=== PATIENT | male | born 1945 | race Caucasian/White ===

== ENCOUNTER → 2018-01-01 08:50 | Outpatient (CLI) | payer MEDICARE, OTHER, SELFPAY ==
[2018-01-01 10:15] LABS: Add Manual Diff / Slide Review NO; Basophils Percent Auto 0.7 % (0-2); Eosinophils Percent Auto 3.9 % (2-4); Hematocrit 42.8 % (41-53); Hemoglobin 14.3 g/dL (13.5-17.5); Mean Corpuscular HGB Conc 33.4 % (30-36); Mean Corpuscular Hemoglobin 30.7 PG (26-34); Mean Corpuscular Volume 91.8 fL (80-100); Neutrophils Absolute Auto 3000 /uL (3000-5900); Neutrophils Percent Auto 65.4 % (50-75); Platelet Count 173 X10^3/uL (150-400); Red Blood Cell Count 4.66 X10^6/uL (4.5-5.9); Red Cell Distribution Width 13.6 % (11.6-14.8); White Blood Cell Count 4.5 X10^3/uL (4.5-11.0)
[2018-01-01 10:38] LABS: Alanine Aminotransferase 10 IU/L (21-72); Albumin 4.3 g/dL (3.5-5.0); Albumin Globulin Ratio 1.4 (1.0-2.8); Alkaline Phosphatase 41 U/L (38-126); Aspartate Aminotransferase 22 IU/L (17-59); BUN Creatinine Ratio 13.3 (6-22); Bilirubin Total 0.9 mg/dL (0.2-1.3); Blood Urea Nitrogen 16 mg/dL (9-20); Carbon Dioxide 28 mmol/L (22-32); Chloride 103 mmol/L (98-107); Cholesterol 125 mg/dL (140-199); Estimated Glomerular Filt Rate 59.2 mL/min (>60); Glucose 91 mg/dL (80-110); HDL Cholesterol 50 mg/dL (40-60); HEMOLYSIS < 15 (0-50); LDL Cholesterol Calculated 64 mg/dL (<100); Sodium 144 mmol/L (137-145); Total Protein 7.3 g/dL (6.3-8.2); Triglycerides 57 mg/dL (35-150); Uric Acid 6.8 mg/dL (3.5-8.5)
[2018-01-01 10:57] LABS: Hemoglobin A1C% w Est Avg Glu 5.6 % (4.0-6.0)
[2018-01-01 11:03] LABS: TSH w/ Reflex to FT4 2.86 uIU/mL (0.47-4.68)
[2018-01-01 16:55] LABS: High Sensitivity CRP - Cardiac 0.9 mg/L (1.0-3.0)
[2018-01-01 17:07] LABS: HEMOLYSIS < 15 (0-50); Iron 85 ug/dL (49-181)
[2018-01-01 17:16] LABS: Vitamin D 25 Hydroxy (D3) 54.5 ng/mL (30.0-100.0)
[2018-01-01 17:18] LABS: Percent Iron Saturation 34 % (20-50); Total Iron Binding Capacity 252 ug/dL (261-462); Transferrin 200 mg/dL (206-381)
[2018-01-01 17:42] LABS: Vitamin B12 252 pg/mL (239-931)
== END ==
PROVIDERS: PCP Family Medicine; Visit Provider Family Medicine
DX: E78.5 Hyperlipidemia, unspecified (principal); R53.83 Other fatigue; I25.10 Atherosclerotic heart disease of native coronary artery without angina pectoris; M10.9 Gout, unspecified; Z13.29 Encounter for screening for other suspected endocrine disorder; E74.39 Other disorders of intestinal carbohydrate absorption; E55.9 Vitamin D deficiency, unspecified; D64.9 Anemia, unspecified; R20.0 Anesthesia of skin
CPT/HCPCS: 36415; 80053; 80061; 82306; 82607; 83036; 83540; 83550; 84443; 84550; 85025; 86140

== ENCOUNTER → 2018-01-02 11:42 | Outpatient (CLI) | payer MEDICARE, OTHER, SELFPAY ==
[2018-01-04 17:13] LABS: Dehydroepiandrosterone Sulfate 67 mcg/dL (5-253)
[2018-01-05 16:23] LABS: Homocysteine 19.9 umol/L (< 11.4)
[2018-01-05 19:54] LABS: Methylmalonic Acid 268 nmol/L (87-318)
== END ==
PROVIDERS: PCP Family Medicine; Visit Provider Family Medicine
DX: I10 Essential (primary) hypertension (principal)
CPT/HCPCS: 36415; 82627; 83090; 83921

== ENCOUNTER → 2019-11-09 15:10 | Outpatient (CLI) | payer MEDICARE, OTHER, SELFPAY ==
[2019-11-10 10:56] LABS: COVID19 Sendout Not Detected (Not Detect)
== END ==
PROVIDERS: Family Provider Family Medicine; PCP Family Medicine; Visit Provider Nurse Practitioner
DX: Z11.59 Encounter for screening for other viral diseases (principal)
CPT/HCPCS: 87635

== ENCOUNTER 2019-11-27 14:15 | Outpatient (RCR) | payer MEDICARE, OTHER, SELFPAY ==
--- NOTE | 2019-10-31 15:57 | PT.OIE ---
Current Diagnoses Parkinson's disease (10/31/19) Visit Care Team Role Provider Type Suman Clifton MD Family Provider Non-Staff Primary Care Provider Specialty: Medical Address: [address] [place] [address] [address], [place], [address] Email: Leidy Hayes MD Attending Provider Non-Staff Referring Provider Specialty: Medical Address: [address] [place] [address] [address], [place], [address] Fax: Email: Physical Therapy Initial Evaluation PT-OP-A Visit Information Start: 10/31/19 07:24 Freq: Status: Active Protocol: Document 10/31/19 14:11 MB (Rec: 10/31/19 14:30 MB [id number]) Out-Patient Physical Therapy Visit Information Visit Information Visit Type Initial Evaluation Visit Note Pt arrives for BIG evaluation Visit Start Time 14:11 Visit Stop Time 15:11 Total Visit Minutes 60 Visit Number 1 Evaluation Information Evaluation Date 10/31/19 PT-OP-B Current Condition Start: 10/31/19 07:24 Freq: Status: Active Protocol: Document 10/31/19 14:11 MB (Rec: 10/31/19 14:30 MB [id number]) Current Condition History of Current Condition Onset Date Three to four years ago Current Complaints Slow movement, memory impairment History of Current Condition Pt has tried different kinds of PT since diagnosis. His read up on LSVT BIG. He will be receiving concurrent LSVT LOUD. Pt denies pain. He only has Carbadopa listed as medications. PMH: cardiac stent 5 years ago d/t decreased stamina. Pt lives with his . He does not have to do steps. Pt is driving. Pt denies falls. He stumbles over feet but catches himself. 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 Pt would like to get back to fishing. He has not fished in a year. Pt does not use AD. He is doing some boxing therapy. He does not have a punching bag. He is doing a video of [employer]. He does it 3x/wk for 1 hour at a time. Pt denies tremor. Pt reports light-headedness that is worse in the morning. Pt reports memory impairment, slow movement and worsening writing. Treatment Goals Patient/Caregiver Goals To make improvements with the slowness and memory. PT-OP-C Subjective Start: 10/31/19 07:24 Freq: Status: Active Protocol: Document 10/31/19 14:11 MB (Rec: 10/31/19 14:30 MB [id number]) OP-PT Subjective Patient Comments Patient Comments Pt reports light-headedness, worse in the morning, with history of low BP. He has two new medications that he does not know the name of. PT-OP-D Balance Start: 10/31/19 07:24 Freq: Status: Active Protocol: Document 10/31/19 14:11 MB (Rec: 10/31/19 15:56 MB [id number]) OP-PT Balance Assessment Sitting Balance Static Sitting Balance Ability Normal Dynamic Sitting Balance Ability Normal Standing Balance Standing Balance Comments SLS left leg 3 sec; right 2 sec. Opposite leg 90/90 Balance Tests Single Limb Standing Single Limb- Right 2 sec Single Limb- Left 3 sec Cervantes Fall Scale Copyright Permission PT-OP-E Functional Tests Start: 10/31/19 07:24 Freq: Status: Active Protocol: Document 10/31/19 14:11 MB (Rec: 10/31/19 15:56 MB [id number]) Functional Tests 30 Second Sit to Stand Test Score 11 Comments Cues to sit all the way down PT-OP-G Mobility & Gait Start: 10/31/19 07:24 Freq: Status: Active Protocol: Document 10/31/19 14:11 MB (Rec: 10/31/19 15:56 MB [id number]) OP Gait Assessment Gait Gait Assistance Required: Standby Assistance Distance (Feet) 1,702 Assistive Devices Assistive Device None,Gait Belt Comments Gait Comments 6MWT this date for baseline measure. Pt presents with decreased arm swing B, pt tends to clasp fists together, left LE tends to turn inward and he presents with left anatomical changes at hip downward PT-OP-J Posture/Palpation/Skin Start: 10/31/19 07:24 Freq: Status: Active Protocol: Document 10/31/19 14:11 MB (Rec: 10/31/19 15:56 MB [id number]) Posture Evaluation Comments Posture Comments Forward head, rounded shoulders, slumps at hips and knees PT-OP-K Range of Motion Start: 10/31/19 07:24 Freq: Status: Active Protocol: Document 10/31/19 14:11 MB (Rec: 10/31/19 15:56 MB [id number]) Shoulder Goniometric Range of Motion Shoulder Left Shoulder ROM WFL No Testing Position Sitting Flexion 150 Abduction 160 Right Shoulder ROM WFL No Testing Position Sitting Flexion 150 Abduction 160 Shoulder ROM Limitations Comments Shoulders do not move symmetrically PT-OP-M Strength Start: 10/31/19 07:24 Freq: Status: Active Protocol: Document 10/31/19 14:11 MB (Rec: 10/31/19 15:56 MB [id number]) Shoulder Strength Shoulder Manual Muscle Testing Left Flexion 5 Normal Abduction (C5) 5 Normal External Rotation 5 Normal Internal Rotation 5 Normal Right Flexion 5 Normal Abduction (C5) 5 Normal External Rotation 5 Normal Internal Rotation 5 Normal Elbow/Forearm Strength Elbow and Forearm Manual Muscle Testing Left Flexion (C6) 5 Normal Extension (C7) 5 Normal Right Flexion (C6) 5 Normal Extension (C7) 5 Normal Hip Strength Hip Manual Muscle Testing Left Flexion (L2) 5 Normal Comments Pt sitting Right Flexion (L2) 5 Normal Comments Pt sitting Knee Strength Knee Manual Muscle Testing Left Flexion (S2) 5 Normal Extension (L3) 5 Normal Comments Pt sitting Right Flexion (S2) 5 Normal Extension (L3) 5 Normal Comments Pt sitting Ankle/Foot Strength Ankle and Foot Manual Muscle Testing Left Dorsiflexion (L4) 5 Normal Right Comments Pt has limited DF with knee extended and cannot tolerate MMT PT-OP-Q Treatments Start: 10/31/19 07:24 Freq: Status: Active Protocol: Document 10/31/19 14:11 MB (Rec: 10/31/19 15:56 MB [id number]) Gait Training Gait Activity 6MWT Comments See comments above Self-Care/Home Management Treatment Education Other Education Pt presents with orthostasis, ed pt on making fluids count ( he is drinking 3 cups decaf coffee a day, 2 L water, 3 beers a week and 1 bottle of wine with on the weekend, 4 oz o.j.), talk with doctor about any straining with BM, as pt notices this, other safety and self-care techniques on handout PT-OP-T Assessment and Plan Start: 10/31/19 07:24 Freq: Status: Active Protocol: Document 10/31/19 14:11 MB (Rec: 10/31/19 15:56 MB [id number]) Physical Therapy Assessment Rehab Potential Rehabilitation Potential Good Evaluation Complexity Number of Personal Factors/Comorbidities 1-2 Number of Body Systems Impaired 1-2 Clinical Presentation at Evaluation Evolving Impairments Impairments Activity Tolerance,Balance, Functional Activities, Functional Mobility,Gait, Posture,ROM,Strength Other Impairments Cognition, orthostasis, progressive neurological disease Other Concerns Fall Risk Pt denies falls at home, has imbalance with SLS today Goals 5 Mcc Goal (LTG) Pt will gait train at least 2000 feet in 6 minutes to improve community ambulation by 12/01/2019. LTG Duration 4 weeks 4 Sales Planning Analyst Goal (LTG) Pt will perform 15 sit to stands without UE support in 30 sec to improve transfers by 12/01/2019. LTG Duration 4 weeks 3 Mcc Goal (LTG) Pt will perform at least 5 functional activity exercises daily with I to improve his personal goals to be determined by next treatment to improve functional I by . LTG Duration 4 weeks 2 Mcc Goal (LTG) Pt will perform all BIG exercises daily with use of handouts or videos to improve amplitude and speed of movement by 12/01/2019. LTG Duration 4 weeks 1 Mcc Goal (LTG) Pt will perform B SLS for at least 20 sec to allow safe donning and doffing of pants and shorts in standing by 11/30. LTG Duration 4 weeks Assessment Summary Assessment Pt is a 74 y/o right hand dominant male presenting with reports of memory impairment, stooped posture and gait, clasping of hands with activities and decreased balance, strength and coordination in setting of 3-4 dx of PD. Pt has trouble following commands for finger to nose testing and tapping over opposite foot. He has trouble with both of these activities B. Rapid supination and pronation is grossly equal. 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 He presents with less thoracic rotation to the right compared to left (50%) and BIG exercises will help improve this which may aid UE movement and posture. He presents with orthostasis with BP and HR in LUE: supine 148/86, 50; standing 100/60, 73; standing 30 sec 112/60, 71. Pt c/o of frequent weakness and light- headedness and PT does feel that orthostasis is a problem. Extensive ed today and recommend that pt follow-up with MD and pharmacist about this. Orthostasis could be a barrier to BIG exercises that require large and quick changes in body position. Pt will benefit from BIG therapy to improve posture, thoracic mobility, gait, strength, and ROM. Physical Therapy Plan Frequency and Duration Frequency of Treatment 4x/Week Duration of Treatment 4 weeks Plan of Care Start Date 10/31/19 Plan of Care End Date 12/05/19 Therapeutic Interventions Therapeutic Interventions Balance Training,Gait Training ,Home Exercise Program, Neuromuscular Re-education, Patient/Caregiver Education, Self-Care/Home Management, Therapeutic Activities, Therapeutic Exercises Next Visit Focus/Plan Next Note Type Treatment Note Next Visit Plan Initiate BIG exercises
--- NOTE | 2019-10-31 15:57 | PT.OPPOC ---
Addendum entered and electronically signed by Meredith Valdez PT 10/31/19 15:59: Try to fax to Leidy Hayes Original Note: Physical, Occupational & Speech Therapy At [facility] Current Diagnoses Parkinson's disease (10/31/19) Visit Care Team Role Provider Type Suman Clifton MD Family Provider Non-Staff Primary Care Provider Specialty: Medical Address: [address] [place] [address] [address], [place], [facility] Email: Leidy Hayes MD Attending Provider Non-Staff Referring Provider Specialty: Medical Address: [address] [place] [address] [address], [place], [place], [facility] Fax: Email: Plan Of Care PT-OP-T Assessment and Plan Start: 10/31/19 07:24 Freq: Status: Active Protocol: Document 10/31/19 14:11 MB (Rec: 10/31/19 15:56 MB [id number]) Physical Therapy Assessment Rehab Potential Rehabilitation Potential Good Evaluation Complexity Number of Personal Factors/Comorbidities 1-2 Number of Body Systems Impaired 1-2 Clinical Presentation at Evaluation Evolving Impairments Impairments Activity Tolerance,Balance, Functional Activities, Functional Mobility,Gait, Posture,ROM,Strength Other Impairments Cognition, orthostasis, progressive neurological disease Other Concerns Fall Risk Pt denies falls at home, has imbalance with SLS today Goals 5 Fpc Goal (LTG) Pt will gait train at least 2000 feet in 6 minutes to improve community ambulation by 12/01/2019. LTG Duration 4 weeks 4 Urban Planning Professor Goal (LTG) Pt will perform 15 sit to stands without UE support in 30 sec to improve transfers by 12/01/2019. LTG Duration 4 weeks 3 Urban Planning Professor Goal (LTG) Pt will perform at least 5 functional activity exercises daily with I to improve his personal goals to be determined by next treatment to improve functional I by . LTG Duration 4 weeks 2 Urban Planning Professor Goal (LTG) Pt will perform all BIG exercises daily with use of handouts or videos to improve amplitude and speed of movement by 12/01/2019. LTG Duration 4 weeks 1 Fpc Goal (LTG) Pt will perform B SLS for at least 20 sec to allow safe donning and doffing of pants and shorts in standing by 11/30. LTG Duration 4 weeks Assessment Summary Assessment Pt is a 74 y/o right hand dominant male presenting with reports of memory impairment, stooped posture and gait, clasping of hands with activities and decreased balance, strength and coordination in setting of 3-4 dx of PD. Pt has trouble following commands for finger to nose testing and tapping over opposite foot. He has trouble with both of these activities B. Rapid supination and pronation is grossly equal. 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 He presents with less thoracic rotation to the right compared to left (50%) and BIG exercises will help improve this which may aid UE movement and posture. He presents with orthostasis with BP and HR in LUE: supine 148/86, 50; standing 100/60, 73; standing 30 sec 112/60, 71. Pt c/o of frequent weakness and light- headedness and PT does feel that orthostasis is a problem. Extensive ed today and recommend that pt follow-up with MD and pharmacist about this. Orthostasis could be a barrier to BIG exercises that require large and quick changes in body position. Pt will benefit from BIG therapy to improve posture, thoracic mobility, gait, strength, and ROM. Physical Therapy Plan Frequency and Duration Frequency of Treatment 4x/Week Duration of Treatment 4 weeks Plan of Care Start Date 10/31/19 Plan of Care End Date 12/05/19 Therapeutic Interventions Therapeutic Interventions Balance Training,Gait Training ,Home Exercise Program, Neuromuscular Re-education, Patient/Caregiver Education, Self-Care/Home Management, Therapeutic Activities, Therapeutic Exercises Next Visit Focus/Plan Next Note Type Treatment Note Next Visit Plan Initiate BIG exercises Plan of Care Dates Plan of Care Start Date 10/31/19 Plan of Care End Date 12/05/19 Electronically Signed by: Meredith Valdez, PT 10/31/19 [id number] Please Sign and Return: I have reviewed this Plan of Care and certify that the skilled therapy services above are required to meet the patient?s needs. Physician Signature Date Printed Name and Credentials Clinical Instructor Signature Printed Name and Credentials
--- NOTE | 2019-11-03 15:37 | PT.OTN ---
Current Diagnoses Parkinson's disease (11/03/19) Physical Therapy Treatment Note PT-OP-A Visit Information Start: 10/31/19 07:24 Freq: Status: Active Protocol: Document 11/03/19 14:15 MB (Rec: 11/03/19 15:34 MB [id number]) Out-Patient Physical Therapy Visit Information Visit Information Visit Type Treatment Note Visit Note First BIG treatment Visit Start Time 14:15 Visit Stop Time 15:15 Total Visit Minutes 60 Visit Number 2 PT-OP-B Current Condition Start: 10/31/19 07:24 Freq: Status: Active Protocol: Document 10/31/19 14:11 MB (Rec: 10/31/19 14:30 MB [id number]) Current Condition History of Current Condition Onset Date Three to four years ago Current Complaints Slow movement, memory impairment History of Current Condition Pt has tried different kinds of PT since diagnosis. His read up on LSVT BIG. He will be receiving concurrent LSVT LOUD. Pt denies pain. He only has Carbadopa listed as medications. PMH: cardiac stent 5 years ago d/t decreased stamina. Pt lives with his . He does not have to do steps. Pt is driving. Pt denies falls. He stumbles over feet but catches himself. 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 Pt would like to get back to fishing. He has not fished in a year. Pt does not use AD. He is doing some boxing therapy. He does not have a punching bag. He is doing a video of [employer]. He does it 3x/wk for 1 hour at a time. Pt denies tremor. Pt reports light-headedness that is worse in the morning. Pt reports memory impairment, slow movement and worsening writing. Treatment Goals Patient/Caregiver Goals To make improvements with the slowness and memory. PT-OP-C Subjective Start: 10/31/19 07:24 Freq: Status: Active Protocol: Document 11/03/19 14:15 MB (Rec: 11/03/19 15:34 MB [id number]) OP-PT Subjective Patient Comments Patient Comments Pt states that he has no new questions for PT. When reviewing his functional tasks recording form, he has many cognitive, gross motor and fine motor tasks listed. Narrowed down to hardest: buttons, use of cell phone, using pill box and moving in and out of bed. PT-OP-D Balance Start: 10/31/19 07:24 Freq: Status: Active Protocol: Document 10/31/19 14:11 MB (Rec: 10/31/19 15:56 MB [id number]) OP-PT Balance Assessment Sitting Balance Static Sitting Balance Ability Normal Dynamic Sitting Balance Ability Normal Standing Balance Standing Balance Comments SLS left leg 3 sec; right 2 sec. Opposite leg 90/90 Balance Tests Single Limb Standing Single Limb- Right 2 sec Single Limb- Left 3 sec Cervantes Fall Scale Copyright Permission PT-OP-E Functional Tests Start: 10/31/19 07:24 Freq: Status: Active Protocol: Document 10/31/19 14:11 MB (Rec: 10/31/19 15:56 MB [id number]) Functional Tests 30 Second Sit to Stand Test Score 11 Comments Cues to sit all the way down PT-OP-G Mobility & Gait Start: 10/31/19 07:24 Freq: Status: Active Protocol: Document 10/31/19 14:11 MB (Rec: 10/31/19 15:56 MB [id number]) OP Gait Assessment Gait Gait Assistance Required: Standby Assistance Distance (Feet) 1,702 Assistive Devices Assistive Device None,Gait Belt Comments Gait Comments 6MWT this date for baseline measure. Pt presents with decreased arm swing B, pt tends to clasp fists together, left LE tends to turn inward and he presents with left anatomical changes at hip downward PT-OP-J Posture/Palpation/Skin Start: 10/31/19 07:24 Freq: Status: Active Protocol: Document 10/31/19 14:11 MB (Rec: 10/31/19 15:56 MB [id number]) Posture Evaluation Comments Posture Comments Forward head, rounded shoulders, slumps at hips and knees PT-OP-K Range of Motion Start: 10/31/19 07:24 Freq: Status: Active Protocol: Document 10/31/19 14:11 MB (Rec: 10/31/19 15:56 MB [id number]) Shoulder Goniometric Range of Motion Shoulder Left Shoulder ROM WFL No Testing Position Sitting Flexion 150 Abduction 160 Right Shoulder ROM WFL No Testing Position Sitting Flexion 150 Abduction 160 Shoulder ROM Limitations Comments Shoulders do not move symmetrically PT-OP-M Strength Start: 10/31/19 07:24 Freq: Status: Active Protocol: Document 10/31/19 14:11 MB (Rec: 10/31/19 15:56 MB [id number]) Shoulder Strength Shoulder Manual Muscle Testing Left Flexion 5 Normal Abduction (C5) 5 Normal External Rotation 5 Normal Internal Rotation 5 Normal Right Flexion 5 Normal Abduction (C5) 5 Normal External Rotation 5 Normal Internal Rotation 5 Normal Elbow/Forearm Strength Elbow and Forearm Manual Muscle Testing Left Flexion (C6) 5 Normal Extension (C7) 5 Normal Right Flexion (C6) 5 Normal Extension (C7) 5 Normal Hip Strength Hip Manual Muscle Testing Left Flexion (L2) 5 Normal Comments Pt sitting Right Flexion (L2) 5 Normal Comments Pt sitting Knee Strength Knee Manual Muscle Testing Left Flexion (S2) 5 Normal Extension (L3) 5 Normal Comments Pt sitting Right Flexion (S2) 5 Normal Extension (L3) 5 Normal Comments Pt sitting Ankle/Foot Strength Ankle and Foot Manual Muscle Testing Left Dorsiflexion (L4) 5 Normal Right Comments Pt has limited DF with knee extended and cannot tolerate MMT PT-OP-Q Treatments Start: 10/31/19 07:24 Freq: Status: Active Protocol: Document 11/03/19 14:15 MB (Rec: 11/03/19 15:34 MB [id number]) Therapeutic Exercises Sitting Exercises Side to side Side bilateral Reps/Minutes 8 Comments Extensive time, VCs and tactile cues for UE position, trouble big back leg Sit to stand Comments PT demonstrates today as run out of time for pt training and performance Floor to ceiling Reps/Minutes 8 reps Comments Over 10 minutes of training, pt is able to perform with cues and demo Standing Exercises Sideways rock and reach Side bilateral Comments PT demo only today d/t ran out of time Forward rock and reach Side bilateral Comments PT demo only today d/t ran out of time Backward step Side bilateral Reps/Minutes 5 Comments Extensive demo and tactile and VCs, pt unable to figure out LE/UE movements Sideways step Side bilateral Reps/Minutes 8 Comments Extensive ed and demo, tactile asst for UE movement, broke down UE and LE Forward step Side bilateral Reps/Minutes 10 Comments Broke down UE and LE motions, pt has trouble with UE movement Self-Care/Home Management Treatment Education Other Education Lent pt LSVT BIG video to watch with his and to try the exercises performed with PT today: floor to ceiling, side to side, forward step and side step Ed pt in benefits of asking his to attend next PT treatment for exercise education Ed pt to bring in pill box, shirt/jacket to button and phone in future treatment to practive functional tasks PT-OP-T Assessment and Plan Start: 10/31/19 07:24 Freq: Status: Active Protocol: Document 11/03/19 14:15 MB (Rec: 11/03/19 15:37 MB [id number]) Physical Therapy Assessment Rehab Potential Rehabilitation Potential Good Evaluation Complexity Number of Personal Factors/Comorbidities 1-2 Number of Body Systems Impaired 1-2 Clinical Presentation at Evaluation Evolving Impairments Impairments Activity Tolerance,Balance, Functional Activities, Functional Mobility,Gait, Posture,ROM,Strength Other Impairments Cognition, orthostasis, progressive neurological disease Other Concerns Fall Risk Pt denies falls at home, has imbalance with SLS today Goals 5 Penitentiary Goal (LTG) Pt will gait train at least 2000 feet in 6 minutes to improve community ambulation by 12/01/2019. LTG Duration 4 weeks 4 Senior Materials Analyst Goal (LTG) Pt will perform 15 sit to stands without UE support in 30 sec to improve transfers by 12/01/2019. LTG Duration 4 weeks 3 Penitentiary Goal (LTG) Pt will perform at least 5 functional activity exercises daily with I to improve his personal goals to be determined by next treatment to improve functional I by . LTG Duration 4 weeks 2 Senior Materials Analyst Goal (LTG) Pt will perform all BIG exercises daily with use of handouts or videos to improve amplitude and speed of movement by 12/01/2019. LTG Duration 4 weeks 1 Penitentiary Goal (LTG) Pt will perform B SLS for at least 20 sec to allow safe donning and doffing of pants and shorts in standing by 11/30. LTG Duration 4 weeks Assessment Summary Assessment Pt has a lot of trouble with all exercises and his trouble appears to be cognitive and fatigue related. These might be a barrier to PT. He denies light-headedness with exercises and does have history of orthostasis. to come to next treatment pt borrows PT homework video and so hope this will help with exercises. PT is unable to get pt through all eight exercises today d/t trouble understanding and completing the first 5 exercises. Physical Therapy Plan Frequency and Duration Frequency of Treatment 4x/Week Duration of Treatment 4 weeks Plan of Care Start Date 10/31/19 Plan of Care End Date 12/05/19 Therapeutic Interventions Therapeutic Interventions Balance Training,Gait Training ,Home Exercise Program, Neuromuscular Re-education, Patient/Caregiver Education, Self-Care/Home Management, Therapeutic Activities, Therapeutic Exercises Next Visit Focus/Plan Next Note Type Treatment Note Next Visit Plan BIG exercises Functional activities will be: buttoning, use of cell phone, moving in and out of bed and using a pill box
--- NOTE | 2019-11-04 15:33 | PT.OTN ---
Current Diagnoses Parkinson's disease (11/04/19) Physical Therapy Treatment Note PT-OP-A Visit Information Start: 10/31/19 07:24 Freq: Status: Active Protocol: Document 11/04/19 14:15 MB (Rec: 11/04/19 15:32 MB [id number]) Out-Patient Physical Therapy Visit Information Visit Information Visit Type Treatment Note Visit Start Time 14:15 Visit Stop Time 15:15 Total Visit Minutes 60 Visit Number 3 PT-OP-B Current Condition Start: 10/31/19 07:24 Freq: Status: Active Protocol: Document 10/31/19 14:11 MB (Rec: 10/31/19 14:30 MB [id number]) Current Condition History of Current Condition Onset Date Three to four years ago Current Complaints Slow movement, memory impairment History of Current Condition Pt has tried different kinds of PT since diagnosis. His read up on LSVT BIG. He will be receiving concurrent LSVT LOUD. Pt denies pain. He only has Carbadopa listed as medications. PMH: cardiac stent 5 years ago d/t decreased stamina. Pt lives with his . He does not have to do steps. Pt is driving. Pt denies falls. He stumbles over feet but catches himself. 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 Pt would like to get back to [employer]. He has not fished in a year. Pt does not use AD. He is doing some boxing therapy. He does not have a punching bag. He is doing a video of [employer]. He does it 3x/wk for 1 hour at a time. Pt denies tremor. Pt reports light-headedness that is worse in the morning. Pt reports memory impairment, slow movement and worsening writing. Treatment Goals Patient/Caregiver Goals To make improvements with the slowness and memory. PT-OP-C Subjective Start: 10/31/19 07:24 Freq: Status: Active Protocol: Document 11/04/19 14:15 MB (Rec: 11/04/19 15:32 MB [id number]) OP-PT Subjective Patient Comments Patient Comments , Shauna, arrives with pt to BIG appointment. She states that pt was discouraged after last treatment d/t realizing how much deficits he has because of PD. They watched homework video together and tried some of the exercises at home. PT-OP-D Balance Start: 10/31/19 07:24 Freq: Status: Active Protocol: Document 10/31/19 14:11 MB (Rec: 10/31/19 15:56 MB [id number]) OP-PT Balance Assessment Sitting Balance Static Sitting Balance Ability Normal Dynamic Sitting Balance Ability Normal Standing Balance Standing Balance Comments SLS left leg 3 sec; right 2 sec. Opposite leg 90/90 Balance Tests Single Limb Standing Single Limb- Right 2 sec Single Limb- Left 3 sec Cervantes Fall Scale Copyright Permission PT-OP-E Functional Tests Start: 10/31/19 07:24 Freq: Status: Active Protocol: Document 10/31/19 14:11 MB (Rec: 10/31/19 15:56 MB [id number]) Functional Tests 30 Second Sit to Stand Test Score 11 Comments Cues to sit all the way down PT-OP-G Mobility & Gait Start: 10/31/19 07:24 Freq: Status: Active Protocol: Document 10/31/19 14:11 MB (Rec: 10/31/19 15:56 MB [id number]) OP Gait Assessment Gait Gait Assistance Required: Standby Assistance Distance (Feet) 1,702 Assistive Devices Assistive Device None,Gait Belt Comments Gait Comments 6MWT this date for baseline measure. Pt presents with decreased arm swing B, pt tends to clasp fists together, left LE tends to turn inward and he presents with left anatomical changes at hip downward PT-OP-J Posture/Palpation/Skin Start: 10/31/19 07:24 Freq: Status: Active Protocol: Document 10/31/19 14:11 MB (Rec: 10/31/19 15:56 MB [id number]) Posture Evaluation Comments Posture Comments Forward head, rounded shoulders, slumps at hips and knees PT-OP-K Range of Motion Start: 10/31/19 07:24 Freq: Status: Active Protocol: Document 10/31/19 14:11 MB (Rec: 10/31/19 15:56 MB [id number]) Shoulder Goniometric Range of Motion Shoulder Left Shoulder ROM WFL No Testing Position Sitting Flexion 150 Abduction 160 Right Shoulder ROM WFL No Testing Position Sitting Flexion 150 Abduction 160 Shoulder ROM Limitations Comments Shoulders do not move symmetrically PT-OP-M Strength Start: 10/31/19 07:24 Freq: Status: Active Protocol: Document 10/31/19 14:11 MB (Rec: 10/31/19 15:56 MB [id number]) Shoulder Strength Shoulder Manual Muscle Testing Left Flexion 5 Normal Abduction (C5) 5 Normal External Rotation 5 Normal Internal Rotation 5 Normal Right Flexion 5 Normal Abduction (C5) 5 Normal External Rotation 5 Normal Internal Rotation 5 Normal Elbow/Forearm Strength Elbow and Forearm Manual Muscle Testing Left Flexion (C6) 5 Normal Extension (C7) 5 Normal Right Flexion (C6) 5 Normal Extension (C7) 5 Normal Hip Strength Hip Manual Muscle Testing Left Flexion (L2) 5 Normal Comments Pt sitting Right Flexion (L2) 5 Normal Comments Pt sitting Knee Strength Knee Manual Muscle Testing Left Flexion (S2) 5 Normal Extension (L3) 5 Normal Comments Pt sitting Right Flexion (S2) 5 Normal Extension (L3) 5 Normal Comments Pt sitting Ankle/Foot Strength Ankle and Foot Manual Muscle Testing Left Dorsiflexion (L4) 5 Normal Right Comments Pt has limited DF with knee extended and cannot tolerate MMT PT-OP-Q Treatments Start: 10/31/19 07:24 Freq: Status: Active Protocol: Document 11/04/19 14:15 MB (Rec: 11/04/19 15:32 MB [id number]) Therapeutic Exercises Sitting Exercises Side to side Sitting Exercise Name Pt performs LE movement only today, ran out of time Reps/Minutes 4 Comments PT demo, provided handout to pt and today Sit to stand Reps/Minutes 6 Comments PT cues for hand placement in standing Floor to ceiling Comments PT demo today d/t ran out of time after other exercises ed Standing Exercises Sideways rock and reach Side bilateral Reps/Minutes 10 Comments Extensive time for ed and practice today Forward rock and reach Side bilateral Comments 10, cues for foot movement Backward step Side bilateral Reps/Minutes 5 Comments Broke down UE and LE movements x10 B Sideways step Comments PT demo only today d/t prioritizing time Forward step Comments PT demo only today d/t triaging pt needs Self-Care/Home Management Treatment Education Other Education Provided exercise handouts today and record recording sheet, ed to pt and to perform exercises once at home with video in the mornings before PT treatments PT-OP-T Assessment and Plan Start: 10/31/19 07:24 Freq: Status: Active Protocol: Document 11/04/19 14:15 MB (Rec: 11/04/19 15:32 MB [id number]) Physical Therapy Assessment Rehab Potential Rehabilitation Potential Good Evaluation Complexity Number of Personal Factors/Comorbidities 1-2 Number of Body Systems Impaired 1-2 Clinical Presentation at Evaluation Evolving Impairments Impairments Activity Tolerance,Balance, Functional Activities, Functional Mobility,Gait, Posture,ROM,Strength Other Impairments Cognition, orthostasis, progressive neurological disease Other Concerns Fall Risk Pt denies falls at home, has imbalance with SLS today Goals 5 Correction Goal (LTG) Pt will gait train at least 2000 feet in 6 minutes to improve community ambulation by 12/01/2019. LTG Duration 4 weeks 4 [employer] Sho[employer] Goal (LTG) Pt will perform 15 sit to stands without UE support in 30 sec to improve transfers by 12/01/2019. LTG Duration 4 weeks 3 [employer] Shovel [employer] Goal (LTG) Pt will perform at least 5 functional activity exercises daily with I to improve his personal goals to be determined by next treatment to improve functional I by . LTG Duration 4 weeks 2 Correction Goal (LTG) Pt will perform all BIG exercises daily with use of handouts or videos to improve amplitude and speed of movement by 12/01/2019. LTG Duration 4 weeks 1 Correction Goal (LTG) Pt will perform B SLS for at least 20 sec to allow safe donning and doffing of pants and shorts in standing by 11/30. LTG Duration 4 weeks Assessment Summary Assessment Pt's , Shauna, comes to treatment today and is very supportive. After treatment today, she reports that she feels good about supporting pt with exercises at home. Pt picks up rocking exercises and sit to stands much quicker than backwards and side step. This is encouraging in that anticipate ongoing improvement with exercise education, performance and carryover. Try to make it through all exercises tomorrow, may have to limit repetition number. Recommend come to appointment tomorrow and any appointments she would like as she is encouraging to pt and will support him at home. Physical Therapy Plan Frequency and Duration Frequency of Treatment 4x/Week Duration of Treatment 4 weeks Plan of Care Start Date 10/31/19 Plan of Care End Date 12/05/19 Therapeutic Interventions Therapeutic Interventions Balance Training,Gait Training ,Home Exercise Program, Neuromuscular Re-education, Patient/Caregiver Education, Self-Care/Home Management, Therapeutic Activities, Therapeutic Exercises Next Visit Focus/Plan Next Note Type Treatment Note Next Visit Plan BIG exercises Functional activities will be: buttoning, use of cell phone, moving in and out of bed and using a pill box
--- NOTE | 2019-11-05 15:41 | PT.OTN ---
Current Diagnoses Parkinson's disease (11/05/19) Physical Therapy Treatment Note PT-OP-A Visit Information Start: 10/31/19 07:24 Freq: Status: Active Protocol: Document 11/05/19 15:16 AW (Rec: 11/05/19 15:40 AW [id number]) Out-Patient Physical Therapy Visit Information Visit Information Visit Type Treatment Note Visit Note 06/01 BIG treatment Visit Start Time 14:15 Visit Stop Time 15:12 Total Visit Minutes 57 Visit Number 4 Evaluation Information Evaluation Date 10/31/19 PT-OP-B Current Condition Start: 10/31/19 07:24 Freq: Status: Active Protocol: Document 10/31/19 14:11 MB (Rec: 10/31/19 14:30 MB [id number]) Current Condition History of Current Condition Onset Date Three to four years ago Current Complaints Slow movement, memory impairment History of Current Condition Pt has tried different kinds of PT since diagnosis. His read up on LSVT BIG. He will be receiving concurrent LSVT LOUD. Pt denies pain. He only has Carbadopa listed as medications. PMH: cardiac stent 5 years ago d/t decreased stamina. Pt lives with his . He does not have to do steps. Pt is driving. Pt denies falls. He stumbles over feet but catches himself. 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 Pt would like to get back to [employer]. He has not fished in a year. Pt does not use AD. He is doing some boxing therapy. He does not have a punching bag. He is doing a video of [employer]. He does it 3x/wk for 1 hour at a time. Pt denies tremor. Pt reports light-headedness that is worse in the morning. Pt reports memory impairment, slow movement and worsening writing. Treatment Goals Patient/Caregiver Goals To make improvements with the slowness and memory. PT-OP-C Subjective Start: 10/31/19 07:24 Freq: Status: Active Protocol: Document 11/05/19 15:16 AW (Rec: 11/05/19 15:40 AW [id number]) OP-PT Subjective Patient Comments Patient Comments Pt's , Shauna, attended again today. They have questions about the daily exercises. PT-OP-D Balance Start: 10/31/19 07:24 Freq: Status: Active Protocol: Document 10/31/19 14:11 MB (Rec: 10/31/19 15:56 MB [id number]) OP-PT Balance Assessment Sitting Balance Static Sitting Balance Ability Normal Dynamic Sitting Balance Ability Normal Standing Balance Standing Balance Comments SLS left leg 3 sec; right 2 sec. Opposite leg 90/90 Balance Tests Single Limb Standing Single Limb- Right 2 sec Single Limb- Left 3 sec Cervantes Fall Scale Copyright Permission PT-OP-E Functional Tests Start: 10/31/19 07:24 Freq: Status: Active Protocol: Document 10/31/19 14:11 MB (Rec: 10/31/19 15:56 MB [id number]) Functional Tests 30 Second Sit to Stand Test Score 11 Comments Cues to sit all the way down PT-OP-G Mobility & Gait Start: 10/31/19 07:24 Freq: Status: Active Protocol: Document 10/31/19 14:11 MB (Rec: 10/31/19 15:56 MB [id number]) OP Gait Assessment Gait Gait Assistance Required: Standby Assistance Distance (Feet) 1,702 Assistive Devices Assistive Device None,Gait Belt Comments Gait Comments 6MWT this date for baseline measure. Pt presents with decreased arm swing B, pt tends to clasp fists together, left LE tends to turn inward and he presents with left anatomical changes at hip downward PT-OP-J Posture/Palpation/Skin Start: 10/31/19 07:24 Freq: Status: Active Protocol: Document 10/31/19 14:11 MB (Rec: 10/31/19 15:56 MB [id number]) Posture Evaluation Comments Posture Comments Forward head, rounded shoulders, slumps at hips and knees PT-OP-K Range of Motion Start: 10/31/19 07:24 Freq: Status: Active Protocol: Document 10/31/19 14:11 MB (Rec: 10/31/19 15:56 MB [id number]) Shoulder Goniometric Range of Motion Shoulder Left Shoulder ROM WFL No Testing Position Sitting Flexion 150 Abduction 160 Right Shoulder ROM WFL No Testing Position Sitting Flexion 150 Abduction 160 Shoulder ROM Limitations Comments Shoulders do not move symmetrically PT-OP-M Strength Start: 10/31/19 07:24 Freq: Status: Active Protocol: Document 10/31/19 14:11 MB (Rec: 10/31/19 15:56 MB [id number]) Shoulder Strength Shoulder Manual Muscle Testing Left Flexion 5 Normal Abduction (C5) 5 Normal External Rotation 5 Normal Internal Rotation 5 Normal Right Flexion 5 Normal Abduction (C5) 5 Normal External Rotation 5 Normal Internal Rotation 5 Normal Elbow/Forearm Strength Elbow and Forearm Manual Muscle Testing Left Flexion (C6) 5 Normal Extension (C7) 5 Normal Right Flexion (C6) 5 Normal Extension (C7) 5 Normal Hip Strength Hip Manual Muscle Testing Left Flexion (L2) 5 Normal Comments Pt sitting Right Flexion (L2) 5 Normal Comments Pt sitting Knee Strength Knee Manual Muscle Testing Left Flexion (S2) 5 Normal Extension (L3) 5 Normal Comments Pt sitting Right Flexion (S2) 5 Normal Extension (L3) 5 Normal Comments Pt sitting Ankle/Foot Strength Ankle and Foot Manual Muscle Testing Left Dorsiflexion (L4) 5 Normal Right Comments Pt has limited DF with knee extended and cannot tolerate MMT PT-OP-Q Treatments Start: 10/31/19 07:24 Freq: Status: Active Protocol: Document 11/05/19 15:16 AW (Rec: 11/05/19 15:40 AW [id number]) Therapeutic Exercises Sitting Exercises Side to side Sitting Exercise Name side to side Side bilateral Reps/Minutes 6 each side Comments modeling and tactile feedback for BIG reach, upright posture Sit to stand Sitting Exercise Name sit to stand Equipment Used standard ht chair Reps/Minutes 5 reps x 2 Comments cues for BIG forward lean like diving into a pool Floor to ceiling Sitting Exercise Name floor to ceiling Equipment Used standard ht chair Reps/Minutes 8 Comments cues for BIG posture throughout Standing Exercises Sideways rock and reach Standing Exercise Name sideways rock and reach Side bilateral Reps/Minutes 8 each side Comments improvement with cues for pivot on back foot Forward rock and reach Side bilateral Reps/Minutes 10 each side Comments cues for weight shift; LE first then added UE Backward step Side bilateral Reps/Minutes 8 each side Comments Broke down UE and LE movements x10 B Sideways step Standing Exercise Name sideways step Side bilateral Reps/Minutes 8 each side Comments good uncued rotation; cues for pronation Forward step Standing Exercise Name forward step Side bilateral Reps/Minutes 10 each side Comments cues for BIG step/foot clearance Gait Training Gait Activity BIG walking Description BIG walking Device Used none Surface paved Distance/Duration 100 feet x 12 Treatment Focus arm swing Comments Pt cued for bigger arm swing throughout. He was definitely stimulable but unable to produce greatly exaggerated arm swing. Educated pt on sensory mismatch between perceived movement/neural drive and motor output. Self-Care/Home Management Treatment Education Other Education Educated pt on sensory mismatch between perceived movement/neural drive and motor output. PT-OP-T Assessment and Plan Start: 10/31/19 07:24 Freq: Status: Active Protocol: Document 11/05/19 15:16 AW (Rec: 11/05/19 15:40 AW [id number]) Physical Therapy Assessment Rehab Potential Rehabilitation Potential Good Evaluation Complexity Number of Personal Factors/Comorbidities 1-2 Number of Body Systems Impaired 1-2 Clinical Presentation at Evaluation Evolving Impairments Impairments Activity Tolerance,Balance, Functional Activities, Functional Mobility,Gait, Posture,ROM,Strength Other Impairments Cognition, orthostasis, progressive neurological disease Other Concerns Fall Risk Pt denies falls at home, has imbalance with SLS today Goals 5 [facility] Goal (LTG) Pt will gait train at least 2000 feet in 6 minutes to improve community ambulation by 12/01/2019. LTG Duration 4 weeks 4 [facility] Goal (LTG) Pt will perform 15 sit to stands without UE support in 30 sec to improve transfers by 12/01/2019. LTG Duration 4 weeks 3 Cane Loader Goal (LTG) Pt will perform at least 5 functional activity exercises daily with I to improve his personal goals to be determined by next treatment to improve functional I by . LTG Duration 4 weeks 2 [facility] Goal (LTG) Pt will perform all BIG exercises daily with use of handouts or videos to improve amplitude and speed of movement by 12/01/2019. LTG Duration 4 weeks 1 [facility] Goal (LTG) Pt will perform B SLS for at least 20 sec to allow safe donning and doffing of pants and shorts in standing by 11/30. LTG Duration 4 weeks Assessment Summary Assessment Pt's , Shauna, asks today about how best to support the pt doing exercises at home. PT indicated minimal verbal feedback and standby assist for exercises is sufficient at this stage, explaining the goal of self-cueing and self- management of amplitude. Pt appears frustrated with difficulty picking up certain exercises but PT reassured him that he was looking good on day three. Also provided plenty of positive feedback on uncued self-corrections. Physical Therapy Plan Frequency and Duration Frequency of Treatment 4x/Week Duration of Treatment 4 weeks Plan of Care Start Date 10/31/19 Plan of Care End Date 12/05/19 Therapeutic Interventions Therapeutic Interventions Balance Training,Gait Training ,Home Exercise Program, Neuromuscular Re-education, Patient/Caregiver Education, Self-Care/Home Management, Therapeutic Activities, Therapeutic Exercises Next Visit Focus/Plan Next Note Type Treatment Note Next Visit Plan BIG exercises Functional activities will be: buttoning, use of cell phone, moving in and out of bed and using a pill box
--- NOTE | 2019-11-06 15:39 | PT.OTN ---
Current Diagnoses Parkinson's disease (11/06/19) Physical Therapy Treatment Note PT-OP-A Visit Information Start: 10/31/19 07:24 Freq: Status: Active Protocol: Document 11/06/19 15:22 AW (Rec: 11/06/19 15:39 AW [id number]) Out-Patient Physical Therapy Visit Information Visit Information Visit Type Treatment Note Visit Note 07/02 BIG treatment Visit Start Time 14:12 Visit Stop Time 15:12 Total Visit Minutes 60 Visit Number 5 Evaluation Information Evaluation Date 10/31/19 PT-OP-B Current Condition Start: 10/31/19 07:24 Freq: Status: Active Protocol: Document 10/31/19 14:11 MB (Rec: 10/31/19 14:30 MB [id number]) Current Condition History of Current Condition Onset Date Three to four years ago Current Complaints Slow movement, memory impairment History of Current Condition Pt has tried different kinds of PT since diagnosis. His read up on LSVT BIG. He will be receiving concurrent LSVT LOUD. Pt denies pain. He only has Carbadopa listed as medications. PMH: cardiac stent 5 years ago d/t decreased stamina. Pt lives with his . He does not have to do steps. Pt is driving. Pt denies falls. He stumbles over feet but catches himself. 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 Pt would like to get back to [employer]. He has not fished in a year. Pt does not use AD. He is doing some boxing therapy. He does not have a punching bag. He is doing a video of [email or web address]. He does it 3x/wk for 1 hour at a time. Pt denies tremor. Pt reports light-headedness that is worse in the morning. Pt reports memory impairment, slow movement and worsening writing. Treatment Goals Patient/Caregiver Goals To make improvements with the slowness and memory. PT-OP-C Subjective Start: 10/31/19 07:24 Freq: Status: Active Protocol: Document 11/06/19 15:22 AW (Rec: 11/06/19 15:39 AW [id number]) OP-PT Subjective Patient Comments Patient Comments Pt attends alone today, reporting increased fatigue. PT-OP-D Balance Start: 10/31/19 07:24 Freq: Status: Active Protocol: Document 10/31/19 14:11 MB (Rec: 10/31/19 15:56 MB [id number]) OP-PT Balance Assessment Sitting Balance Static Sitting Balance Ability Normal Dynamic Sitting Balance Ability Normal Standing Balance Standing Balance Comments SLS left leg 3 sec; right 2 sec. Opposite leg 90/90 Balance Tests Single Limb Standing Single Limb- Right 2 sec Single Limb- Left 3 sec Cervantes Fall Scale Copyright Permission PT-OP-E Functional Tests Start: 10/31/19 07:24 Freq: Status: Active Protocol: Document 10/31/19 14:11 MB (Rec: 10/31/19 15:56 MB [id number]) Functional Tests 30 Second Sit to Stand Test Score 11 Comments Cues to sit all the way down PT-OP-G Mobility & Gait Start: 10/31/19 07:24 Freq: Status: Active Protocol: Document 10/31/19 14:11 MB (Rec: 10/31/19 15:56 MB [id number]) OP Gait Assessment Gait Gait Assistance Required: Standby Assistance Distance (Feet) 1,702 Assistive Devices Assistive Device None,Gait Belt Comments Gait Comments 6MWT this date for baseline measure. Pt presents with decreased arm swing B, pt tends to clasp fists together, left LE tends to turn inward and he presents with left anatomical changes at hip downward PT-OP-J Posture/Palpation/Skin Start: 10/31/19 07:24 Freq: Status: Active Protocol: Document 10/31/19 14:11 MB (Rec: 10/31/19 15:56 MB [id number]) Posture Evaluation Comments Posture Comments Forward head, rounded shoulders, slumps at hips and knees PT-OP-K Range of Motion Start: 10/31/19 07:24 Freq: Status: Active Protocol: Document 10/31/19 14:11 MB (Rec: 10/31/19 15:56 MB [id number]) Shoulder Goniometric Range of Motion Shoulder Left Shoulder ROM WFL No Testing Position Sitting Flexion 150 Abduction 160 Right Shoulder ROM WFL No Testing Position Sitting Flexion 150 Abduction 160 Shoulder ROM Limitations Comments Shoulders do not move symmetrically PT-OP-M Strength Start: 10/31/19 07:24 Freq: Status: Active Protocol: Document 10/31/19 14:11 MB (Rec: 10/31/19 15:56 MB [id number]) Shoulder Strength Shoulder Manual Muscle Testing Left Flexion 5 Normal Abduction (C5) 5 Normal External Rotation 5 Normal Internal Rotation 5 Normal Right Flexion 5 Normal Abduction (C5) 5 Normal External Rotation 5 Normal Internal Rotation 5 Normal Elbow/Forearm Strength Elbow and Forearm Manual Muscle Testing Left Flexion (C6) 5 Normal Extension (C7) 5 Normal Right Flexion (C6) 5 Normal Extension (C7) 5 Normal Hip Strength Hip Manual Muscle Testing Left Flexion (L2) 5 Normal Comments Pt sitting Right Flexion (L2) 5 Normal Comments Pt sitting Knee Strength Knee Manual Muscle Testing Left Flexion (S2) 5 Normal Extension (L3) 5 Normal Comments Pt sitting Right Flexion (S2) 5 Normal Extension (L3) 5 Normal Comments Pt sitting Ankle/Foot Strength Ankle and Foot Manual Muscle Testing Left Dorsiflexion (L4) 5 Normal Right Comments Pt has limited DF with knee extended and cannot tolerate MMT PT-OP-Q Treatments Start: 10/31/19 07:24 Freq: Status: Active Protocol: Document 11/06/19 15:22 AW (Rec: 11/06/19 15:39 AW [id number]) Therapeutic Exercises Sitting Exercises Side to side Sitting Exercise Name side to side Side bilateral Equipment Used large table lowest position Reps/Minutes 6 each side Comments modeling and tactile feedback for BIG reach, kick back Sit to stand Sitting Exercise Name sit to stand Equipment Used large mat table in lowest position Reps/Minutes 5 reps x 2 Comments cues for BIG forward lean like diving into a pool Floor to ceiling Sitting Exercise Name floor to ceiling Equipment Used large table lowest position Reps/Minutes 8 Comments cues to increase BIGness of arms Standing Exercises Sideways rock and reach Standing Exercise Name sideways rock and reach Side bilateral Reps/Minutes 8 each side Comments cues for pacing Forward rock and reach Side bilateral Reps/Minutes 10 each side Comments LE first then added UE Backward step Standing Exercise Name tactile shaping throughout Side bilateral Reps/Minutes 8 each side Comments trialed chair support but was unhelpful Sideways step Standing Exercise Name sideways step Side bilateral Reps/Minutes 8 each side Comments needing cues for rotation Forward step Standing Exercise Name forward step Side bilateral Reps/Minutes 10 each side Comments cues for BIG step/foot clearance Therapeutic Activity Therapeutic Activity buttoning Name buttoning Reps/Minutes 10 min Comments Pt demonstrated buttoning technique uncued using button on polo shirt - 27 seconds first attempt. Educated pt on hand flicks and using BIG gas engine mechanic to hold button and BIG push to manipulate it. Pt completed buttoning several more times with average time reduced to 12 seconds. Gait Training Gait Activity hurdles Description hurdles Device Used none Surface carpet Distance/Duration 4 hurdles x 10 laps Treatment Focus arm swing Comments Pt had difficulty coordinating arm swing with exaggerated hip flexion. BIG walking Description BIG walking Device Used none Surface tile, hospital hallways Distance/Duration 15 min Treatment Focus arm swing Comments Improved self-correction with arm swing today. Introduced conversational distraction and pt was able to maintain BIG swing during conversation except through turns. Self-Care/Home Management Treatment Education Other Education Introduced hand flicks for fine motor tasks today. PT-OP-T Assessment and Plan Start: 10/31/19 07:24 Freq: Status: Active Protocol: Document 11/06/19 15:22 AW (Rec: 11/06/19 15:39 AW [id number]) Physical Therapy Assessment Rehab Potential Rehabilitation Potential Good Evaluation Complexity Number of Personal Factors/Comorbidities 1-2 Number of Body Systems Impaired 1-2 Clinical Presentation at Evaluation Evolving Impairments Impairments Activity Tolerance,Balance, Functional Activities, Functional Mobility,Gait, Posture,ROM,Strength Other Impairments Cognition, orthostasis, progressive neurological disease Other Concerns Fall Risk Pt denies falls at home, has imbalance with SLS today Goals 5 Batch Unloader Goal (LTG) Pt will gait train at least 2000 feet in 6 minutes to improve community ambulation by 12/01/2019. LTG Duration 4 weeks 4 Batch Unloader Goal (LTG) Pt will perform 15 sit to stands without UE support in 30 sec to improve transfers by 12/01/2019. LTG Duration 4 weeks 3 Batch Unloader Goal (LTG) Pt will perform at least 5 functional activity exercises daily with I to improve his personal goals to be determined by next treatment to improve functional I by . LTG Duration 4 weeks 2 [facility] Goal (LTG) Pt will perform all BIG exercises daily with use of handouts or videos to improve amplitude and speed of movement by 12/01/2019. LTG Duration 4 weeks 1 [facility] Goal (LTG) Pt will perform B SLS for at least 20 sec to allow safe donning and doffing of pants and shorts in standing by 11/30. LTG Duration 4 weeks Assessment Summary Assessment Demetrio appears frustrated with the exercises today but responds well to positive reinforcement. Trialed chair support for backward step but amplitude was unaffected. Will continue with standard exercises at this time. Pt to bring cell phone and button down shirt to next visit for functional activities. Physical Therapy Plan Frequency and Duration Frequency of Treatment 4x/Week Duration of Treatment 4 weeks Plan of Care Start Date 10/31/19 Plan of Care End Date 12/05/19 Therapeutic Interventions Therapeutic Interventions Balance Training,Gait Training ,Home Exercise Program, Neuromuscular Re-education, Patient/Caregiver Education, Self-Care/Home Management, Therapeutic Activities, Therapeutic Exercises Next Visit Focus/Plan Next Note Type Treatment Note Next Visit Plan BIG exercises Functional activities will be: buttoning, use of cell phone, moving in and out of bed and using a pill box
--- NOTE | 2019-11-10 15:31 | PT.OTN ---
Current Diagnoses Parkinson's disease (11/10/19) Physical Therapy Treatment Note PT-OP-A Visit Information Start: 10/31/19 07:24 Freq: Status: Active Protocol: Document 11/10/19 14:15 MB (Rec: 11/10/19 15:31 MB [id number]) Out-Patient Physical Therapy Visit Information Visit Information Visit Type Treatment Note Visit Start Time 14:15 Visit Stop Time 15:15 Total Visit Minutes 60 Visit Number 6 PT-OP-B Current Condition Start: 10/31/19 07:24 Freq: Status: Active Protocol: Document 10/31/19 14:11 MB (Rec: 10/31/19 14:30 MB [id number]) Current Condition History of Current Condition Onset Date Three to four years ago Current Complaints Slow movement, memory impairment History of Current Condition Pt has tried different kinds of PT since diagnosis. His read up on LSVT BIG. He will be receiving concurrent LSVT LOUD. Pt denies pain. He only has Carbadopa listed as medications. PMH: cardiac stent 5 years ago d/t decreased stamina. Pt lives with his . He does not have to do steps. Pt is driving. Pt denies falls. He stumbles over feet but catches himself. 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 Pt would like to get back to [employer]. He has not fished in a year. Pt does not use AD. He is doing some boxing therapy. He does not have a punching bag. He is doing a video of [employer]. He does it 3x/wk for 1 hour at a time. Pt denies tremor. Pt reports light-headedness that is worse in the morning. Pt reports memory impairment, slow movement and worsening writing. Treatment Goals Patient/Caregiver Goals To make improvements with the slowness and memory. PT-OP-C Subjective Start: 10/31/19 07:24 Freq: Status: Active Protocol: Document 11/10/19 14:15 MB (Rec: 11/10/19 15:31 MB [id number]) OP-PT Subjective Patient Comments Patient Comments Pt arrives to treatment without . He thinks that exercises are going well. PT-OP-D Balance Start: 10/31/19 07:24 Freq: Status: Active Protocol: Document 10/31/19 14:11 MB (Rec: 10/31/19 15:56 MB [id number]) OP-PT Balance Assessment Sitting Balance Static Sitting Balance Ability Normal Dynamic Sitting Balance Ability Normal Standing Balance Standing Balance Comments SLS left leg 3 sec; right 2 sec. Opposite leg 90/90 Balance Tests Single Limb Standing Single Limb- Right 2 sec Single Limb- Left 3 sec Cervantes Fall Scale Copyright Permission PT-OP-E Functional Tests Start: 10/31/19 07:24 Freq: Status: Active Protocol: Document 10/31/19 14:11 MB (Rec: 10/31/19 15:56 MB [id number]) Functional Tests 30 Second Sit to Stand Test Score 11 Comments Cues to sit all the way down PT-OP-G Mobility & Gait Start: 10/31/19 07:24 Freq: Status: Active Protocol: Document 10/31/19 14:11 MB (Rec: 10/31/19 15:56 MB [id number]) OP Gait Assessment Gait Gait Assistance Required: Standby Assistance Distance (Feet) 1,702 Assistive Devices Assistive Device None,Gait Belt Comments Gait Comments 6MWT this date for baseline measure. Pt presents with decreased arm swing B, pt tends to clasp fists together, left LE tends to turn inward and he presents with left anatomical changes at hip downward PT-OP-J Posture/Palpation/Skin Start: 10/31/19 07:24 Freq: Status: Active Protocol: Document 10/31/19 14:11 MB (Rec: 10/31/19 15:56 MB [id number]) Posture Evaluation Comments Posture Comments Forward head, rounded shoulders, slumps at hips and knees PT-OP-K Range of Motion Start: 10/31/19 07:24 Freq: Status: Active Protocol: Document 10/31/19 14:11 MB (Rec: 10/31/19 15:56 MB [id number]) Shoulder Goniometric Range of Motion Shoulder Left Shoulder ROM WFL No Testing Position Sitting Flexion 150 Abduction 160 Right Shoulder ROM WFL No Testing Position Sitting Flexion 150 Abduction 160 Shoulder ROM Limitations Comments Shoulders do not move symmetrically PT-OP-M Strength Start: 10/31/19 07:24 Freq: Status: Active Protocol: Document 10/31/19 14:11 MB (Rec: 10/31/19 15:56 MB [id number]) Shoulder Strength Shoulder Manual Muscle Testing Left Flexion 5 Normal Abduction (C5) 5 Normal External Rotation 5 Normal Internal Rotation 5 Normal Right Flexion 5 Normal Abduction (C5) 5 Normal External Rotation 5 Normal Internal Rotation 5 Normal Elbow/Forearm Strength Elbow and Forearm Manual Muscle Testing Left Flexion (C6) 5 Normal Extension (C7) 5 Normal Right Flexion (C6) 5 Normal Extension (C7) 5 Normal Hip Strength Hip Manual Muscle Testing Left Flexion (L2) 5 Normal Comments Pt sitting Right Flexion (L2) 5 Normal Comments Pt sitting Knee Strength Knee Manual Muscle Testing Left Flexion (S2) 5 Normal Extension (L3) 5 Normal Comments Pt sitting Right Flexion (S2) 5 Normal Extension (L3) 5 Normal Comments Pt sitting Ankle/Foot Strength Ankle and Foot Manual Muscle Testing Left Dorsiflexion (L4) 5 Normal Right Comments Pt has limited DF with knee extended and cannot tolerate MMT PT-OP-Q Treatments Start: 10/31/19 07:24 Freq: Status: Active Protocol: Document 11/10/19 14:15 MB (Rec: 11/10/19 15:31 MB [id number]) Therapeutic Exercises Sitting Exercises Side to side Side bilateral Equipment Used Mesh chair outside Reps/Minutes 6 each side Comments Modeling and tactile cues for big hand, posture upright, big back leg Sit to stand Equipment Used Mesh chair outside Reps/Minutes 6 Comments Demo and VCs for big arms back and palms forward like receiving a hug Floor to ceiling Equipment Used Mesh chair outside Reps/Minutes 6 Comments Demo and cues for big hands and arms back and palms forward Standing Exercises Sideways rock and reach Side bilateral Equipment Used Outside on side walk next to building Reps/Minutes 10 each side Comments Pt tends to try perform side step movement with arms, broke down UEs/LEs Forward rock and reach Side bilateral Equipment Used Outside on side walk next to building Reps/Minutes 10 each side Comments Cues for big arm swing, especially left arm Backward step Side bilateral Equipment Used Outside on side walk next to building Reps/Minutes 10 each side Comments Many reps and tactile asst, cues for big arms Sideways step Side bilateral Equipment Used Outside on side walk next to building Reps/Minutes 10 each side Comments Verbal and tactile cues for palms up, big arms Forward step Side bilateral Equipment Used Outside on side walk next to building Reps/Minutes 10 each side Comments Cues for big arms and palms forward Therapeutic Activity Therapeutic Activity buttoning Name Buttoning dress shirt Reps/Minutes 5' Comments 1 minute 20 sec first try to don and 1 min 10 sec to doff. Pt stops during task, cannot button collar button, mask breaks and so exercise interrupted. Pt has memory trouble and starts to re- button shirt when distracted with unbuttoning. PT cues and demos big movement to get shirt on and off and pt is able to practice x1. PT try to instruct left arm in first d/ t left arm limitations but pt does not have cognitive ability for this Gait Training Gait Activity BIG walking Device Used Gait belt, no AD Surface Steps, outside, sidewalk, gravel lot Distance/Duration 10 min Comments Cues for big arm swing. Pt tends to stop big arm swing when conversation started with PT PT-OP-T Assessment and Plan Start: 10/31/19 07:24 Freq: Status: Active Protocol: Document 11/10/19 14:15 MB (Rec: 11/10/19 15:31 MB [id number]) Physical Therapy Assessment Rehab Potential Rehabilitation Potential Good Evaluation Complexity Number of Personal Factors/Comorbidities 1-2 Number of Body Systems Impaired 1-2 Clinical Presentation at Evaluation Evolving Impairments Impairments Activity Tolerance,Balance, Functional Activities, Functional Mobility,Gait, Posture,ROM,Strength Other Impairments Cognition, orthostasis, progressive neurological disease Other Concerns Fall Risk Pt denies falls at home, has imbalance with SLS today Goals 5 Pick Out Hand Goal (LTG) Pt will gait train at least 2000 feet in 6 minutes to improve community ambulation by 12/01/2019. LTG Duration 4 weeks 4 [facility] Goal (LTG) Pt will perform 15 sit to stands without UE support in 30 sec to improve transfers by 12/01/2019. LTG Duration 4 weeks 3 [facility] Goal (LTG) Pt will perform at least 5 functional activity exercises daily with I to improve his personal goals to be determined by next treatment to improve functional I by . LTG Duration 4 weeks 2 Pick Out Hand Goal (LTG) Pt will perform all BIG exercises daily with use of handouts or videos to improve amplitude and speed of movement by 12/01/2019. LTG Duration 4 weeks 1 Pick Out Hand Goal (LTG) Pt will perform B SLS for at least 20 sec to allow safe donning and doffing of pants and shorts in standing by 11/30. LTG Duration 4 weeks Assessment Summary Assessment Pt performs exercises better today but requires demo and VC assist for all exercises. He has trouble with upright posture with side to side sit, trouble with big hands with wrist extension for exercises requiring this and also trouble with keeping arms big and palms forward or up. Dress shirt buttoning was difficult and short-term memory issues are a barrier to recall with training. PT asks him to bring in pill box if possible. Physical Therapy Plan Frequency and Duration Frequency of Treatment 4x/Week Duration of Treatment 4 weeks Plan of Care Start Date 10/31/19 Plan of Care End Date 12/05/19 Therapeutic Interventions Therapeutic Interventions Balance Training,Gait Training ,Home Exercise Program, Neuromuscular Re-education, Patient/Caregiver Education, Self-Care/Home Management, Therapeutic Activities, Therapeutic Exercises Next Visit Focus/Plan Next Note Type Treatment Note Next Visit Plan BIG exercises, gait Functional activities will be: buttoning, use of cell phone, moving in and out of bed and using a pill box
--- NOTE | 2019-11-11 15:32 | PT.OTN ---
Current Diagnoses Parkinson's disease (11/11/19) Physical Therapy Treatment Note PT-OP-A Visit Information Start: 10/31/19 07:24 Freq: Status: Active Protocol: Document 11/11/19 14:15 MB (Rec: 11/11/19 15:32 MB [id number]) Out-Patient Physical Therapy Visit Information Visit Information Visit Type Treatment Note Visit Start Time 14:15 Visit Stop Time 15:15 Total Visit Minutes 60 Visit Number 7 PT-OP-B Current Condition Start: 10/31/19 07:24 Freq: Status: Active Protocol: Document 10/31/19 14:11 MB (Rec: 10/31/19 14:30 MB [id number]) Current Condition History of Current Condition Onset Date Three to four years ago Current Complaints Slow movement, memory impairment History of Current Condition Pt has tried different kinds of PT since diagnosis. His read up on LSVT BIG. He will be receiving concurrent LSVT LOUD. Pt denies pain. He only has Carbadopa listed as medications. PMH: cardiac stent 5 years ago d/t decreased stamina. Pt lives with his . He does not have to do steps. Pt is driving. Pt denies falls. He stumbles over feet but catches himself. 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 Pt would like to get back to [employer] He has not fished in a year. Pt does not use AD. He is doing some boxing therapy. He does not have a punching bag. He is doing a video of [employer]. He does it 3x/wk for 1 hour at a time. Pt denies tremor. Pt reports light-headedness that is worse in the morning. Pt reports memory impairment, slow movement and worsening writing. Treatment Goals Patient/Caregiver Goals To make improvements with the slowness and memory. PT-OP-C Subjective Start: 10/31/19 07:24 Freq: Status: Active Protocol: Document 11/11/19 14:15 MB (Rec: 11/11/19 15:32 MB [id number]) OP-PT Subjective Patient Comments Patient Comments Pt did not have time to do exercises this morning d/t appointments. PT-OP-D Balance Start: 10/31/19 07:24 Freq: Status: Active Protocol: Document 10/31/19 14:11 MB (Rec: 10/31/19 15:56 MB [id number]) OP-PT Balance Assessment Sitting Balance Static Sitting Balance Ability Normal Dynamic Sitting Balance Ability Normal Standing Balance Standing Balance Comments SLS left leg 3 sec; right 2 sec. Opposite leg 90/90 Balance Tests Single Limb Standing Single Limb- Right 2 sec Single Limb- Left 3 sec Cervantes Fall Scale Copyright Permission PT-OP-E Functional Tests Start: 10/31/19 07:24 Freq: Status: Active Protocol: Document 10/31/19 14:11 MB (Rec: 10/31/19 15:56 MB [id number]) Functional Tests 30 Second Sit to Stand Test Score 11 Comments Cues to sit all the way down PT-OP-G Mobility & Gait Start: 10/31/19 07:24 Freq: Status: Active Protocol: Document 10/31/19 14:11 MB (Rec: 10/31/19 15:56 MB [id number]) OP Gait Assessment Gait Gait Assistance Required: Standby Assistance Distance (Feet) 1,702 Assistive Devices Assistive Device None,Gait Belt Comments Gait Comments 6MWT this date for baseline measure. Pt presents with decreased arm swing B, pt tends to clasp fists together, left LE tends to turn inward and he presents with left anatomical changes at hip downward PT-OP-J Posture/Palpation/Skin Start: 10/31/19 07:24 Freq: Status: Active Protocol: Document 10/31/19 14:11 MB (Rec: 10/31/19 15:56 MB [id number]) Posture Evaluation Comments Posture Comments Forward head, rounded shoulders, slumps at hips and knees PT-OP-K Range of Motion Start: 10/31/19 07:24 Freq: Status: Active Protocol: Document 10/31/19 14:11 MB (Rec: 10/31/19 15:56 MB [id number]) Shoulder Goniometric Range of Motion Shoulder Left Shoulder ROM WFL No Testing Position Sitting Flexion 150 Abduction 160 Right Shoulder ROM WFL No Testing Position Sitting Flexion 150 Abduction 160 Shoulder ROM Limitations Comments Shoulders do not move symmetrically PT-OP-M Strength Start: 10/31/19 07:24 Freq: Status: Active Protocol: Document 10/31/19 14:11 MB (Rec: 10/31/19 15:56 MB [id number]) Shoulder Strength Shoulder Manual Muscle Testing Left Flexion 5 Normal Abduction (C5) 5 Normal External Rotation 5 Normal Internal Rotation 5 Normal Right Flexion 5 Normal Abduction (C5) 5 Normal External Rotation 5 Normal Internal Rotation 5 Normal Elbow/Forearm Strength Elbow and Forearm Manual Muscle Testing Left Flexion (C6) 5 Normal Extension (C7) 5 Normal Right Flexion (C6) 5 Normal Extension (C7) 5 Normal Hip Strength Hip Manual Muscle Testing Left Flexion (L2) 5 Normal Comments Pt sitting Right Flexion (L2) 5 Normal Comments Pt sitting Knee Strength Knee Manual Muscle Testing Left Flexion (S2) 5 Normal Extension (L3) 5 Normal Comments Pt sitting Right Flexion (S2) 5 Normal Extension (L3) 5 Normal Comments Pt sitting Ankle/Foot Strength Ankle and Foot Manual Muscle Testing Left Dorsiflexion (L4) 5 Normal Right Comments Pt has limited DF with knee extended and cannot tolerate MMT PT-OP-Q Treatments Start: 10/31/19 07:24 Freq: Status: Active Protocol: Document 11/11/19 14:15 MB (Rec: 11/11/19 15:32 MB [id number]) Therapeutic Exercises Sitting Exercises Side to side Side bilateral Equipment Used Mesh chair outside Reps/Minutes 10 each side Comments Modeling and tactile cues for big hand, posture upright, big back leg Sit to stand Equipment Used Mesh chair outside Reps/Minutes 10 Comments Demo and VCs for big arms back and palms forward like receiving a hug Floor to ceiling Equipment Used Mesh chair outside Reps/Minutes 10 Comments Demo and cues for big hands and arms back and palms forward Standing Exercises Sideways rock and reach Side bilateral Equipment Used Outside on side walk next to building Reps/Minutes 10 each side Forward rock and reach Side bilateral Equipment Used Outside on side walk next to building Reps/Minutes 10 each side Comments Cues for big arm swing, especially left arm Backward step Side bilateral Equipment Used Outside on side walk next to building Reps/Minutes 10 each side Comments Many reps and tactile asst, cues for big arms Sideways step Side bilateral Equipment Used Outside on side walk next to building Reps/Minutes 10 each side Comments Better side step today to the right Forward step Side bilateral Equipment Used Outside on side walk next to building Reps/Minutes 10 each side Comments Cues for big arms and palms forward Therapeutic Activity Therapeutic Activity buttoning Name Don, doff and buttoning dress shirt Reps/Minutes 8' Comments Multiple trials--pt has to put right arm in first and pull shirt down off shoulders together d/t habit. Multiple trials big in and out right arm, getting arm in, shirt around and left arm in in 3 movements, big buttoning, trouble with wrist buttons, greater on the left that is likely d/t the button itself ( not tight) Gait Training Gait Activity BIG walking Device Used Gait belt, no AD Surface Steps, outside, sidewalk, gravel lot Distance/Duration 15 min Comments Cues for big arm swing. Pt tends to stop big arm swing when conversation started with PT PT-OP-T Assessment and Plan Start: 10/31/19 07:24 Freq: Status: Active Protocol: Document 11/11/19 14:15 MB (Rec: 11/11/19 15:32 MB [id number]) Physical Therapy Assessment Rehab Potential Rehabilitation Potential Good Evaluation Complexity Number of Personal Factors/Comorbidities 1-2 Number of Body Systems Impaired 1-2 Clinical Presentation at Evaluation Evolving Impairments Impairments Activity Tolerance,Balance, Functional Activities, Functional Mobility,Gait, Posture,ROM,Strength Other Impairments Cognition, orthostasis, progressive neurological disease Other Concerns Fall Risk Pt denies falls at home, has imbalance with SLS today Goals 5 Sports Nutritionist Goal (LTG) Pt will gait train at least 2000 feet in 6 minutes to improve community ambulation by 12/01/2019. LTG Duration 4 weeks 4 Halfway Goal (LTG) Pt will perform 15 sit to stands without UE support in 30 sec to improve transfers by 12/01/2019. LTG Duration 4 weeks 3 Sports Nutritionist Goal (LTG) Pt will perform at least 5 functional activity exercises daily with I to improve his personal goals to be determined by next treatment to improve functional I by . LTG Duration 4 weeks 2 Halfway Goal (LTG) Pt will perform all BIG exercises daily with use of handouts or videos to improve amplitude and speed of movement by 12/01/2019. LTG Duration 4 weeks 1 Sports Nutritionist Goal (LTG) Pt will perform B SLS for at least 20 sec to allow safe donning and doffing of pants and shorts in standing by 11/30. LTG Duration 4 weeks Assessment Summary Assessment Pt has slight urinary leakage during BIG exercises and he does not reports concern when PT inquires about it. He states that he gets OOB 4-5x a night d/t urinary urgency and has history of prostate issues. He does sleep better with more exercise and so BIG exercises and walking may help with this. Encouraged pt to invite to appointments to assist with recall of exercises, functional training and gait posturing. Pt progresses with exercise number and speed today and requires demo and VCs with occ tactile asst for all exercises. Left arm still lacks movement with gait, trouble with supination and pronation. Physical Therapy Plan Frequency and Duration Frequency of Treatment 4x/Week Duration of Treatment 4 weeks Plan of Care Start Date 10/31/19 Plan of Care End Date 12/05/19 Therapeutic Interventions Therapeutic Interventions Balance Training,Gait Training ,Home Exercise Program, Neuromuscular Re-education, Patient/Caregiver Education, Self-Care/Home Management, Therapeutic Activities, Therapeutic Exercises Next Visit Focus/Plan Next Note Type Treatment Note Next Visit Plan Bed mobility, start pill box opening and closing and cell phone use Functional activities will be: buttoning, use of cell phone, moving in and out of bed and using a pill box
--- NOTE | 2019-11-12 17:24 | PT.OTN ---
Current Diagnoses Parkinson's disease (11/12/19) Physical Therapy Treatment Note PT-OP-A Visit Information Start: 10/31/19 07:24 Freq: Status: Active Protocol: Document 11/12/19 17:10 AW (Rec: 11/12/19 17:24 AW [id number]) Out-Patient Physical Therapy Visit Information Visit Information Visit Type Treatment Note Visit Start Time 14:15 Visit Stop Time 15:15 Total Visit Minutes 60 Visit Number 8 PT-OP-B Current Condition Start: 10/31/19 07:24 Freq: Status: Active Protocol: Document 10/31/19 14:11 MB (Rec: 10/31/19 14:30 MB [id number]) Current Condition History of Current Condition Onset Date Three to four years ago Current Complaints Slow movement, memory impairment History of Current Condition Pt has tried different kinds of PT since diagnosis. His read up on LSVT BIG. He will be receiving concurrent LSVT LOUD. Pt denies pain. He only has Carbadopa listed as medications. PMH: cardiac stent 5 years ago d/t decreased stamina. Pt lives with his . He does not have to do steps. Pt is driving. Pt denies falls. He stumbles over feet but catches himself. 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 Pt would like to get back to [employer]. He has not fished in a year. Pt does not use AD. He is doing some boxing therapy. He does not have a punching bag. He is doing a video of [employer]. He does it 3x/wk for 1 hour at a time. Pt denies tremor. Pt reports light-headedness that is worse in the morning. Pt reports memory impairment, slow movement and worsening writing. Treatment Goals Patient/Caregiver Goals To make improvements with the slowness and memory. PT-OP-C Subjective Start: 10/31/19 07:24 Freq: Status: Active Protocol: Document 11/12/19 17:10 AW (Rec: 11/12/19 17:24 AW [id number]) OP-PT Subjective Patient Comments Patient Comments Pt did not have time to do exercises this morning appointment with ENT. PT-OP-D Balance Start: 10/31/19 07:24 Freq: Status: Active Protocol: Document 10/31/19 14:11 MB (Rec: 10/31/19 15:56 MB [id number]) OP-PT Balance Assessment Sitting Balance Static Sitting Balance Ability Normal Dynamic Sitting Balance Ability Normal Standing Balance Standing Balance Comments SLS left leg 3 sec; right 2 sec. Opposite leg 90/90 Balance Tests Single Limb Standing Single Limb- Right 2 sec Single Limb- Left 3 sec Cervantes Fall Scale Copyright Permission PT-OP-E Functional Tests Start: 10/31/19 07:24 Freq: Status: Active Protocol: Document 10/31/19 14:11 MB (Rec: 10/31/19 15:56 MB [id number]) Functional Tests 30 Second Sit to Stand Test Score 11 Comments Cues to sit all the way down PT-OP-G Mobility & Gait Start: 10/31/19 07:24 Freq: Status: Active Protocol: Document 10/31/19 14:11 MB (Rec: 10/31/19 15:56 MB [id number]) OP Gait Assessment Gait Gait Assistance Required: Standby Assistance Distance (Feet) 1,702 Assistive Devices Assistive Device None,Gait Belt Comments Gait Comments 6MWT this date for baseline measure. Pt presents with decreased arm swing B, pt tends to clasp fists together, left LE tends to turn inward and he presents with left anatomical changes at hip downward PT-OP-J Posture/Palpation/Skin Start: 10/31/19 07:24 Freq: Status: Active Protocol: Document 10/31/19 14:11 MB (Rec: 10/31/19 15:56 MB [id number]) Posture Evaluation Comments Posture Comments Forward head, rounded shoulders, slumps at hips and knees PT-OP-K Range of Motion Start: 10/31/19 07:24 Freq: Status: Active Protocol: Document 10/31/19 14:11 MB (Rec: 10/31/19 15:56 MB [id number]) Shoulder Goniometric Range of Motion Shoulder Left Shoulder ROM WFL No Testing Position Sitting Flexion 150 Abduction 160 Right Shoulder ROM WFL No Testing Position Sitting Flexion 150 Abduction 160 Shoulder ROM Limitations Comments Shoulders do not move symmetrically PT-OP-M Strength Start: 10/31/19 07:24 Freq: Status: Active Protocol: Document 10/31/19 14:11 MB (Rec: 10/31/19 15:56 MB [id number]) Shoulder Strength Shoulder Manual Muscle Testing Left Flexion 5 Normal Abduction (C5) 5 Normal External Rotation 5 Normal Internal Rotation 5 Normal Right Flexion 5 Normal Abduction (C5) 5 Normal External Rotation 5 Normal Internal Rotation 5 Normal Elbow/Forearm Strength Elbow and Forearm Manual Muscle Testing Left Flexion (C6) 5 Normal Extension (C7) 5 Normal Right Flexion (C6) 5 Normal Extension (C7) 5 Normal Hip Strength Hip Manual Muscle Testing Left Flexion (L2) 5 Normal Comments Pt sitting Right Flexion (L2) 5 Normal Comments Pt sitting Knee Strength Knee Manual Muscle Testing Left Flexion (S2) 5 Normal Extension (L3) 5 Normal Comments Pt sitting Right Flexion (S2) 5 Normal Extension (L3) 5 Normal Comments Pt sitting Ankle/Foot Strength Ankle and Foot Manual Muscle Testing Left Dorsiflexion (L4) 5 Normal Right Comments Pt has limited DF with knee extended and cannot tolerate MMT PT-OP-Q Treatments Start: 10/31/19 07:24 Freq: Status: Active Protocol: Document 11/12/19 17:10 AW (Rec: 11/12/19 17:24 AW [id number]) Therapeutic Exercises Sitting Exercises Side to side Side bilateral Equipment Used Mesh chair outside Reps/Minutes 10 each side Comments Modeling and tactile cues for big hand, posture upright, big back leg Sit to stand Equipment Used 22 treatment table, wobble board Reps/Minutes 5 reps x 3 Comments wobble board oriented A/P x 2 sets and lateral x 1 set Floor to ceiling Equipment Used Mesh chair outside Reps/Minutes 10 Comments Demo and cues for big hands and arms back and palms forward Standing Exercises Sideways rock and reach Side bilateral Equipment Used Outside on side walk next to building Reps/Minutes 10 each side Comments improved pivot on back foot Forward rock and reach Side bilateral Equipment Used Outside on side walk next to building Reps/Minutes 10 each side Comments cues for bigger backward swing Backward step Side bilateral Equipment Used Outside on side walk next to building Reps/Minutes 10 each side Comments difficulty coordinating LE and UE movements Sideways step Side bilateral Equipment Used Outside on side walk next to building Reps/Minutes 10 each side Comments improved arm movement today Forward step Side bilateral Equipment Used Outside on side walk next to building Reps/Minutes 10 each side Comments cues for foot clearance Therapeutic Activity Therapeutic Activity pill box Name pill box Reps/Minutes 8' Comments Pt demonstrates fumbling with opening pill slots and retrieving pills one by one. Educated pt to ensure big systems engineer with left hand while right index finger locates and pins the pill to the side of the box and then to use big upward arm movement to lift the pill . Well, that IS easier. Gait Training Gait Activity BIG walking Surface stairs, outside paved, inside tile Distance/Duration 15 min Comments Shifted cues to step length, explaining that sometimes arm swing improves as a result of counterbalancing for a bigger step. Pt was able to improve step amplitude and reduce incidence of shoe scuffs but unable to maintain during turns or around obstacles. Came inside and practiced 1/4 turns with BIG foot clearance. Also practiced hard turns to both sides with pt able to better maintain amplitude during turns after multiple trials. PT-OP-T Assessment and Plan Start: 10/31/19 07:24 Freq: Status: Active Protocol: Document 11/12/19 17:10 AW (Rec: 11/12/19 17:24 AW [id number]) Physical Therapy Assessment Rehab Potential Rehabilitation Potential Good Evaluation Complexity Number of Personal Factors/Comorbidities 1-2 Number of Body Systems Impaired 1-2 Clinical Presentation at Evaluation Evolving Impairments Impairments Activity Tolerance,Balance, Functional Activities, Functional Mobility,Gait, Posture,ROM,Strength Other Impairments Cognition, orthostasis, progressive neurological disease Other Concerns Fall Risk Pt denies falls at home, has imbalance with SLS today Goals 5 Fdc Goal (LTG) Pt will gait train at least 2000 feet in 6 minutes to improve community ambulation by 12/01/2019. LTG Duration 4 weeks 4 Specimen Collector Goal (LTG) Pt will perform 15 sit to stands without UE support in 30 sec to improve transfers by 12/01/2019. LTG Duration 4 weeks 3 Specimen Collector Goal (LTG) Pt will perform at least 5 functional activity exercises daily with I to improve his personal goals to be determined by next treatment to improve functional I by . LTG Duration 4 weeks 2 Specimen Collector Goal (LTG) Pt will perform all BIG exercises daily with use of handouts or videos to improve amplitude and speed of movement by 12/01/2019. LTG Duration 4 weeks 1 Fdc Goal (LTG) Pt will perform B SLS for at least 20 sec to allow safe donning and doffing of pants and shorts in standing by 11/30. LTG Duration 4 weeks Assessment Summary Assessment Pt responded to shift in gait cues to focus on amplitude of step length - think BIG steps . PT observed attendant increase in arm swing amplitude. Pt continues to lose amplitude during turns. Physical Therapy Plan Frequency and Duration Frequency of Treatment 4x/Week Duration of Treatment 4 weeks Plan of Care Start Date 10/31/19 Plan of Care End Date 12/05/19 Therapeutic Interventions Therapeutic Interventions Balance Training,Gait Training ,Home Exercise Program, Neuromuscular Re-education, Patient/Caregiver Education, Self-Care/Home Management, Therapeutic Activities, Therapeutic Exercises Next Visit Focus/Plan Next Note Type Treatment Note Next Visit Plan Bed mobility, start pill box opening and closing and cell phone use Functional activities will be: buttoning, use of cell phone, moving in and out of bed and using a pill box
--- NOTE | 2019-11-13 15:25 | PT.OTN ---
Current Diagnoses Parkinson's disease (11/13/19) Physical Therapy Treatment Note PT-OP-A Visit Information Start: 10/31/19 07:24 Freq: Status: Active Protocol: Document 11/13/19 14:15 MB (Rec: 11/13/19 15:25 MB [id number]) Out-Patient Physical Therapy Visit Information Visit Information Visit Type Treatment Note Visit Start Time 14:15 Visit Stop Time 15:14 Total Visit Minutes 59 Visit Number 9 PT-OP-B Current Condition Start: 10/31/19 07:24 Freq: Status: Active Protocol: Document 10/31/19 14:11 MB (Rec: 10/31/19 14:30 MB [id number]) Current Condition History of Current Condition Onset Date Three to four years ago Current Complaints Slow movement, memory impairment History of Current Condition Pt has tried different kinds of PT since diagnosis. His read up on LSVT BIG. He will be receiving concurrent LSVT LOUD. Pt denies pain. He only has Carbadopa listed as medications. PMH: cardiac stent 5 years ago d/t decreased stamina. Pt lives with his . He does not have to do steps. Pt is driving. Pt denies falls. He stumbles over feet but catches himself. 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 Pt would like to get back to [employer]. He has not fished in a year. Pt does not use AD. He is doing some boxing therapy. He does not have a punching bag. He is doing a video of [employer]. He does it 3x/wk for 1 hour at a time. Pt denies tremor. Pt reports light-headedness that is worse in the morning. Pt reports memory impairment, slow movement and worsening writing. Treatment Goals Patient/Caregiver Goals To make improvements with the slowness and memory. PT-OP-C Subjective Start: 10/31/19 07:24 Freq: Status: Active Protocol: Document 11/13/19 14:15 MB (Rec: 11/13/19 15:25 MB [id number]) OP-PT Subjective Patient Comments Patient Comments arrives to PT appointment for exercises. She thinks that pt is getting the exercises. He is able to to the rock and reach when she asks him. PT-OP-D Balance Start: 10/31/19 07:24 Freq: Status: Active Protocol: Document 10/31/19 14:11 MB (Rec: 10/31/19 15:56 MB [id number]) OP-PT Balance Assessment Sitting Balance Static Sitting Balance Ability Normal Dynamic Sitting Balance Ability Normal Standing Balance Standing Balance Comments SLS left leg 3 sec; right 2 sec. Opposite leg 90/90 Balance Tests Single Limb Standing Single Limb- Right 2 sec Single Limb- Left 3 sec Cervantes Fall Scale Copyright Permission PT-OP-E Functional Tests Start: 10/31/19 07:24 Freq: Status: Active Protocol: Document 10/31/19 14:11 MB (Rec: 10/31/19 15:56 MB [id number]) Functional Tests 30 Second Sit to Stand Test Score 11 Comments Cues to sit all the way down PT-OP-G Mobility & Gait Start: 10/31/19 07:24 Freq: Status: Active Protocol: Document 10/31/19 14:11 MB (Rec: 10/31/19 15:56 MB [id number]) OP Gait Assessment Gait Gait Assistance Required: Standby Assistance Distance (Feet) 1,702 Assistive Devices Assistive Device None,Gait Belt Comments Gait Comments 6MWT this date for baseline measure. Pt presents with decreased arm swing B, pt tends to clasp fists together, left LE tends to turn inward and he presents with left anatomical changes at hip downward PT-OP-J Posture/Palpation/Skin Start: 10/31/19 07:24 Freq: Status: Active Protocol: Document 10/31/19 14:11 MB (Rec: 10/31/19 15:56 MB [id number]) Posture Evaluation Comments Posture Comments Forward head, rounded shoulders, slumps at hips and knees PT-OP-K Range of Motion Start: 10/31/19 07:24 Freq: Status: Active Protocol: Document 10/31/19 14:11 MB (Rec: 10/31/19 15:56 MB [id number]) Shoulder Goniometric Range of Motion Shoulder Left Shoulder ROM WFL No Testing Position Sitting Flexion 150 Abduction 160 Right Shoulder ROM WFL No Testing Position Sitting Flexion 150 Abduction 160 Shoulder ROM Limitations Comments Shoulders do not move symmetrically PT-OP-M Strength Start: 10/31/19 07:24 Freq: Status: Active Protocol: Document 10/31/19 14:11 MB (Rec: 10/31/19 15:56 MB [id number]) Shoulder Strength Shoulder Manual Muscle Testing Left Flexion 5 Normal Abduction (C5) 5 Normal External Rotation 5 Normal Internal Rotation 5 Normal Right Flexion 5 Normal Abduction (C5) 5 Normal External Rotation 5 Normal Internal Rotation 5 Normal Elbow/Forearm Strength Elbow and Forearm Manual Muscle Testing Left Flexion (C6) 5 Normal Extension (C7) 5 Normal Right Flexion (C6) 5 Normal Extension (C7) 5 Normal Hip Strength Hip Manual Muscle Testing Left Flexion (L2) 5 Normal Comments Pt sitting Right Flexion (L2) 5 Normal Comments Pt sitting Knee Strength Knee Manual Muscle Testing Left Flexion (S2) 5 Normal Extension (L3) 5 Normal Comments Pt sitting Right Flexion (S2) 5 Normal Extension (L3) 5 Normal Comments Pt sitting Ankle/Foot Strength Ankle and Foot Manual Muscle Testing Left Dorsiflexion (L4) 5 Normal Right Comments Pt has limited DF with knee extended and cannot tolerate MMT PT-OP-Q Treatments Start: 10/31/19 07:24 Freq: Status: Active Protocol: Document 11/13/19 14:15 MB (Rec: 11/13/19 15:25 MB [id number]) Therapeutic Exercises Sitting Exercises Side to side Side bilateral Equipment Used Mesh chair outside Reps/Minutes 10 each side Comments VCs and occ modeling for big hand and leg: ed in this cue for home Sit to stand Equipment Used Mesh chair outside Reps/Minutes 10 Comments Demo and VCs for big hands forward, ed in giving this cue at home Floor to ceiling Equipment Used Mesh chair outside Reps/Minutes 10 Comments VCs for performance Standing Exercises Sideways rock and reach Side bilateral Equipment Used Outside on side walk next to building Reps/Minutes 10 each side Comments Cues for palms up, big hands and ed to give these cues at home Forward rock and reach Side bilateral Equipment Used Outside on side walk next to building Reps/Minutes 10 each side Comments Cues for big stance Backward step Side bilateral Equipment Used Outside on side walk next to building Reps/Minutes 10 each side Comments Many reps and tactile asst, cues for big arms Sideways step Side bilateral Equipment Used Outside on side walk next to building Reps/Minutes 10 each side Comments Better side step B Forward step Side bilateral Equipment Used Outside on side walk next to building Reps/Minutes 10 each side Comments Cues for big arms and palms forward Gait Training Gait Activity BIG walking Device Used Gait belt, no AD Surface Steps, outside, sidewalk, gravel lot Distance/Duration 20 min Comments Cues for big arm swing and for big steps with weaving around parking curbs, around corners , up and down small hills and in grass Self-Care/Home Management Treatment Education Caregiver Education , Shauna, present during exercise treatment. Ed her in VC of big left hand or big left leg for pt to move better and improve on range and form PT-OP-T Assessment and Plan Start: 10/31/19 07:24 Freq: Status: Active Protocol: Document 11/13/19 14:15 MB (Rec: 11/13/19 15:25 MB [id number]) Physical Therapy Assessment Rehab Potential Rehabilitation Potential Good Evaluation Complexity Number of Personal Factors/Comorbidities 1-2 Number of Body Systems Impaired 1-2 Clinical Presentation at Evaluation Evolving Impairments Impairments Activity Tolerance,Balance, Functional Activities, Functional Mobility,Gait, Posture,ROM,Strength Other Impairments Cognition, orthostasis, progressive neurological disease Other Concerns Fall Risk Pt denies falls at home, has imbalance with SLS today Goals 5 Rn Charge Goal (LTG) Pt will gait train at least 2000 feet in 6 minutes to improve community ambulation by 12/01/2019. LTG Duration 4 weeks 4 Rn Charge Goal (LTG) Pt will perform 15 sit to stands without UE support in 30 sec to improve transfers by 12/01/2019. LTG Duration 4 weeks 3 Rn Charge Goal (LTG) Pt will perform at least 5 functional activity exercises daily with I to improve his personal goals to be determined by next treatment to improve functional I by . LTG Duration 4 weeks 2 Intermediate Goal (LTG) Pt will perform all BIG exercises daily with use of handouts or videos to improve amplitude and speed of movement by 12/01/2019. LTG Duration 4 weeks 1 Intermediate Goal (LTG) Pt will perform B SLS for at least 20 sec to allow safe donning and doffing of pants and shorts in standing by 11/30. LTG Duration 4 weeks Assessment Summary Assessment Pt has most trouble with backwards step with exercises. He did not perform all exercises this morning. This makes three days of decreased exercises at home. Re-ed pt and in importance of doing BIG homework. available for exercises today for training. Pt has decreased amplitude and arm swing with turns, talking and no verbal cueing with walking. Physical Therapy Plan Frequency and Duration Frequency of Treatment 4x/Week Duration of Treatment 4 weeks Plan of Care Start Date 10/31/19 Plan of Care End Date 12/05/19 Therapeutic Interventions Therapeutic Interventions Balance Training,Gait Training ,Home Exercise Program, Neuromuscular Re-education, Patient/Caregiver Education, Self-Care/Home Management, Therapeutic Activities, Therapeutic Exercises Next Visit Focus/Plan Next Note Type Treatment Note Next Visit Plan Con't progression Functional activities will be: buttoning, use of cell phone, moving in and out of bed and using a pill box
--- NOTE | 2019-11-17 15:37 | PT.OTN ---
Current Diagnoses Parkinson's disease (11/17/19) Physical Therapy Treatment Note PT-OP-A Visit Information Start: 10/31/19 07:24 Freq: Status: Active Protocol: Document 11/17/19 14:15 MB (Rec: 11/17/19 15:37 MB [id number]) Out-Patient Physical Therapy Visit Information Visit Information Visit Type Treatment Note Visit Start Time 14:15 Visit Stop Time 15:15 Total Visit Minutes 60 Visit Number 10 PT-OP-B Current Condition Start: 10/31/19 07:24 Freq: Status: Active Protocol: Document 10/31/19 14:11 MB (Rec: 10/31/19 14:30 MB [id number]) Current Condition History of Current Condition Onset Date Three to four years ago Current Complaints Slow movement, memory impairment History of Current Condition Pt has tried different kinds of PT since diagnosis. His read up on LSVT BIG. He will be receiving concurrent LSVT LOUD. Pt denies pain. He only has Carbadopa listed as medications. PMH: cardiac stent 5 years ago d/t decreased stamina. Pt lives with his . He does not have to do steps. Pt is driving. Pt denies falls. He stumbles over feet but catches himself. 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 Pt would like to get back to [employer]. He has not fished in a year. Pt does not use AD. He is doing some boxing therapy. He does not have a punching bag. He is doing a video of [employer]. He does it 3x/wk for 1 hour at a time. Pt denies tremor. Pt reports light-headedness that is worse in the morning. Pt reports memory impairment, slow movement and worsening writing. Treatment Goals Patient/Caregiver Goals To make improvements with the slowness and memory. PT-OP-C Subjective Start: 10/31/19 07:24 Freq: Status: Active Protocol: Document 11/17/19 14:15 MB (Rec: 11/17/19 15:37 MB [id number]) OP-PT Subjective Patient Comments Patient Comments Pt con't to be hypoverbal. PT asks him if he or his notice any changes and he states, no. He does state that he does not feel as sleepy. When PT asks him how exercises are going, he states that they are going better. He then states that some of them are difficult. PT-OP-D Balance Start: 10/31/19 07:24 Freq: Status: Active Protocol: Document 10/31/19 14:11 MB (Rec: 10/31/19 15:56 MB [id number]) OP-PT Balance Assessment Sitting Balance Static Sitting Balance Ability Normal Dynamic Sitting Balance Ability Normal Standing Balance Standing Balance Comments SLS left leg 3 sec; right 2 sec. Opposite leg 90/90 Balance Tests Single Limb Standing Single Limb- Right 2 sec Single Limb- Left 3 sec Cervantes Fall Scale Copyright Permission PT-OP-E Functional Tests Start: 10/31/19 07:24 Freq: Status: Active Protocol: Document 10/31/19 14:11 MB (Rec: 10/31/19 15:56 MB [id number]) Functional Tests 30 Second Sit to Stand Test Score 11 Comments Cues to sit all the way down PT-OP-G Mobility & Gait Start: 10/31/19 07:24 Freq: Status: Active Protocol: Document 10/31/19 14:11 MB (Rec: 10/31/19 15:56 MB [id number]) OP Gait Assessment Gait Gait Assistance Required: Standby Assistance Distance (Feet) 1,702 Assistive Devices Assistive Device None,Gait Belt Comments Gait Comments 6MWT this date for baseline measure. Pt presents with decreased arm swing B, pt tends to clasp fists together, left LE tends to turn inward and he presents with left anatomical changes at hip downward PT-OP-J Posture/Palpation/Skin Start: 10/31/19 07:24 Freq: Status: Active Protocol: Document 10/31/19 14:11 MB (Rec: 10/31/19 15:56 MB [id number]) Posture Evaluation Comments Posture Comments Forward head, rounded shoulders, slumps at hips and knees PT-OP-K Range of Motion Start: 10/31/19 07:24 Freq: Status: Active Protocol: Document 10/31/19 14:11 MB (Rec: 10/31/19 15:56 MB [id number]) Shoulder Goniometric Range of Motion Shoulder Left Shoulder ROM WFL No Testing Position Sitting Flexion 150 Abduction 160 Right Shoulder ROM WFL No Testing Position Sitting Flexion 150 Abduction 160 Shoulder ROM Limitations Comments Shoulders do not move symmetrically PT-OP-M Strength Start: 10/31/19 07:24 Freq: Status: Active Protocol: Document 10/31/19 14:11 MB (Rec: 10/31/19 15:56 MB [id number]) Shoulder Strength Shoulder Manual Muscle Testing Left Flexion 5 Normal Abduction (C5) 5 Normal External Rotation 5 Normal Internal Rotation 5 Normal Right Flexion 5 Normal Abduction (C5) 5 Normal External Rotation 5 Normal Internal Rotation 5 Normal Elbow/Forearm Strength Elbow and Forearm Manual Muscle Testing Left Flexion (C6) 5 Normal Extension (C7) 5 Normal Right Flexion (C6) 5 Normal Extension (C7) 5 Normal Hip Strength Hip Manual Muscle Testing Left Flexion (L2) 5 Normal Comments Pt sitting Right Flexion (L2) 5 Normal Comments Pt sitting Knee Strength Knee Manual Muscle Testing Left Flexion (S2) 5 Normal Extension (L3) 5 Normal Comments Pt sitting Right Flexion (S2) 5 Normal Extension (L3) 5 Normal Comments Pt sitting Ankle/Foot Strength Ankle and Foot Manual Muscle Testing Left Dorsiflexion (L4) 5 Normal Right Comments Pt has limited DF with knee extended and cannot tolerate MMT PT-OP-Q Treatments Start: 10/31/19 07:24 Freq: Status: Active Protocol: Document 11/17/19 14:15 MB (Rec: 11/17/19 15:37 MB [id number]) Therapeutic Exercises Sitting Exercises Side to side Side bilateral Equipment Used Mesh chair inside Reps/Minutes 10 to each side Comments VCs and occ modeling for upright posture, big arm and leg Sit to stand Equipment Used Mesh chair inside Reps/Minutes 10 Comments Demo and cues for hands--pt has consistent trouble with hand position Floor to ceiling Equipment Used Mesh chair inside Reps/Minutes 10 Comments VCs and demo Standing Exercises Sideways rock and reach Side bilateral Equipment Used Inside on carpet Reps/Minutes 10 Comments Cues for big palms up Forward rock and reach Side bilateral Equipment Used Inside on carpet Reps/Minutes 10 Comments Cues big stance Backward step Side bilateral Equipment Used Inside on carpet Reps/Minutes 10 Comments Most trouble with this ex, cues and demo Sideways step Side bilateral Equipment Used Inside on carpet Reps/Minutes 10 Comments Best performance of this ex as far as form Forward step Side bilateral Equipment Used Inside on carpet Reps/Minutes 10 Comments Cues for big arms with palms forward Gait Training Gait Activity BIG walking Device Used Gait belt, no AD Surface Steps, outside, sidewalk, gravel lot Distance/Duration 20 min Comments No grass walking today. Cues for big arm swing and for big steps with weaving around parking curbs, around corners. Pt forgets task within a few seconds of starting despite PT demo PT-OP-T Assessment and Plan Start: 10/31/19 07:24 Freq: Status: Active Protocol: Document 11/17/19 14:15 MB (Rec: 11/17/19 15:37 MB [id number]) Physical Therapy Assessment Rehab Potential Rehabilitation Potential Good Evaluation Complexity Number of Personal Factors/Comorbidities 1-2 Number of Body Systems Impaired 1-2 Clinical Presentation at Evaluation Evolving Impairments Impairments Activity Tolerance,Balance, Functional Activities, Functional Mobility,Gait, Posture,ROM,Strength Other Impairments Cognition, orthostasis, progressive neurological disease Other Concerns Fall Risk Pt denies falls at home, has imbalance with SLS today Goals 5 Residential Goal (LTG) Pt will gait train at least 2000 feet in 6 minutes to improve community ambulation by 12/01/2019. LTG Duration 4 weeks 4 Risk And Insurance Consultant Goal (LTG) Pt will perform 15 sit to stands without UE support in 30 sec to improve transfers by 12/01/2019. LTG Duration 4 weeks 3 Risk And Insurance Consultant Goal (LTG) Pt will perform at least 5 functional activity exercises daily with I to improve his personal goals to be determined by next treatment to improve functional I by . LTG Duration 4 weeks 2 Residential Goal (LTG) Pt will perform all BIG exercises daily with use of handouts or videos to improve amplitude and speed of movement by 12/01/2019. LTG Duration 4 weeks 1 Residential Goal (LTG) Pt will perform B SLS for at least 20 sec to allow safe donning and doffing of pants and shorts in standing by 11/30. LTG Duration 4 weeks Assessment Summary Assessment Pt con't to have decreased recall of exercise form, greatest trouble with keeping hands up and out with reaching as well as trouble with backwards step and sit to stand. He is hypoverbal and has not remembered to bring in pill box, cell phone or shirt to button. PT writes these on a blue sticky note and puts on front of yellow folder for him to see tonight. PT also prints off sheet about DVD so that he can con't to have video cues for BIG exercises. Pt forgets gait challenge task in the middle of the activity today (weaving around parking beams). Con't progression as pt tolerates. Cognition is a barrier. Physical Therapy Plan Frequency and Duration Frequency of Treatment 4x/Week Duration of Treatment 4 weeks Plan of Care Start Date 10/31/19 Plan of Care End Date 12/05/19 Therapeutic Interventions Therapeutic Interventions Balance Training,Gait Training ,Home Exercise Program, Neuromuscular Re-education, Patient/Caregiver Education, Self-Care/Home Management, Therapeutic Activities, Therapeutic Exercises Next Visit Focus/Plan Next Note Type Treatment Note Next Visit Plan Con't progression Functional activities will be: buttoning, use of cell phone, moving in and out of bed and using a pill box
--- NOTE | 2019-11-18 15:41 | PT.OTN ---
Current Diagnoses Parkinson's disease (11/18/19) Physical Therapy Treatment Note PT-OP-A Visit Information Start: 10/31/19 07:24 Freq: Status: Active Protocol: Document 11/18/19 14:15 MB (Rec: 11/18/19 15:41 MB [id number]) Out-Patient Physical Therapy Visit Information Visit Information Visit Type Treatment Note Visit Start Time 14:15 Visit Stop Time 15:15 Total Visit Minutes 60 Visit Number 11 PT-OP-B Current Condition Start: 10/31/19 07:24 Freq: Status: Active Protocol: Document 10/31/19 14:11 MB (Rec: 10/31/19 14:30 MB [id number]) Current Condition History of Current Condition Onset Date Three to four years ago Current Complaints Slow movement, memory impairment History of Current Condition Pt has tried different kinds of PT since diagnosis. His read up on LSVT BIG. He will be receiving concurrent LSVT LOUD. Pt denies pain. He only has Carbadopa listed as medications. PMH: cardiac stent 5 years ago d/t decreased stamina. Pt lives with his . He does not have to do steps. Pt is driving. Pt denies falls. He stumbles over feet but catches himself. 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 Pt would like to get back to [employer]. He has not fished in a year. Pt does not use AD. He is doing some boxing therapy. He does not have a punching bag. He is doing a video of Rock Steady. He does it 3x/wk for 1 hour at a time. Pt denies tremor. Pt reports light-headedness that is worse in the morning. Pt reports memory impairment, slow movement and worsening writing. Treatment Goals Patient/Caregiver Goals To make improvements with the slowness and memory. PT-OP-C Subjective Start: 10/31/19 07:24 Freq: Status: Active Protocol: Document 11/18/19 14:15 MB (Rec: 11/18/19 15:41 MB [id number]) OP-PT Subjective Patient Comments Patient Comments Pt brings in shirt, pill box and cell phone and PT's DVD. When asked if he and ordered the homework DVD, he states, no. When asked if he has the handout with the info on it that PT provided yesterday, he states, no, and it is not in folder. PT-OP-D Balance Start: 10/31/19 07:24 Freq: Status: Active Protocol: Document 10/31/19 14:11 MB (Rec: 10/31/19 15:56 MB [id number]) OP-PT Balance Assessment Sitting Balance Static Sitting Balance Ability Normal Dynamic Sitting Balance Ability Normal Standing Balance Standing Balance Comments SLS left leg 3 sec; right 2 sec. Opposite leg 90/90 Balance Tests Single Limb Standing Single Limb- Right 2 sec Single Limb- Left 3 sec Cervantes Fall Scale Copyright Permission PT-OP-E Functional Tests Start: 10/31/19 07:24 Freq: Status: Active Protocol: Document 10/31/19 14:11 MB (Rec: 10/31/19 15:56 MB [id number]) Functional Tests 30 Second Sit to Stand Test Score 11 Comments Cues to sit all the way down PT-OP-G Mobility & Gait Start: 10/31/19 07:24 Freq: Status: Active Protocol: Document 10/31/19 14:11 MB (Rec: 10/31/19 15:56 MB [id number]) OP Gait Assessment Gait Gait Assistance Required: Standby Assistance Distance (Feet) 1,702 Assistive Devices Assistive Device None,Gait Belt Comments Gait Comments 6MWT this date for baseline measure. Pt presents with decreased arm swing B, pt tends to clasp fists together, left LE tends to turn inward and he presents with left anatomical changes at hip downward PT-OP-J Posture/Palpation/Skin Start: 10/31/19 07:24 Freq: Status: Active Protocol: Document 10/31/19 14:11 MB (Rec: 10/31/19 15:56 MB [id number]) Posture Evaluation Comments Posture Comments Forward head, rounded shoulders, slumps at hips and knees PT-OP-K Range of Motion Start: 10/31/19 07:24 Freq: Status: Active Protocol: Document 10/31/19 14:11 MB (Rec: 10/31/19 15:56 MB [id number]) Shoulder Goniometric Range of Motion Shoulder Left Shoulder ROM WFL No Testing Position Sitting Flexion 150 Abduction 160 Right Shoulder ROM WFL No Testing Position Sitting Flexion 150 Abduction 160 Shoulder ROM Limitations Comments Shoulders do not move symmetrically PT-OP-M Strength Start: 10/31/19 07:24 Freq: Status: Active Protocol: Document 10/31/19 14:11 MB (Rec: 10/31/19 15:56 MB [id number]) Shoulder Strength Shoulder Manual Muscle Testing Left Flexion 5 Normal Abduction (C5) 5 Normal External Rotation 5 Normal Internal Rotation 5 Normal Right Flexion 5 Normal Abduction (C5) 5 Normal External Rotation 5 Normal Internal Rotation 5 Normal Elbow/Forearm Strength Elbow and Forearm Manual Muscle Testing Left Flexion (C6) 5 Normal Extension (C7) 5 Normal Right Flexion (C6) 5 Normal Extension (C7) 5 Normal Hip Strength Hip Manual Muscle Testing Left Flexion (L2) 5 Normal Comments Pt sitting Right Flexion (L2) 5 Normal Comments Pt sitting Knee Strength Knee Manual Muscle Testing Left Flexion (S2) 5 Normal Extension (L3) 5 Normal Comments Pt sitting Right Flexion (S2) 5 Normal Extension (L3) 5 Normal Comments Pt sitting Ankle/Foot Strength Ankle and Foot Manual Muscle Testing Left Dorsiflexion (L4) 5 Normal Right Comments Pt has limited DF with knee extended and cannot tolerate MMT PT-OP-Q Treatments Start: 10/31/19 07:24 Freq: Status: Active Protocol: Document 11/18/19 14:15 MB (Rec: 11/18/19 15:41 MB [id number]) Therapeutic Exercises Sitting Exercises Side to side Side bilateral Equipment Used Mesh chair outside Reps/Minutes 5 each side Comments VCs and modeling for leg, arm and trunk position Sit to stand Equipment Used Mesh chair outside Reps/Minutes 10 Comments Demo and VCs for big hands forward Floor to ceiling Equipment Used Mesh chair outside Reps/Minutes 5 Comments VCs for performance Standing Exercises Sideways rock and reach Side bilateral Equipment Used Outside on side walk next to building Reps/Minutes 5 each side Comments Cues for palms up Forward rock and reach Side bilateral Equipment Used Outside on side walk next to building Reps/Minutes 10 each side Comments Cues for big stance and big hands and to move toes more Backward step Side bilateral Equipment Used Outside on side walk next to building Reps/Minutes 5 each side Comments Cues for all movements with step, arms, toe up Sideways step Side bilateral Equipment Used Outside on side walk next to building Reps/Minutes 10 each side Comments Pt loses focus and tends to forward step Forward step Side bilateral Equipment Used Outside on side walk next to building Reps/Minutes 10 each side Comments Cues for big arms and palms forward Therapeutic Activity Therapeutic Activity Cell phone swiping and tasks Reps/Minutes 10' Comments Swiping to clear screen, opening emails, voice mail, finding phone numbers, ed pt to clear some apps off home page. Pt tends to swipe with nail and that does not work and so ed to swipe with pad of finger pill box Name Pill box Reps/Minutes 5' Comments Much better performance of this today. Is able to open and close boxes and hook out pills with finger while standing. The 5:30 box does have two pills missing and pt cannot state if he has taken medication early or not buttoning Name Buttoning Reps/Minutes 5 reps, 10' Comments Multiple reps to don, doff and button front buttons. Pt occ gets stuck because the shirt is uneven and he cannot tell this. Time don improves from 2 minutes to 1 min 15 sec. Time doff improves from 32 sec to 25 sec. He cannot keep up better speed with increasing reps, however. Gait Training Gait Activity Cones Device Used Gait belt Level of Assistance Superv Surface Gym carpet Comments 6 reps and pt has trouble keeping big steps and occ knocks over cones or steps over them hurdles Device Used Gait belt Level of Assistance Superv Surface Carpet Comments 6 reps and pt tends to strike first with toes and cues to change to heel strike. Pt does slow gait with hurdles BIG walking Device Used Gait belt Distance/Duration 5 minutes Comments In gym on carpet and tim between hurdles and cones and afterwards, working on changing surfaces and turning with big steps PT-OP-T Assessment and Plan Start: 10/31/19 07:24 Freq: Status: Active Protocol: Document 11/18/19 14:15 MB (Rec: 11/18/19 15:41 MB [id number]) Physical Therapy Assessment Rehab Potential Rehabilitation Potential Good Evaluation Complexity Number of Personal Factors/Comorbidities 1-2 Number of Body Systems Impaired 1-2 Clinical Presentation at Evaluation Evolving Impairments Impairments Activity Tolerance,Balance, Functional Activities, Functional Mobility,Gait, Posture,ROM,Strength Other Impairments Cognition, orthostasis, progressive neurological disease Other Concerns Fall Risk Pt denies falls at home, has imbalance with SLS today Goals 5 Long-Term Goal (LTG) Pt will gait train at least 2000 feet in 6 minutes to improve community ambulation by 12/01/2019. LTG Duration 4 weeks 4 Long-Term Goal (LTG) Pt will perform 15 sit to stands without UE support in 30 sec to improve transfers by 12/01/2019. LTG Duration 4 weeks 3 Lather Apprentice Goal (LTG) Pt will perform at least 5 functional activity exercises daily with I to improve his personal goals to be determined by next treatment to improve functional I by . LTG Duration 4 weeks 2 Long-Term Goal (LTG) Pt will perform all BIG exercises daily with use of handouts or videos to improve amplitude and speed of movement by 12/01/2019. LTG Duration 4 weeks 1 Lather Apprentice Goal (LTG) Pt will perform B SLS for at least 20 sec to allow safe donning and doffing of pants and shorts in standing by 11/30. LTG Duration 4 weeks Assessment Summary Assessment Pt con't to require cues and demo for all exercises. He improves with donning and doffing shirt, using pill box and swiping on cell phone. He does have trouble keeping good speed and amplitude with increasing repetitions and PT feels that this might be d/t cognitive fatigue. PT emails pt and ('s email address as told by pt to PT) instructions on ordering homework DVD and handout for BIG for life. Physical Therapy Plan Frequency and Duration Frequency of Treatment 4x/Week Duration of Treatment 4 weeks Plan of Care Start Date 10/31/19 Plan of Care End Date 12/05/19 Therapeutic Interventions Therapeutic Interventions Balance Training,Gait Training ,Home Exercise Program, Neuromuscular Re-education, Patient/Caregiver Education, Self-Care/Home Management, Therapeutic Activities, Therapeutic Exercises Next Visit Focus/Plan Next Note Type Treatment Note Next Visit Plan Con't progression Functional activities will be: buttoning, use of cell phone, moving in and out of bed and using a pill box
--- NOTE | 2019-11-19 16:42 | PT.OTN ---
Current Diagnoses Parkinson's disease (11/19/19) Physical Therapy Treatment Note PT-OP-A Visit Information Start: 10/31/19 07:24 Freq: Status: Active Protocol: Document 11/19/19 16:21 AW (Rec: 11/19/19 16:42 AW [id number]) Out-Patient Physical Therapy Visit Information Visit Information Visit Type Treatment Note Visit Start Time 14:15 Visit Stop Time 15:15 Total Visit Minutes 60 Visit Number 12 PT-OP-B Current Condition Start: 10/31/19 07:24 Freq: Status: Active Protocol: Document 10/31/19 14:11 MB (Rec: 10/31/19 14:30 MB [id number]) Current Condition History of Current Condition Onset Date Three to four years ago Current Complaints Slow movement, memory impairment History of Current Condition Pt has tried different kinds of PT since diagnosis. His read up on LSVT BIG. He will be receiving concurrent LSVT LOUD. Pt denies pain. He only has Carbadopa listed as medications. PMH: cardiac stent 5 years ago d/t decreased stamina. Pt lives with his . He does not have to do steps. Pt is driving. Pt denies falls. He stumbles over feet but catches himself. 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 Pt would like to get back to [employer]. He has not fished in a year. Pt does not use AD. He is doing some boxing therapy. He does not have a punching bag. He is doing a video of Rock Steady. He does it 3x/wk for 1 hour at a time. Pt denies tremor. Pt reports light-headedness that is worse in the morning. Pt reports memory impairment, slow movement and worsening writing. Treatment Goals Patient/Caregiver Goals To make improvements with the slowness and memory. PT-OP-C Subjective Start: 10/31/19 07:24 Freq: Status: Active Protocol: Document 11/19/19 16:21 AW (Rec: 11/19/19 16:42 AW [id number]) OP-PT Subjective Patient Comments Patient Comments Pt states exercises are going well at home and that his performs them with him. PT-OP-D Balance Start: 10/31/19 07:24 Freq: Status: Active Protocol: Document 10/31/19 14:11 MB (Rec: 10/31/19 15:56 MB [id number]) OP-PT Balance Assessment Sitting Balance Static Sitting Balance Ability Normal Dynamic Sitting Balance Ability Normal Standing Balance Standing Balance Comments SLS left leg 3 sec; right 2 sec. Opposite leg 90/90 Balance Tests Single Limb Standing Single Limb- Right 2 sec Single Limb- Left 3 sec Cervantes Fall Scale Copyright Permission PT-OP-E Functional Tests Start: 10/31/19 07:24 Freq: Status: Active Protocol: Document 10/31/19 14:11 MB (Rec: 10/31/19 15:56 MB [id number]) Functional Tests 30 Second Sit to Stand Test Score 11 Comments Cues to sit all the way down PT-OP-G Mobility & Gait Start: 10/31/19 07:24 Freq: Status: Active Protocol: Document 10/31/19 14:11 MB (Rec: 10/31/19 15:56 MB [id number]) OP Gait Assessment Gait Gait Assistance Required: Standby Assistance Distance (Feet) 1,702 Assistive Devices Assistive Device None,Gait Belt Comments Gait Comments 6MWT this date for baseline measure. Pt presents with decreased arm swing B, pt tends to clasp fists together, left LE tends to turn inward and he presents with left anatomical changes at hip downward PT-OP-J Posture/Palpation/Skin Start: 10/31/19 07:24 Freq: Status: Active Protocol: Document 10/31/19 14:11 MB (Rec: 10/31/19 15:56 MB [id number]) Posture Evaluation Comments Posture Comments Forward head, rounded shoulders, slumps at hips and knees PT-OP-K Range of Motion Start: 10/31/19 07:24 Freq: Status: Active Protocol: Document 10/31/19 14:11 MB (Rec: 10/31/19 15:56 MB [id number]) Shoulder Goniometric Range of Motion Shoulder Left Shoulder ROM WFL No Testing Position Sitting Flexion 150 Abduction 160 Right Shoulder ROM WFL No Testing Position Sitting Flexion 150 Abduction 160 Shoulder ROM Limitations Comments Shoulders do not move symmetrically PT-OP-M Strength Start: 10/31/19 07:24 Freq: Status: Active Protocol: Document 10/31/19 14:11 MB (Rec: 10/31/19 15:56 MB [id number]) Shoulder Strength Shoulder Manual Muscle Testing Left Flexion 5 Normal Abduction (C5) 5 Normal External Rotation 5 Normal Internal Rotation 5 Normal Right Flexion 5 Normal Abduction (C5) 5 Normal External Rotation 5 Normal Internal Rotation 5 Normal Elbow/Forearm Strength Elbow and Forearm Manual Muscle Testing Left Flexion (C6) 5 Normal Extension (C7) 5 Normal Right Flexion (C6) 5 Normal Extension (C7) 5 Normal Hip Strength Hip Manual Muscle Testing Left Flexion (L2) 5 Normal Comments Pt sitting Right Flexion (L2) 5 Normal Comments Pt sitting Knee Strength Knee Manual Muscle Testing Left Flexion (S2) 5 Normal Extension (L3) 5 Normal Comments Pt sitting Right Flexion (S2) 5 Normal Extension (L3) 5 Normal Comments Pt sitting Ankle/Foot Strength Ankle and Foot Manual Muscle Testing Left Dorsiflexion (L4) 5 Normal Right Comments Pt has limited DF with knee extended and cannot tolerate MMT PT-OP-Q Treatments Start: 10/31/19 07:24 Freq: Status: Active Protocol: Document 11/19/19 16:21 AW (Rec: 11/19/19 16:42 AW [id number]) Therapeutic Exercises Sitting Exercises Side to side Side bilateral Equipment Used mesh chair in tx room Reps/Minutes 8 each side Comments VC's and shaping for trunk extension Sit to stand Equipment Used tx table in lowest position Reps/Minutes 8 reps x 2 Comments Cues and demo for bigger forward lean Floor to ceiling Equipment Used mesh chair in tx room Reps/Minutes 10 Comments cues and demo for use of BIG voice Standing Exercises Sideways rock and reach Side bilateral Equipment Used in tx room Reps/Minutes 8 each side Comments cues for more rotation, back foot pivot Forward rock and reach Side bilateral Equipment Used in tx room Reps/Minutes 10 each side Comments cues for exaggerated arm swing Backward step Side bilateral Equipment Used in tx room Reps/Minutes 8 each side Comments max cues and demo for UB and LB movements Sideways step Side bilateral Equipment Used in tx room Reps/Minutes 10 each side Comments cues for increased rotation Forward step Side bilateral Equipment Used in tx room with mirror for visual feedback Reps/Minutes 10 each side Comments cues for BIG foot clearance Therapeutic Activity Therapeutic Activity Cell phone swiping and tasks Reps/Minutes 8' Comments Swiping up from home screen with definitive touch and swipe. Cued big finger extension. Opening apps from home screen with touch and release, again with cues for exaggerated finger extension buttoning Name Buttoning Reps/Minutes 7' Comments 3 reps to don and doff, buttoning front buttons and wrist. Cued pt for wrist and finger flicks when losing control of small movements, BIG sales contracts analyst on buttons and angry push through. Gait Training Gait Activity BIG walking Device Used Gait belt Level of Assistance SBA Surface paved Distance/Duration 15 minutes Treatment Focus increased amplitude in hip flexion, step length Comments Outside with multiple turns. Pt walked circles around parking blocks and was able to improve amplitude of steps in turns after multiple reps. PT-OP-T Assessment and Plan Start: 10/31/19 07:24 Freq: Status: Active Protocol: Document 11/19/19 16:21 AW (Rec: 11/19/19 16:42 AW [id number]) Physical Therapy Assessment Rehab Potential Rehabilitation Potential Good Evaluation Complexity Number of Personal Factors/Comorbidities 1-2 Number of Body Systems Impaired 1-2 Clinical Presentation at Evaluation Evolving Impairments Impairments Activity Tolerance,Balance, Functional Activities, Functional Mobility,Gait, Posture,ROM,Strength Other Impairments Cognition, orthostasis, progressive neurological disease Other Concerns Fall Risk Pt denies falls at home, has imbalance with SLS today Goals 5 [employer] Goal (LTG) Pt will gait train at least 2000 feet in 6 minutes to improve community ambulation by 12/01/2019. LTG Duration 4 weeks 4 Retirement Goal (LTG) Pt will perform 15 sit to stands without UE support in 30 sec to improve transfers by 12/01/2019. LTG Duration 4 weeks 3 Retirement Goal (LTG) Pt will perform at least 5 functional activity exercises daily with I to improve his personal goals to be determined by next treatment to improve functional I by . LTG Duration 4 weeks 2 Retirement Goal (LTG) Pt will perform all BIG exercises daily with use of handouts or videos to improve amplitude and speed of movement by 12/01/2019. LTG Duration 4 weeks 1 Retirement Goal (LTG) Pt will perform B SLS for at least 20 sec to allow safe donning and doffing of pants and shorts in standing by 11/30. LTG Duration 4 weeks Assessment Summary Assessment Pt's retention and carryover of exercises day to day is poor. Asked pt today to teach back two of the exercises and he was at a loss, requiring max cues to set up and execute . Pt works hard with gait training. Shifted focus from arm swing to step length today with improved ability to maintain greater step length amplitude in turns. Physical Therapy Plan Frequency and Duration Frequency of Treatment 4x/Week Duration of Treatment 4 weeks Plan of Care Start Date 10/31/19 Plan of Care End Date 12/05/19 Therapeutic Interventions Therapeutic Interventions Balance Training,Gait Training ,Home Exercise Program, Neuromuscular Re-education, Patient/Caregiver Education, Self-Care/Home Management, Therapeutic Activities, Therapeutic Exercises Next Visit Focus/Plan Next Note Type Treatment Note Next Visit Plan Con't progression Functional activities will be: buttoning, use of cell phone, moving in and out of bed and using a pill box
--- NOTE | 2019-11-20 15:35 | PT.OTN ---
Current Diagnoses Parkinson's disease (11/20/19) Physical Therapy Treatment Note PT-OP-A Visit Information Start: 10/31/19 07:24 Freq: Status: Active Protocol: Document 11/20/19 14:15 MB (Rec: 11/20/19 15:35 MB [id number]) Out-Patient Physical Therapy Visit Information Visit Information Visit Type Treatment Note Visit Start Time 14:15 Visit Stop Time 15:17 Total Visit Minutes 62 Visit Number 13 PT-OP-B Current Condition Start: 10/31/19 07:24 Freq: Status: Active Protocol: Document 10/31/19 14:11 MB (Rec: 10/31/19 14:30 MB [id number]) Current Condition History of Current Condition Onset Date Three to four years ago Current Complaints Slow movement, memory impairment History of Current Condition Pt has tried different kinds of PT since diagnosis. His read up on LSVT BIG. He will be receiving concurrent LSVT LOUD. Pt denies pain. He only has Carbadopa listed as medications. PMH: cardiac stent 5 years ago d/t decreased stamina. Pt lives with his . He does not have to do steps. Pt is driving. Pt denies falls. He stumbles over feet but catches himself. 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 Pt would like to get back to [facility]. He has not fished in a year. Pt does not use AD. He is doing some boxing therapy. He does not have a punching bag. He is doing a video of [employer]. He does it 3x/wk for 1 hour at a time. Pt denies tremor. Pt reports light-headedness that is worse in the morning. Pt reports memory impairment, slow movement and worsening writing. Treatment Goals Patient/Caregiver Goals To make improvements with the slowness and memory. PT-OP-C Subjective Start: 10/31/19 07:24 Freq: Status: Active Protocol: Document 11/20/19 14:15 MB (Rec: 11/20/19 15:35 MB [id number]) OP-PT Subjective Patient Comments Patient Comments Pt states that his mentioned that his posture is better. He feels like he has more energy and is sleeping better. PT-OP-D Balance Start: 10/31/19 07:24 Freq: Status: Active Protocol: Document 10/31/19 14:11 MB (Rec: 10/31/19 15:56 MB [id number]) OP-PT Balance Assessment Sitting Balance Static Sitting Balance Ability Normal Dynamic Sitting Balance Ability Normal Standing Balance Standing Balance Comments SLS left leg 3 sec; right 2 sec. Opposite leg 90/90 Balance Tests Single Limb Standing Single Limb- Right 2 sec Single Limb- Left 3 sec Cervantes Fall Scale Copyright Permission PT-OP-E Functional Tests Start: 10/31/19 07:24 Freq: Status: Active Protocol: Document 10/31/19 14:11 MB (Rec: 10/31/19 15:56 MB [id number]) Functional Tests 30 Second Sit to Stand Test Score 11 Comments Cues to sit all the way down PT-OP-G Mobility & Gait Start: 10/31/19 07:24 Freq: Status: Active Protocol: Document 10/31/19 14:11 MB (Rec: 10/31/19 15:56 MB [id number]) OP Gait Assessment Gait Gait Assistance Required: Standby Assistance Distance (Feet) 1,702 Assistive Devices Assistive Device None,Gait Belt Comments Gait Comments 6MWT this date for baseline measure. Pt presents with decreased arm swing B, pt tends to clasp fists together, left LE tends to turn inward and he presents with left anatomical changes at hip downward PT-OP-J Posture/Palpation/Skin Start: 10/31/19 07:24 Freq: Status: Active Protocol: Document 10/31/19 14:11 MB (Rec: 10/31/19 15:56 MB [id number]) Posture Evaluation Comments Posture Comments Forward head, rounded shoulders, slumps at hips and knees PT-OP-K Range of Motion Start: 10/31/19 07:24 Freq: Status: Active Protocol: Document 10/31/19 14:11 MB (Rec: 10/31/19 15:56 MB [id number]) Shoulder Goniometric Range of Motion Shoulder Left Shoulder ROM WFL No Testing Position Sitting Flexion 150 Abduction 160 Right Shoulder ROM WFL No Testing Position Sitting Flexion 150 Abduction 160 Shoulder ROM Limitations Comments Shoulders do not move symmetrically PT-OP-M Strength Start: 10/31/19 07:24 Freq: Status: Active Protocol: Document 10/31/19 14:11 MB (Rec: 10/31/19 15:56 MB [id number]) Shoulder Strength Shoulder Manual Muscle Testing Left Flexion 5 Normal Abduction (C5) 5 Normal External Rotation 5 Normal Internal Rotation 5 Normal Right Flexion 5 Normal Abduction (C5) 5 Normal External Rotation 5 Normal Internal Rotation 5 Normal Elbow/Forearm Strength Elbow and Forearm Manual Muscle Testing Left Flexion (C6) 5 Normal Extension (C7) 5 Normal Right Flexion (C6) 5 Normal Extension (C7) 5 Normal Hip Strength Hip Manual Muscle Testing Left Flexion (L2) 5 Normal Comments Pt sitting Right Flexion (L2) 5 Normal Comments Pt sitting Knee Strength Knee Manual Muscle Testing Left Flexion (S2) 5 Normal Extension (L3) 5 Normal Comments Pt sitting Right Flexion (S2) 5 Normal Extension (L3) 5 Normal Comments Pt sitting Ankle/Foot Strength Ankle and Foot Manual Muscle Testing Left Dorsiflexion (L4) 5 Normal Right Comments Pt has limited DF with knee extended and cannot tolerate MMT PT-OP-Q Treatments Start: 10/31/19 07:24 Freq: Status: Active Protocol: Document 11/20/19 14:15 MB (Rec: 11/20/19 15:35 MB [id number]) Therapeutic Exercises Sitting Exercises Side to side Side bilateral Equipment Used Mesh chair outside Reps/Minutes 5 each side Comments VCs and asst for leg, arm and trunk position Sit to stand Equipment Used Mesh chair outside Reps/Minutes 10 Comments Demo and VCs for big hands forward Floor to ceiling Equipment Used Mesh chair outside Reps/Minutes 5 Comments VCs for performance Standing Exercises Sideways rock and reach Side bilateral Equipment Used Outside on side walk next to building Reps/Minutes 5 each side Comments Cues for palms up Forward rock and reach Side bilateral Equipment Used Outside on side walk next to building Reps/Minutes 10 each side Comments Cues for big stance and big hands and to move toes more Backward step Side bilateral Equipment Used Outside on side walk next to building Reps/Minutes 5 each side Comments Cues for arms, toe up Sideways step Side bilateral Equipment Used Outside on side walk next to building Reps/Minutes 5 each side Comments Cues to look to side where he is stepping Forward step Side bilateral Equipment Used Outside on side walk next to building Reps/Minutes 10 each side Comments Cues for big arms and palms forward Therapeutic Activity Therapeutic Activity Watch winding Reps/Minutes 5' Comments Pt talks about interest in watches and mentions that his current watch has stopped self -winding after he got dx with PD. Discussed wearing for BIG exercises and walking and pt is able to demonstrate working setting time and winding watch for PT buttoning Name Buttoning Reps/Minutes 5 reps, 10' Comments Multiple reps to don, doff and button front buttons. One episode of forgetting that he is unbuttoning and starts to button, improved time today with best don time of 40 sec and best doff time of 14 sec Gait Training Gait Activity BIG walking Device Used Gait belt, no AD Surface Steps, outside, sidewalk, gravel lot Distance/Duration 10 min Comments No grass walking today. Cues for big arm swing and for big steps. Cognitive challenge today with talking about watches and pt tends to stop moving arms with conversing. PT-OP-T Assessment and Plan Start: 10/31/19 07:24 Freq: Status: Active Protocol: Document 11/20/19 14:15 MB (Rec: 11/20/19 15:35 MB [id number]) Physical Therapy Assessment Rehab Potential Rehabilitation Potential Good Evaluation Complexity Number of Personal Factors/Comorbidities 1-2 Number of Body Systems Impaired 1-2 Clinical Presentation at Evaluation Evolving Impairments Impairments Activity Tolerance,Balance, Functional Activities, Functional Mobility,Gait, Posture,ROM,Strength Other Impairments Cognition, orthostasis, progressive neurological disease Other Concerns Fall Risk Pt denies falls at home, has imbalance with SLS today Goals 5 Fdc Goal (LTG) Pt will gait train at least 2000 feet in 6 minutes to improve community ambulation by 12/01/2019. LTG Duration 4 weeks 4 Fdc Goal (LTG) Pt will perform 15 sit to stands without UE support in 30 sec to improve transfers by 12/01/2019. LTG Duration 4 weeks 3 Trim Sawyer Goal (LTG) Pt will perform at least 5 functional activity exercises daily with I to improve his personal goals to be determined by next treatment to improve functional I by . LTG Duration 4 weeks 2 Fdc Goal (LTG) Pt will perform all BIG exercises daily with use of handouts or videos to improve amplitude and speed of movement by 12/01/2019. LTG Duration 4 weeks 1 Fdc Goal (LTG) Pt will perform B SLS for at least 20 sec to allow safe donning and doffing of pants and shorts in standing by 11/30. LTG Duration 4 weeks Assessment Summary Assessment Pt con't with cognitive challenges that inhibit carryover with exercises and BIG posture with gait. He does demonstrate improvement with backwards step and donning and doffing shirt today. His BIG therapy courses will be shortened by 1 day as he cannot make last appointment d /t doctor visit he cannot miss . Physical Therapy Plan Frequency and Duration Frequency of Treatment 4x/Week Duration of Treatment 4 weeks Plan of Care Start Date 10/31/19 Plan of Care End Date 12/05/19 Therapeutic Interventions Therapeutic Interventions Balance Training,Gait Training ,Home Exercise Program, Neuromuscular Re-education, Patient/Caregiver Education, Self-Care/Home Management, Therapeutic Activities, Therapeutic Exercises Next Visit Focus/Plan Next Note Type Treatment Note Next Visit Plan Con't progression Functional activities will be: buttoning, use of cell phone, moving in and out of bed and using a pill box
--- NOTE | 2019-11-25 15:33 | PT.OTN ---
Current Diagnoses Parkinson's disease (11/25/19) Physical Therapy Treatment Note PT-OP-A Visit Information Start: 10/31/19 07:24 Freq: Status: Active Protocol: Document 11/25/19 14:18 MB (Rec: 11/25/19 15:33 MB [id number]) Out-Patient Physical Therapy Visit Information Visit Information Visit Type Treatment Note Visit Start Time 14:18 Visit Stop Time 15:18 Total Visit Minutes 60 Visit Number 14 PT-OP-B Current Condition Start: 10/31/19 07:24 Freq: Status: Active Protocol: Document 10/31/19 14:11 MB (Rec: 10/31/19 14:30 MB [id number]) Current Condition History of Current Condition Onset Date Three to four years ago Current Complaints Slow movement, memory impairment History of Current Condition Pt has tried different kinds of PT since diagnosis. His read up on LSVT BIG. He will be receiving concurrent LSVT LOUD. Pt denies pain. He only has Carbadopa listed as medications. PMH: cardiac stent 5 years ago d/t decreased stamina. Pt lives with his . He does not have to do steps. Pt is driving. Pt denies falls. He stumbles over feet but catches himself. 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 Pt would like to get back to [employer]. He has not fished in a year. Pt does not use AD. He is doing some boxing therapy. He does not have a punching bag. He is doing a video of [employer]. He does it 3x/wk for 1 hour at a time. Pt denies tremor. Pt reports light-headedness that is worse in the morning. Pt reports memory impairment, slow movement and worsening writing. Treatment Goals Patient/Caregiver Goals To make improvements with the slowness and memory. PT-OP-C Subjective Start: 10/31/19 07:24 Freq: Status: Active Protocol: Document 11/25/19 14:18 MB (Rec: 11/25/19 15:33 MB [id number]) OP-PT Subjective Patient Comments Patient Comments Pt states that he has been really tired and sleeping a lot. He had one day where he was really, really tired. He states that he will call his doctor about it. PT-OP-D Balance Start: 10/31/19 07:24 Freq: Status: Active Protocol: Document 10/31/19 14:11 MB (Rec: 10/31/19 15:56 MB [id number]) OP-PT Balance Assessment Sitting Balance Static Sitting Balance Ability Normal Dynamic Sitting Balance Ability Normal Standing Balance Standing Balance Comments SLS left leg 3 sec; right 2 sec. Opposite leg 90/90 Balance Tests Single Limb Standing Single Limb- Right 2 sec Single Limb- Left 3 sec Cervantes Fall Scale Copyright Permission PT-OP-E Functional Tests Start: 10/31/19 07:24 Freq: Status: Active Protocol: Document 10/31/19 14:11 MB (Rec: 10/31/19 15:56 MB [id number]) Functional Tests 30 Second Sit to Stand Test Score 11 Comments Cues to sit all the way down PT-OP-G Mobility & Gait Start: 10/31/19 07:24 Freq: Status: Active Protocol: Document 10/31/19 14:11 MB (Rec: 10/31/19 15:56 MB [id number]) OP Gait Assessment Gait Gait Assistance Required: Standby Assistance Distance (Feet) 1,702 Assistive Devices Assistive Device None,Gait Belt Comments Gait Comments 6MWT this date for baseline measure. Pt presents with decreased arm swing B, pt tends to clasp fists together, left LE tends to turn inward and he presents with left anatomical changes at hip downward PT-OP-J Posture/Palpation/Skin Start: 10/31/19 07:24 Freq: Status: Active Protocol: Document 10/31/19 14:11 MB (Rec: 10/31/19 15:56 MB [id number]) Posture Evaluation Comments Posture Comments Forward head, rounded shoulders, slumps at hips and knees PT-OP-K Range of Motion Start: 10/31/19 07:24 Freq: Status: Active Protocol: Document 10/31/19 14:11 MB (Rec: 10/31/19 15:56 MB [id number]) Shoulder Goniometric Range of Motion Shoulder Left Shoulder ROM WFL No Testing Position Sitting Flexion 150 Abduction 160 Right Shoulder ROM WFL No Testing Position Sitting Flexion 150 Abduction 160 Shoulder ROM Limitations Comments Shoulders do not move symmetrically PT-OP-M Strength Start: 10/31/19 07:24 Freq: Status: Active Protocol: Document 10/31/19 14:11 MB (Rec: 10/31/19 15:56 MB [id number]) Shoulder Strength Shoulder Manual Muscle Testing Left Flexion 5 Normal Abduction (C5) 5 Normal External Rotation 5 Normal Internal Rotation 5 Normal Right Flexion 5 Normal Abduction (C5) 5 Normal External Rotation 5 Normal Internal Rotation 5 Normal Elbow/Forearm Strength Elbow and Forearm Manual Muscle Testing Left Flexion (C6) 5 Normal Extension (C7) 5 Normal Right Flexion (C6) 5 Normal Extension (C7) 5 Normal Hip Strength Hip Manual Muscle Testing Left Flexion (L2) 5 Normal Comments Pt sitting Right Flexion (L2) 5 Normal Comments Pt sitting Knee Strength Knee Manual Muscle Testing Left Flexion (S2) 5 Normal Extension (L3) 5 Normal Comments Pt sitting Right Flexion (S2) 5 Normal Extension (L3) 5 Normal Comments Pt sitting Ankle/Foot Strength Ankle and Foot Manual Muscle Testing Left Dorsiflexion (L4) 5 Normal Right Comments Pt has limited DF with knee extended and cannot tolerate MMT PT-OP-Q Treatments Start: 10/31/19 07:24 Freq: Status: Active Protocol: Document 11/25/19 14:18 MB (Rec: 11/25/19 15:33 MB [id number]) Therapeutic Exercises Sitting Exercises Side to side Side bilateral Equipment Used Mesh chair inside, blue mat on floor Reps/Minutes 10 each side Comments Cues for starting big, hand and leg positions Sit to stand Equipment Used Mesh chair inside, blue mat on floor Reps/Minutes 10 Comments Multiple cues for hand position when standing Floor to ceiling Equipment Used Mesh chair inside, blue mat on floor Reps/Minutes 10 Comments VCs, visual cues Standing Exercises Sideways rock and reach Side bilateral Equipment Used Blue mat on floor Reps/Minutes 10 each side Comments Cues for palms up and follow hand with eyes and head Forward rock and reach Side bilateral Equipment Used Mesh chair inside, blue mat on floor Reps/Minutes 10 each side Backward step Side bilateral Equipment Used Blue mat on floor Reps/Minutes 10 reps Comments Visual cues and cues for front toes up, big hands Sideways step Side bilateral Equipment Used Blue mat on floor Reps/Minutes 10 each side Comments Visual cues and cues to look towards stepping side Forward step Side bilateral Equipment Used Blue mat on floor Reps/Minutes 20 Comments Pt performs alternating today Gait Training Gait Activity BIG walking Description Inside, cones, hurdles, steps Device Used Gait belt Surface Carpet, floor, blue mat on floor Distance/Duration 25' Treatment Focus Maintaining gait speed, arm swing Comments Multiple obstacles: blue mat, 4 small hurdles and 4 cones. Performed gait circuits of these and also of ascend and descend steps with 1 rail. Pt has stagger on bottom step x1, rights self with rail PT-OP-T Assessment and Plan Start: 10/31/19 07:24 Freq: Status: Active Protocol: Document 11/25/19 14:18 MB (Rec: 11/25/19 15:33 MB [id number]) Physical Therapy Assessment Rehab Potential Rehabilitation Potential Good Evaluation Complexity Number of Personal Factors/Comorbidities 1-2 Number of Body Systems Impaired 1-2 Clinical Presentation at Evaluation Evolving Impairments Impairments Activity Tolerance,Balance, Functional Activities, Functional Mobility,Gait, Posture,ROM,Strength Other Impairments Cognition, orthostasis, progressive neurological disease Other Concerns Fall Risk Pt denies falls at home, has imbalance with SLS today Goals 5 Adult Care Manager Goal (LTG) Pt will gait train at least 2000 feet in 6 minutes to improve community ambulation by 12/01/2019. LTG Duration 4 weeks 4 Adult Care Manager Goal (LTG) Pt will perform 15 sit to stands without UE support in 30 sec to improve transfers by 12/01/2019. LTG Duration 4 weeks 3 Half-Way Goal (LTG) Pt will perform at least 5 functional activity exercises daily with I to improve his personal goals to be determined by next treatment to improve functional I by . LTG Duration 4 weeks 2 Half-Way Goal (LTG) Pt will perform all BIG exercises daily with use of handouts or videos to improve amplitude and speed of movement by 12/01/2019. LTG Duration 4 weeks 1 Half-Way Goal (LTG) Pt will perform B SLS for at least 20 sec to allow safe donning and doffing of pants and shorts in standing by 11/30. LTG Duration 4 weeks Assessment Summary Assessment Pt will most gait difficulty with descending steps today. he requires ongoing visual and verbal cues for all exercises and for big arm swing and stepping. He con't to stop arm swing with obstacles but he does clear hurdles and cones better today. Cognitive changes are a barrier to carryover. Ed pt to order homework helper DVD and to contact doctor about tiredness . Physical Therapy Plan Frequency and Duration Frequency of Treatment 4x/Week Duration of Treatment 4 weeks Plan of Care Start Date 10/31/19 Plan of Care End Date 12/05/19 Therapeutic Interventions Therapeutic Interventions Balance Training,Gait Training ,Home Exercise Program, Neuromuscular Re-education, Patient/Caregiver Education, Self-Care/Home Management, Therapeutic Activities, Therapeutic Exercises Next Visit Focus/Plan Next Note Type Treatment Note Next Visit Plan Con't progression Functional activities will be: buttoning, use of cell phone, moving in and out of bed and using a pill box
--- NOTE | 2019-11-26 17:09 | PT.OTN ---
Current Diagnoses Parkinson's disease (11/26/19) Physical Therapy Treatment Note PT-OP-A Visit Information Start: 10/31/19 07:24 Freq: Status: Active Protocol: Document 11/26/19 16:50 AW (Rec: 11/26/19 17:09 AW [id number]) Out-Patient Physical Therapy Visit Information Visit Information Visit Type Treatment Note Visit Start Time 14:15 Visit Stop Time 15:15 Total Visit Minutes 60 Visit Number 15 PT-OP-B Current Condition Start: 10/31/19 07:24 Freq: Status: Active Protocol: Document 10/31/19 14:11 MB (Rec: 10/31/19 14:30 MB [id number]) Current Condition History of Current Condition Onset Date Three to four years ago Current Complaints Slow movement, memory impairment History of Current Condition Pt has tried different kinds of PT since diagnosis. His read up on LSVT BIG. He will be receiving concurrent LSVT LOUD. Pt denies pain. He only has Carbadopa listed as medications. PMH: cardiac stent 5 years ago d/t decreased stamina. Pt lives with his . He does not have to do steps. Pt is driving. Pt denies falls. He stumbles over feet but catches himself. 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 Pt would like to get back to [employer]. He has not fished in a year. Pt does not use AD. He is doing some boxing therapy. He does not have a punching bag. He is doing a video of [employer]. He does it 3x/wk for 1 hour at a time. Pt denies tremor. Pt reports light-headedness that is worse in the morning. Pt reports memory impairment, slow movement and worsening writing. Treatment Goals Patient/Caregiver Goals To make improvements with the slowness and memory. PT-OP-C Subjective Start: 10/31/19 07:24 Freq: Status: Active Protocol: Document 11/26/19 16:50 AW (Rec: 11/26/19 17:09 AW [id number]) OP-PT Subjective Patient Comments Patient Comments Pt's attends first 10 minutes today for goal-setting discussion. PT-OP-D Balance Start: 10/31/19 07:24 Freq: Status: Active Protocol: Document 10/31/19 14:11 MB (Rec: 10/31/19 15:56 MB [id number]) OP-PT Balance Assessment Sitting Balance Static Sitting Balance Ability Normal Dynamic Sitting Balance Ability Normal Standing Balance Standing Balance Comments SLS left leg 3 sec; right 2 sec. Opposite leg 90/90 Balance Tests Single Limb Standing Single Limb- Right 2 sec Single Limb- Left 3 sec Cervantes Fall Scale Copyright Permission PT-OP-E Functional Tests Start: 10/31/19 07:24 Freq: Status: Active Protocol: Document 10/31/19 14:11 MB (Rec: 10/31/19 15:56 MB [id number]) Functional Tests 30 Second Sit to Stand Test Score 11 Comments Cues to sit all the way down PT-OP-G Mobility & Gait Start: 10/31/19 07:24 Freq: Status: Active Protocol: Document 10/31/19 14:11 MB (Rec: 10/31/19 15:56 MB [id number]) OP Gait Assessment Gait Gait Assistance Required: Standby Assistance Distance (Feet) 1,702 Assistive Devices Assistive Device None,Gait Belt Comments Gait Comments 6MWT this date for baseline measure. Pt presents with decreased arm swing B, pt tends to clasp fists together, left LE tends to turn inward and he presents with left anatomical changes at hip downward PT-OP-J Posture/Palpation/Skin Start: 10/31/19 07:24 Freq: Status: Active Protocol: Document 10/31/19 14:11 MB (Rec: 10/31/19 15:56 MB [id number]) Posture Evaluation Comments Posture Comments Forward head, rounded shoulders, slumps at hips and knees PT-OP-K Range of Motion Start: 10/31/19 07:24 Freq: Status: Active Protocol: Document 10/31/19 14:11 MB (Rec: 10/31/19 15:56 MB [id number]) Shoulder Goniometric Range of Motion Shoulder Left Shoulder ROM WFL No Testing Position Sitting Flexion 150 Abduction 160 Right Shoulder ROM WFL No Testing Position Sitting Flexion 150 Abduction 160 Shoulder ROM Limitations Comments Shoulders do not move symmetrically PT-OP-M Strength Start: 10/31/19 07:24 Freq: Status: Active Protocol: Document 10/31/19 14:11 MB (Rec: 08/14/20 15:56 MB [id number]) Shoulder Strength Shoulder Manual Muscle Testing Left Flexion 5 Normal Abduction (C5) 5 Normal External Rotation 5 Normal Internal Rotation 5 Normal Right Flexion 5 Normal Abduction (C5) 5 Normal External Rotation 5 Normal Internal Rotation 5 Normal Elbow/Forearm Strength Elbow and Forearm Manual Muscle Testing Left Flexion (C6) 5 Normal Extension (C7) 5 Normal Right Flexion (C6) 5 Normal Extension (C7) 5 Normal Hip Strength Hip Manual Muscle Testing Left Flexion (L2) 5 Normal Comments Pt sitting Right Flexion (L2) 5 Normal Comments Pt sitting Knee Strength Knee Manual Muscle Testing Left Flexion (S2) 5 Normal Extension (L3) 5 Normal Comments Pt sitting Right Flexion (S2) 5 Normal Extension (L3) 5 Normal Comments Pt sitting Ankle/Foot Strength Ankle and Foot Manual Muscle Testing Left Dorsiflexion (L4) 5 Normal Right Comments Pt has limited DF with knee extended and cannot tolerate MMT PT-OP-Q Treatments Start: 10/31/19 07:24 Freq: Status: Active Protocol: Document 11/26/19 16:50 AW (Rec: 11/26/19 17:09 AW [id number]) Therapeutic Exercises Sitting Exercises Side to side Side bilateral Equipment Used Mesh chair inside, blue mat on floor Reps/Minutes 10 each side Comments VC for increased rotation Sit to stand Equipment Used tx table; meliton stool Reps/Minutes 8 x 2 Comments one set from tx table in lowest position; one set from meliton stool Floor to ceiling Equipment Used Mesh chair inside, blue mat on floor Reps/Minutes 10 Comments continued need for demonstration Standing Exercises Sideways rock and reach Side bilateral Reps/Minutes 10 each side Comments VC for increased rotation, pivot on back foot Forward rock and reach Side bilateral Reps/Minutes 10 each side Comments VC's for big reach back and forth Backward step Side bilateral Equipment Used mirror for visual feedback Reps/Minutes 10 reps Comments demo and tactile cues required Sideways step Side bilateral Equipment Used mirror for visual feedback Reps/Minutes 10 each side Comments VC for increased rotation and head turn Forward step Side bilateral Reps/Minutes 20 Comments VC for increased foot clearance Therapeutic Activity Therapeutic Activity Cell phone swiping and tasks Reps/Minutes 8' Comments Discussed phone tasks and practiced with exaggerated finger extension first set. Next set practiced with exaggerated wrist extension. Last sets practiced with added elbow flexion for definitive touch and release. Discussed utility of involving entire upper extremity in fine motor tasks in order to increase amplitude and therefore accuracy. Gait Training Gait Activity BIG walking Description stairs, hospital hallways, in clinic Device Used Gait belt Surface carpet, tile, stairs Distance/Duration 15 min Treatment Focus big steps, increased thoracic rotation Comments Cued pt to walk like Javier Jones in [employer] and to walk as if trying to communicate Don't mess with Demetrio through his walking style. Pt responded with increased upper thoracic rotation which improved arm swing overall. Pt was able to maintain increased amplitude through turns and obstacles. PT-OP-T Assessment and Plan Start: 10/31/19 07:24 Freq: Status: Active Protocol: Document 11/26/19 16:50 AW (Rec: 11/26/19 17:09 AW [id number]) Physical Therapy Assessment Rehab Potential Rehabilitation Potential Good Evaluation Complexity Number of Personal Factors/Comorbidities 1-2 Number of Body Systems Impaired 1-2 Clinical Presentation at Evaluation Evolving Impairments Impairments Activity Tolerance,Balance, Functional Activities, Functional Mobility,Gait, Posture,ROM,Strength Other Impairments Cognition, orthostasis, progressive neurological disease Other Concerns Fall Risk Pt denies falls at home, has imbalance with SLS today Goals 5 Assisted Goal (LTG) Pt will gait train at least 2000 feet in 6 minutes to improve community ambulation by 12/01/2019. LTG Duration 4 weeks 4 Barrel Dedenting Machine Operator Goal (LTG) Pt will perform 15 sit to stands without UE support in 30 sec to improve transfers by 12/01/2019. LTG Duration 4 weeks 3 Barrel Dedenting Machine Operator Goal (LTG) Pt will perform at least 5 functional activity exercises daily with I to improve his personal goals to be determined by next treatment to improve functional I by . LTG Duration 4 weeks 2 Assisted Goal (LTG) Pt will perform all BIG exercises daily with use of handouts or videos to improve amplitude and speed of movement by 12/01/2019. LTG Duration 4 weeks 1 Barrel Dedenting Machine Operator Goal (LTG) Pt will perform B SLS for at least 20 sec to allow safe donning and doffing of pants and shorts in standing by 11/30. LTG Duration 4 weeks Assessment Summary Assessment Pt demonstrates poor carryover from day to day with maximal exercises. Discussed with him and his today recommendations for activity moving forward once finished with BIG. Pt is interested in continuing boxing practice - possibly one day per week in the gym and one day per week online. PT encouraged pt to continue with daily exercises at least every other day but also emphasized importance of cardiovascular workouts. Physical Therapy Plan Frequency and Duration Frequency of Treatment 4x/Week Duration of Treatment 4 weeks Plan of Care Start Date 10/31/19 Plan of Care End Date 12/05/19 Therapeutic Interventions Therapeutic Interventions Balance Training,Gait Training ,Home Exercise Program, Neuromuscular Re-education, Patient/Caregiver Education, Self-Care/Home Management, Therapeutic Activities, Therapeutic Exercises Next Visit Focus/Plan Next Note Type Discharge Summary
--- NOTE | 2019-11-27 15:25 | PT.OTN ---
Current Diagnoses Parkinson's disease (11/27/19) Physical Therapy Treatment Note PT-OP-A Visit Information Start: 10/31/19 07:24 Freq: Status: Active Protocol: Document 11/27/19 14:15 MB (Rec: 11/27/19 15:25 MB [id number]) Out-Patient Physical Therapy Visit Information Visit Information Visit Type Treatment Note Visit Start Time 14:15 Visit Stop Time 15:15 Total Visit Minutes 60 Visit Number 16 PT-OP-B Current Condition Start: 10/31/19 07:24 Freq: Status: Active Protocol: Document 10/31/19 14:11 MB (Rec: 10/31/19 14:30 MB [id number]) Current Condition History of Current Condition Onset Date Three to four years ago Current Complaints Slow movement, memory impairment History of Current Condition Pt has tried different kinds of PT since diagnosis. His read up on LSVT BIG. He will be receiving concurrent LSVT LOUD. Pt denies pain. He only has Carbadopa listed as medications. PMH: cardiac stent 5 years ago d/t decreased stamina. Pt lives with his . He does not have to do steps. Pt is driving. Pt denies falls. He stumbles over feet but catches himself. 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 Pt would like to get back to [employer]. He has not fished in a year. Pt does not use AD. He is doing some boxing therapy. He does not have a punching bag. He is doing a video of [employer] Steady. He does it 3x/wk for 1 hour at a time. Pt denies tremor. Pt reports light-headedness that is worse in the morning. Pt reports memory impairment, slow movement and worsening writing. Treatment Goals Patient/Caregiver Goals To make improvements with the slowness and memory. PT-OP-C Subjective Start: 10/31/19 07:24 Freq: Status: Active Protocol: Document 11/27/19 14:15 MB (Rec: 11/27/19 15:25 MB [id number]) OP-PT Subjective Patient Comments Patient Comments Pt does not have any lingering questions. PT addresses all 's questions and concerns. PT-OP-D Balance Start: 10/31/19 07:24 Freq: Status: Active Protocol: Document 10/31/19 14:11 MB (Rec: 10/31/19 15:56 MB [id number]) OP-PT Balance Assessment Sitting Balance Static Sitting Balance Ability Normal Dynamic Sitting Balance Ability Normal Standing Balance Standing Balance Comments SLS left leg 3 sec; right 2 sec. Opposite leg 90/90 Balance Tests Single Limb Standing Single Limb- Right 2 sec Single Limb- Left 3 sec Cervantes Fall Scale Copyright Permission PT-OP-E Functional Tests Start: 10/31/19 07:24 Freq: Status: Active Protocol: Document 10/31/19 14:11 MB (Rec: 10/31/19 15:56 MB [id number]) Functional Tests 30 Second Sit to Stand Test Score 11 Comments Cues to sit all the way down PT-OP-G Mobility & Gait Start: 10/31/19 07:24 Freq: Status: Active Protocol: Document 10/31/19 14:11 MB (Rec: 10/31/19 15:56 MB [id number]) OP Gait Assessment Gait Gait Assistance Required: Standby Assistance Distance (Feet) 1,702 Assistive Devices Assistive Device None,Gait Belt Comments Gait Comments 6MWT this date for baseline measure. Pt presents with decreased arm swing B, pt tends to clasp fists together, left LE tends to turn inward and he presents with left anatomical changes at hip downward PT-OP-J Posture/Palpation/Skin Start: 10/31/19 07:24 Freq: Status: Active Protocol: Document 10/31/19 14:11 MB (Rec: 10/31/19 15:56 MB [id number]) Posture Evaluation Comments Posture Comments Forward head, rounded shoulders, slumps at hips and knees PT-OP-K Range of Motion Start: 10/31/19 07:24 Freq: Status: Active Protocol: Document 10/31/19 14:11 MB (Rec: 10/31/19 15:56 MB [id number]) Shoulder Goniometric Range of Motion Shoulder Left Shoulder ROM WFL No Testing Position Sitting Flexion 150 Abduction 160 Right Shoulder ROM WFL No Testing Position Sitting Flexion 150 Abduction 160 Shoulder ROM Limitations Comments Shoulders do not move symmetrically PT-OP-M Strength Start: 10/31/19 07:24 Freq: Status: Active Protocol: Document 10/31/19 14:11 MB (Rec: 10/31/19 15:56 MB [id number]) Shoulder Strength Shoulder Manual Muscle Testing Left Flexion 5 Normal Abduction (C5) 5 Normal External Rotation 5 Normal Internal Rotation 5 Normal Right Flexion 5 Normal Abduction (C5) 5 Normal External Rotation 5 Normal Internal Rotation 5 Normal Elbow/Forearm Strength Elbow and Forearm Manual Muscle Testing Left Flexion (C6) 5 Normal Extension (C7) 5 Normal Right Flexion (C6) 5 Normal Extension (C7) 5 Normal Hip Strength Hip Manual Muscle Testing Left Flexion (L2) 5 Normal Comments Pt sitting Right Flexion (L2) 5 Normal Comments Pt sitting Knee Strength Knee Manual Muscle Testing Left Flexion (S2) 5 Normal Extension (L3) 5 Normal Comments Pt sitting Right Flexion (S2) 5 Normal Extension (L3) 5 Normal Comments Pt sitting Ankle/Foot Strength Ankle and Foot Manual Muscle Testing Left Dorsiflexion (L4) 5 Normal Right Comments Pt has limited DF with knee extended and cannot tolerate MMT PT-OP-Q Treatments Start: 10/31/19 07:24 Freq: Status: Active Protocol: Document 11/27/19 14:15 MB (Rec: 11/27/19 15:25 MB [id number]) Therapeutic Exercises Sitting Exercises Sit to stand Comments 17 reps without UE support today Gait Training Gait Activity 6MWT Comments 1725 feet on d/c date, further gait ed after 6MWT Self-Care/Home Management Treatment Education Caregiver Education Education to pt and about PT's concerns about pt's cognition, sleeping, importance of follow-up with BIG exercises, walking, benefits of upright stationary bike, BIG homework video, possible follow-up with functional medicine pharmacist , answered questions PT-OP-T Assessment and Plan Start: 10/31/19 07:24 Freq: Status: Active Protocol: Document 11/27/19 14:15 MB (Rec: 11/27/19 15:25 MB [id number]) Physical Therapy Assessment Goals 5 Transmissions Systems Operator Goal (LTG) Pt will gait train at least 2000 feet in 6 minutes to improve community ambulation by 12/01/2019. 11/27/2019: Pt gait trains 1725 feet in 6 minutes LTG Duration 4 weeks 4 Transmissions Systems Operator Goal (LTG) Pt will perform 15 sit to stands without UE support in 30 sec to improve transfers by 12/01/2019. 11/27/2019: Pt performs at least 17 reps sit to stand without UE support in 30 sec with several partial stands not counted LTG Duration 4 weeks 3 Transmissions Systems Operator Goal (LTG) Pt will perform at least 5 functional activity exercises daily with I to improve his personal goals to be determined by next treatment to improve functional I by . 11/27/2019: Pt has been performing cell phone, pill box opening and closing and buttoning exercises LTG Duration 4 weeks 2 Transmissions Systems Operator Goal (LTG) Pt will perform all BIG exercises daily with use of handouts or videos to improve amplitude and speed of movement by 12/01/2019. 11/27/2019: Pt requires ongoing visual and verbal cues for exercises LTG Duration 4 weeks 1 Penitentiary Goal (LTG) Pt will perform B SLS for at least 20 sec to allow safe donning and doffing of pants and shorts in standing by 11/30. 11/27/2019: SLS right 4 sec; left 9 sec LTG Duration 4 weeks Assessment Summary Assessment Pt has progressed towards gait goal and performance of BIG HEP goal since starting PT. He con't with balance difficulty . Pt's biggest limiting factor for BIG has been cognitive in nature with trouble with recall, cognitive task such as conversation with BIG walking , and decreased short-term memory with activities such as forgetting if he is buttoning or unbuttoning with buttoning tasks. Extensive conversation with pt and to consider speaking with doctor about cognitive concerns and possible referral to functional medicine pharmacist . Will d/c PT.
== END 2019-12-01 13:39 ==
LOC: PHYS 14:15
PROVIDERS: Family Provider Family Medicine; PCP Family Medicine; Referring Provider Psychiatry & Neurology Neurology; Visit Provider Psychiatry & Neurology Neurology
DX: G20 Parkinson's disease (principal)
CPT/HCPCS: 97110; 97116; 97162; 97530; 97535

== ENCOUNTER → 2020-03-29 09:04 | Outpatient (CLI) | payer MEDICARE, OTHER, SELFPAY ==
[2020-03-29 09:36] LABS: Add Manual Diff / Slide Review NO; Basophils Absolute Auto 0 /uL (0-100); Basophils Percent Auto 0.8 % (0-2); Eosinophils Absolute Auto 200 /uL (0-450); Eosinophils Percent Auto 3.7 % (2-4); Hematocrit 40.6 % (41-53); Hemoglobin 13.7 g/dL (13.5-17.5); Lymphocytes Absolute Auto 800 /uL (1100-4500); Lymphocytes Percent Auto 17.2 % (25-40); Mean Corpuscular HGB Conc 33.7 % (30-36); Mean Corpuscular Hemoglobin 30.9 PG (26-34); Mean Corpuscular Volume 91.7 fL (80-100); Monocytes Absolute Auto 300 /uL (0-900); Monocytes Percent Auto 7.3 % (3-14); Neutrophils Absolute Auto 3300 /uL (1500-7000); Platelet Count 165 X10^3/uL (150-400); Red Blood Cell Count 4.43 X10^6/uL (4.5-5.9); Red Cell Distribution Width 13.4 % (11.6-14.8); White Blood Cell Count 4.6 X10^3/uL (4.5-11.0)
[2020-03-29 10:11] LABS: Albumin 4.2 g/dL (3.5-5.0); Albumin Globulin Ratio 1.4 (1.0-2.8); Alkaline Phosphatase 47 U/L (38-126); Aspartate Aminotransferase 18 IU/L (17-59); BUN Creatinine Ratio 25.6 (6-22); Bilirubin Total 0.8 mg/dL (0.2-1.3); Blood Urea Nitrogen 30 mg/dL (9-20); Calcium 9.1 mg/dL (8.4-10.2); Carbon Dioxide 32 mmol/L (22-32); Chloride 103 mmol/L (98-107); Estimated Glomerular Filt Rate > 60.0 mL/min (>60); Globulin 3.1 g/dL (1.7-4.1); Glucose 99 mg/dL (80-110); HEMOLYSIS < 15 (0-50); Potassium 3.7 mmol/L (3.4-5.1); Sodium 138 mmol/L (137-145); Total Protein 7.3 g/dL (6.3-8.2)
[2020-03-29 11:10] LABS: Alanine Aminotransferase < 4 IU/L (<50)
[2020-03-30 03:15] LABS: Cholesterol HDL Ratio 2.9 ratio (0.0-5.0); Cholesterol,Total 145 mg/dL (100-199); HDL Cholesterol 50 mg/dL (>39); LDL Cholesterol Cal 83 mg/dL (0-99); Triglycerides 54 mg/dL (0-149); VLDL Cholesterol Cal 12 mg/dL (5-40)
== END ==
PROVIDERS: Family Provider Family Medicine; PCP Family Medicine; Referring Provider Family Medicine; Visit Provider Family Medicine
DX: Z00.00 Encounter for general adult medical examination without abnormal findings (principal); I25.10 Atherosclerotic heart disease of native coronary artery without angina pectoris; R73.9 Hyperglycemia, unspecified; E78.2 Mixed hyperlipidemia; I10 Essential (primary) hypertension
CPT/HCPCS: 36415; 80053; 80061; 85025

== ENCOUNTER 2020-10-14 14:15 | Outpatient (RCR) | payer MEDICARE, OTHER, SELFPAY ==
--- NOTE | 2020-09-27 15:37 | PT.OIE ---
Current Diagnoses Parkinson's disease (09/27/20) Visit Care Team Role Provider Type Suman Clifton MD Primary Care Provider Non-Staff Specialty: Medical Address: [address] [place] [address] [address], [place], [address] Email: Tex Alfonso MD Attending Provider Non-Staff Referring Provider Specialty: Psychiatry Address: [address] [place] [address], [address], [place], [address] Email: Physical Therapy Initial Evaluation PT-OP-A Visit Information Start: 09/23/20 08:44 Freq: Status: Active Protocol: Document 09/27/20 14:17 MB (Rec: 09/27/20 14:19 MB [id number]) Out-Patient Physical Therapy Visit Information Visit Information Visit Type Initial Evaluation Visit Note Medicare Visit Start Time 14:17 Visit Stop Time 15:07 Total Visit Minutes 50 Visit Number 1 Number of BUSINESS COMPUTERS TEACHER Visits 0 Evaluation Information Evaluation Date 09/27/20 Precautions Precautions Pt has some cognitive/memory impairment PT-OP-B Current Condition Start: 09/23/20 08:44 Freq: Status: Active Protocol: Document 09/27/20 14:17 MB (Rec: 09/27/20 14:45 MB [id number]) Current Condition History of Current Condition Onset Date Pt cannot remember onset date, at least a couple of years Current Complaints Memory and stiffness History of Current Condition Pt arrives for [facility]. Pt was last seen for [facility] 11/27/19. He has not been keeping up with the exercises. He is walking. He is doing boxing with a local celebrity chef entrepreneur media personality. He is doing that 3x/week. He is still seeing PIPE INSULATOR HELPER for cognitive training. Pt reports a fall on the steps about 4 months ago. He stepped back, thinking it was the landing and he fell back and off 10 steps. He did not go to the ED. He reports he was bruised all over. He was watering plants and not paying attention. He states that won 't happen again. He denies pain. He is driving and reports no trouble. Sitting for a while makes him stiff. His watch is not automatically kicking in with arm swing and he is having to wind it up. He is taking Carbidopa Levodopa TID. Pt has a history of cardiac stent. Pt states that he and would like to see him have better mobility. He cannot state a functional activity he would like to improve upon today. Pt states that his vision has been a little off. He can't seem to get a good prescription for glasses. He had cataract surgery in the past and it didn't seem to do much. Treatment Goals Patient/Caregiver Goals Increased mobility PT-OP-C Subjective Start: 09/23/20 08:44 Freq: Status: Active Protocol: Document 09/27/20 14:17 MB (Rec: 09/27/20 14:45 MB [id number]) OP-PT Subjective Patient Comments Patient Comments See history of current condition PT-OP-D Balance Start: 09/23/20 08:44 Freq: Status: Active Protocol: Document 09/27/20 14:17 MB (Rec: 09/27/20 15:34 MB [id number]) OP-PT Balance Assessment Sitting Balance Static Sitting Balance Ability Good Dynamic Sitting Balance Ability Fair Sitting Balance Comments Pt tends to use hands to help with dynamic sitting balance Standing Balance Static Standing Balance Ability Good Dynamic Standing Balance Ability Fair Balance Tests Romberg Romberg EO no LOB, EC, pt opens eyes because he feels unsteady Cervantes Fall Scale Copyright Permission PT-OP-G Mobility & Gait Start: 09/23/20 08:44 Freq: Status: Active Protocol: Document 09/27/20 14:17 MB (Rec: 09/27/20 15:34 MB [id number]) OP Gait Assessment Comments Gait Comments Forward head, rounded shoulders and increased thoracic kyphosis. Decreased arm swing B and decreased scanning. 6MWT 1333 feet today . PT-OP-J Posture/Palpation/Skin Start: 09/23/20 08:44 Freq: Status: Active Protocol: Document 09/27/20 14:17 MB (Rec: 09/27/20 15:34 MB [id number]) Posture Evaluation Comments Posture Comments Forward head, rounded shoulder , increased thoracic kyphosis PT-OP-K Range of Motion Start: 09/23/20 08:44 Freq: Status: Active Protocol: Document 09/27/20 14:17 MB (Rec: 09/27/20 15:34 MB [id number]) Shoulder Goniometric Range of Motion Shoulder ROM Limitations Comments B shoulder flexion lacks at least 20 deg PT-OP-M Strength Start: 09/23/20 08:44 Freq: Status: Active Protocol: Document 09/27/20 14:17 MB (Rec: 09/27/20 15:34 MB [id number]) Shoulder Strength Shoulder Manual Muscle Testing Bilateral Flexion 4 Good Abduction (C5) 4 Good Elbow/Forearm Strength Elbow and Forearm Manual Muscle Testing Bilateral Flexion (C6) 4 Good Hip Strength Hip Manual Muscle Testing Bilateral Flexion (L2) 4 Good PT-OP-Q Treatments Start: 09/23/20 08:44 Freq: Status: Active Protocol: Document 09/27/20 14:17 MB (Rec: 09/27/20 15:36 MB [id number]) Therapeutic Exercises Sitting Exercises Sit to stands without UE support Comments 9 reps on eval Gait Training Gait Activity BIG walking Comments Pt has trouble following cues for BIG walking today and is unable to increase arm swing and dwayne when asked today 6MWT Comments Pt gait trains 1333 feet in 6 minutes with forward, flexed posture and decreased arm swing PT-OP-T Assessment and Plan Start: 09/23/20 08:44 Freq: Status: Active Protocol: Document 09/27/20 14:17 MB (Rec: 09/27/20 15:30 MB [id number]) Physical Therapy Assessment Rehab Potential Rehabilitation Potential Fair Evaluation Complexity Number of Personal Factors/Comorbidities 1-2 Number of Body Systems Impaired 3 Clinical Presentation at Evaluation Evolving Impairments Impairments Activity Tolerance,Balance, Functional Activities, Functional Mobility,Gait, Posture,ROM,Strength,Transfers Other Impairments Personal factors include memory impairment. Body systems affected include musculoskeletal, neurological and cognitive. His clinical presentation is evolving in setting of progressive neurological disease. Other Concerns Fall Risk Yes Goals 3 Practice Lead Goal (LTG) Pt will perform BIG and functional exercises with superv assist to improve amplitude of mobility and balance by 10/28/20. LTG Duration 8 visits 2 Practice Lead Goal (LTG) Pt will gait train at least 1500 feet in 6 minutes to improve community ambulation by 10/28/20. LTG Duration 8 visits 1 [facility] Goal (LTG) Pt will perform WNLs on a standardized balance test to decrease fall risk by 10/28/20. LTG Duration 8 visits Assessment Summary Assessment Pt is a 75 y/o male returning for [facility] BIG refresher. Pt does not bring Shauna, his , with him today and so recent PMH and social history is difficult to obtain d/t memory impairment. He does state that he will go over functional activity questionnaire with Shauna and is agreeable to ask her to come to at least one BIG training session to review exercises and any needs she feels pt may benefit from. Pt presents with postural, ROM, gait and balance impairments. His movements are slow in general. He will benefit from BIG refresher to improve amplitude, balance and gait. His goal is to improve mobility. He did not con't with BIG exercises at d/c and that is a barrier. It is possible that memory impairment is a large component to this. He enjoys working with therapists and celebrity chef entrepreneur media personality and so this may be the most beneficial way for him to do large amplitude exercises--with the assist of another person. PT hopes to talk about this with pt and his during treatment course. Physical Therapy Plan Frequency and Duration Frequency of Treatment 8 treatments Duration of Treatment 8 treatments Plan of Care Start Date 09/27/20 Plan of Care End Date 10/28/20 Therapeutic Interventions Therapeutic Interventions Balance Training,Canalithic Repositioning,Coordination Training,Gait Training,Home Exercise Program,Manual Therapy,Neuromuscular Re- education,Patient/Caregiver Education,Self-Care/Home Management,Therapeutic Activities,Therapeutic Exercises Modalities Cold Pack/Ice Massage,Hot Packs Next Visit Focus/Plan Next Note Type Treatment Note Next Visit Plan Initiate BIG exercises
--- NOTE | 2020-09-27 15:37 | PT.OPPOC ---
Physical, Occupational & Speech Therapy At [facility] Current Diagnoses Parkinson's disease (09/27/20) Visit Care Team Role Provider Type Suman Clifton MD Primary Care Provider Non-Staff Specialty: Medical Address: [address] [place] [address] [address], [place], [address] Email: Tex Alfonso MD Attending Provider Non-Staff Referring Provider Specialty: Psychiatry Address: [address] [place] [address], [address], [place], [address] Email: Plan Of Care PT-OP-T Assessment and Plan Start: 09/23/20 08:44 Freq: Status: Active Protocol: Document 09/27/20 14:17 MB (Rec: 09/27/20 15:30 MB [id number]) Physical Therapy Assessment Rehab Potential Rehabilitation Potential Fair Evaluation Complexity Number of Personal Factors/Comorbidities 1-2 Number of Body Systems Impaired 3 Clinical Presentation at Evaluation Evolving Impairments Impairments Activity Tolerance,Balance, Functional Activities, Functional Mobility,Gait, Posture,ROM,Strength,Transfers Other Impairments Personal factors include memory impairment. Body systems affected include musculoskeletal, neurological and cognitive. His clinical presentation is evolving in setting of progressive neurological disease. Other Concerns Fall Risk Yes Goals 3 Nursing Home Goal (LTG) Pt will perform BIG and functional exercises with superv assist to improve amplitude of mobility and balance by 10/28/20. LTG Duration 8 visits 2 Electrical Manager Goal (LTG) Pt will gait train at least 1500 feet in 6 minutes to improve community ambulation by 10/28/20. LTG Duration 8 visits 1 Nursing Home Goal (LTG) Pt will perform WNLs on a standardized balance test to decrease fall risk by 10/28/20. LTG Duration 8 visits Assessment Summary Assessment Pt is a 75 y/o male returning for [facility] BIG refresher. Pt does not bring Shauna, his , with him today and so recent PMH and social history is difficult to obtain d/t memory impairment. He does state that he will go over functional activity questionnaire with Shauna and is agreeable to ask her to come to at least one BIG training session to review exercises and any needs she feels pt may benefit from. Pt presents with postural, ROM, gait and balance impairments. His movements are slow in general. He will benefit from BIG refresher to improve amplitude, balance and gait. His goal is to improve mobility. He did not con't with BIG exercises at d/c and that is a barrier. It is possible that memory impairment is a large component to this. He enjoys working with therapists and personal lines sales executive and so this may be the most beneficial way for him to do large amplitude exercises--with the assist of another person. PT hopes to talk about this with pt and his during treatment course. Physical Therapy Plan Frequency and Duration Frequency of Treatment 8 treatments Duration of Treatment 8 treatments Plan of Care Start Date 09/27/20 Plan of Care End Date 10/28/20 Therapeutic Interventions Therapeutic Interventions Balance Training,Canalithic Repositioning,Coordination Training,Gait Training,Home Exercise Program,Manual Therapy,Neuromuscular Re- education,Patient/Caregiver Education,Self-Care/Home Management,Therapeutic Activities,Therapeutic Exercises Modalities Cold Pack/Ice Massage,Hot Packs Next Visit Focus/Plan Next Note Type Treatment Note Next Visit Plan Initiate BIG exercises Plan of Care Dates Plan of Care Start Date 09/27/20 Plan of Care End Date 10/28/20 Electronically Signed by: Meredith Valdez PT 09/27/20 [id number] Please Sign and Return: I have reviewed this Plan of Care and certify that the skilled therapy services above are required to meet the patient?s needs. Physician Signature Date Printed Name and Credentials Clinical Instructor Signature Printed Name and Credentials
--- NOTE | 2020-09-28 15:39 | PT.OTN ---
Current Diagnoses Parkinson's disease (09/28/20) Physical Therapy Treatment Note PT-OP-A Visit Information Start: 09/23/20 08:44 Freq: Status: Active Protocol: Document 09/28/20 14:15 MB (Rec: 09/28/20 15:39 MB [id number]) Out-Patient Physical Therapy Visit Information Visit Information Visit Type Treatment Note Visit Start Time 14:15 Visit Stop Time 15:15 Total Visit Minutes 60 Visit Number 2 PT-OP-B Current Condition Start: 09/23/20 08:44 Freq: Status: Active Protocol: Document 09/27/20 14:17 MB (Rec: 09/27/20 14:45 MB [id number]) Current Condition History of Current Condition Onset Date Pt cannot remember onset date, at least a couple of years Current Complaints Memory and stiffness History of Current Condition Pt arrives for [facility]. Pt was last seen for [facility] 11/27/19. He has not been keeping up with the exercises. He is walking. He is doing boxing with a local personal banking advisor. He is doing that 3x/week. He is still seeing OXYHYDROGEN WELDER for cognitive training. Pt reports a fall on the steps about 4 months ago. He stepped back, thinking it was the landing and he fell back and off 10 steps. He did not go to the ED. He reports he was bruised all over. He was watering plants and not paying attention. He states that won 't happen again. He denies pain. He is driving and reports no trouble. Sitting for a while makes him stiff. His watch is not automatically kicking in with arm swing and he is having to wind it up. He is taking Carbidopa Levodopa TID. Pt has a history of cardiac stent. Pt states that he and would like to see him have better mobility. He cannot state a functional activity he would like to improve upon today. Pt states that his vision has been a little off. He can't seem to get a good prescription for glasses. He had cataract surgery in the past and it didn't seem to do much. Treatment Goals Patient/Caregiver Goals Increased mobility PT-OP-C Subjective Start: 09/23/20 08:44 Freq: Status: Active Protocol: Document 09/28/20 14:15 MB (Rec: 09/28/20 15:39 MB [id number]) OP-PT Subjective Patient Comments Patient Comments states that pt did not con't with exercises after BIG PT course last fall and that he cannot put in the video by himself and she has to do it. She has a hard time helping out in this aspect of self- care d/t she is an news gathering technician and it upsets her that he cannot do it. He does like his skills trainer. PT-OP-D Balance Start: 09/23/20 08:44 Freq: Status: Active Protocol: Document 09/27/20 14:17 MB (Rec: 09/27/20 15:34 MB [id number]) OP-PT Balance Assessment Sitting Balance Static Sitting Balance Ability Good Dynamic Sitting Balance Ability Fair Sitting Balance Comments Pt tends to use hands to help with dynamic sitting balance Standing Balance Static Standing Balance Ability Good Dynamic Standing Balance Ability Fair Balance Tests Romberg Romberg EO no LOB, EC, pt opens eyes because he feels unsteady Cervantes Fall Scale Copyright Permission PT-OP-G Mobility & Gait Start: 09/23/20 08:44 Freq: Status: Active Protocol: Document 09/27/20 14:17 MB (Rec: 09/27/20 15:34 MB [id number]) OP Gait Assessment Comments Gait Comments Forward head, rounded shoulders and increased thoracic kyphosis. Decreased arm swing B and decreased scanning. 6MWT 1333 feet today . PT-OP-J Posture/Palpation/Skin Start: 09/23/20 08:44 Freq: Status: Active Protocol: Document 09/27/20 14:17 MB (Rec: 09/27/20 15:34 MB [id number]) Posture Evaluation Comments Posture Comments Forward head, rounded shoulder , increased thoracic kyphosis PT-OP-K Range of Motion Start: 09/23/20 08:44 Freq: Status: Active Protocol: Document 09/27/20 14:17 MB (Rec: 09/27/20 15:34 MB [id number]) Shoulder Goniometric Range of Motion Shoulder ROM Limitations Comments B shoulder flexion lacks at least 20 deg PT-OP-M Strength Start: 09/23/20 08:44 Freq: Status: Active Protocol: Document 09/27/20 14:17 MB (Rec: 09/27/20 15:34 MB [id number]) Shoulder Strength Shoulder Manual Muscle Testing Bilateral Flexion 4 Good Abduction (C5) 4 Good Elbow/Forearm Strength Elbow and Forearm Manual Muscle Testing Bilateral Flexion (C6) 4 Good Hip Strength Hip Manual Muscle Testing Bilateral Flexion (L2) 4 Good PT-OP-Q Treatments Start: 09/23/20 08:44 Freq: Status: Active Protocol: Document 09/28/20 14:15 MB (Rec: 09/28/20 15:39 MB [id number]) Therapeutic Exercises Sitting Exercises Side to side Side bilateral Equipment Used Blue chair outside Reps/Minutes 5 Comments Demo, cues to hold side of chair, for reach and hand position, to count Floor to ceiling Equipment Used Blue chair outside Reps/Minutes 10 Comments Demo, cues for reach and to count, palms forward when back BIG sit to stands Equipment Used Blue chair outside Reps/Minutes 10 Comments Demo, cues to reach forward and to sit back far, to count Standing Exercises Side rock and reach Side bilateral Reps/Minutes 5 reps Comments Demo and cues for hand position, break up UEs and LEs , pivot on back foot Forward rock and reach Side bilateral Reps/Minutes 10 reps Comments Cues and demo for stance, turn palms to self, BIG arms Backward step Side bilateral Reps/Minutes 5 reps x2 each leg, on sidewalk outside clinic Comments Break down arms and legs, demo and tactile cues for BIG stance and arms Side step Side bilateral Reps/Minutes 10 reps on each side, on sidewalk outside clinic Comments Demo and tactile cues for arm movements, step to side and look to side Forward step Side bilateral Reps/Minutes 10 reps on each side, on sidewalk outside clinic Comments Cues for BIG stance, hand position and to count; demo and then window Self-Care/Home Management Treatment Education Other Education Extensive education with pt and about what will work best for patient as far as exercise continuation and compliance. After many options , pt and state that pt responds well to his skills trainer who he meets with 3x/wk and ed pt and that he can have skills trainer come in to learn exercises so that he can follow-up with her at d/c since there is no BIG for Life classes in the area and he needs help using DVD and he likes to work with his skills trainer and will be most consistent with this at d/c mentions pt has had trouble with his BP and so BP checked today in right UE with BP and HR: sitting 110/67, 62 ; standing 93/55, 70; standing 1' 96/56, 71 Pt and talk about pt safety at night as far as him getting up many times a night to urinate: making fluids count and drinking more at the beginning of the day, keeping night light on, benefits of exercise to help sleep through the night PT-OP-T Assessment and Plan Start: 09/23/20 08:44 Freq: Status: Active Protocol: Document 09/28/20 14:15 MB (Rec: 09/28/20 15:39 MB [id number]) Physical Therapy Assessment Rehab Potential Rehabilitation Potential Fair Evaluation Complexity Number of Personal Factors/Comorbidities 1-2 Number of Body Systems Impaired 3 Clinical Presentation at Evaluation Evolving Impairments Impairments Activity Tolerance,Balance, Functional Activities, Functional Mobility,Gait, Posture,ROM,Strength,Transfers Other Impairments Personal factors include memory impairment. Body systems affected include musculoskeletal, neurological and cognitive. His clinical presentation is evolving in setting of progressive neurological disease. Other Concerns Fall Risk Yes Goals 3 Prospecting Observer Goal (LTG) Pt will perform BIG and functional exercises with superv assist to improve amplitude of mobility and balance by 10/28/20. LTG Duration 8 visits 2 Residential Goal (LTG) Pt will gait train at least 1500 feet in 6 minutes to improve community ambulation by 10/28/20. LTG Duration 8 visits 1 Prospecting Observer Goal (LTG) Pt will perform WNLs on a standardized balance test to decrease fall risk by 10/28/20. LTG Duration 8 visits Assessment Summary Assessment Pt and education today and initiated BIG exercises and pt is able to get through all exercises. Will add functional activities of getting in and OOB, in and out of the car, buttoning to plan . Also, skills trainer to come in as caregiver for education in BIG exercises as pt responds better to working with people. Con't BIG refresher. Physical Therapy Plan Frequency and Duration Frequency of Treatment 8 treatments Duration of Treatment 8 treatments Plan of Care Start Date 09/27/20 Plan of Care End Date 10/28/20 Therapeutic Interventions Therapeutic Interventions Balance Training,Canalithic Repositioning,Coordination Training,Gait Training,Home Exercise Program,Manual Therapy,Neuromuscular Re- education,Patient/Caregiver Education,Self-Care/Home Management,Therapeutic Activities,Therapeutic Exercises Modalities Cold Pack/Ice Massage,Hot Packs Next Visit Focus/Plan Next Note Type Treatment Note Next Visit Plan Review BIG exercises, start BIG walking and therapeutic activities
--- NOTE | 2020-09-30 15:44 | PT.OTN ---
Current Diagnoses Parkinson's disease (09/30/20) Physical Therapy Treatment Note PT-OP-A Visit Information Start: 09/23/20 08:44 Freq: Status: Active Protocol: Document 09/30/20 14:16 MB (Rec: 09/30/20 15:44 MB [id number]) Out-Patient Physical Therapy Visit Information Visit Information Visit Type Treatment Note Visit Start Time 14:16 Visit Stop Time 15:15 Total Visit Minutes 59 Visit Number 3 Precautions Precautions Pt has some cognitive/memory impairment PT-OP-B Current Condition Start: 09/23/20 08:44 Freq: Status: Active Protocol: Document 09/27/20 14:17 MB (Rec: 09/27/20 14:45 MB [id number]) Current Condition History of Current Condition Onset Date Pt cannot remember onset date, at least a couple of years Current Complaints Memory and stiffness History of Current Condition Pt arrives for [facility] Pt was last seen for [facility] 11/27/19. He has not been keeping up with the exercises. He is walking. He is doing boxing with a local computer trainer. He is doing that 3x/week. He is still seeing LAMP STACK DEVELOPER for cognitive training. Pt reports a fall on the steps about 4 months ago. He stepped back, thinking it was the landing and he fell back and off 10 steps. He did not go to the ED. He reports he was bruised all over. He was watering plants and not paying attention. He states that won 't happen again. He denies pain. He is driving and reports no trouble. Sitting for a while makes him stiff. His watch is not automatically kicking in with arm swing and he is having to wind it up. He is taking Carbidopa Levodopa TID. Pt has a history of cardiac stent. Pt states that he and would like to see him have better mobility. He cannot state a functional activity he would like to improve upon today. Pt states that his vision has been a little off. He can't seem to get a good prescription for glasses. He had cataract surgery in the past and it didn't seem to do much. Treatment Goals Patient/Caregiver Goals Increased mobility PT-OP-C Subjective Start: 09/23/20 08:44 Freq: Status: Active Protocol: Document 09/30/20 14:16 MB (Rec: 09/30/20 15:44 MB [id number]) OP-PT Subjective Patient Comments Patient Comments Pt states that he practiced his BIG exercises yesterday after his put in the video. He brings in shirt to practice buttoning. PT-OP-D Balance Start: 09/23/20 08:44 Freq: Status: Active Protocol: Document 09/27/20 14:17 MB (Rec: 09/27/20 15:34 MB [id number]) OP-PT Balance Assessment Sitting Balance Static Sitting Balance Ability Good Dynamic Sitting Balance Ability Fair Sitting Balance Comments Pt tends to use hands to help with dynamic sitting balance Standing Balance Static Standing Balance Ability Good Dynamic Standing Balance Ability Fair Balance Tests Romberg Romberg EO no LOB, EC, pt opens eyes because he feels unsteady Cervantes Fall Scale Copyright Permission PT-OP-G Mobility & Gait Start: 09/23/20 08:44 Freq: Status: Active Protocol: Document 09/27/20 14:17 MB (Rec: 09/27/20 15:34 MB [id number]) OP Gait Assessment Comments Gait Comments Forward head, rounded shoulders and increased thoracic kyphosis. Decreased arm swing B and decreased scanning. 6MWT 1333 feet today . PT-OP-J Posture/Palpation/Skin Start: 09/23/20 08:44 Freq: Status: Active Protocol: Document 09/27/20 14:17 MB (Rec: 09/27/20 15:34 MB [id number]) Posture Evaluation Comments Posture Comments Forward head, rounded shoulder , increased thoracic kyphosis PT-OP-K Range of Motion Start: 09/23/20 08:44 Freq: Status: Active Protocol: Document 09/27/20 14:17 MB (Rec: 09/27/20 15:34 MB [id number]) Shoulder Goniometric Range of Motion Shoulder ROM Limitations Comments B shoulder flexion lacks at least 20 deg PT-OP-M Strength Start: 09/23/20 08:44 Freq: Status: Active Protocol: Document 09/27/20 14:17 MB (Rec: 09/27/20 15:34 MB [id number]) Shoulder Strength Shoulder Manual Muscle Testing Bilateral Flexion 4 Good Abduction (C5) 4 Good Elbow/Forearm Strength Elbow and Forearm Manual Muscle Testing Bilateral Flexion (C6) 4 Good Hip Strength Hip Manual Muscle Testing Bilateral Flexion (L2) 4 Good PT-OP-Q Treatments Start: 09/23/20 08:44 Freq: Status: Active Protocol: Document 09/30/20 14:16 MB (Rec: 09/30/20 15:44 MB [id number]) Therapeutic Exercises Sitting Exercises Side to side Side bilateral Equipment Used Blue chair in clinic Reps/Minutes 5 Comments Cues for rotating to face side , demo, modeling Floor to ceiling Equipment Used Blue chair in clinic Reps/Minutes 5 Comments Demo and cues for reaching up BIG sit to stands Equipment Used Blue chair in clinic Reps/Minutes 10 Comments Demo, cues to reach forward and to sit back far, to count Standing Exercises Side rock and reach Side bilateral Reps/Minutes 5 reps Comments Multiple tactile and VCs for UE position and pivot on back foot Forward rock and reach Side bilateral Reps/Minutes 10 reps x2 Comments Cues and demo for stance, turn palms to self, BIG arms, mirror in front Backward step Side bilateral Reps/Minutes 5 reps x2 each Comments Cues and demo, slow movement Side step Side bilateral Reps/Minutes 10 reps each side Comments Demo and VCs, slow movement Forward step Side bilateral Reps/Minutes 10 reps on each side, mirror in front of pt Comments Cues and demo, slow movement Therapeutic Activity Therapeutic Activity Getting in and OOB Comments Large black plinth in gym: walk up to HOB, sit down, BIG side lying on the right, BIG left arm and left leg to roll to supine and then back to right side lying, BIG put legs over side and push up with righ and hand left elbow x5 reps Buttoning Reps/Minutes 5' Comments Standing and pt donning and doffing his blue dress shirt: 3' first rep with pressed shirt. A lot of trouble with buttons with wrist buttons. Cues and training for BIG arm in (pt cannot put left arm in first despite it being the weaker side) and BIG buttoning and improved time x2 reps Gait Training Gait Activity BIG walking Surface Inside clinic and walking around gym Distance/Duration 8' Treatment Focus BIG arm swing Comments BIG walking in hallway and pt has trouble with arm swing and keeping hands open, not changing with cognitive tasks of talk about watches or without talking PT-OP-T Assessment and Plan Start: 09/23/20 08:44 Freq: Status: Active Protocol: Document 09/30/20 14:16 MB (Rec: 09/30/20 15:44 MB [id number]) Physical Therapy Assessment Rehab Potential Rehabilitation Potential Fair Evaluation Complexity Number of Personal Factors/Comorbidities 1-2 Number of Body Systems Impaired 3 Clinical Presentation at Evaluation Evolving Impairments Impairments Activity Tolerance,Balance, Functional Activities, Functional Mobility,Gait, Posture,ROM,Strength,Transfers Other Impairments Personal factors include memory impairment. Body systems affected include musculoskeletal, neurological and cognitive. His clinical presentation is evolving in setting of progressive neurological disease. Other Concerns Fall Risk Yes Goals 3 Custodial Goal (LTG) Pt will perform BIG and functional exercises with superv assist to improve amplitude of mobility and balance by 10/28/20. LTG Duration 8 visits 2 Custodial Goal (LTG) Pt will gait train at least 1500 feet in 6 minutes to improve community ambulation by 10/28/20. LTG Duration 8 visits 1 Custodial Goal (LTG) Pt will perform WNLs on a standardized balance test to decrease fall risk by 10/28/20. LTG Duration 8 visits Assessment Summary Assessment Pt con't to require cues and demonstration for proper movement of UEs with BIG exercises and he has trouble with recall with repeated exercises. He con't with bradykinesia. Initiated buttoning and getting in and out of bed today. BIG gait inside today reveals little arm movement. Physical Therapy Plan Frequency and Duration Frequency of Treatment 8 treatments Duration of Treatment 8 treatments Plan of Care Start Date 09/27/20 Plan of Care End Date 10/28/20 Therapeutic Interventions Therapeutic Interventions Balance Training,Canalithic Repositioning,Coordination Training,Gait Training,Home Exercise Program,Manual Therapy,Neuromuscular Re- education,Patient/Caregiver Education,Self-Care/Home Management,Therapeutic Activities,Therapeutic Exercises Modalities Cold Pack/Ice Massage,Hot Packs Next Visit Focus/Plan Next Note Type Treatment Note Next Visit Plan BIG walking outside, con't exercises and practice getting and out of the car
--- NOTE | 2020-10-05 15:46 | PT.OTN ---
Current Diagnoses Parkinson's disease (10/05/20) Physical Therapy Treatment Note PT-OP-A Visit Information Start: 09/23/20 08:44 Freq: Status: Active Protocol: Document 10/05/20 14:15 MB (Rec: 10/05/20 15:46 MB [id number]) Out-Patient Physical Therapy Visit Information Visit Information Visit Type Treatment Note Visit Start Time 14:15 Visit Stop Time 15:11 Total Visit Minutes 56 Visit Number 4 Precautions Precautions Pt has some cognitive/memory impairment PT-OP-B Current Condition Start: 09/23/20 08:44 Freq: Status: Active Protocol: Document 09/27/20 14:17 MB (Rec: 09/27/20 14:45 MB [id number]) Current Condition History of Current Condition Onset Date Pt cannot remember onset date, at least a couple of years Current Complaints Memory and stiffness History of Current Condition Pt arrives for [facility] Pt was last seen for [facility] 11/27/19. He has not been keeping up with the exercises. He is walking. He is doing boxing with a local personal companion. He is doing that 3x/week. He is still seeing LOGISTICS MANAGEMENT SPECIALIST for cognitive training. Pt reports a fall on the steps about 4 months ago. He stepped back, thinking it was the landing and he fell back and off 10 steps. He did not go to the ED. He reports he was bruised all over. He was watering plants and not paying attention. He states that won 't happen again. He denies pain. He is driving and reports no trouble. Sitting for a while makes him stiff. His watch is not automatically kicking in with arm swing and he is having to wind it up. He is taking Carbidopa Levodopa TID. Pt has a history of cardiac stent. Pt states that he and would like to see him have better mobility. He cannot state a functional activity he would like to improve upon today. Pt states that his vision has been a little off. He can't seem to get a good prescription for glasses. He had cataract surgery in the past and it didn't seem to do much. Treatment Goals Patient/Caregiver Goals Increased mobility PT-OP-C Subjective Start: 09/23/20 08:44 Freq: Status: Active Protocol: Document 10/05/20 14:15 MB (Rec: 10/05/20 15:46 MB [id number]) OP-PT Subjective Patient Comments Patient Comments Pt states that he did his exercises a couple of days ago . PT-OP-D Balance Start: 09/23/20 08:44 Freq: Status: Active Protocol: Document 09/27/20 14:17 MB (Rec: 09/27/20 15:34 MB [id number]) OP-PT Balance Assessment Sitting Balance Static Sitting Balance Ability Good Dynamic Sitting Balance Ability Fair Sitting Balance Comments Pt tends to use hands to help with dynamic sitting balance Standing Balance Static Standing Balance Ability Good Dynamic Standing Balance Ability Fair Balance Tests Romberg Romberg EO no LOB, EC, pt opens eyes because he feels unsteady Cervantes Fall Scale Copyright Permission PT-OP-G Mobility & Gait Start: 09/23/20 08:44 Freq: Status: Active Protocol: Document 09/27/20 14:17 MB (Rec: 09/27/20 15:34 MB [id number]) OP Gait Assessment Comments Gait Comments Forward head, rounded shoulders and increased thoracic kyphosis. Decreased arm swing B and decreased scanning. 6MWT 1333 feet today . PT-OP-J Posture/Palpation/Skin Start: 09/23/20 08:44 Freq: Status: Active Protocol: Document 09/27/20 14:17 MB (Rec: 09/27/20 15:34 MB [id number]) Posture Evaluation Comments Posture Comments Forward head, rounded shoulder , increased thoracic kyphosis PT-OP-K Range of Motion Start: 09/23/20 08:44 Freq: Status: Active Protocol: Document 09/27/20 14:17 MB (Rec: 09/27/20 15:34 MB [id number]) Shoulder Goniometric Range of Motion Shoulder ROM Limitations Comments B shoulder flexion lacks at least 20 deg PT-OP-M Strength Start: 09/23/20 08:44 Freq: Status: Active Protocol: Document 09/27/20 14:17 MB (Rec: 09/27/20 15:34 MB [id number]) Shoulder Strength Shoulder Manual Muscle Testing Bilateral Flexion 4 Good Abduction (C5) 4 Good Elbow/Forearm Strength Elbow and Forearm Manual Muscle Testing Bilateral Flexion (C6) 4 Good Hip Strength Hip Manual Muscle Testing Bilateral Flexion (L2) 4 Good PT-OP-Q Treatments Start: 09/23/20 08:44 Freq: Status: Active Protocol: Document 10/05/20 14:15 MB (Rec: 10/05/20 15:46 MB [id number]) Therapeutic Exercises Sitting Exercises Side to side Side bilateral Equipment Used Blue chair outside Reps/Minutes 6 Comments VCs and occ modeling for hand and trunk position, cues to count Floor to ceiling Equipment Used Blue chair outside Reps/Minutes 6 Comments Demo, pt performs better and counts after cued BIG sit to stands Equipment Used Blue chair outside Reps/Minutes 10 Comments Demo, cues to reach forward and to sit back far, to count Standing Exercises Side rock and reach Side bilateral Reps/Minutes 10 reps Comments Multiple cues for arms (and tactile) Forward rock and reach Side bilateral Reps/Minutes 10 reps x2 Comments Outside, looking into window Backward step Side bilateral Reps/Minutes 10 reps Comments Cues and demo, pt has trouble with hand and foot movement Side step Side bilateral Reps/Minutes 10 reps each side Comments Demo and cues for form, arm movement Forward step Side bilateral Reps/Minutes 10 reps, pt looking into window Comments Cues for arms as pt tends to reach forward Therapeutic Activity Therapeutic Activity Getting in and out of car Reps/Minutes 6' Comments Ed in BIG back up, BIG sit and then BIG right leg in and then left leg in and pt states that he cannot do this and needs to step in with right leg and sit and then bring in left leg--similar to exit ( left leg out and then push up with right leg in car), multiple trials and cues for BIG door closed and open and pt does move more quickly Buttoning Reps/Minutes 2' Comments Cues for BIG arms in and out and BIG buttoning Gait Training Gait Activity BIG walking Surface Outside on sidewalk, pavement, grass, little hill, gravel Distance/Duration 23' Treatment Focus BIG arm swing and keep dwayne up Comments Cues to keep up dwayne and for BIG steps (clearing feet) and BIG arms and pt can perform BIG arms for 4-6 steps before needing VCs again, also, PT must pace him for gait to keep his speed up PT-OP-T Assessment and Plan Start: 09/23/20 08:44 Freq: Status: Active Protocol: Document 10/05/20 14:15 MB (Rec: 10/05/20 15:46 MB [id number]) Physical Therapy Assessment Rehab Potential Rehabilitation Potential Fair Evaluation Complexity Number of Personal Factors/Comorbidities 1-2 Number of Body Systems Impaired 3 Clinical Presentation at Evaluation Evolving Impairments Impairments Activity Tolerance,Balance, Functional Activities, Functional Mobility,Gait, Posture,ROM,Strength,Transfers Other Impairments Personal factors include memory impairment. Body systems affected include musculoskeletal, neurological and cognitive. His clinical presentation is evolving in setting of progressive neurological disease. Other Concerns Fall Risk Yes Goals 3 Skilled Nursing Goal (LTG) Pt will perform BIG and functional exercises with superv assist to improve amplitude of mobility and balance by 10/28/20. LTG Duration 8 visits 2 Four Slide Machine Setter Goal (LTG) Pt will gait train at least 1500 feet in 6 minutes to improve community ambulation by 10/28/20. LTG Duration 8 visits 1 Four Slide Machine Setter Goal (LTG) Pt will perform WNLs on a standardized balance test to decrease fall risk by 10/28/20. LTG Duration 8 visits Assessment Summary Assessment Pt progresses with exercises when cued for speed and he con 't to need cues for arm position (palms up, etc) for exercises. He quickly fatigues with BIG walking for both the walking and BIG arm swing. Con't to work on this. Physical Therapy Plan Frequency and Duration Frequency of Treatment 8 treatments Duration of Treatment 8 treatments Plan of Care Start Date 09/27/20 Plan of Care End Date 10/28/20 Therapeutic Interventions Therapeutic Interventions Balance Training,Canalithic Repositioning,Coordination Training,Gait Training,Home Exercise Program,Manual Therapy,Neuromuscular Re- education,Patient/Caregiver Education,Self-Care/Home Management,Therapeutic Activities,Therapeutic Exercises Modalities Cold Pack/Ice Massage,Hot Packs Next Visit Focus/Plan Next Note Type Treatment Note Next Visit Plan Con't exercises, gait and therapeutic activity
--- NOTE | 2020-10-06 16:00 | PT.OTN ---
Current Diagnoses Parkinson's disease (10/06/20) Physical Therapy Treatment Note PT-OP-A Visit Information Start: 09/23/20 08:44 Freq: Status: Active Protocol: Document 10/06/20 14:25 MB (Rec: 10/06/20 16:00 MB [id number]) Out-Patient Physical Therapy Visit Information Visit Information Visit Type Treatment Note Visit Start Time 14:25 Visit Stop Time 15:25 Total Visit Minutes 60 Visit Number 5 Precautions Precautions Pt has some cognitive/memory impairment PT-OP-B Current Condition Start: 09/23/20 08:44 Freq: Status: Active Protocol: Document 09/27/20 14:17 MB (Rec: 09/27/20 14:45 MB [id number]) Current Condition History of Current Condition Onset Date Pt cannot remember onset date, at least a couple of years Current Complaints Memory and stiffness History of Current Condition Pt arrives for [facility]. Pt was last seen for [facility] 11/27/19. He has not been keeping up with the exercises. He is walking. He is doing boxing with a local personal injury specialist. He is doing that 3x/week. He is still seeing ALUM OPERATOR for cognitive training. Pt reports a fall on the steps about 4 months ago. He stepped back, thinking it was the landing and he fell back and off 10 steps. He did not go to the ED. He reports he was bruised all over. He was watering plants and not paying attention. He states that won 't happen again. He denies pain. He is driving and reports no trouble. Sitting for a while makes him stiff. His watch is not automatically kicking in with arm swing and he is having to wind it up. He is taking Carbidopa Levodopa TID. Pt has a history of cardiac stent. Pt states that he and would like to see him have better mobility. He cannot state a functional activity he would like to improve upon today. Pt states that his vision has been a little off. He can't seem to get a good prescription for glasses. He had cataract surgery in the past and it didn't seem to do much. Treatment Goals Patient/Caregiver Goals Increased mobility PT-OP-C Subjective Start: 09/23/20 08:44 Freq: Status: Active Protocol: Document 10/06/20 14:25 MB (Rec: 10/06/20 16:00 MB [id number]) OP-PT Subjective Patient Comments Patient Comments Pt states that he saw his application trainer this morning when PT asks him and he states that he forgot to ask her about coming to BIG appointment. When PT asks it pt has a way to send reminders to himself, he does not seem sure. PT-OP-D Balance Start: 09/23/20 08:44 Freq: Status: Active Protocol: Document 09/27/20 14:17 MB (Rec: 09/27/20 15:34 MB [id number]) OP-PT Balance Assessment Sitting Balance Static Sitting Balance Ability Good Dynamic Sitting Balance Ability Fair Sitting Balance Comments Pt tends to use hands to help with dynamic sitting balance Standing Balance Static Standing Balance Ability Good Dynamic Standing Balance Ability Fair Balance Tests Romberg Romberg EO no LOB, EC, pt opens eyes because he feels unsteady Cervantes Fall Scale Copyright Permission PT-OP-G Mobility & Gait Start: 09/23/20 08:44 Freq: Status: Active Protocol: Document 09/27/20 14:17 MB (Rec: 09/27/20 15:34 MB [id number]) OP Gait Assessment Comments Gait Comments Forward head, rounded shoulders and increased thoracic kyphosis. Decreased arm swing B and decreased scanning. 6MWT 1333 feet today . PT-OP-J Posture/Palpation/Skin Start: 09/23/20 08:44 Freq: Status: Active Protocol: Document 09/27/20 14:17 MB (Rec: 09/27/20 15:34 MB [id number]) Posture Evaluation Comments Posture Comments Forward head, rounded shoulder , increased thoracic kyphosis PT-OP-K Range of Motion Start: 09/23/20 08:44 Freq: Status: Active Protocol: Document 09/27/20 14:17 MB (Rec: 09/27/20 15:34 MB [id number]) Shoulder Goniometric Range of Motion Shoulder ROM Limitations Comments B shoulder flexion lacks at least 20 deg PT-OP-M Strength Start: 09/23/20 08:44 Freq: Status: Active Protocol: Document 09/27/20 14:17 MB (Rec: 09/27/20 15:34 MB [id number]) Shoulder Strength Shoulder Manual Muscle Testing Bilateral Flexion 4 Good Abduction (C5) 4 Good Elbow/Forearm Strength Elbow and Forearm Manual Muscle Testing Bilateral Flexion (C6) 4 Good Hip Strength Hip Manual Muscle Testing Bilateral Flexion (L2) 4 Good PT-OP-Q Treatments Start: 09/23/20 08:44 Freq: Status: Active Protocol: Document 10/06/20 14:25 MB (Rec: 10/06/20 16:00 MB [id number]) Therapeutic Exercises Sitting Exercises Side to side Side bilateral Equipment Used Blue chair outside Reps/Minutes 6 Comments VCs and occ modeling for hand and trunk position, cues to count Floor to ceiling Equipment Used Blue chair outside Reps/Minutes 6 Comments Demo BIG sit to stands Equipment Used Blue chair outside Reps/Minutes 10 Comments Demo and cues to count Standing Exercises Side rock and reach Side bilateral Reps/Minutes 10 reps Comments Multiple cues for arms (and tactile) Forward rock and reach Side bilateral Reps/Minutes 10 reps Comments Outside, looking into window Backward step Side bilateral Reps/Minutes 10 reps Comments Cues and demo, pt has trouble with hand and foot movement Side step Side bilateral Reps/Minutes 10 reps each side Comments Demo and cues for form, arm movement Forward step Side bilateral Reps/Minutes 10 reps, pt looking into window Comments Cues for arms as pt tends to reach forward, shoulder tightness Therapeutic Activity Therapeutic Activity Getting in and out of car Reps/Minutes 4' Comments Ed in BIG open door, BIG step in, BIG left leg, BIG shut. Then, BIG door open, BIG left leg out and then BIG right leg out and BIG step and BIG shut door, practiced several reps Getting in and OOB Reps/Minutes 6' Comments Smaller black plinth in gym: walk up to HOB, sit down, BIG side lying on the right, BIG left arm and left leg to roll to supine and then back to right side lying, BIG put legs over side and push up with right and hand left elbow x10 reps Buttoning Reps/Minutes 5' Comments Standing and pt donning and doffing his blue dress shirt: performed in front of mirror third rep and pt does not look up. He does better with looking down to shirt Gait Training Gait Activity BIG walking Surface Outside on sidewalk, pavement, grass, little hill, gravel Distance/Duration 8' Treatment Focus BIG arm swing Comments Cues for BIG arm swing and pt can perform a few steps before stopping and needing cues to con't PT-OP-T Assessment and Plan Start: 09/23/20 08:44 Freq: Status: Active Protocol: Document 10/06/20 14:25 MB (Rec: 10/06/20 16:00 MB [id number]) Physical Therapy Assessment Rehab Potential Rehabilitation Potential Fair Evaluation Complexity Number of Personal Factors/Comorbidities 1-2 Number of Body Systems Impaired 3 Clinical Presentation at Evaluation Evolving Impairments Impairments Activity Tolerance,Balance, Functional Activities, Functional Mobility,Gait, Posture,ROM,Strength,Transfers Other Impairments Personal factors include memory impairment. Body systems affected include musculoskeletal, neurological and cognitive. His clinical presentation is evolving in setting of progressive neurological disease. Other Concerns Fall Risk Yes Goals 3 Armature And Rotor Winder Goal (LTG) Pt will perform BIG and functional exercises with superv assist to improve amplitude of mobility and balance by 10/28/20. LTG Duration 8 visits 2 Usp Goal (LTG) Pt will gait train at least 1500 feet in 6 minutes to improve community ambulation by 10/28/20. LTG Duration 8 visits 1 Usp Goal (LTG) Pt will perform WNLs on a standardized balance test to decrease fall risk by 10/28/20. LTG Duration 8 visits Assessment Summary Assessment Better performance of exercises today and more time working on therapeutic activities. Reminded pt to talk with application trainer about BIG visit. Physical Therapy Plan Frequency and Duration Frequency of Treatment 8 treatments Duration of Treatment 8 treatments Plan of Care Start Date 09/27/20 Plan of Care End Date 10/28/20 Therapeutic Interventions Therapeutic Interventions Balance Training,Canalithic Repositioning,Coordination Training,Gait Training,Home Exercise Program,Manual Therapy,Neuromuscular Re- education,Patient/Caregiver Education,Self-Care/Home Management,Therapeutic Activities,Therapeutic Exercises Modalities Cold Pack/Ice Massage,Hot Packs Next Visit Focus/Plan Next Note Type Treatment Note Next Visit Plan Con't exercises, gait and therapeutic activity
--- NOTE | 2020-10-07 15:38 | PT.OTN ---
Current Diagnoses Parkinson's disease (10/07/20) Physical Therapy Treatment Note PT-OP-A Visit Information Start: 09/23/20 08:44 Freq: Status: Active Protocol: Document 10/07/20 14:15 MB (Rec: 10/07/20 15:38 MB [id number]) Out-Patient Physical Therapy Visit Information Visit Information Visit Type Treatment Note Visit Start Time 14:15 Visit Stop Time 15:15 Total Visit Minutes 60 Visit Number 6 Precautions Precautions Pt has some cognitive/memory impairment PT-OP-B Current Condition Start: 09/23/20 08:44 Freq: Status: Active Protocol: Document 09/27/20 14:17 MB (Rec: 09/27/20 14:45 MB [id number]) Current Condition History of Current Condition Onset Date Pt cannot remember onset date, at least a couple of years Current Complaints Memory and stiffness History of Current Condition Pt arrives for [facility]. Pt was last seen for [facility] 11/27/19. He has not been keeping up with the exercises. He is walking. He is doing boxing with a local personal attendant. He is doing that 3x/week. He is still seeing BOW TACKER for cognitive training. Pt reports a fall on the steps about 4 months ago. He stepped back, thinking it was the landing and he fell back and off 10 steps. He did not go to the ED. He reports he was bruised all over. He was watering plants and not paying attention. He states that won 't happen again. He denies pain. He is driving and reports no trouble. Sitting for a while makes him stiff. His watch is not automatically kicking in with arm swing and he is having to wind it up. He is taking Carbidopa Levodopa TID. Pt has a history of cardiac stent. Pt states that he and would like to see him have better mobility. He cannot state a functional activity he would like to improve upon today. Pt states that his vision has been a little off. He can't seem to get a good prescription for glasses. He had cataract surgery in the past and it didn't seem to do much. Treatment Goals Patient/Caregiver Goals Increased mobility PT-OP-C Subjective Start: 09/23/20 08:44 Freq: Status: Active Protocol: Document 10/07/20 14:15 MB (Rec: 10/07/20 15:38 MB [id number]) OP-PT Subjective Patient Comments Patient Comments Pt first states that he saw his operational trainer, Genie, this morning, and then he states that he did not and that she will be OOT the rest of the week. PT-OP-D Balance Start: 09/23/20 08:44 Freq: Status: Active Protocol: Document 09/27/20 14:17 MB (Rec: 09/27/20 15:34 MB [id number]) OP-PT Balance Assessment Sitting Balance Static Sitting Balance Ability Good Dynamic Sitting Balance Ability Fair Sitting Balance Comments Pt tends to use hands to help with dynamic sitting balance Standing Balance Static Standing Balance Ability Good Dynamic Standing Balance Ability Fair Balance Tests Romberg Romberg EO no LOB, EC, pt opens eyes because he feels unsteady Cervantes Fall Scale Copyright Permission PT-OP-G Mobility & Gait Start: 09/23/20 08:44 Freq: Status: Active Protocol: Document 09/27/20 14:17 MB (Rec: 09/27/20 15:34 MB [id number]) OP Gait Assessment Comments Gait Comments Forward head, rounded shoulders and increased thoracic kyphosis. Decreased arm swing B and decreased scanning. 6MWT 1333 feet today . PT-OP-J Posture/Palpation/Skin Start: 09/23/20 08:44 Freq: Status: Active Protocol: Document 09/27/20 14:17 MB (Rec: 09/27/20 15:34 MB [id number]) Posture Evaluation Comments Posture Comments Forward head, rounded shoulder , increased thoracic kyphosis PT-OP-K Range of Motion Start: 09/23/20 08:44 Freq: Status: Active Protocol: Document 09/27/20 14:17 MB (Rec: 09/27/20 15:34 MB [id number]) Shoulder Goniometric Range of Motion Shoulder ROM Limitations Comments B shoulder flexion lacks at least 20 deg PT-OP-M Strength Start: 09/23/20 08:44 Freq: Status: Active Protocol: Document 09/27/20 14:17 MB (Rec: 09/27/20 15:34 MB [id number]) Shoulder Strength Shoulder Manual Muscle Testing Bilateral Flexion 4 Good Abduction (C5) 4 Good Elbow/Forearm Strength Elbow and Forearm Manual Muscle Testing Bilateral Flexion (C6) 4 Good Hip Strength Hip Manual Muscle Testing Bilateral Flexion (L2) 4 Good PT-OP-Q Treatments Start: 09/23/20 08:44 Freq: Status: Active Protocol: Document 10/07/20 14:15 MB (Rec: 10/07/20 15:38 MB [id number]) Therapeutic Exercises Sitting Exercises Side to side Side bilateral Equipment Used Blue chair outside Reps/Minutes 10 Comments VCs and demo Floor to ceiling Equipment Used Blue chair outside Reps/Minutes 10 Comments Demo BIG sit to stands Equipment Used Blue chair outside Reps/Minutes 10 Comments Demo and cues to count Standing Exercises Side rock and reach Side bilateral Reps/Minutes 10 reps Comments Multiple cues for arms (and tactile) Forward rock and reach Side bilateral Reps/Minutes 10 reps Comments Outside, looking into window Backward step Side bilateral Reps/Minutes 10 reps Comments Cues and demo Side step Side bilateral Reps/Minutes 10 reps each side Comments Cues and improvement today Forward step Side bilateral Reps/Minutes 10 reps, pt looking into window Comments Cues for arms and BIG stance Therapeutic Activity Therapeutic Activity Getting in and out of car Reps/Minutes 3' Comments Ed in BIG open door, BIG step in, BIG left leg, BIG shut. Then, BIG door open, BIG left leg out and then BIG right leg out and BIG step and BIG shut door, practiced several reps Getting in and OOB Reps/Minutes 5' Comments Big black plinth in gym: walk up to HOB, sit down, BIG side lying on the right, BIG left arm and left leg to roll to supine and then back to right side lying, BIG put legs over side and push up with left hand and right elbow x6 reps Buttoning Reps/Minutes 5' Comments Standing and pt donning and doffing his blue dress shirt. Most trouble with reaching left hand behind him and he con't to state that he has to put the shirt on this way Gait Training Gait Activity BIG walking Surface Outside on sidewalk, pavement Distance/Duration 8' Treatment Focus BIG arm swing Comments Ongoing cues for BIG arm swing , not scuffing feet today and trouble with this PT-OP-T Assessment and Plan Start: 09/23/20 08:44 Freq: Status: Active Protocol: Document 10/07/20 14:15 MB (Rec: 10/07/20 15:38 MB [id number]) Physical Therapy Assessment Rehab Potential Rehabilitation Potential Fair Evaluation Complexity Number of Personal Factors/Comorbidities 1-2 Number of Body Systems Impaired 3 Clinical Presentation at Evaluation Evolving Impairments Impairments Activity Tolerance,Balance, Functional Activities, Functional Mobility,Gait, Posture,ROM,Strength,Transfers Other Impairments Personal factors include memory impairment. Body systems affected include musculoskeletal, neurological and cognitive. His clinical presentation is evolving in setting of progressive neurological disease. Other Concerns Fall Risk Yes Goals 3 Detention Goal (LTG) Pt will perform BIG and functional exercises with superv assist to improve amplitude of mobility and balance by 10/28/20. LTG Duration 8 visits 2 Neckties Painter Goal (LTG) Pt will gait train at least 1500 feet in 6 minutes to improve community ambulation by 10/28/20. LTG Duration 8 visits 1 Detention Goal (LTG) Pt will perform WNLs on a standardized balance test to decrease fall risk by 10/28/20. LTG Duration 8 visits Assessment Summary Assessment Pt with foot scuffing with gait today, ongoing cues for BIG arms. Ongoing cues for arms for BIG exercises and he requires tactile asst, cues and demo for BIG bed mobility. After treatment, PT calls pt' s operational trainer on pt phone and she to come to next appointment to learn BIG exercises with pt. Physical Therapy Plan Frequency and Duration Frequency of Treatment 8 treatments Duration of Treatment 8 treatments Plan of Care Start Date 09/27/20 Plan of Care End Date 10/28/20 Therapeutic Interventions Therapeutic Interventions Balance Training,Canalithic Repositioning,Coordination Training,Gait Training,Home Exercise Program,Manual Therapy,Neuromuscular Re- education,Patient/Caregiver Education,Self-Care/Home Management,Therapeutic Activities,Therapeutic Exercises Modalities Cold Pack/Ice Massage,Hot Packs Next Visit Focus/Plan Next Note Type Treatment Note Next Visit Plan Caregiver/operational trainer ed in BIG exercises
--- NOTE | 2020-10-13 16:07 | PT.OTN ---
Current Diagnoses Parkinson's disease (10/13/20) Physical Therapy Treatment Note PT-OP-A Visit Information Start: 09/23/20 08:44 Freq: Status: Active Protocol: Document 10/13/20 14:30 MB (Rec: 10/13/20 16:06 MB [id number]) Out-Patient Physical Therapy Visit Information Visit Information Visit Type Treatment Note Visit Note Grossly before KX Visit Start Time 14:30 Visit Stop Time 15:23 Total Visit Minutes 53 Visit Number 7 Precautions Precautions Pt has some cognitive/memory impairment PT-OP-B Current Condition Start: 09/23/20 08:44 Freq: Status: Active Protocol: Document 09/27/20 14:17 MB (Rec: 09/27/20 14:45 MB [id number]) Current Condition History of Current Condition Onset Date Pt cannot remember onset date, at least a couple of years Current Complaints Memory and stiffness History of [facility]/27/[facility]. He has not been keeping up with the exercises. He is walking. He is doing boxing with a local household personal assistant. He is doing that 3x/week. He is still seeing ACRYLIC FABRICATOR for cognitive training. Pt reports a fall on the steps about 4 months ago. He stepped back, thinking it was the landing and he fell back and off 10 steps. He did not go to the ED. He reports he was bruised all over. He was watering plants and not paying attention. He states that won 't happen again. He denies pain. He is driving and reports no trouble. Sitting for a while makes him stiff. His watch is not automatically kicking in with arm swing and he is having to wind it up. He is taking Carbidopa Levodopa TID. Pt has a history of cardiac stent. Pt states that he and would like to see him have better mobility. He cannot state a functional activity he would like to improve upon today. Pt states that his vision has been a little off. He can't seem to get a good prescription for glasses. He had cataract surgery in the past and it didn't seem to do much. Treatment Goals Patient/Caregiver Goals Increased mobility PT-OP-C Subjective Start: 09/23/20 08:44 Freq: Status: Active Protocol: Document 10/13/20 14:30 MB (Rec: 10/13/20 16:06 MB [id number]) OP-PT Subjective Patient Comments Patient Comments Pt's , Shauna, arrives to appointment as well as his net trainer, Genie, to review BIG exercises and to discuss plan going forward for his exercises. PT-OP-D Balance Start: 09/23/20 08:44 Freq: Status: Active Protocol: Document 09/27/20 14:17 MB (Rec: 09/27/20 15:34 MB [id number]) OP-PT Balance Assessment Sitting Balance Static Sitting Balance Ability Good Dynamic Sitting Balance Ability Fair Sitting Balance Comments Pt tends to use hands to help with dynamic sitting balance Standing Balance Static Standing Balance Ability Good Dynamic Standing Balance Ability Fair Balance Tests Romberg Romberg EO no LOB, EC, pt opens eyes because he feels unsteady Cervantes Fall Scale Copyright Permission PT-OP-G Mobility & Gait Start: 09/23/20 08:44 Freq: Status: Active Protocol: Document 09/27/20 14:17 MB (Rec: 09/27/20 15:34 MB [id number]) OP Gait Assessment Comments Gait Comments Forward head, rounded shoulders and increased thoracic kyphosis. Decreased arm swing B and decreased scanning. 6MWT 1333 feet today . PT-OP-J Posture/Palpation/Skin Start: 09/23/20 08:44 Freq: Status: Active Protocol: Document 09/27/20 14:17 MB (Rec: 09/27/20 15:34 MB [id number]) Posture Evaluation Comments Posture Comments Forward head, rounded shoulder , increased thoracic kyphosis PT-OP-K Range of Motion Start: 09/23/20 08:44 Freq: Status: Active Protocol: Document 09/27/20 14:17 MB (Rec: 09/27/20 15:34 MB [id number]) Shoulder Goniometric Range of Motion Shoulder ROM Limitations Comments B shoulder flexion lacks at least 20 deg PT-OP-M Strength Start: 09/23/20 08:44 Freq: Status: Active Protocol: Document 09/27/20 14:17 MB (Rec: 09/27/20 15:34 MB [id number]) Shoulder Strength Shoulder Manual Muscle Testing Bilateral Flexion 4 Good Abduction (C5) 4 Good Elbow/Forearm Strength Elbow and Forearm Manual Muscle Testing Bilateral Flexion (C6) 4 Good Hip Strength Hip Manual Muscle Testing Bilateral Flexion (L2) 4 Good PT-OP-Q Treatments Start: 09/23/20 08:44 Freq: Status: Active Protocol: Document 10/13/20 14:30 MB (Rec: 10/13/20 16:06 MB [id number]) Therapeutic Exercises Sitting Exercises Side to side Side bilateral Equipment Used Blue chair outside Reps/Minutes 5 Comments Lots of cues to teach Genie as well Floor to ceiling Equipment Used Blue chair outside Reps/Minutes 5 Comments Lots of cues to teach Genie as well BIG sit to stands Equipment Used Blue chair outside Reps/Minutes 5 Comments Lots of cues to teach Genie as well Standing Exercises Side rock and reach Side bilateral Reps/Minutes 10 reps Comments Lots of cues to teach Genie as well Forward rock and reach Side bilateral Reps/Minutes 10 reps Comments Looking into window, Lots of cues to teach Genie as well Backward step Side bilateral Reps/Minutes 10 reps Comments Cues and demo, Lots of cues to teach Genie as well Side step Side bilateral Reps/Minutes 10 reps each side Comments Improvement, Lots of cues to teach Genie as well Forward step Side bilateral Reps/Minutes 10 reps, pt looking into window Comments Lots of cues to teach Genie as well Self-Care/Home Management Treatment Education Caregiver Education Spoke with pt, net trainer and regarding ideas for BIG with net trainer and finally settled on pt performing 3 BIG exercises in between his boxing sets with net trainer. Tire Layer borrows PT's [facility] DVD and PT encourages pt to exercise with net trainer 5-6x/wk as able PT-OP-T Assessment and Plan Start: 09/23/20 08:44 Freq: Status: Active Protocol: Document 10/13/20 14:30 MB (Rec: 10/13/20 16:06 MB [id number]) Physical Therapy Assessment Rehab Potential Rehabilitation Potential Fair Evaluation Complexity Number of Personal Factors/Comorbidities 1-2 Number of Body Systems Impaired 3 Clinical Presentation at Evaluation Evolving Impairments Impairments Activity Tolerance,Balance, Functional Activities, Functional Mobility,Gait, Posture,ROM,Strength,Transfers Other Impairments Personal factors include memory impairment. Body systems affected include musculoskeletal, neurological and cognitive. His clinical presentation is evolving in setting of progressive neurological disease. Other Concerns Fall Risk Yes Goals 3 Nursing Home Goal (LTG) Pt will perform BIG and functional exercises with superv assist to improve amplitude of mobility and balance by 10/28/20. LTG Duration 8 visits 2 Nursing Home Goal (LTG) Pt will gait train at least 1500 feet in 6 minutes to improve community ambulation by 10/28/20. LTG Duration 8 visits 1 Manager Assembly Goal (LTG) Pt will perform WNLs on a standardized balance test to decrease fall risk by 10/28/20. LTG Duration 8 visits Assessment Summary Assessment PT treatment today consisted of BIG exercise training with pt and his net trainer and PT answers net trainer questions about exercises that she demonstrates she and pt do during their meetings. One more BIG treatment. Physical Therapy Plan Frequency and Duration Frequency of Treatment 8 treatments Duration of Treatment 8 treatments Plan of Care Start Date 09/27/20 Plan of Care End Date 10/28/20 Therapeutic Interventions Therapeutic Interventions Balance Training,Canalithic Repositioning,Coordination Training,Gait Training,Home Exercise Program,Manual Therapy,Neuromuscular Re- education,Patient/Caregiver Education,Self-Care/Home Management,Therapeutic Activities,Therapeutic Exercises Modalities Cold Pack/Ice Massage,Hot Packs Next Visit Focus/Plan Next Note Type Discharge Summary
--- NOTE | 2020-10-14 15:21 | PT.OTN ---
Current Diagnoses Parkinson's disease (10/14/20) Physical Therapy Treatment Note PT-OP-A Visit Information Start: 09/23/20 08:44 Freq: Status: Active Protocol: Document 10/14/20 14:17 MB (Rec: 10/14/20 15:10 MB [id number]) Out-Patient Physical Therapy Visit Information Visit Information Visit Type Treatment Note Visit Note Grossly 16 before modifier Visit Start Time 14:17 Visit Stop Time 15:10 Total Visit Minutes 53 Visit Number 8 Precautions Precautions Pt has some cognitive/memory impairment PT-OP-B Current Condition Start: 09/23/20 08:44 Freq: Status: Active Protocol: Document 09/27/20 14:17 MB (Rec: 09/27/20 14:45 MB [id number]) Current Condition History of Current Condition Onset Date Pt cannot remember onset date, at least a couple of years Current Complaints Memory and stiffness History of [facility]27/[facility]. He has not been keeping up with the exercises. He is walking. He is doing boxing with a local personal consultant. He is doing that 3x/week. He is still seeing UTILITY SYSTEMS REPAIRER OPERATOR for cognitive training. Pt reports a fall on the steps about 4 months ago. He stepped back, thinking it was the landing and he fell back and off 10 steps. He did not go to the ED. He reports he was bruised all over. He was watering plants and not paying attention. He states that won 't happen again. He denies pain. He is driving and reports no trouble. Sitting for a while makes him stiff. His watch is not automatically kicking in with arm swing and he is having to wind it up. He is taking Carbidopa Levodopa TID. Pt has a history of cardiac stent. Pt states that he and would like to see him have better mobility. He cannot state a functional activity he would like to improve upon today. Pt states that his vision has been a little off. He can't seem to get a good prescription for glasses. He had cataract surgery in the past and it didn't seem to do much. Treatment Goals Patient/Caregiver Goals Increased mobility PT-OP-C Subjective Start: 09/23/20 08:44 Freq: Status: Active Protocol: Document 10/14/20 14:17 MB (Rec: 10/14/20 15:10 MB [id number]) OP-PT Subjective Patient Comments Patient Comments Pt has no questions on d/c date. PT-OP-D Balance Start: 09/23/20 08:44 Freq: Status: Active Protocol: Document 09/27/20 14:17 MB (Rec: 09/27/20 15:34 MB [id number]) OP-PT Balance Assessment Sitting Balance Static Sitting Balance Ability Good Dynamic Sitting Balance Ability Fair Sitting Balance Comments Pt tends to use hands to help with dynamic sitting balance Standing Balance Static Standing Balance Ability Good Dynamic Standing Balance Ability Fair Balance Tests Romberg Romberg EO no LOB, EC, pt opens eyes because he feels unsteady Cervantes Fall Scale Copyright Permission PT-OP-G Mobility & Gait Start: 09/23/20 08:44 Freq: Status: Active Protocol: Document 09/27/20 14:17 MB (Rec: 09/27/20 15:34 MB [id number]) OP Gait Assessment Comments Gait Comments Forward head, rounded shoulders and increased thoracic kyphosis. Decreased arm swing B and decreased scanning. 6MWT 1333 feet today . PT-OP-J Posture/Palpation/Skin Start: 09/23/20 08:44 Freq: Status: Active Protocol: Document 09/27/20 14:17 MB (Rec: 09/27/20 15:34 MB [id number]) Posture Evaluation Comments Posture Comments Forward head, rounded shoulder , increased thoracic kyphosis PT-OP-K Range of Motion Start: 09/23/20 08:44 Freq: Status: Active Protocol: Document 09/27/20 14:17 MB (Rec: 09/27/20 15:34 MB [id number]) Shoulder Goniometric Range of Motion Shoulder ROM Limitations Comments B shoulder flexion lacks at least 20 deg PT-OP-M Strength Start: 09/23/20 08:44 Freq: Status: Active Protocol: Document 09/27/20 14:17 MB (Rec: 09/27/20 15:34 MB [id number]) Shoulder Strength Shoulder Manual Muscle Testing Bilateral Flexion 4 Good Abduction (C5) 4 Good Elbow/Forearm Strength Elbow and Forearm Manual Muscle Testing Bilateral Flexion (C6) 4 Good Hip Strength Hip Manual Muscle Testing Bilateral Flexion (L2) 4 Good PT-OP-Q Treatments Start: 09/23/20 08:44 Freq: Status: Active Protocol: Document 10/14/20 14:17 MB (Rec: 10/14/20 15:10 MB [id number]) Therapeutic Exercises Sitting Exercises Side to side Side bilateral Equipment Used Pt sitting on mat in therapy room Reps/Minutes 5 Comments Cues for holding onto map, good form today Floor to ceiling Equipment Used Pt sitting on mat in therapy room Reps/Minutes 5 Comments Cues to reach up and out and back, demo and tactile and VCs BIG sit to stands Equipment Used Pt sitting on mat in therapy room Reps/Minutes 6 Comments Cues for arm position when standing Standing Exercises Side rock and reach Side bilateral Reps/Minutes 5 reps Comments Poor performance of exercise today, cues for hands and pivot, moving head Forward rock and reach Side bilateral Reps/Minutes 10 reps Comments No visual cues in front of him , PT at side, good performance Backward step Side bilateral Reps/Minutes 10 reps Comments PT beside him in pt room and pt tends to stop exercise and try rock and yris Side step Side bilateral Reps/Minutes 10 reps Comments PT demo in front, good performance of exercise Forward step Side bilateral Reps/Minutes Mirror in room not helpful today, 10 reps each leg Comments VCs and demo Gait Training Gait Activity BIG walking Surface Inside hallways and clinic carpet Distance/Duration 10' Comments Kept walking after 6MWT through, changed directions and pt can perform BIG arms when cued, still lacking in BIG arm swing. Pt has less scuffing of feet today, is BENITEZ 6MWT Comments Pt gait trains 1777 feet in 6 minutes today with hands open and fingers squeezed together, cues for BIG arm swing and little to no scuffing of feet today Neuro Re-Education Treatment Balance Activities Standing balance exercises Comments Romberg EO and EC normal with increased sway with EC and no LOB though pt opens eyes x2 with increased sway. Pt has trouble getting into full tandem B and can reach partial tandem with back into corner PT-OP-T Assessment and Plan Start: 09/23/20 08:44 Freq: Status: Active Protocol: Document 10/14/20 14:17 MB (Rec: 10/14/20 15:10 MB [id number]) Physical Therapy Assessment Goals 3 Medical Affairs Manager Goal (LTG) Pt will perform BIG and functional exercises with superv assist to improve amplitude of mobility and balance by 10/28/20. 10/14/20: Pt con't to require cues and demo for BIG exercises LTG Duration Progressed 2 Long-Term Goal (LTG) Pt will gait train at least 1500 feet in 6 minutes to improve community ambulation by 10/28/20. 10/14/20: Pt gait trains 1777 feet in 6 minutes. He requires cues for BIG arm swing and does not readily swing arms throughout gait LTG Duration Met 1 Medical Affairs Manager Goal (LTG) Pt will perform WNLs on a standardized balance test to decrease fall risk by 10/28/20. 10/14/20: Static standing balance for tandem is very challenging, no LOB with BIG exercises or walking LTG Duration Partially met Assessment Summary Assessment Pt BENITEZ with brisk BIG walking in clinic today. BP and HR in right UE sitting after gait today: 154/83, 77. Other treatment dates with gait outside, pt has not kept up dwayne and so not as challenged. He con't to require cues for exercises with trouble remembering exercises during the activity. Cognitive challenges have been barriers to recall and BIG exercise and gait compliance. BIG refresher course finished today. Hopefully, he will con't exercises several times a week with his hardware trainer, Genie.
--- NOTE | 2020-10-14 15:21 | PT.OPDS ---
Current Diagnoses Parkinson's disease (10/14/20) Visit Care Team Role Provider Type Suman Clifton MD Primary Care Provider Non-Staff Specialty: Medical Address: [address] [place] [address] [address], [place], [address] Email: Tex Alfonso MD Attending Provider Non-Staff Referring Provider Specialty: Psychiatry Address: [address] [place] [address], [address], [place], [address] Email: Visit Number Visit Number 8 Discharge Summary PT-OP-B Current Condition Start: 09/23/20 08:44 Freq: Status: Active Protocol: Document 09/27/20 14:17 MB (Rec: 09/27/20 14:45 MB [id number]) Current Condition History of Current Condition Onset Date Pt cannot remember onset date, at least a couple of years Current Complaints Memory and stiffness History of Current Condition Pt arrives for [facility]. Pt was [facility] seen for [facility] 11/27/[facility]. He has not been keeping up with the exercises. He is walking. He is doing boxing with a local assistant athletic trainer. He is doing that 3x/week. He is still seeing LATHE MACHINE OPERATOR for cognitive training. Pt reports a fall on the steps about 4 months ago. He stepped back, thinking it was the landing and he fell back and off 10 steps. He did not go to the ED. He reports he was bruised all over. He was watering plants and not paying attention. He states that won 't happen again. He denies pain. He is driving and reports no trouble. Sitting for a while makes him stiff. His watch is not automatically kicking in with arm swing and he is having to wind it up. He is taking Carbidopa Levodopa TID. Pt has a history of cardiac stent. Pt states that he and would like to see him have better mobility. He cannot state a functional activity he would like to improve upon today. Pt states that his vision has been a little off. He can't seem to get a good prescription for glasses. He had cataract surgery in the past and it didn't seem to do much. Treatment Goals Patient/Caregiver Goals Increased mobility PT-OP-C Subjective Start: 09/23/20 08:44 Freq: Status: Active Protocol: Document 10/14/20 14:17 MB (Rec: 10/14/20 15:10 MB [id number]) OP-PT Subjective Patient Comments Patient Comments Pt has no questions on d/c date. PT-OP-D Balance Start: 09/23/20 08:44 Freq: Status: Active Protocol: Document 09/27/20 14:17 MB (Rec: 09/27/20 15:34 MB [id number]) OP-PT Balance Assessment Sitting Balance Static Sitting Balance Ability Good Dynamic Sitting Balance Ability Fair Sitting Balance Comments Pt tends to use hands to help with dynamic sitting balance Standing Balance Static Standing Balance Ability Good Dynamic Standing Balance Ability Fair Balance Tests Romberg Romberg EO no LOB, EC, pt opens eyes because he feels unsteady Cervantes Fall Scale Copyright Permission PT-OP-G Mobility & Gait Start: 09/23/20 08:44 Freq: Status: Active Protocol: Document 09/27/20 14:17 MB (Rec: 09/27/20 15:34 MB [id number]) OP Gait Assessment Comments Gait Comments Forward head, rounded shoulders and increased thoracic kyphosis. Decreased arm swing B and decreased scanning. 6MWT 1333 feet today . PT-OP-J Posture/Palpation/Skin Start: 09/23/20 08:44 Freq: Status: Active Protocol: Document 09/27/20 14:17 MB (Rec: 09/27/20 15:34 MB [id number]) Posture Evaluation Comments Posture Comments Forward head, rounded shoulder , increased thoracic kyphosis PT-OP-K Range of Motion Start: 09/23/20 08:44 Freq: Status: Active Protocol: Document 09/27/20 14:17 MB (Rec: 09/27/20 15:34 MB [id number]) Shoulder Goniometric Range of Motion Shoulder ROM Limitations Comments B shoulder flexion lacks at least 20 deg PT-OP-M Strength Start: 09/23/20 08:44 Freq: Status: Active Protocol: Document 09/27/20 14:17 MB (Rec: 09/27/20 15:34 MB [id number]) Shoulder Strength Shoulder Manual Muscle Testing Bilateral Flexion 4 Good Abduction (C5) 4 Good Elbow/Forearm Strength Elbow and Forearm Manual Muscle Testing Bilateral Flexion (C6) 4 Good Hip Strength Hip Manual Muscle Testing Bilateral Flexion (L2) 4 Good PT-OP-T Assessment and Plan Start: 09/23/20 08:44 Freq: Status: Active Protocol: Document 10/14/20 14:17 MB (Rec: 10/14/20 15:10 MB [id number]) Physical Therapy Assessment Goals 3 Mcc Goal (LTG) Pt will perform BIG and functional exercises with superv assist to improve amplitude of mobility and balance by 10/28/20. 10/14/20: Pt con't to require cues and demo for BIG exercises LTG Duration Progressed 2 Temple Meat Cutter Goal (LTG) Pt will gait train at least 1500 feet in 6 minutes to improve community ambulation by 10/28/20. 10/14/20: Pt gait trains 1777 feet in 6 minutes. He requires cues for BIG arm swing and does not readily swing arms throughout gait LTG Duration Met 1 Mcc Goal (LTG) Pt will perform WNLs on a standardized balance test to decrease fall risk by 10/28/20. 10/14/20: Static standing balance for tandem is very challenging, no LOB with BIG exercises or walking LTG Duration Partially met Assessment Summary Assessment Pt BENITEZ with brisk BIG walking in clinic today. BP and HR in right UE sitting after gait today: 154/83, 77. Other treatment dates with gait outside, pt has not kept up dwayne and so not as challenged. He con't to require cues for exercises with trouble remembering exercises during the activity. Cognitive challenges have been barriers to recall and BIG exercise and gait compliance. BIG refresher course finished today. Hopefully, he will con't exercises several times a week with his market development trainer, Genie.
== END 2020-10-15 08:38 | disposition home or self-care (01) ==
LOC: PHYS 14:15
PROVIDERS: PCP Family Medicine; Referring Provider Psychiatry & Neurology Neurology; Visit Provider Psychiatry & Neurology Neurology
DX: G20 Parkinson's disease (principal)
CPT/HCPCS: 97110; 97116; 97161; 97530; 97535

== ENCOUNTER → 2021-08-05 09:02 | Outpatient (CLI) | payer MEDICARE, OTHER, SELFPAY ==
[2021-08-05 09:58] LABS: Add Manual Diff / Slide Review NO; Basophils Absolute Auto 0 /uL (0-100); Basophils Percent Auto 0.7 % (0-2); Eosinophils Absolute Auto 300 /uL (0-450); Eosinophils Percent Auto 6.5 % (2-4); Hematocrit 38.9 % (41-53); Hemoglobin 13.4 g/dL (13.5-17.5); Lymphocytes Absolute Auto 600 /uL (1100-4500); Mean Corpuscular HGB Conc 34.5 % (30-36); Mean Corpuscular Hemoglobin 31.2 PG (26-34); Mean Corpuscular Volume 90.5 fL (80-100); Monocytes Absolute Auto 400 /uL (0-900); Neutrophils Absolute Auto 3500 /uL (1500-7000); Neutrophils Percent Auto 71.8 % (50-75); Platelet Count 145 X10^3/uL (150-400); White Blood Cell Count 4.9 X10^3/uL (4.5-11.0)
[2021-08-05 10:06] LABS: Hemoglobin A1C% w Est Avg Glu 5.6 % (4.0-6.0)
[2021-08-05 10:10] LABS: Albumin 4.3 g/dL (3.5-5.0); Albumin Globulin Ratio 1.4 (1.0-2.8); Alkaline Phosphatase 39 U/L (38-126); Aspartate Aminotransferase 20 IU/L (17-59); BUN Creatinine Ratio 22.8 (6-22); Bilirubin Total 1.1 mg/dL (0.2-1.3); Blood Urea Nitrogen 26 mg/dL (9-20); Calcium 8.8 mg/dL (8.4-10.2); Carbon Dioxide 26 mmol/L (22-32); Chloride 106 mmol/L (98-107); Estimated Glomerular Filt Rate > 60 mL/min (>60); Glucose 96 mg/dL (80-110); HEMOLYSIS < 15 (0-50); Potassium 4.2 mmol/L (3.4-5.1); Sodium 138 mmol/L (137-145); Total Protein 7.3 g/dL (6.3-8.2)
[2021-08-05 10:11] LABS: Alanine Aminotransferase < 4 IU/L (<50)
[2021-08-05 11:15] LABS: Vitamin B12 291 pg/mL (239-931)
[2021-08-05 12:10] LABS: Appearance Urine UA CLEAR; Bilirubin Urine UA NEGATIVE (NEGATIVE); Color Urine UA YELLOW; Glucose Urine UA TRACE g/dL (Negative); Ketones Urine UA NEGATIVE (NEGATIVE); Leukocyte Esterase Urine UA TRACE (NEGATIVE); Nitrite Urine UA NEGATIVE (Negative); Occult Blood Urine UA NEGATIVE (Negative); Protein Urine UA NEGATIVE (Negative); Urobilinogen Urine UA 0.2 E.U./dL (0.2); pH Urine UA 5.5 (4.5-8.0)
[2021-08-05 12:23] LABS: Bacteria Urine None Seen; Culture Indicated Urine Specimen Cultured; RBC Urine None Seen (0-5/HPF); Squamous Epithelial Cell Urine 0-1 /HPF (0-5/HPF); WBC Urine None Seen (0-5/HPF)
[2021-08-06 06:18] LABS: Cholesterol HDL Ratio 2.3 ratio (0.0-5.0); Cholesterol,Total 142 mg/dL (100-199); HDL Cholesterol 63 mg/dL (>39); LDL Cholesterol Cal 70 mg/dL (0-99); PSA Ultrasensitive 0.071 ng/mL (0.000-4.000); Triglycerides 35 mg/dL (0-149); VLDL Cholesterol Cal 9 mg/dL (5-40)
[2021-08-08 15:47] LABS: Albumin 4.1 g/dL (2.9-4.4); Alpha-1-Globulin 0.2 g/dL (0.0-0.4); Alpha-2-Globulin 0.6 g/dL (0.4-1.0); Gamma Globulin 1.3 g/dL (0.4-1.8); Globulin Total 2.8 g/dL (2.2-3.9); Immunoglobulin A, Serum 101 mg/dL (61-437); Immunoglobulin G,Serum 1282 mg/dL (603-1613); Immunoglobulin M, Serum 29 mg/dL (15-143); Protein, Total 6.9 g/dL (6.0-8.5)
== END ==
PROVIDERS: Family Provider Family Medicine; PCP Family Medicine; Referring Provider Family Medicine; Visit Provider Family Medicine
DX: I10 Essential (primary) hypertension (principal); R73.9 Hyperglycemia, unspecified; Z12.5 Encounter for screening for malignant neoplasm of prostate; Z00.00 Encounter for general adult medical examination without abnormal findings; E78.2 Mixed hyperlipidemia; Z13.29 Encounter for screening for other suspected endocrine disorder; R53.83 Other fatigue; N39.3 Stress incontinence (female) (male)
CPT/HCPCS: 36415; 80053; 80061; 81001; 82607; 82746; 82784; 83036; 84153; 84155; 84165; 85025; 86334; 87086; G0103

== ENCOUNTER 2021-09-05 14:30 | Outpatient (RCR) | payer MEDICARE, OTHER, SELFPAY ==
--- NOTE | 2021-08-30 17:14 | ST.OPIE ---
Visit Care Team Role Provider Type Suman Clifton MD Attending Provider Non-Staff Family Provider Primary Care Provider Referring Provider Specialty: Medical Address: [address] [place] [address], [facility] Email: Speech-Language Pathology Initial Evaluation REGENERATION OPERATOR Voice Resonance Evaluation Start: 08/30/21 17:37 Freq: Status: Active Protocol: Document 08/30/21 17:37 NICK (Rec: 08/30/21 17:38 NICK [id number]) Voice and Resonance Assessment Session Time Visit Start Time 15:30 Visit Stop Time 16:30 Total Visit Minutes 60 Visit Information Visit Number Initial Eval; 03/28 Plan of Care Dates 08/30/21 - 11/25/21 Insurance Information Medicare Next Note Type Next Note Type Treatment Note Referral Referring Physician Dr. Sam Clifton Reason for Referral Parkinson's disease Setting Setting Outpatient Care Patient History Patient History The pt is a 76-yr-old male diagnosed with Parkinson's disease in 2016. He is familiar to this REGENERATION OPERATOR from previous speech therapy, including LSVT-Loud treatment with subsequent treatment targeting cognitive communication skills from 2019 -2020. He returns today with complaints of decline in speech intelligibility. Hearing Hearing Level Normal Vision Vision Status Impaired Comments Wears prescription glasses [place] Langauge Language(s) Spoken in the Home Amharic Educational Status Education Level SHANE Occupational Status Occupation Status Retired Previous Therapy Previous Speech-Language Therapy Yes: as described above Oral Motor Assessment Source: [place] [employer] ([employer]). Oral-Motor Eval Completed No Subjective Subjective The pt arrived on time and provided updated case history. He reported increased symptoms of WFD with slight stutter while searching for words, and decreased vocal loudness which is particularly difficult for his , who is hard of hearing. He stated that information processing in expressive language is improving, that he is able to complete sentences and express ideas better, and that memory isn't too bad. He has recently had a lot of changes in medication, taking a variety of medications 4x/day. - Laryngeal Performance CAPE-V Overall Severity 47% Moderate Roughness 42% Moderate Breathiness 0% Strain 5% in pitch glides exercises only, Mild Pitch 22% Mild-Moderate, reduced, monotone Loudness 52% Moderate-Severe Normal Resonance? Yes Additional Features Diplophonia,Pitch Instability Maximum Phonation Time MPT Norms: Women (15-25) Men (25-35) Loudness (50-60 dB); Speaking Rate: Oral Reading of Sentences (190 Words Per Minute); Oral Reading of Paragraphs (160-170 WPM); Speaking Rate in Conversation (150-250 WPM) Maximum Phonation Time 24.4 sec with clinician prompting, avg loudness 75 dB Maximum Phonation Time Adequate for Speech Maximum Phonation Time Comments Improved vocal quality and duration with increased breath support/loudness Jitter/Shimmer Norms: Jitter (Less than or equal to 1.040% - Frequency) Norms: Shimmer (Less than or equal to 3.810% - Amplitude) Jitter 0.963% Shimmer 6.253%; wide variation from 2. 70% - 10% across 3 trials. Pitch [place] Pitch [place] Pitch Breaks,Reduced Range, Tension Pitch [place] Comments 94-358 Hz with significant roughness, strain and pitch breaks particularly when gliding up the scale. Breath Support Speaks on Room Air Yes Voice Pitch Range Norms: Women (100-300 Hz) Men (70-250 Hz) Fundamental Frequency Norms: Women (Mean: 225 Hz; Range: 155-334 Hz) Men ( Mean: 128 Hz; Range: 85-196 Hz) Voice Pitch Mildly Low,Limited Variation, Pitch Breaks Voice Loudness Moderately Soft/Quiet, Monoloudness Fundamental Frequency 89.7 Hz Intensity 66 dB in conversation Paradoxical Vocal Fold Movement No Indications Resonance Nasal Resonance Normal Therapeutic Techniques Therapy Tactics Increase Loudness Other Tactics Increased vocal stability and quality perceived with increased vocal loudness. Findings Findings Moderate Impairment Observations Reduce ROM of speech articulators observed, resulting in imprecise, mumbled speech. 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 Reduced ROM of speech articulators results in mumbled speech, which further reduces speech intelligibility . With prompting, the pt is able to increase amplitude of both voice and oral musculature to achieve loudness levels and speech production WNL. However, he lacks the stamina and self- monitoring skills to consistently produce these features across any significant length of time. Skilled intervention is medically necessary to increase the pt's awareness of deficits, increase muscular strength and ROM to improve breath support for speech and voice, and extend endurance so that the pt is able to communicate effectively with his and other conversation partners in a variety of settings. Prognosis Rehabilitation Potential Good - Recommendations Treatment Recommended Yes Treatment Frequency/Duration 1x/wk for 12 wks, as able per pt and REGENERATION OPERATOR schedules. Therapy Recommendations RMST to improve breath support ; voice exercise to improve vocal quality Short Term Goals 1. The pt will sustain phonation with good vocal quality for 30 sec to improve breath support and voice for communication. 2. The pt will perform RMST exercises independently to increase respiratory support for speech, voice and swallow. 3. The pt will perform pitch range exercises from 95-295 Hz with no greater than mild vocal quality and 75 dB avg loudness to improve vocal inflection in conversation. 4. The pt will complete structured speech tasks (e.g., reading aloud, picture description, etc.) with vocal loudness, speech clarity and prosodic features no greater than mildly impaired to increase self-monitoring and endurance of voice and speech for functional communication. Binder Sorter Goals 1. The pt will produce vocal loudness and quality WNL in 80 % of opportunities, as measured by pt/family report and clinician judgment, to improve his ability to communicate effectively with various communication partners and in various settings. 2. The pt will produce precise speech and suprasegmentals (e .g., prosodic features, facial expression) WFL in 90% of opportunities to increase speech intelligibility. 3. The pt will demonstrate compliance with HEP with 90% accuracy to promote terminal press operator effects and reduce rate of disease symptoms progression. Patient/Caregiver Education Patient/Family Education Described results of evaluation,Patient Understanding,Patient Demonstration
--- NOTE | 2021-09-05 16:54 | ST.OPTN ---
Visit Care Team Role Provider Type Suman Clifton MD Attending Provider Non-Staff Family Provider Primary Care Provider Referring Provider Address: [address] [place] [address], [id number] RESPIRATORY SUPPORT TECHNICIAN Treatment Note RESPIRATORY SUPPORT TECHNICIAN Treatment Note Start: 08/30/21 17:37 Freq: Status: Active Protocol: Document 09/05/21 16:18 NICK (Rec: 09/06/21 16:53 NICK [id number]) Speech Pathology Treatment Note Session Time Visit Start Time 14:30 Visit Stop Time 15:15 Total Visit Minutes 45 Visit Information Visit Number 04/28 Plan of Care Dates 08/30/21 - 11/25/21 Insurance Information Medicare Setting Treatment Setting Outpatient Care Visit Type Note Type Treatment Note Next Note Type Next Note Type Treatment Note General Information Patient History The pt is a 76-yr-old male diagnosed with Parkinson's disease in 2016. He is familiar to this RESPIRATORY SUPPORT TECHNICIAN from previous speech therapy, including LSVT-Loud treatment with subsequent treatment targeting cognitive communication skills from 2019 -2020. He returns today with complaints of decline in speech intelligibility. Subjective Others Present Student Observations/Patient Presentation Pt arrived on time. No new complaints. He was seen by his neurologist today, who reported that disease progression is slowing. Chief Complaint(s) Speech,Voice Patient Knowledge/Awareness of RESPIRATORY SUPPORT TECHNICIAN Role Excellent in Treatment Objective Short Term Goals 1. The pt will sustain phonation with good vocal quality for 30 sec to improve breath support and voice for communication. 2. The pt will perform RMST exercises independently to increase respiratory support for speech, voice and swallow. 3. The pt will perform pitch range exercises from 95-295 Hz with no greater than mild vocal quality and 75 dB avg loudness to improve vocal inflection in conversation. 4. The pt will complete structured speech tasks (e.g., reading aloud, picture description, etc.) with vocal loudness, speech clarity and prosodic features no greater than mildly impaired to increase self-monitoring and endurance of voice and speech for functional communication. [ End ] Livestock Auctioneer Goals 1. The pt will produce vocal loudness and quality WNL in 80 % of opportunities, as measured by pt/family report and clinician judgment, to improve his ability to communicate effectively with various communication partners and in various settings. 2. The pt will produce precise speech and suprasegmentals (e .g., prosodic features, facial expression) WFL in 90% of opportunities to increase speech intelligibility. 3. The pt will demonstrate compliance with HEP with 90% accuracy to promote long chain beamer effects and reduce rate of disease symptoms progression. Treatment Activities Pt sustained phonation with target loudness; MPT = 25.3 sec Conversational loudness was ~ 63 dB, increased to 72 dB with verbal prompts, which were required. Pt performed pitch glides with instable voicing, pitch breaks. Instructed pt to target increasing loudness at a reduced range, powering from the belly, not the larynx . Educated pt in RMST exercises via The Breather device. Recommended pt purchase the device and will initiate training at that time. He was agreeable to this. HEP program was provided in writing to the pt for home practice. Due to scheduling conflicts, the pt will not be seen again for ~1 mo. He verbalized understanding of HEP instructions. Assessment Rehab Potential Good Impairments Identified Speech,Voice Assessment of Overall Progress Unchanged Assessment of Improvement The pt demonstrated good understanding of all information and training provided today. MPT was WNL and vocal loudness in both structured tasks and speech was WNL when the pt was instructed by RESPIRATORY SUPPORT TECHNICIAN. The pt did not produce target loudness without prompts, demonstrating poor self-monitoring. Reviewed with Patient Goals,Progress Being Made,Home Exercise Program Patient/Caregiver Understanding Good Plan Amount of Therapy Recommended 3-4 Months Frequency of Treatment Once a Week Length of Session 45 Minutes Treatment Emphasis Next Session RMST with The Breather Therapeutic Contents Client Education,Home Exercise Program,Intelligibility,Voice Training Provided Patient/Caregiver Instruction Home Exercise Program,Plan of Care,Questions/Concerns Therapy Recommendations Continue with Current Program
--- NOTE | 2021-10-18 16:35 | ST.OPDS ---
Visit Care Team Role Provider Type Suman Clifton MD Attending Provider Non-Staff Family Provider Primary Care Provider Referring Provider Address: [address] [place] [address], [place], [address] ACETONE BUTTON PASTER Treatment Note ACETONE BUTTON PASTER Treatment Note Start: 08/30/21 17:37 Freq: Status: Active Protocol: Document 10/18/21 16:21 NICK (Rec: 10/18/21 16:35 NICK [id number]) Speech Pathology Treatment Note Visit Information Plan of Care Dates 08/30/21 - 11/25/21 Insurance Information Medicare Setting Treatment Setting Outpatient Care Visit Type Note Type Discharge Summary General Information Patient History The pt is a 76-yr-old male diagnosed with Parkinson's disease in 2016. He is familiar to this ACETONE BUTTON PASTER from previous speech therapy, including LSVT-Loud treatment with subsequent treatment targeting cognitive communication skills from 2019 -2020. He return to therapy with complaints of decline in speech intelligibility. Subjective Observations/Patient Presentation The pt cancelled the last two appts d/t COVID 19 symptoms. This ACETONE BUTTON PASTER spoke with him by phone, informed the pt of her upcoming departure from [facility], and offered to transfer his file to a different therapist at this clinic. The pt expressed desire to discharge from services at [facility] and continue with this ACETONE BUTTON PASTER in new setting. Chief Complaint(s) Speech,Voice Patient Knowledge/Awareness of ACETONE BUTTON PASTER Role Excellent in Treatment Patient/Caregiver Compliance with Home Fair Exercise Program Objective Short Term Goals 1. The pt will sustain phonation with good vocal quality for 30 sec to improve breath support and voice for communication. 2. The pt will perform RMST exercises independently to increase respiratory support for speech, voice and swallow. 3. The pt will perform pitch range exercises from 95-295 Hz with no greater than mild vocal quality and 75 dB avg loudness to improve vocal inflection in conversation. 4. The pt will complete structured speech tasks (e.g., reading aloud, picture description, etc.) with vocal loudness, speech clarity and prosodic features no greater than mildly impaired to increase self-monitoring and endurance of voice and speech for functional communication. [ End ] Mcfp Goals 1. The pt will produce vocal loudness and quality WNL in 80 % of opportunities, as measured by pt/family report and clinician judgment, to improve his ability to communicate effectively with various communication partners and in various settings. 2. The pt will produce precise speech and suprasegmentals (e .g., prosodic features, facial expression) WFL in 90% of opportunities to increase speech intelligibility. 3. The pt will demonstrate compliance with HEP with 90% accuracy to promote machine long goods helper effects and reduce rate of disease symptoms progression. Plan Therapy Recommendations Discharge from Speech Therapy Reason for Discharge Transfer of care to new facility
== END 2022-02-23 15:28 | disposition home or self-care (01) ==
LOC: SP 14:30
PROVIDERS: Family Provider Family Medicine; PCP Family Medicine; Referring Provider Family Medicine; Visit Provider Family Medicine
DX: G20 Parkinson's disease (principal)
CPT/HCPCS: 92507; 92520; 92521

== ENCOUNTER → 2022-05-12 09:20 | Outpatient (CLI) | payer MEDICARE, OTHER, SELFPAY ==
[2022-05-12 10:33] LABS: Add Manual Diff / Slide Review NO; Basophils Absolute Auto 0 /uL (0-100); Basophils Percent Auto 0.8 % (0-2); Eosinophils Absolute Auto 100 /uL (0-450); Eosinophils Percent Auto 2.7 % (2-4); Hematocrit 39.9 % (41-53); Hemoglobin 13.3 g/dL (13.5-17.5); Lymphocytes Absolute Auto 800 /uL (1100-4500); Lymphocytes Percent Auto 15.6 % (25-40); Mean Corpuscular HGB Conc 33.4 % (30-36); Mean Corpuscular Hemoglobin 30.6 PG (26-34); Mean Corpuscular Volume 91.7 fL (80-100); Monocytes Absolute Auto 300 /uL (0-900); Monocytes Percent Auto 6.6 % (3-14); Neutrophils Absolute Auto 4000 /uL (1500-7000); Neutrophils Percent Auto 74.3 % (50-75); Platelet Count 179 X10^3/uL (150-400); Red Blood Cell Count 4.35 X10^6/uL (4.5-5.9); Red Cell Distribution Width 13.7 % (11.6-14.8); White Blood Cell Count 5.3 X10^3/uL (4.5-11.0)
[2022-05-12 11:03] LABS: Free T3, Triiodothyronine Free 4.37 pg/mL (2.77-5.27); Vitamin D 25 Hydroxy (D3) 54.8 ng/mL (30.0-100.0)
[2022-05-12 11:06] LABS: Alanine Aminotransferase 6 IU/L (<50); Albumin 4.4 g/dL (3.5-5.0); Albumin Globulin Ratio 1.4 (1.0-2.8); Alkaline Phosphatase 49 U/L (38-126); Aspartate Aminotransferase 20 IU/L (17-59); BUN Creatinine Ratio 22.1 (6-22); Bilirubin Total 1.1 mg/dL (0.2-1.3); Blood Urea Nitrogen 29 mg/dL (9-20); Calcium 9.1 mg/dL (8.4-10.2); Carbon Dioxide 29 mmol/L (22-32); Chloride 100 mmol/L (98-107); Cholesterol 193 mg/dL (140-199); Estimated Glomerular Filt Rate 56 mL/min (>60); Globulin 3.1 g/dL (1.7-4.1); Glucose 87 mg/dL (80-110); HDL Cholesterol 61 mg/dL (40-60); HEMOLYSIS < 15 (0-50); LDL Cholesterol Calculated 123 mg/dL (<100); Potassium 4.5 mmol/L (3.4-5.1); Sodium 137 mmol/L (137-145); Total Protein 7.5 g/dL (6.3-8.2); Triglycerides 47 mg/dL (35-150)
[2022-05-12 11:17] LABS: TSH w/ Reflex to FT4 3.44 uIU/mL (0.47-4.68)
[2022-05-12 12:12] LABS: Folate 7.6 ng/mL (2.76-20.0); Vitamin B12 > 1000 pg/mL (239-931)
[2022-05-13 08:36] LABS: Thyroid Peroxidase Antibodies 21 IU/mL (0-34)
== END ==
PROVIDERS: Family Provider Family Medicine; PCP Family Medicine; Referring Provider Family Medicine; Visit Provider Family Medicine
DX: E55.9 Vitamin D deficiency, unspecified (principal); E78.2 Mixed hyperlipidemia; R53.83 Other fatigue; G20 Parkinson's disease
CPT/HCPCS: 36415; 80053; 80061; 82306; 82607; 82746; 84443; 84481; 85025; 86376

== ENCOUNTER → 2022-06-17 10:17 | Outpatient (CLI) | payer MEDICARE, OTHER, SELFPAY ==
[2022-06-17 11:41] LABS: BUN Creatinine Ratio 24.2 (6-22); Blood Urea Nitrogen 29 mg/dL (9-20); Calcium 9.2 mg/dL (8.4-10.2); Carbon Dioxide 30 mmol/L (22-32); Chloride 101 mmol/L (98-107); Estimated Glomerular Filt Rate > 60 mL/min (>60); Glucose 86 mg/dL (80-110); HEMOLYSIS < 15 (0-50); Potassium 4.5 mmol/L (3.4-5.1); Sodium 140 mmol/L (137-145)
== END ==
PROVIDERS: Family Provider Family Medicine; PCP Family Medicine; Referring Provider Family Medicine; Visit Provider Family Medicine
DX: R41.82 Altered mental status, unspecified (principal); R53.1 Weakness
CPT/HCPCS: 36415; 80048

== ENCOUNTER → 2022-06-19 14:17 | Outpatient (CLI) | payer MEDICARE, OTHER, SELFPAY ==
[2022-06-19 14:47] LABS: Add Manual Diff / Slide Review NO; Basophils Absolute Auto 100 /uL (0-100); Basophils Percent Auto 0.9 % (0-2); Eosinophils Absolute Auto 200 /uL (0-450); Hematocrit 37.3 % (41-53); Hemoglobin 12.4 g/dL (13.5-17.5); Lymphocytes Absolute Auto 1200 /uL (1100-4500); Lymphocytes Percent Auto 19.4 % (25-40); Mean Corpuscular HGB Conc 33.3 % (30-36); Mean Corpuscular Hemoglobin 30.8 PG (26-34); Mean Corpuscular Volume 92.4 fL (80-100); Monocytes Absolute Auto 500 /uL (0-900); Monocytes Percent Auto 8.6 % (3-14); Neutrophils Absolute Auto 4100 /uL (1500-7000); Neutrophils Percent Auto 67.1 % (50-75); Platelet Count 189 X10^3/uL (150-400); Red Blood Cell Count 4.04 X10^6/uL (4.5-5.9); Red Cell Distribution Width 14.1 % (11.6-14.8); White Blood Cell Count 6.2 X10^3/uL (4.5-11.0)
[2022-06-20 14:36] LABS: Appearance Urine UA CLEAR; Bilirubin Urine UA NEGATIVE (NEGATIVE); Color Urine UA YELLOW; Glucose Urine UA NEGATIVE (Negative); Ketones Urine UA TRACE (NEGATIVE); Leukocyte Esterase Urine UA NEGATIVE (NEGATIVE); Nitrite Urine UA NEGATIVE (Negative); Occult Blood Urine UA NEGATIVE (Negative); Protein Urine UA NEGATIVE (Negative); Specific Gravity Urine UA >=1.030 (1.000-1.035); Urobilinogen Urine UA 0.2 E.U./dL (0.2)
[2022-06-20 14:52] LABS: Culture Indicated Urine Cult Not Indicated; RBC Urine None Seen (0-5/HPF); Urine Comments Microscopic Normal; WBC Urine None Seen (0-5/HPF)
== END ==
PROVIDERS: Family Provider Family Medicine; PCP Family Medicine; Referring Provider Family Medicine; Visit Provider Family Medicine
DX: R41.82 Altered mental status, unspecified (principal); R53.1 Weakness
CPT/HCPCS: 36415; 81001; 85025

== ENCOUNTER 2022-08-28 15:46 | Emergency (ER) | payer MEDICARE, OTHER, SELFPAY ==
[2022-08-28] VITALS (11 sets, daily range): BP systolic 116–209; BP diastolic 65–112; PULSE 54–65; RESP 13–21; TEMP 36.5; O2SAT 96–100; BMI 27.6
--- NOTE | 2022-08-28 16:10 | DI.RAD.S_ITS ---
PROCEDURE: XR CHEST 1V INDICATIONS: chest pain TECHNIQUE: One view of the chest was acquired. COMPARISON: [facility], CHEST 2 VIEW, 06/15/2017, 10:02. [facility], , CHEST 2 VIEW, 10/23/2013, 10:25. FINDINGS: Surgical changes and devices: None. Lungs and pleura: Lungs are clear. No pleural effusions or pneumothorax. Mediastinum: Mediastinal contours appear normal. Heart size is normal. Bones and chest wall: No suspicious bony lesions. Overlying soft tissues appear unremarkable. IMPRESSION: No acute cardiopulmonary process. Dictated by: Kevin Martínez M.D. on 08/28/2022 at 16:28 Approved by: Kevin Martínez M.D. on 08/28/2022 at 16:28
[2022-08-28 17:17] LABS: Add Manual Diff / Slide Review NO; Basophils Absolute Auto 100 /uL (0-100); Basophils Percent Auto 0.8 % (0-2); Eosinophils Absolute Auto 200 /uL (0-450); Eosinophils Percent Auto 2.3 % (2-4); Hematocrit 38.9 % (41-53); Lymphocytes Absolute Auto 800 /uL (1100-4500); Lymphocytes Percent Auto 10.2 % (25-40); Mean Corpuscular HGB Conc 33.4 % (30-36); Mean Corpuscular Hemoglobin 30.7 PG (26-34); Mean Corpuscular Volume 91.7 fL (80-100); Monocytes Absolute Auto 400 /uL (0-900); Monocytes Percent Auto 5.8 % (3-14); Neutrophils Absolute Auto 6200 /uL (1500-7000); Neutrophils Percent Auto 80.9 % (50-75); Platelet Count 164 X10^3/uL (150-400); Red Blood Cell Count 4.24 X10^6/uL (4.5-5.9); Red Cell Distribution Width 13.4 % (11.6-14.8); White Blood Cell Count 7.6 X10^3/uL (4.5-11.0)
[2022-08-28 17:25] LABS: INR 1.1 (0.9-1.3); Prothrombin Time 12.7 SECONDS (10.1-12.7)
[2022-08-28 17:27] LABS: PTT Partial Thromboplastin Tim 31 SECONDS (26-36)
[2022-08-28 17:30] LABS: Alanine Aminotransferase 8 IU/L (<50); Albumin 4.4 g/dL (3.5-5.0); Albumin Globulin Ratio 1.5 (1.0-2.8); Alkaline Phosphatase 51 U/L (38-126); Aspartate Aminotransferase 23 IU/L (17-59); Blood Urea Nitrogen 32 mg/dL (9-20); Carbon Dioxide 27 mmol/L (22-32); Chloride 102 mmol/L (98-107); Creatine Kinase 121 U/L (55-170); Estimated Glomerular Filt Rate 44 mL/min (>60); Globulin 2.9 g/dL (1.7-4.1); Glucose 101 mg/dL (80-110); HEMOLYSIS < 15 (0-50); Lipase 85 U/L (23-300); Magnesium 2.3 mg/dL (1.6-2.3); Potassium 4.1 mmol/L (3.4-5.1); Sodium 137 mmol/L (137-145); Total Protein 7.3 g/dL (6.3-8.2)
[2022-08-28] MEDS: ASPIRIN 81 MG CHEW TAB 324 MG PO (17:30)
[2022-08-28 17:41] LABS: Troponin I < 0.012 ng/mL (0.01-0.034)
--- NOTE | 2022-08-28 18:15 | DI.CT.S_ITS ---
PROCEDURE: CT HEAD/BRAIN WO CON INDICATIONS: multiple falls not feeling well TECHNIQUE: Noncontrast 4.5 mm thick angled axial sections acquired from the foramen magnum to the vertex, with coronal and sagittal reformats. For radiation dose reduction, the following was used: automated exposure control, adjustment of mA and/or kV according to patient size. COMPARISON: None. FINDINGS: Image quality: Excellent. CSF spaces: Basal cisterns are patent. No extra-axial fluid collections. The ventricles are symmetric in size and shape. Brain: No intracranial bleeds or masses. There is cerebral volume loss for age, with resultant ventricular and sulcal prominence. There are periventricular and deep white matter chronic small vessel ischemic changes. There is intracranial internal carotid artery atherosclerosis. Skull and face: Calvarium and visualized facial bones appear intact, without suspicious lesions. Sinuses: Visualized sinuses and mastoids are clear. IMPRESSION: 1. No acute intracranial process. 2. Moderate atrophy and chronic microvascular ischemic changes. Dictated by: Lili Leigh M.D. on 08/28/2022 at 19:03 Approved by: Lili Leigh M.D. on 08/28/2022 at 19:04
--- NOTE | 2022-08-28 19:28 | PC.NURSE ---
Patients has stated that patient has parkinsons and it appears that the symptoms are becoming worse
--- NOTE | 2022-08-28 19:34 | PC.NURSE ---
Patient is having a hard time remembering the date and the president. Patient is alert and oriented to self
--- NOTE | 2022-08-28 19:54 | ED_ITS ---
HPI - General Adult General Chief complaint: Dizziness Stated complaint: Fall, Low BP Time Seen by Provider: 08/28/22 18:15 Source: patient and family Mode of arrival: Wheelchair History of Present Illness HPI narrative: Patient is a 77-year-old male. Not on anticoagulation. Does have history of Parkinson's disease who is here for evaluation of multiple falls today. Patient states that today there are multiple events he does became very lightheaded and other times he is lost his balance in his swollen. No injuries from these falls . There was some concern about low blood pressure as well. He is on blood pressure medications. He reports no injuries from these falls. [place] very unsteady on his feet. He occasionally uses a cane to get around but no walker. They were able to get a wheelchair from a friend earlier today. He states that prior to the events he was not having lightheadedness or chest discomfort or palpitations. Related Data Home Medications Medication Instructions Recorded Confirmed nitroglycerin 0.4 mg sublingual 0.4 mg sublingual PRN ##0 08/22/10 tablet (Nitrostat) simvastatin 20 mg tablet 10 mg PO QDAY ##0 08/22/10 carbidopa 25 mg-levodopa 100 mg 1 tab PO BID ##0 08/09/16 tablet Previous Rx's Medication Instructions Recorded tramadol 50 mg tablet 50 mg PO QHS #15 tabs 08/09/16 Allergies Allergy/AdvReac Type Severity Reaction Status Date / Time No Known Drug Allergies Allergy Verified 08/28/22 16:04 Review of Systems Review of Systems ROS Unobtainable: All systems reviewed & are unremarkable except as noted in HPI and below Patient History Social History Smoking Status: Never smoker Smoking Status: Never smoker Substance Use Type: does not use Exam Initial Vital Signs Initial Vital Signs: Vital Signs Temperature 97.7 F 08/28/22 16:04 Pulse Rate 65 08/28/22 16:04 Respiratory Rate 16 08/28/22 16:04 Blood Pressure 116/65 08/28/22 16:04 Pulse Oximetry 98 08/28/22 16:04 Oxygen Delivery Method Room Air 08/28/22 16:04 Const General: cooperative, comfortable and No ill appearing HENMT Head: normal to inspection and normocephalic Resp Effort & Inspection: normal respiratory effort Auscultation: clear to auscultation bilaterally Cardio Rate: regular rate Rhythm: regular rhythm GI Inspection: normal to inspection Palpation: soft, No firm and No tender Neuro General: patient alert, patient awake and moves all extremities Speech: speech normal Motor: muscle tone normal throughout Extrem General: normal to inspection and capillary refill normal Psych Appearance: grossly normal and well kempt Course Orders Ordered: ED Orders 08/28/22 18:15 CT head/brain wo con Stat Discontinued Medications Aspirin (Aspirin 81 Mg Chew Tab) 324 mg PO NOW ONE Stop: 08/28/22 16:11 Last Admin: 08/28/22 17:30 Dose: 324 mg Documented By: AMU Vital Signs Vital signs: Vital Signs - 8 hr 08/28/22 18:55 08/28/22 18:56 08/28/22 18:56 Pulse Rate 54 L 61 Respiratory Rate 17 17 Blood Pressure 168/87 H Pulse Oximetry 96 Oxygen Delivery Method Room Air 08/28/22 19:00 08/28/22 19:00 08/28/22 19:24 Pulse Rate 58 L 58 L Respiratory Rate 16 21 Blood Pressure 179/85 H Pulse Oximetry 98 Oxygen Delivery Method 08/28/22 19:24 08/28/22 19:30 08/28/22 19:30 Pulse Rate 57 L Respiratory Rate 17 Blood Pressure 182/83 H 174/87 H Pulse Oximetry 98 Oxygen Delivery Method 08/28/22 20:00 08/28/22 20:15 08/28/22 20:15 Pulse Rate 57 L 56 L Respiratory Rate 13 18 Blood Pressure 200/112 H Pulse Oximetry 100 100 Oxygen Delivery Method 08/28/22 20:30 08/28/22 20:30 08/28/22 20:35 Pulse Rate 55 L 56 L Respiratory Rate 15 21 Blood Pressure 209/92 H Pulse Oximetry 99 99 Oxygen Delivery Method 08/28/22 20:35 Pulse Rate Respiratory Rate Blood Pressure 187/88 H Pulse Oximetry Oxygen Delivery Method Medical Decision Making Lab Data Lab results reviewed: Yes I reviewed the patient's lab results. 08/28/22 17:00 08/28/22 17:00 Labs: Lab Results 08/28/22 08/28/22 08/28/22 Range/Units 17:00 17:00 17:00 WBC 7.6 (4.5-11.0) X10^3/uL RBC 4.24 L (4.5-5.9) X10^6/uL Hgb 13.0 L (13.5-17.5) g/dL Hct 38.9 L (41-53) % MCV 91.7 (80-100) fL MCH 30.7 (26-34) PG MCHC 33.4 (30-36) % RDW 13.4 (11.6-14.8) % Plt Count 164 (150-400) X10^3/uL Neut % (Auto) 80.9 H (50-75) % Lymph % (Auto) 10.2 L (25-40) % [place] % (Auto) 5.8 (3-14) % Eos % (Auto) 2.3 (2-4) % Baso % (Auto) 0.8 (0-2) % Neut # (Auto) 6200 (0603-0893) /uL Lymph # (Auto) 800 L (5256-4993) /uL [place] # (Auto) 400 (0-900) /uL Eos # (Auto) 200 (0-450) /uL Baso # (Auto) 100 (0-100) /uL PT 12.7 (10.1-12.7) SECONDS INR 1.1 (0.9-1.3) APTT 31 (26-36) SECONDS Sodium 137 (137-145) mmol/L Potassium 4.1 (3.4-5.1) mmol/L Chloride 102 (98-107) mmol/L Carbon Dioxide 27 (22-32) mmol/L BUN 32 H (9-20) mg/dL Creatinine 1.60 H (0.66-1.25) mg/dL Estimated GFR 44 L (>60) mL/min BUN/Creatinine Ratio 20.0 (6-22) Glucose 101 (80-110) mg/dL Calcium 9.0 (8.4-10.2) mg/dL Magnesium 2.3 (1.6-2.3) mg/dL Total Bilirubin 1.0 (0.2-1.3) mg/dL AST 23 (17-59) IU/L ALT 8 (<50) IU/L Alkaline Phosphatase 51 (38-126) U/L Total Creatine Kinase 121 (55-170) U/L CK-MB (CK-2) TNP CK-MB (CK-2) Rel Index TNP Troponin I < 0.012 (0.01-0.034) ng/mL Total Protein 7.3 (6.3-8.2) g/dL Albumin 4.4 (3.5-5.0) g/dL Globulin 2.9 (1.7-4.1) g/dL Albumin/Globulin Ratio 1.5 (1.0-2.8) Lipase 85 (23-300) U/L Imaging Data Chest x-ray: Radiologist's Impression: PROCEDURE:? XR CHEST 1V ? INDICATIONS:? chest pain ? TECHNIQUE:? One view of the chest was acquired.? ? COMPARISON:? [facility], CHEST 2 VIEW, 06/15/2017, 10:02.? [facility], CHEST 2 VIEW, 10/23/2013, 10:25. ? FINDINGS:? ? Surgical changes and devices:? None.? ? Lungs and pleura:? Lungs are clear.? No pleural effusions or pneumothorax.? ? Mediastinum:? Mediastinal contours appear normal.? Heart size is normal.? ? Bones and chest wall:? No suspicious bony lesions.? Overlying soft tissues appear unremarkable.? ? IMPRESSION:? No acute cardiopulmonary process. CT scan - head: Radiologist's Impression: PROCEDURE:? CT HEAD/BRAIN WO CON ? INDICATIONS:? multiple falls not feeling well ? TECHNIQUE:? Noncontrast 4.5 mm thick angled axial sections acquired from the foramen magnum to the vertex, with coronal and sagittal reformats.? For radiation dose reduction, the following was used:? automated exposure control, adjustment of mA and/or kV according to patient size.? ? COMPARISON:? None. ? FINDINGS:? Image quality:? Excellent.? ? CSF spaces:? Basal cisterns are patent.? No extra-axial fluid collections.? The ventricles are symmetric in size and shape.? ? Brain:? No intracranial bleeds or masses.? There is cerebral volume loss for age, with resultant ventricular and sulcal prominence.? There are periventricular and deep white matter chronic small vessel ischemic changes.? There is intracranial internal carotid artery atherosclerosis.? ? Skull and face:? Calvarium and visualized facial bones appear intact, without suspicious lesions.? ? Sinuses:? Visualized sinuses and mastoids are clear.? ? IMPRESSION:? ? 1. No acute intracranial process. ? 2. Moderate atrophy and chronic microvascular ischemic changes. ECG Data Attestation: I personally reviewed and interpreted this ECG as follows: Interpretation: Sinus rhythm Ventricular rate is 68 Left axis deviation Normal QRS QTC No ST T wave changes MDM Narrative Medical decision making narrative: There were no injuries from the events from earlier today. Labs and EKG are unremarkable. Initially patient had a very difficult time even standing at bedside with the walker. He did not fall however was unsteady. When I went back in to re-evaluate the patient patient's states that he looked at her and told her that he felt like he just woke up. He was more aware of what was going on. He felt much stronger. He was unable to stand at bedside and walk with the walker. I suspect that all of his presenting symptoms today are because of his Parkinson's disease. I have low suspicion for CVA or TIA. He was not hypotensive here in the ER. No infectious source found. No indication for antibiotics. Had a discussion with the family regarding this. Informed him that he should talk with his primary doctor about potentially having home health. They were given return precautions. They both felt comfortable going home. Discharge Plan Departure Patient Disposition: Home Clinical Impression: Parkinson's disease, Multiple falls Instructions: Exercises to Help Prevent Falls, How to Prevent Falls Activity Restrictions/Additional Instructions: I recommend that you continue to take all of your medications as directed. Also recommend that you talk with your primary doctor about follow-up. Return to the emergency department for new or worsening symptoms. Prescriptions: No Action simvastatin 20 MG tablet 10 mg PO QDAY Qty: 0 nitroglycerin [Nitrostat] 0.4 MG tablet, sublingual 0.4 mg Sublingual PRN Qty: 0 carbidopa-levodopa 25 MG/100 MG tablet 1 tab PO BID Qty: 0 tramadol 50 MG tablet 50 mg PO QHS Qty: 15 0RF Referrals: Sudhakar Mcdonald MD [Primary Care Provider] - Stand Alone Forms: Patient Portal/API
--- NOTE | 2022-08-28 19:59 | PC.NURSE ---
This patient is not stable on his feet and forgets where he is walking to or from and remains confused.
== END 2022-08-28 21:11 | disposition home or self-care (01) ==
PROVIDERS: Emergency Medicine; Emergency Provider Emergency Medicine; Family Provider Family Medicine; PCP Family Medicine
DX: G20 Parkinson's disease (principal); R07.9 Chest pain, unspecified; R29.6 Repeated falls
CPT/HCPCS: 36415; 70450; 71045; 80053; 82550; 83690; 83735; 84484; 85025; 85610; 85730; 93005; 99284

== ENCOUNTER → 2022-09-05 14:17 | Outpatient (CLI) | payer MEDICARE, OTHER, SELFPAY ==
--- NOTE | 2022-09-05 | DI.CT.S_ITS ---
PROCEDURE: CT HEAD/BRAIN WO CON INDICATIONS: Neurocognitive disorder with Lewy bodies TECHNIQUE: Noncontrast 4.5 mm thick angled axial sections acquired from the foramen magnum to the vertex, with coronal and sagittal reformats. For radiation dose reduction, the following was used: automated exposure control, adjustment of mA and/or kV according to patient size. COMPARISON: [facility], CT, CT HEAD/BRAIN WO CON, 08/28/2022, 18:21. FINDINGS: Image quality: Excellent. CSF spaces: Basal cisterns are patent. No extra-axial fluid collections. The ventricles are symmetric in size and shape. Brain: No intracranial bleeds or masses. There is cerebral volume loss for age, with resultant ventricular and sulcal prominence. There are periventricular and deep white matter chronic small vessel ischemic changes. These are worst within the superior posterior cerebral hemispheres, as on series 2 images 21 through 24. There is intracranial internal carotid artery atherosclerosis. Skull and face: Calvarium and visualized facial bones appear intact, without suspicious lesions. Sinuses: Visualized sinuses and mastoids are clear. IMPRESSION: Stable noncontrast head CT, with brain parenchymal volume loss and chronic small vessel ischemic change. Dictated by: Milton Victoria M.D. on 09/05/2022 at 13:50 Approved by: Milton Victoria M.D. on 09/05/2022 at 13:51
== END ==
PROVIDERS: Family Provider Family Medicine; PCP Family Medicine; Referring Provider Psychiatry & Neurology Neurology; Visit Provider Psychiatry & Neurology Neurology
DX: G31.83 Neurocognitive disorder with Lewy bodies (principal); I65.29 Occlusion and stenosis of unspecified carotid artery; F02.80 Dementia in other diseases classified elsewhere, unspecified severity, without behavioral disturbance, psychotic disturbance, mood disturbance, and anxiety; F03.90 Unspecified dementia, unspecified severity, without behavioral disturbance, psychotic disturbance, mood disturbance, and anxiety; Z15.89 Genetic susceptibility to other disease
CPT/HCPCS: 70450

== ENCOUNTER 2023-01-29 15:00 | Outpatient (RCR) | payer MEDICARE, OTHER, SELFPAY ==
--- NOTE | 2023-01-08 16:37 | PT.OIE ---
Current Diagnoses Parkinsonism, unspecified (01/08/23) Visit Care Team Role Provider Type Sudhakar Mcdonald MD Attending Provider Non-Staff Family Provider Primary Care Provider Referring Provider Specialty: Family Practice Address: [address], [address], [place], [address] Email: Physical Therapy Initial Evaluation PT-OP-A Visit Information Start: 01/08/23 14:41 Freq: Status: Active Protocol: Document 01/08/23 14:50 MB (Rec: 01/08/23 16:37 MB [id number]) Out-Patient Physical Therapy Visit Information Visit Information Visit Type Initial Evaluation Visit Note Medicare 03/28 Visit Start Time 14:50 Visit Stop Time 15:45 Total Visit Minutes 55 Visit Number 1 Number of ELECTROMECHANICAL EQUIPMENT TESTER Visits 0 Precautions Precautions Fall risk and orthostasis PT-OP-B Current Condition Start: 01/08/23 14:41 Freq: Status: Active Protocol: Document 01/08/23 14:50 MB (Rec: 01/08/23 16:37 [id number]) Current Condition History of Current Condition Onset Date 20 years or so Current Complaints Imbalance, speech, falls, inability to walk far History of Current Condition Pt is a 77 y/o male with about a 20 year history of PD. He takes carbidopa levodopa 4x/ day and it helps with his mobility. He has had about 6 falls over the past year and he reports light-headedness especially when getting up in the morning. He also has times of stuttering feet that cause him to fall. He works out with a warehouse trainer 5x/wk and does some boxing moves. He also participates in weekly classes of [employer] LOUD [employer] and BIG [employer]. He has had two falls in the past three months and he injured his right head/face, right shoulder and ribs. He is feeling better now. He would like to be able to walk further, do better with his balance and work on speech. Buttoning is still very difficult. Pt has no steps to enter his home. He lives with his who is very supportive and does the driving and most of the house work. He likes to help take care of his dog and cat but his balance has been so bad he has limited most mobility/ activities other than what his assists him with and his community classes. Prior Treatments and Tests Pt has completed LSVT LOUD and LSVT BIG in the past and he is here for a refresher for BIG Treatment Goals Patient/Caregiver Goals To improve walking and balance PT-OP-C Subjective Start: 01/08/23 14:41 Freq: Status: Active Protocol: Document 01/08/23 14:50 MB (Rec: 01/08/23 16:37 MB [id number]) OP-PT Subjective Patient Comments Patient Comments See above PT-OP-D Balance Start: 01/08/23 14:41 Freq: Status: Active Protocol: Document 01/08/23 14:50 MB (Rec: 01/08/23 16:37 MB [id number]) Balance Tests Other Other Balance Tests Performed 4-Stage Balance Test: pt holds onto PT's hand to get into [place] and he is able to maintain 10 sec. He can hold partial tandem with right toes in middle of left arch x10 sec with SBA. He is unable to get into other partial tandem, tandem or SLS position without LOB. Upon asking pt to step back to the mat, he has festinating movement, LOB posteriorly and requires mod A to sit. PT-OP-G Mobility & Gait Start: 01/08/23 14:41 Freq: Status: Active Protocol: Document 01/08/23 14:50 MB (Rec: 01/08/23 16:37 MB [id number]) OP Gait Assessment Gait Gait Assistance Required: Standby Assistance,Moderate Assistance,1 Person Assist Distance (Feet) 1,345 Able to Maintain Weight Bearing Status Yes During Gait Assistive Devices Assistive Device None,Gait Belt Gait Deviations General Gait Pattern Decreased Stride Length Factors Limiting Gait Function Factors Limiting Gait Function Incoordination,Poor Safety Awareness Comments Gait Comments Forward gait is usally I to SBA for 6MWT and pt requires up to mod A for retropulsion given festinating pattern, imbalance and freezing type movement when asked to step backwards. Many gait trials today. Pt with decreased arm swing with gait and decreased step-length and foot clearance . PT-OP-H Neuro Start: 01/08/23 14:41 Freq: Status: Active Protocol: Document 01/08/23 14:50 MB (Rec: 01/08/23 16:37 MB [id number]) Coordination Evaluation Upper Extremity Tests Left Finger to Nose Test Severe Impairment Pronation/Supination Test Moderate Impairment Right Finger to Nose Test Moderate Impairment Pronation/Supination Test Moderate Impairment Lower Extremity Tests Left Heel on Dasilva Test Severe Impairment Foot Tapping Test Severe Impairment Right Heel on Dasilva Test Severe Impairment Foot Tapping Test Severe Impairment Vital Signs Comments Vital Signs Comments Pt with positive orthostatic hypotension and he is symptomatic. BP and HR in right UE: supine 147/86, 55; standing 94/59, 69; standing 1 ' 99/58, 67. PT-OP-J Posture/Palpation/Skin Start: 01/08/23 14:41 Freq: Status: Active Protocol: Document 01/08/23 14:50 MB (Rec: 01/08/23 16:37 MB [id number]) Posture Evaluation Comments Posture Comments Forward head, rounded shoulders, thoracic kyphosis and decreased thoracic mobility PT-OP-M Strength Start: 01/08/23 14:41 Freq: Status: Active Protocol: Document 01/08/23 14:50 MB (Rec: 01/08/23 16:37 MB [id number]) Shoulder Strength Shoulder Manual Muscle Testing Left Flexion 5 Normal Abduction (C5) 5 Normal Right Flexion 5 Normal Abduction (C5) 5 Normal Elbow/Forearm Strength Elbow and Forearm Manual Muscle Testing Left Flexion (C6) 5 Normal Extension (C7) 5 Normal Right Flexion (C6) 5 Normal Extension (C7) 5 Normal Hip Strength Hip Manual Muscle Testing Left Flexion (L2) 5 Normal Right Flexion (L2) 5 Normal Knee Strength Knee Manual Muscle Testing Left Extension (L3) 5 Normal Right Extension (L3) 5 Normal Ankle/Foot Strength Ankle and Foot Manual Muscle Testing Left Dorsiflexion (L4) 4+ Good+ Right Dorsiflexion (L4) 5 Normal PT-OP-Q Treatments Start: 01/08/23 14:41 Freq: Status: Active Protocol: Document 01/08/23 14:50 MB (Rec: 01/08/23 16:37 MB [id number]) Therapeutic Exercises Sitting Exercises STS Sitting Exercise Name STS in 30 sec Reps/Minutes 10 reps Comments Pt tends to squat rather than sit his hips down on the plYesWeAd Gait Training Gait Activity TUG Comments Pt require five attempts to perform TUG correctly d/t performing distance twice without sitting and then turning before end of 3m. 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 and ed to perform transitional movements slowly, to increase non-caffeinated fluid intake PT-OP-T Assessment and Plan Start: 01/08/23 14:41 Freq: Status: Active Protocol: Document 01/08/23 14:50 MB (Rec: 01/08/23 16:37 MB [id number]) Physical Therapy Assessment Rehab Potential Rehabilitation Potential Good Evaluation Complexity Number of Personal Factors/Comorbidities 1-2 Number of Body Systems Impaired 3 Clinical Presentation at Evaluation Evolving Impairments Impairments Activity Tolerance,Balance, Coordination,Functional Activities,Functional Mobility ,Gait,Posture Goals 4 Impairment Not consistently perform BIG program HEP Custodial Goal (LTG) Pt will perform BIG exercises with no more than cues and demo to improve balance and pt will report performing exercises daily. LTG Duration 3 weeks 3 Impairment 1345 feet in 6MWT Custodial Goal (LTG) Pt will gait train at least 1450 feet in 6 minutes with improved arm swing and no evidence of imbalance with I to improve community mobility. LTG Duration 3 weeks 2 Impairment 30 sec STS 10 reps Custodial Goal (LTG) Pt will perform at least 13 reps STS in 30 sec to decrease fall risk. LTG Duration 3 weeks 1 Impairment TUG 12 sec Sock Turner Goal (LTG) Pt will perform TUG in 10 sec or less to decrease fall risk. LTG Duration 3 weeks Assessment Summary Assessment Pt is a pleasant 77 y/o male presenting with about a 20 year history of PD. He has had many falls over this past year including two more recent falls and he hit his face and right side. He is profoundly orthostatic and while he is symptomatic, he does not pass out with PT and is able to con 't with walking for 6 minutes and other balance and coordination testing. He presents with severe imbalance with static balance testing. He has evidence of festination with attempting retropulsion today. He will benefit from LSVT refresher to improve balance, gait, transfers and performance of BIG program. Physical Therapy Plan Frequency and Duration Frequency of Treatment 4x/Week Duration of treatment (weeks) 3 Plan of Care Start Date 01/08/23 Plan of Care End Date 01/29/23 Therapeutic Interventions Therapeutic Interventions Balance Training,Canalithic Repositioning,Coordination Training,Gait Training,Home Exercise Program,Neuromuscular Re-education,Patient/ Caregiver Education,Self-Care/ Home Management,Therapeutic Activities,Therapeutic Exercises Next Visit Focus/Plan Next Note Type Treatment Note Next Visit Plan Initiate BIG exercises
--- NOTE | 2023-01-08 16:38 | PT.OPPOC ---
Physical, Occupational & Speech Therapy At [facility] Current Diagnoses Parkinsonism, unspecified (01/08/23) Visit Care Team Role Provider Type Sudhakar Mcdonald MD Attending Provider Non-Staff Family Provider Primary Care Provider Referring Provider Specialty: Family Practice Address: [address] [place] [address], [address], [place], [address] Email: Plan Of Care PT-OP-T Assessment and Plan Start: 01/08/23 14:41 Freq: Status: Active Protocol: Document 01/08/23 14:50 MB (Rec: 01/08/23 16:37 MB [id number]) Physical Therapy Assessment Rehab Potential Rehabilitation Potential Good Evaluation Complexity Number of Personal Factors/Comorbidities 1-2 Number of Body Systems Impaired 3 Clinical Presentation at Evaluation Evolving Impairments Impairments Activity Tolerance,Balance, Coordination,Functional Activities,Functional Mobility ,Gait,Posture Goals 4 Impairment Not consistently perform BIG program HEP Custodial Goal (LTG) Pt will perform BIG exercises with no more than cues and demo to improve balance and pt will report performing exercises daily. LTG Duration 3 weeks 3 Impairment 1345 feet in 6MWT Custodial Goal (LTG) Pt will gait train at least 1450 feet in 6 minutes with improved arm swing and no evidence of imbalance with I to improve community mobility. LTG Duration 3 weeks 2 Impairment 30 sec STS 10 reps Custodial Goal (LTG) Pt will perform at least 13 reps STS in 30 sec to decrease fall risk. LTG Duration 3 weeks 1 Impairment TUG 12 sec Booster Assembler Goal (LTG) Pt will perform TUG in 10 sec or less to decrease fall risk. LTG Duration 3 weeks Assessment Summary Assessment Pt is a pleasant 77 y/o male presenting with about a 20 year history of PD. He has had many falls over this past year including two more recent falls and he hit his face and right side. He is profoundly orthostatic and while he is symptomatic, he does not pass out with PT and is able to con 't with walking for 6 minutes and other balance and coordination testing. He presents with severe imbalance with static balance testing. He has evidence of festination with attempting retropulsion today. He will benefit from LSVT refresher to improve balance, gait, transfers and performance of BIG program. Physical Therapy Plan Frequency and Duration Frequency of Treatment 4x/Week Duration of treatment (weeks) 3 Plan of Care Start Date 01/08/23 Plan of Care End Date 01/29/23 Therapeutic Interventions Therapeutic Interventions Balance Training,Canalithic Repositioning,Coordination Training,Gait Training,Home Exercise Program,Neuromuscular Re-education,Patient/ Caregiver Education,Self-Care/ Home Management,Therapeutic Activities,Therapeutic Exercises Next Visit Focus/Plan Next Note Type Treatment Note Next Visit Plan Initiate BIG exercises Plan of Care Dates Plan of Care Start Date 01/08/23 Plan of Care End Date 01/29/23 Electronically Signed by: Meredith Valdez, PT 01/08/23 6912 If you are in agreement with this Plan of Care, please return a signed and dated copy. I have reviewed this Plan of Care and certify that the skilled therapy services above are required to meet the patient?s needs. Physician Signature Date Printed Name and Credentials Clinical Instructor Signature Printed Name and Credentials
--- NOTE | 2023-01-10 16:10 | PT.OTN ---
Current Diagnoses Parkinsonism, unspecified (01/10/23) Physical Therapy Treatment Note PT-OP-A Visit Information Start: 01/08/23 14:41 Freq: Status: Active Protocol: Document 01/10/23 15:01 MB (Rec: 01/10/23 16:09 MB [id number]) Out-Patient Physical Therapy Visit Information Visit Information Visit Type Treatment Note Visit Note Medicare 04/28 Visit Start Time 15:01 Visit Stop Time 16:01 Total Visit Minutes 60 Visit Number 2 Number of DESIGN ARCHITECT Visits 0 Precautions Precautions Fall risk and orthostasis PT-OP-B Current Condition Start: 01/08/23 14:41 Freq: Status: Active Protocol: Document 01/08/23 14:50 MB (Rec: 01/08/23 16:37 MB [id number]) Current Condition History of Current Condition Onset Date 20 years or so Current Complaints Imbalance, speech, falls, inability to walk far History of Current Condition Pt is a 77 y/o male with about a 20 year history of PD. He takes carbidopa levodopa 4x/ day and it helps with his mobility. He has had about 6 falls over the past year and he reports light-headedness especially when getting up in the morning. He also has times of stuttering feet that cause him to fall. He works out with a link trainer teacher 5x/wk and does some boxing moves. He also participates in weekly classes of LSVT LOUD for Life and BIG for Life. He has had two falls in the past three months and he injured his right head/face, right shoulder and ribs. He is feeling better now. He would like to be able to walk further, do better with his balance and work on speech. Buttoning is still very difficult. Pt has no steps to enter his home. He lives with his who is very supportive and does the driving and most of the house work. He likes to help take care of his dog and cat but his balance has been so bad he has limited most mobility/ activities other than what his assists him with and his community classes. Prior Treatments and Tests Pt has completed LSVT LOUD and LSVT BIG in the past and he is here for a refresher for BIG Treatment Goals Patient/Caregiver Goals To improve walking and balance PT-OP-C Subjective Start: 01/08/23 14:41 Freq: Status: Active Protocol: Document 01/10/23 15:01 MB (Rec: 01/10/23 16:09 MB [id number]) OP-PT Subjective Patient Comments Patient Comments Pt states that he has been tired. He was a little light- headed this morning and is feeling better this afternoon. After discussion, pt would like to work on buttoning, TV remote use, writing and donning and doffing watch for therapeutic activities. PT-OP-D Balance Start: 01/08/23 14:41 Freq: Status: Active Protocol: Document 01/08/23 14:50 MB (Rec: 01/08/23 16:37 MB [id number]) Balance Tests Other Other Balance Tests Performed 4-Stage Balance Test: pt holds onto PT's hand to get into Romberg and he is able to maintain 10 sec. He can hold partial tandem with right toes in middle of left arch x10 sec with SBA. He is unable to get into other partial tandem, tandem or SLS position without LOB. Upon asking pt to step back to the mat, he has festinating movement, LOB posteriorly and requires mod A to sit. PT-OP-G Mobility & Gait Start: 01/08/23 14:41 Freq: Status: Active Protocol: Document 01/08/23 14:50 MB (Rec: 01/08/23 16:37 MB [id number]) OP Gait Assessment Gait Gait Assistance Required: Standby Assistance,Moderate Assistance,1 Person Assist Distance (Feet) 1,345 Able to Maintain Weight Bearing Status Yes During Gait Assistive Devices Assistive Device None,Gait Belt Gait Deviations General Gait Pattern Decreased Stride Length Factors Limiting Gait Function Factors Limiting Gait Function Incoordination,Poor Safety Awareness Comments Gait Comments Forward gait is usally I to SBA for 6MWT and pt requires up to mod A for retropulsion given festinating pattern, imbalance and freezing type movement when asked to step backwards. Many gait trials today. Pt with decreased arm swing with gait and decreased step-length and foot clearance . PT-OP-H Neuro Start: 01/08/23 14:41 Freq: Status: Active Protocol: Document 01/08/23 14:50 MB (Rec: 01/08/23 16:37 MB [id number]) Coordination Evaluation Upper Extremity Tests Left Finger to Nose Test Severe Impairment Pronation/Supination Test Moderate Impairment Right Finger to Nose Test Moderate Impairment Pronation/Supination Test Moderate Impairment Lower Extremity Tests Left Heel on Dasilva Test Severe Impairment Foot Tapping Test Severe Impairment Right Heel on Dasilva Test Severe Impairment Foot Tapping Test Severe Impairment Vital Signs Comments Vital Signs Comments Pt with positive orthostatic hypotension and he is symptomatic. BP and HR in right UE: supine 147/86, 55; standing 94/59, 69; standing 1 ' 99/58, 67. PT-OP-J Posture/Palpation/Skin Start: 01/08/23 14:41 Freq: Status: Active Protocol: Document 01/08/23 14:50 MB (Rec: 01/08/23 16:37 MB [id number]) Posture Evaluation Comments Posture Comments Forward head, rounded shoulders, thoracic kyphosis and decreased thoracic mobility PT-OP-M Strength Start: 01/08/23 14:41 Freq: Status: Active Protocol: Document 01/08/23 14:50 MB (Rec: 01/08/23 16:37 MB [id number]) Shoulder Strength Shoulder Manual Muscle Testing Left Flexion 5 Normal Abduction (C5) 5 Normal Right Flexion 5 Normal Abduction (C5) 5 Normal Elbow/Forearm Strength Elbow and Forearm Manual Muscle Testing Left Flexion (C6) 5 Normal Extension (C7) 5 Normal Right Flexion (C6) 5 Normal Extension (C7) 5 Normal Hip Strength Hip Manual Muscle Testing Left Flexion (L2) 5 Normal Right Flexion (L2) 5 Normal Knee Strength Knee Manual Muscle Testing Left Extension (L3) 5 Normal Right Extension (L3) 5 Normal Ankle/Foot Strength Ankle and Foot Manual Muscle Testing Left Dorsiflexion (L4) 4+ Good+ Right Dorsiflexion (L4) 5 Normal PT-OP-Q Treatments Start: 01/08/23 14:41 Freq: Status: Active Protocol: Document 01/10/23 15:01 MB (Rec: 01/10/23 16:09 MB [id number]) Therapeutic Exercises Sitting Exercises BIG STS Equipment Used BIG chair Reps/Minutes 10 Comments Cues to move palms forward and decreased supination on the left Side reach Equipment Used BIG chair Reps/Minutes 10 Comments 1 side at a time, cues to move arm first and leg only as reaching across Forward reach Equipment Used BIG chair Reps/Minutes 10 Comments Cues for palms forward when arms are back and pt with decreased sup LUE Standing Exercises Backward stepping Equipment Used Standing in front of mirror Reps/Minutes 10 Comments Cues for big hands, big front toe Side rock and reach Equipment Used Standing in front of mirror Reps/Minutes 10 Comments Cues to pivot on toes and to keep palms up, this is very challenging Forward rock and reach Equipment Used Standing in front of mirror Reps/Minutes 10 Comments Cues to increase stance and to keep palms towards hips Side step Reps/Minutes 10 Comments One side at a time, cues for palms up Forward step Reps/Minutes 10 Comments One side at a time, gait is too narrow, cues to step all the way back Gait Training Gait Activity BIG walking Distance/Duration 15 minutes Comments BIG walking with cues for palms towards hips and big arm swing. Pt does well taking big steps and performing big stride. Steps are very challenging and pt reports visual challenge with the way steps have black stripe. Left hand on left rail for ascend and CGA and pt has one episode of festinating stepping. Two hands on right rail and step- to gait for descending steps. Inside gait in gym and hospital today. PT-OP-T Assessment and Plan Start: 01/08/23 14:41 Freq: Status: Active Protocol: Document 01/10/23 15:01 MB (Rec: 01/10/23 16:09 MB [id number]) Physical Therapy Assessment Rehab Potential Rehabilitation Potential Good Evaluation Complexity Number of Personal Factors/Comorbidities 1-2 Number of Body Systems Impaired 3 Clinical Presentation at Evaluation Evolving Impairments Impairments Activity Tolerance,Balance, Coordination,Functional Activities,Functional Mobility ,Gait,Posture Goals 4 Impairment Not consistently perform BIG program HEP Geographic Information Systems Manager Goal (LTG) Pt will perform BIG exercises with no more than cues and demo to improve balance and pt will report performing exercises daily. LTG Duration 3 weeks 3 Impairment 1345 feet in 6MWT Geographic Information Systems Manager Goal (LTG) Pt will gait train at least 1450 feet in 6 minutes with improved arm swing and no evidence of imbalance with I to improve community mobility. LTG Duration 3 weeks 2 Impairment 30 sec STS 10 reps Geographic Information Systems Manager Goal (LTG) Pt will perform at least 13 reps STS in 30 sec to decrease fall risk. LTG Duration 3 weeks 1 Impairment TUG 12 sec Geographic Information Systems Manager Goal (LTG) Pt will perform TUG in 10 sec or less to decrease fall risk. LTG Duration 3 weeks Assessment Summary Assessment Pt has most trouble with back leg for side to side sitting exercise today and with standing exercises: forward rock and reach, side rock and reach and backward stepping. Side rock in reach is the most challenging. Pt has trouble with fully supinating arms with more trouble on the left. Pt is also challenged by stair gait. He will benefit from ongoing BIG treatments to improve HEP performance to improve amplitude of movement, balance and posture. Physical Therapy Plan Frequency and Duration Frequency of Treatment 4x/Week Duration of treatment (weeks) 3 Plan of Care Start Date 01/08/23 Plan of Care End Date 01/29/23 Therapeutic Interventions Therapeutic Interventions Balance Training,Canalithic Repositioning,Coordination Training,Gait Training,Home Exercise Program,Neuromuscular Re-education,Patient/ Caregiver Education,Self-Care/ Home Management,Therapeutic Activities,Therapeutic Exercises Next Visit Focus/Plan Next Note Type Treatment Note Next Visit Plan Con't BIG exercises. Therapeutic activities will be writing, buttoning, using a remote and donning and doffing watch
--- NOTE | 2023-01-12 16:06 | PT.OTN ---
Current Diagnoses Parkinsonism, unspecified (01/12/23) Physical Therapy Treatment Note PT-OP-A Visit Information Start: 01/08/23 14:41 Freq: Status: Active Protocol: Document 01/12/23 15:00 MB (Rec: 01/12/23 16:05 MB [id number]) Out-Patient Physical Therapy Visit Information Visit Information Visit Type Treatment Note Visit Note Medicare 05/26 Visit Start Time 15:00 Visit Stop Time 16:00 Total Visit Minutes 60 Visit Number 3 Number of FARE ENFORCEMENT OFFICER Visits 0 Precautions Precautions Fall risk and orthostasis PT-OP-B Current Condition Start: 01/08/23 14:41 Freq: Status: Active Protocol: Document 01/08/23 14:50 MB (Rec: 01/08/23 16:37 MB [id number]) Current Condition History of Current Condition Onset Date 20 years or so Current Complaints Imbalance, speech, falls, inability to walk far History of Current Condition Pt is a 77 y/o male with about a 20 year history of PD. He takes carbidopa levodopa 4x/ day and it helps with his mobility. He has had about 6 falls over the past year and he reports light-headedness especially when getting up in the morning. He also has times of stuttering feet that cause him to fall. He works out with a guide dog trainer 5x/wk and does some boxing moves. He also participates in weekly classes of LSVT LOUD for Life and BIG for Life. He has had two falls in the past three months and he injured his right head/face, right shoulder and ribs. He is feeling better now. He would like to be able to walk further, do better with his balance and work on speech. Buttoning is still very difficult. Pt has no steps to enter his home. He lives with his who is very supportive and does the driving and most of the house work. He likes to help take care of his dog and cat but his balance has been so bad he has limited most mobility/ activities other than what his assists him with and his community classes. Prior Treatments and Tests Pt has completed LSVT LOUD and LSVT BIG in the past and he is here for a refresher for BIG Treatment Goals Patient/Caregiver Goals To improve walking and balance PT-OP-C Subjective Start: 01/08/23 14:41 Freq: Status: Active Protocol: Document 01/12/23 15:00 MB (Rec: 01/12/23 16:05 MB [id number]) OP-PT Subjective Patient Comments Patient Comments Pt has nothing new to report. PT-OP-D Balance Start: 01/08/23 14:41 Freq: Status: Active Protocol: Document 01/08/23 14:50 MB (Rec: 01/08/23 16:37 MB [id number]) Balance Tests Other Other Balance Tests Performed 4-Stage Balance Test: pt holds onto PT's hand to get into Romberg and he is able to maintain 10 sec. He can hold partial tandem with right toes in middle of left arch x10 sec with SBA. He is unable to get into other partial tandem, tandem or SLS position without LOB. Upon asking pt to step back to the mat, he has festinating movement, LOB posteriorly and requires mod A to sit. PT-OP-G Mobility & Gait Start: 01/08/23 14:41 Freq: Status: Active Protocol: Document 01/08/23 14:50 MB (Rec: 01/08/23 16:37 MB [id number]) OP Gait Assessment Gait Gait Assistance Required: Standby Assistance,Moderate Assistance,1 Person Assist Distance (Feet) 1,345 Able to Maintain Weight Bearing Status Yes During Gait Assistive Devices Assistive Device None,Gait Belt Gait Deviations General Gait Pattern Decreased Stride Length Factors Limiting Gait Function Factors Limiting Gait Function Incoordination,Poor Safety Awareness Comments Gait Comments Forward gait is usally I to SBA for 6MWT and pt requires up to mod A for retropulsion given festinating pattern, imbalance and freezing type movement when asked to step backwards. Many gait trials today. Pt with decreased arm swing with gait and decreased step-length and foot clearance . PT-OP-H Neuro Start: 01/08/23 14:41 Freq: Status: Active Protocol: Document 01/08/23 14:50 MB (Rec: 01/08/23 16:37 MB [id number]) Coordination Evaluation Upper Extremity Tests Left Finger to Nose Test Severe Impairment Pronation/Supination Test Moderate Impairment Right Finger to Nose Test Moderate Impairment Pronation/Supination Test Moderate Impairment Lower Extremity Tests Left Heel on Dasilva Test Severe Impairment Foot Tapping Test Severe Impairment Right Heel on Dasilva Test Severe Impairment Foot Tapping Test Severe Impairment Vital Signs Comments Vital Signs Comments Pt with positive orthostatic hypotension and he is symptomatic. BP and HR in right UE: supine 147/86, 55; standing 94/59, 69; standing 1 ' 99/58, 67. PT-OP-J Posture/Palpation/Skin Start: 01/08/23 14:41 Freq: Status: Active Protocol: Document 01/08/23 14:50 MB (Rec: 01/08/23 16:37 MB [id number]) Posture Evaluation Comments Posture Comments Forward head, rounded shoulders, thoracic kyphosis and decreased thoracic mobility PT-OP-M Strength Start: 01/08/23 14:41 Freq: Status: Active Protocol: Document 01/08/23 14:50 MB (Rec: 01/08/23 16:37 MB [id number]) Shoulder Strength Shoulder Manual Muscle Testing Left Flexion 5 Normal Abduction (C5) 5 Normal Right Flexion 5 Normal Abduction (C5) 5 Normal Elbow/Forearm Strength Elbow and Forearm Manual Muscle Testing Left Flexion (C6) 5 Normal Extension (C7) 5 Normal Right Flexion (C6) 5 Normal Extension (C7) 5 Normal Hip Strength Hip Manual Muscle Testing Left Flexion (L2) 5 Normal Right Flexion (L2) 5 Normal Knee Strength Knee Manual Muscle Testing Left Extension (L3) 5 Normal Right Extension (L3) 5 Normal Ankle/Foot Strength Ankle and Foot Manual Muscle Testing Left Dorsiflexion (L4) 4+ Good+ Right Dorsiflexion (L4) 5 Normal PT-OP-Q Treatments Start: 01/08/23 14:41 Freq: Status: Active Protocol: Document 01/12/23 15:00 MB (Rec: 01/12/23 16:05 MB [id number]) Therapeutic Exercises Sitting Exercises Floor to ceiling Equipment Used BIG chair Reps/Minutes 10 Comments Cues for scooting forward, shaping for hands, cues for louder BIG STS Equipment Used BIG chair Reps/Minutes 10 Comments Cues to sit his hips back on the chair as he tends to deep squat Side reach Equipment Used BIG chair Reps/Minutes 10 Comments 1 side at a time, cues to move arm first and leg only as reaching across Standing Exercises Backward stepping Standing Exercise Name Pt requires rest break with this activity, has trouble stepping back left Equipment Used Standing in front of mirror Reps/Minutes 10 Comments Cues for big hands, big front toe Side rock and reach Equipment Used Standing in front of mirror Reps/Minutes 10 Comments Cues for palms up and which toe to pivot on Forward rock and reach Equipment Used Standing in front of mirror Reps/Minutes 10 Comments Cues for big front toe, and hand position Side step Reps/Minutes 10 Comments One side at a time, cues for palms up Forward step Reps/Minutes 10 Comments 1 side at a time and cues to own the step and not to step too far forward Therapeutic Activity Therapeutic Activity TV remote Reps/Minutes 5' Comments PT cues pt for what to push on the commode and he has trouble with transitioning between different tasks and refinding buttons Gait Training Gait Activity BIG walking Distance/Duration 15 minutes Comments BIG walking in the therapy gym with cues for BIG feet to decrease scuffing of feet. To improve arm swing, pt and PT hold onto walking sticks together and PT walks directly behind pt to help with arm swing forward and backward and pt makes improvement with this and he does keep dwayne high with forward stepping and good BIG steps and speed and steps decrease with backward stepping. Tried stepping in // bars and pt is unable to keep arm swing up. PT-OP-T Assessment and Plan Start: 01/08/23 14:41 Freq: Status: Active Protocol: Document 01/12/23 15:00 MB (Rec: 01/12/23 16:05 MB [id number]) Physical Therapy Assessment Rehab Potential Rehabilitation Potential Good Evaluation Complexity Number of Personal Factors/Comorbidities 1-2 Number of Body Systems Impaired 3 Clinical Presentation at Evaluation Evolving Impairments Impairments Activity Tolerance,Balance, Coordination,Functional Activities,Functional Mobility ,Gait,Posture Goals 4 Impairment Not consistently perform BIG program HEP Senior Care Goal (LTG) Pt will perform BIG exercises with no more than cues and demo to improve balance and pt will report performing exercises daily. LTG Duration 3 weeks 3 Impairment 1345 feet in 6MWT Guest Services Representative Goal (LTG) Pt will gait train at least 1450 feet in 6 minutes with improved arm swing and no evidence of imbalance with I to improve community mobility. LTG Duration 3 weeks 2 Impairment 30 sec STS 10 reps Guest Services Representative Goal (LTG) Pt will perform at least 13 reps STS in 30 sec to decrease fall risk. LTG Duration 3 weeks 1 Impairment TUG 12 sec Senior Care Goal (LTG) Pt will perform TUG in 10 sec or less to decrease fall risk. LTG Duration 3 weeks Assessment Summary Assessment Pt with fatigue today with exercises and requiring rest breaks. He requires heavy VCs and demo for exercises which is pretty normal for him for BIG exercises. Changing sides with exercises is challenging and most so with changing to left foot back with backward step today. Stopped this exercise today d/t getting stuck on it when stepping back with left foot. Pt tends to default to forward rock and reach when he gets stuck with backward step exercise. Pt does bring in remote and shirt but his cognitive ability is fatigued at the end of treatment and so focused on BIG walking. Pt does well with use of walking sticks to help with arm swing with PT active assistance and cueing from behind. Asked pt to ask if they can prepare pills for him toe take on time during treatment if needed as he states he was due for his PD medication. Physical Therapy Plan Frequency and Duration Frequency of Treatment 4x/Week Duration of treatment (weeks) 3 Plan of Care Start Date 01/08/23 Plan of Care End Date 01/29/23 Therapeutic Interventions Therapeutic Interventions Balance Training,Canalithic Repositioning,Coordination Training,Gait Training,Home Exercise Program,Neuromuscular Re-education,Patient/ Caregiver Education,Self-Care/ Home Management,Therapeutic Activities,Therapeutic Exercises Next Visit Focus/Plan Next Note Type Treatment Note Next Visit Plan Con't BIG exercises and therapeutic activities of writing, buttoning, using a remote and donning and doffing watch.
--- NOTE | 2023-01-15 16:29 | PT.OTN ---
Current Diagnoses Parkinsonism, unspecified (01/15/23) Physical Therapy Treatment Note PT-OP-A Visit Information Start: 01/08/23 14:41 Freq: Status: Active Protocol: Document 01/15/23 15:00 MB (Rec: 01/15/23 16:29 MB [id number]) Out-Patient Physical Therapy Visit Information Visit Information Visit Type Treatment Note Visit Note Medicare 06/26 Visit Start Time 15:00 Visit Stop Time 16:00 Total Visit Minutes 60 Visit Number 4 Number of DESIGN ENGINEER PRODUCTS Visits 0 Precautions Precautions Fall risk and orthostasis PT-OP-B Current Condition Start: 01/08/23 14:41 Freq: Status: Active Protocol: Document 01/08/23 14:50 MB (Rec: 01/08/23 16:37 MB [id number]) Current Condition History of Current Condition Onset Date 20 years or so Current Complaints Imbalance, speech, falls, inability to walk far History of Current Condition Pt is a 77 y/o male with about a 20 year history of PD. He takes carbidopa levodopa 4x/ day and it helps with his mobility. He has had about 6 falls over the past year and he reports light-headedness especially when getting up in the morning. He also has times of stuttering feet that cause him to fall. He works out with a corporate sales trainer 5x/wk and does some boxing moves. He also participates in weekly classes of LSVT LOUD for Life and BIG for Life. He has had two falls in the past three months and he injured his right head/face, right shoulder and ribs. He is feeling better now. He would like to be able to walk further, do better with his balance and work on speech. Buttoning is still very difficult. Pt has no steps to enter his home. He lives with his who is very supportive and does the driving and most of the house work. He likes to help take care of his dog and cat but his balance has been so bad he has limited most mobility/ activities other than what his assists him with and his community classes. Prior Treatments and Tests Pt has completed LSVT LOUD and LSVT BIG in the past and he is here for a refresher for BIG Treatment Goals Patient/Caregiver Goals To improve walking and balance PT-OP-C Subjective Start: 01/08/23 14:41 Freq: Status: Active Protocol: Document 01/15/23 15:00 MB (Rec: 01/15/23 16:29 MB [id number]) OP-PT Subjective Patient Comments Patient Comments Pt has nothing new to report. He cannot state anything that he did over the weekend. He had been practicing some of the exercises at home with his but did not do it over the weekend. Pt does not bring watch, shirt, and remote. Pt does not wear his glasses today and does not have contacts in. PT-OP-D Balance Start: 01/08/23 14:41 Freq: Status: Active Protocol: Document 01/08/23 14:50 MB (Rec: 01/08/23 16:37 MB [id number]) Balance Tests Other Other Balance Tests Performed 4-Stage Balance Test: pt holds onto PT's hand to get into Romberg and he is able to maintain 10 sec. He can hold partial tandem with right toes in middle of left arch x10 sec with SBA. He is unable to get into other partial tandem, tandem or SLS position without LOB. Upon asking pt to step back to the mat, he has festinating movement, LOB posteriorly and requires mod A to sit. PT-OP-G Mobility & Gait Start: 01/08/23 14:41 Freq: Status: Active Protocol: Document 01/08/23 14:50 MB (Rec: 01/08/23 16:37 MB [id number]) OP Gait Assessment Gait Gait Assistance Required: Standby Assistance,Moderate Assistance,1 Person Assist Distance (Feet) 1,345 Able to Maintain Weight Bearing Status Yes During Gait Assistive Devices Assistive Device None,Gait Belt Gait Deviations General Gait Pattern Decreased Stride Length Factors Limiting Gait Function Factors Limiting Gait Function Incoordination,Poor Safety Awareness Comments Gait Comments Forward gait is usally I to SBA for 6MWT and pt requires up to mod A for retropulsion given festinating pattern, imbalance and freezing type movement when asked to step backwards. Many gait trials today. Pt with decreased arm swing with gait and decreased step-length and foot clearance . PT-OP-H Neuro Start: 01/08/23 14:41 Freq: Status: Active Protocol: Document 01/08/23 14:50 MB (Rec: 01/08/23 16:37 MB [id number]) Coordination Evaluation Upper Extremity Tests Left Finger to Nose Test Severe Impairment Pronation/Supination Test Moderate Impairment Right Finger to Nose Test Moderate Impairment Pronation/Supination Test Moderate Impairment Lower Extremity Tests Left Heel on Dasilva Test Severe Impairment Foot Tapping Test Severe Impairment Right Heel on Dasilva Test Severe Impairment Foot Tapping Test Severe Impairment Vital Signs Comments Vital Signs Comments Pt with positive orthostatic hypotension and he is symptomatic. BP and HR in right UE: supine 147/86, 55; standing 94/59, 69; standing 1 ' 99/58, 67. PT-OP-J Posture/Palpation/Skin Start: 01/08/23 14:41 Freq: Status: Active Protocol: Document 01/08/23 14:50 MB (Rec: 01/08/23 16:37 MB [id number]) Posture Evaluation Comments Posture Comments Forward head, rounded shoulders, thoracic kyphosis and decreased thoracic mobility PT-OP-M Strength Start: 01/08/23 14:41 Freq: Status: Active Protocol: Document 01/08/23 14:50 MB (Rec: 01/08/23 16:37 MB [id number]) Shoulder Strength Shoulder Manual Muscle Testing Left Flexion 5 Normal Abduction (C5) 5 Normal Right Flexion 5 Normal Abduction (C5) 5 Normal Elbow/Forearm Strength Elbow and Forearm Manual Muscle Testing Left Flexion (C6) 5 Normal Extension (C7) 5 Normal Right Flexion (C6) 5 Normal Extension (C7) 5 Normal Hip Strength Hip Manual Muscle Testing Left Flexion (L2) 5 Normal Right Flexion (L2) 5 Normal Knee Strength Knee Manual Muscle Testing Left Extension (L3) 5 Normal Right Extension (L3) 5 Normal Ankle/Foot Strength Ankle and Foot Manual Muscle Testing Left Dorsiflexion (L4) 4+ Good+ Right Dorsiflexion (L4) 5 Normal PT-OP-Q Treatments Start: 01/08/23 14:41 Freq: Status: Active Protocol: Document 01/15/23 15:00 MB (Rec: 01/15/23 16:29 MB [id number]) Therapeutic Exercises Sitting Exercises Floor to ceiling Equipment Used BIG chair Reps/Minutes 10 Comments Pt mirrors PT and needs visual and VCs, better palms forward today BIG STS Equipment Used BIG chair Reps/Minutes 10 Comments Cues to sit his hips back on the chair as he tends to deep squat Side reach Equipment Used BIG chair Reps/Minutes 10 Comments Pt mirrors PT, 1 side at a time, tends to move leg out with hand out to edmar Standing Exercises Backward stepping Equipment Used Standing in front of mirror Reps/Minutes 10 Comments Pt mirrors PT, cues, divided up the tasks of UEs and LEs, default rock/reac Side rock and reach Equipment Used Standing in front of mirror Reps/Minutes 10 Comments Cues for palms up and which toe to pivot on, tactile cues for pivot on toes Forward rock and reach Equipment Used Standing in front of mirror Reps/Minutes 10 Comments Cues for big front toe, and hand position. Pt has trouble with this today Side step Reps/Minutes 10 Comments One side at a time, cues for palms up, pt mirrors PT Forward step Reps/Minutes 10 Comments Pt mirrors PT and requires VCs , 1 side at a time Gait Training Gait Activity BIG walking Distance/Duration 25 minutes Comments Similar to last treatment, BIG walking in the therapy gym with cues for BIG feet to decrease scuffing of feet. To improve arm swing, pt and PT hold onto walking sticks together and PT walks directly behind pt to help with arm swing forward and backward and pt makes improvement with this and he does keep dwayne high with forward stepping and good BIG steps and speed and steps decrease with backward stepping. Attempted side stepping and this is rather challenging for pt. Ascend and descend 4 steps with one rail , right ascend and left descend with cues for BIG steps and BIG turn at top of steps PT-OP-T Assessment and Plan Start: 01/08/23 14:41 Freq: Status: Active Protocol: Document 01/15/23 15:00 MB (Rec: 01/15/23 16:29 MB [id number]) Physical Therapy Assessment Rehab Potential Rehabilitation Potential Good Evaluation Complexity Number of Personal Factors/Comorbidities 1-2 Number of Body Systems Impaired 3 Clinical Presentation at Evaluation Evolving Impairments Impairments Activity Tolerance,Balance, Coordination,Functional Activities,Functional Mobility ,Gait,Posture Goals 4 Impairment Not consistently perform BIG program HEP [employer] T[employer] Chief Operator Goal (LTG) Pt will perform BIG exercises with no more than cues and demo to improve balance and pt will report performing exercises daily. LTG Duration 3 weeks 3 Impairment 1345 feet in 6MWT [employer] T[employer] Chief Operator Goal (LTG) Pt will gait train at least 1450 feet in 6 minutes with improved arm swing and no evidence of imbalance with I to improve community mobility. LTG Duration 3 weeks 2 Impairment 30 sec STS 10 reps Longterm Goal (LTG) Pt will perform at least 13 reps STS in 30 sec to decrease fall risk. LTG Duration 3 weeks 1 Impairment TUG 12 sec [employer] T[employer] Chief Operator Goal (LTG) Pt will perform TUG in 10 sec or less to decrease fall risk. LTG Duration 3 weeks Assessment Summary Assessment Pt forgot to wear his glasses today and so writing not started. He did not bring watch, shirt or remote for other functional tasks. He con 't to require visual mirroring and VCs for BIG exercises and backward stepping and side rock and reach are the most challenging for the pt. Physical Therapy Plan Frequency and Duration Frequency of Treatment 4x/Week Duration of treatment (weeks) 3 Plan of Care Start Date 01/08/23 Plan of Care End Date 01/29/23 Therapeutic Interventions Therapeutic Interventions Balance Training,Canalithic Repositioning,Coordination Training,Gait Training,Home Exercise Program,Neuromuscular Re-education,Patient/ Caregiver Education,Self-Care/ Home Management,Therapeutic Activities,Therapeutic Exercises Next Visit Focus/Plan Next Note Type Treatment Note Next Visit Plan Con't BIG exercises, gait, and therapeutic activities of writing, buttoning, using a remote and donning and doffing watch.
--- NOTE | 2023-01-16 11:30 | PT.OTN ---
Current Diagnoses Parkinsonism, unspecified (01/16/23) Physical Therapy Treatment Note PT-OP-A Visit Information Start: 01/08/23 14:41 Freq: Status: Active Protocol: Document 01/16/23 10:26 SP (Rec: 01/16/23 10:29 SP [id number]) Out-Patient Physical Therapy Visit Information Visit Information Visit Type Treatment Note Visit Note Medicare 07/26 Visit Start Time 10:30 Visit Stop Time 11:30 Total Visit Minutes 60 Visit Number 5 Number of PARTS ANALYST Visits 1 Precautions Precautions Fall risk and orthostasis PT-OP-B Current Condition Start: 01/08/23 14:41 Freq: Status: Active Protocol: Document 01/08/23 14:50 MB (Rec: 01/08/23 16:37 MB [id number]) Current Condition History of Current Condition Onset Date 20 years or so Current Complaints Imbalance, speech, falls, inability to walk far History of Current Condition Pt is a 77 y/o male with about a 20 year history of PD. He takes carbidopa levodopa 4x/ day and it helps with his mobility. He has had about 6 falls over the past year and he reports light-headedness especially when getting up in the morning. He also has times of stuttering feet that cause him to fall. He works out with a staff trainer 5x/wk and does some boxing moves. He also participates in weekly classes of LSVT LOUD for Life and BIG for Life. He has had two falls in the past three months and he injured his right head/face, right shoulder and ribs. He is feeling better now. He would like to be able to walk further, do better with his balance and work on speech. Buttoning is still very difficult. Pt has no steps to enter his home. He lives with his who is very supportive and does the driving and most of the house work. He likes to help take care of his dog and cat but his balance has been so bad he has limited most mobility/ activities other than what his assists him with and his community classes. Prior Treatments and Tests Pt has completed LSVT LOUD and LSVT BIG in the past and he is here for a refresher for BIG Treatment Goals Patient/Caregiver Goals To improve walking and balance PT-OP-C Subjective Start: 01/08/23 14:41 Freq: Status: Active Protocol: Document 01/16/23 10:26 SP (Rec: 01/16/23 10:29 SP [id number]) OP-PT Subjective Patient Comments Patient Comments Pt did some boxing with staff trainer last evening. Forgot remote, buttoned shirt but does arrive with glasses today . PT-OP-D Balance Start: 01/08/23 14:41 Freq: Status: Active Protocol: Document 01/08/23 14:50 MB (Rec: 01/08/23 16:37 MB [id number]) Balance Tests Other Other Balance Tests Performed 4-Stage Balance Test: pt holds onto PT's hand to get into Romberg and he is able to maintain 10 sec. He can hold partial tandem with right toes in middle of left arch x10 sec with SBA. He is unable to get into other partial tandem, tandem or SLS position without LOB. Upon asking pt to step back to the mat, he has festinating movement, LOB posteriorly and requires mod A to sit. PT-OP-G Mobility & Gait Start: 01/08/23 14:41 Freq: Status: Active Protocol: Document 01/08/23 14:50 MB (Rec: 01/08/23 16:37 MB [id number]) OP Gait Assessment Gait Gait Assistance Required: Standby Assistance,Moderate Assistance,1 Person Assist Distance (Feet) 1,345 Able to Maintain Weight Bearing Status Yes During Gait Assistive Devices Assistive Device None,Gait Belt Gait Deviations General Gait Pattern Decreased Stride Length Factors Limiting Gait Function Factors Limiting Gait Function Incoordination,Poor Safety Awareness Comments Gait Comments Forward gait is usally I to SBA for 6MWT and pt requires up to mod A for retropulsion given festinating pattern, imbalance and freezing type movement when asked to step backwards. Many gait trials today. Pt with decreased arm swing with gait and decreased step-length and foot clearance . PT-OP-H Neuro Start: 01/08/23 14:41 Freq: Status: Active Protocol: Document 01/08/23 14:50 MB (Rec: 01/08/23 16:37 MB [id number]) Coordination Evaluation Upper Extremity Tests Left Finger to Nose Test Severe Impairment Pronation/Supination Test Moderate Impairment Right Finger to Nose Test Moderate Impairment Pronation/Supination Test Moderate Impairment Lower Extremity Tests Left Heel on Dasilva Test Severe Impairment Foot Tapping Test Severe Impairment Right Heel on Dasilva Test Severe Impairment Foot Tapping Test Severe Impairment Vital Signs Comments Vital Signs Comments Pt with positive orthostatic hypotension and he is symptomatic. BP and HR in right UE: supine 147/86, 55; standing 94/59, 69; standing 1 ' 99/58, 67. PT-OP-J Posture/Palpation/Skin Start: 01/08/23 14:41 Freq: Status: Active Protocol: Document 01/08/23 14:50 MB (Rec: 01/08/23 16:37 MB [id number]) Posture Evaluation Comments Posture Comments Forward head, rounded shoulders, thoracic kyphosis and decreased thoracic mobility PT-OP-M Strength Start: 01/08/23 14:41 Freq: Status: Active Protocol: Document 01/08/23 14:50 MB (Rec: 01/08/23 16:37 MB [id number]) Shoulder Strength Shoulder Manual Muscle Testing Left Flexion 5 Normal Abduction (C5) 5 Normal Right Flexion 5 Normal Abduction (C5) 5 Normal Elbow/Forearm Strength Elbow and Forearm Manual Muscle Testing Left Flexion (C6) 5 Normal Extension (C7) 5 Normal Right Flexion (C6) 5 Normal Extension (C7) 5 Normal Hip Strength Hip Manual Muscle Testing Left Flexion (L2) 5 Normal Right Flexion (L2) 5 Normal Knee Strength Knee Manual Muscle Testing Left Extension (L3) 5 Normal Right Extension (L3) 5 Normal Ankle/Foot Strength Ankle and Foot Manual Muscle Testing Left Dorsiflexion (L4) 4+ Good+ Right Dorsiflexion (L4) 5 Normal PT-OP-Q Treatments Start: 01/08/23 14:41 Freq: Status: Active Protocol: Document 01/16/23 10:26 SP (Rec: 01/16/23 10:29 SP [id number]) Therapeutic Exercises Sitting Exercises Floor to ceiling Equipment Used BIG chair Reps/Minutes 10 Comments Pt mirrors PT and needs visual and VCs, better palms forward today BIG STS Equipment Used BIG chair Reps/Minutes 10 Comments cued hip hinge hip back sit, arms shape anatomical pos. stand Side reach Equipment Used BIG chair Reps/Minutes 10 Comments Pt mirrors PT, 1 side at a time, shaped trunk taller/arm elevated/leg back STS Sitting Exercise Name STS in 30 sec Reps/Minutes 10 reps Comments Pt tends to squat rather than sit his hips down on the plinth Standing Exercises Side rock and reach Resistance CGA for stability as needed Equipment Used Standing in front of mirror Reps/Minutes 10 Comments cued [place] rotation susquach pose/ shape UEs- improved form Forward rock and reach Equipment Used Standing in front of mirror Reps/Minutes 10 Comments Cues for big front toe, and hand position. Improved stop midst gait perform Side step Reps/Minutes 10 Comments One side at a time, cues for palms up, pt mirrors PT Forward step Reps/Minutes 10 Comments Pt mirrors PT and requires VCs , 1 side at a time, TKE return position Therapeutic Activity Therapeutic Activity writing Name BIG capital alphabet, signature Demetrio Reps/Minutes A-Z Comments cues big letter writing between top/bottom lines, maintain same space between letters. Challenging with S, T , W. Improved Bigger with slower pacing, less shakiness. Gave HO for home. watch on/off Name future buttoning Name future TV remote Reps/Minutes 5' Comments PT cues pt for what to push on the commode and he has trouble with transitioning between different tasks and refinding buttons Gait Training Gait Activity BIG walking Distance/Duration 10 Comments Similar to last treatment, BIG walking in the therapy gym with cues for BIG feet to decrease scuffing of feet. To improve arm swing, pt and PT hold onto walking sticks together and PT walks directly behind pt to help with arm swing forward and backward and pt makes improvement with this and he does keep dwayne high with forward stepping and good BIG steps and speed , arm swing with use trek poles. PT-OP-T Assessment and Plan Start: 01/08/23 14:41 Freq: Status: Active Protocol: Document 01/16/23 10:26 SP (Rec: 01/16/23 10:29 SP [id number]) Physical Therapy Assessment Goals 4 Impairment Not consistently perform BIG program HEP [facility] Goal (LTG) Pt will perform BIG exercises with no more than cues and demo to improve balance and pt will report performing exercises daily. LTG Duration 3 weeks 3 Impairment 1345 feet in 6MWT [facility] Goal (LTG) Pt will gait train at least 1450 feet in 6 minutes with improved arm swing and no evidence of imbalance with I to improve community mobility. LTG Duration 3 weeks 2 Impairment 30 sec STS 10 reps [facility] Goal (LTG) Pt will perform at least 13 reps STS in 30 sec to decrease fall risk. LTG Duration 3 weeks 1 Impairment TUG 12 sec [facility] Goal (LTG) Pt will perform TUG in 10 sec or less to decrease fall risk. LTG Duration 3 weeks Assessment Summary Assessment Pt improved trunk rotation with side rock reach post cue windmill rotation and [place] pose, CG/5%A stability pivot on back foot. Pt improved arm swing and foot clearance use trek poles ed pull my arms vs therapist pushing during arm swing and occasional cues lift toe walking. Use mirror for self feedback posturing corrections. Pt less shakiness writing and bigger letters S, T, W with repetition. Physical Therapy Plan Frequency and Duration Frequency of Treatment 4x/Week Duration of treatment (weeks) 3 Plan of Care Start Date 01/08/23 Plan of Care End Date 01/29/23 Therapeutic Interventions Therapeutic Interventions Balance Training,Canalithic Repositioning,Coordination Training,Gait Training,Home Exercise Program,Neuromuscular Re-education,Patient/ Caregiver Education,Self-Care/ Home Management,Therapeutic Activities,Therapeutic Exercises Next Visit Focus/Plan Next Note Type Treatment Note Next Visit Plan Homework: letter and signature writing, arm swings walking. Wrote down next tx bring: watch, remote, button shirt. POC: Con't BIG exercises, gait , and therapeutic activities of writing, buttoning, using a remote and donning and doffing watch.
--- NOTE | 2023-01-18 11:33 | PT.OTN ---
Current Diagnoses Parkinsonism, unspecified (01/18/23) Physical Therapy Treatment Note PT-OP-A Visit Information Start: 01/08/23 14:41 Freq: Status: Active Protocol: Document 01/18/23 10:22 SP (Rec: 01/18/23 10:26 SP [id number]) Out-Patient Physical Therapy Visit Information Visit Information Visit Type Treatment Note Visit Start Time 10:30 Visit Stop Time 11:33 Total Visit Minutes 63 Visit Number 6 Number of MEDICAL ADMINISTRATIVE SPECIALIST Visits 2 Precautions Precautions Fall risk and orthostasis PT-OP-B Current Condition Start: 01/08/23 14:41 Freq: Status: Active Protocol: Document 01/08/23 14:50 MB (Rec: 01/08/23 16:37 MB [id number]) Current Condition History of Current Condition Onset Date 20 years or so Current Complaints Imbalance, speech, falls, inability to walk far History of Current Condition Pt is a 77 y/o male with about a 20 year history of PD. He takes carbidopa levodopa 4x/ day and it helps with his mobility. He has had about 6 falls over the past year and he reports light-headedness especially when getting up in the morning. He also has times of stuttering feet that cause him to fall. He works out with a operations trainer 5x/wk and does some boxing moves. He also participates in weekly classes of LSVT LOUD for Life and BIG for Life. He has had two falls in the past three months and he injured his right head/face, right shoulder and ribs. He is feeling better now. He would like to be able to walk further, do better with his balance and work on speech. Buttoning is still very difficult. Pt has no steps to enter his home. He lives with his who is very supportive and does the driving and most of the house work. He likes to help take care of his dog and cat but his balance has been so bad he has limited most mobility/ activities other than what his assists him with and his community classes. Prior Treatments and Tests Pt has completed LSVT LOUD and LSVT BIG in the past and he is here for a refresher for BIG Treatment Goals Patient/Caregiver Goals To improve walking and balance PT-OP-C Subjective Start: 01/08/23 14:41 Freq: Status: Active Protocol: Document 01/18/23 10:22 SP (Rec: 01/18/23 10:26 SP [id number]) OP-PT Subjective Patient Comments Patient Comments Pt PT-OP-D Balance Start: 01/08/23 14:41 Freq: Status: Active Protocol: Document 01/08/23 14:50 MB (Rec: 01/08/23 16:37 MB [id number]) Balance Tests Other Other Balance Tests Performed 4-Stage Balance Test: pt holds onto PT's hand to get into Romberg and he is able to maintain 10 sec. He can hold partial tandem with right toes in middle of left arch x10 sec with SBA. He is unable to get into other partial tandem, tandem or SLS position without LOB. Upon asking pt to step back to the mat, he has festinating movement, LOB posteriorly and requires mod A to sit. PT-OP-G Mobility & Gait Start: 01/08/23 14:41 Freq: Status: Active Protocol: Document 01/08/23 14:50 MB (Rec: 01/08/23 16:37 MB [id number]) OP Gait Assessment Gait Gait Assistance Required: Standby Assistance,Moderate Assistance,1 Person Assist Distance (Feet) 1,345 Able to Maintain Weight Bearing Status Yes During Gait Assistive Devices Assistive Device None,Gait Belt Gait Deviations General Gait Pattern Decreased Stride Length Factors Limiting Gait Function Factors Limiting Gait Function Incoordination,Poor Safety Awareness Comments Gait Comments Forward gait is usally I to SBA for 6MWT and pt requires up to mod A for retropulsion given festinating pattern, imbalance and freezing type movement when asked to step backwards. Many gait trials today. Pt with decreased arm swing with gait and decreased step-length and foot clearance . PT-OP-H Neuro Start: 01/08/23 14:41 Freq: Status: Active Protocol: Document 01/08/23 14:50 MB (Rec: 01/08/23 16:37 MB [id number]) Coordination Evaluation Upper Extremity Tests Left Finger to Nose Test Severe Impairment Pronation/Supination Test Moderate Impairment Right Finger to Nose Test Moderate Impairment Pronation/Supination Test Moderate Impairment Lower Extremity Tests Left Heel on Dasilva Test Severe Impairment Foot Tapping Test Severe Impairment Right Heel on Dasilva Test Severe Impairment Foot Tapping Test Severe Impairment Vital Signs Comments Vital Signs Comments Pt with positive orthostatic hypotension and he is symptomatic. BP and HR in right UE: supine 147/86, 55; standing 94/59, 69; standing 1 ' 99/58, 67. PT-OP-J Posture/Palpation/Skin Start: 01/08/23 14:41 Freq: Status: Active Protocol: Document 01/08/23 14:50 MB (Rec: 01/08/23 16:37 MB [id number]) Posture Evaluation Comments Posture Comments Forward head, rounded shoulders, thoracic kyphosis and decreased thoracic mobility PT-OP-M Strength Start: 01/08/23 14:41 Freq: Status: Active Protocol: Document 01/08/23 14:50 MB (Rec: 01/08/23 16:37 MB [id number]) Shoulder Strength Shoulder Manual Muscle Testing Left Flexion 5 Normal Abduction (C5) 5 Normal Right Flexion 5 Normal Abduction (C5) 5 Normal Elbow/Forearm Strength Elbow and Forearm Manual Muscle Testing Left Flexion (C6) 5 Normal Extension (C7) 5 Normal Right Flexion (C6) 5 Normal Extension (C7) 5 Normal Hip Strength Hip Manual Muscle Testing Left Flexion (L2) 5 Normal Right Flexion (L2) 5 Normal Knee Strength Knee Manual Muscle Testing Left Extension (L3) 5 Normal Right Extension (L3) 5 Normal Ankle/Foot Strength Ankle and Foot Manual Muscle Testing Left Dorsiflexion (L4) 4+ Good+ Right Dorsiflexion (L4) 5 Normal PT-OP-Q Treatments Start: 01/08/23 14:41 Freq: Status: Active Protocol: Document 01/18/23 10:22 SP (Rec: 01/18/23 10:26 SP [id number]) Therapeutic Exercises Sitting Exercises Floor to ceiling Equipment Used BIG chair Reps/Minutes 10 Comments Pt mirrors PT and needs visual and VCs, better palms forward today BIG STS Equipment Used BIG chair Reps/Minutes 10 Comments cued hip hinge hip back sit, arms shape anatomical pos. stand Side reach Equipment Used BIG chair Reps/Minutes 10 Comments Pt mirrors PT, 1 side at a time, shaped trunk taller/arm elevated/leg back Standing Exercises Backward stepping Standing Exercise Name 01/18 trialed adaptive- improved stability, less therapist contact support Side bilateral Equipment Used Standing in front of mirror, 1 UE contact chair Reps/Minutes 10 Comments Contact cue shaping and modeling stomp step back, MATERIAL REQUIREMENTS PLANNING MANAGER UE ext and hip hinge Side rock and reach Side bilateral Resistance CGA for stability as needed Equipment Used Standing in front of mirror Reps/Minutes 10 Comments Model/shape/vcs [place] rotation- shape UEs- improved form Forward rock and reach Side bilateral Equipment Used Standing in front of mirror Reps/Minutes 10 Comments Cues for big front toe, shaping UEs c/ cue BIG arms Side step Side bilateral Equipment Used pt facing mirror follow MEDICAL ADMINISTRATIVE SPECIALIST Reps/Minutes 10 Comments One side at a time, cued foot turned out side, BIG ARMS Forward step Equipment Used front mirror Reps/Minutes 10 Comments Pt mirrors PT and requires VCs , 1 side at a time, TKE return position Therapeutic Activity Therapeutic Activity watch on/off Name donning Reps/Minutes 3 reps Comments very difficult Hand over hand assist Max, cues for positioning and sequencing buttoning Name don shirt Mod A, able button/ unbutton standing vs sit on lap Reps/Minutes x3 sets Comments difficult on lap clasping button/unbutton, improved both in standing. Gait Training Gait Activity BIG walking Description fwd, bwd Device Used trek pole 3 min, then fwd/bwd without AD Distance/Duration 10 Comments Similar to last treatment, BIG walking in the therapy clinic laps with cues for BIG feet to decrease scuffing of feet. To improve arm swing, pt and PT hold onto walking sticks together and PT walks directly behind pt to help with arm swing forward and backward and pt makes improvement with this and he does keep dwayne high with forward stepping and good BIG steps and speed , arm swing with use trek poles. Pt give 4/10 BIGness of arm swing, improves to 6/10 self report after trek pole use. PT-OP-T Assessment and Plan Start: 01/08/23 14:41 Freq: Status: Active Protocol: Document 01/18/23 10:22 SP (Rec: 01/18/23 10:26 SP [id number]) Physical Therapy Assessment Goals 4 Impairment Not consistently perform BIG program HEP Prison Goal (LTG) Pt will perform BIG exercises with no more than cues and demo to improve balance and pt will report performing exercises daily. LTG Duration 3 weeks 3 Impairment 1345 feet in 6MWT Nuclear Reactor Engineer Goal (LTG) Pt will gait train at least 1450 feet in 6 minutes with improved arm swing and no evidence of imbalance with I to improve community mobility. LTG Duration 3 weeks 2 Impairment 30 sec STS 10 reps Nuclear Reactor Engineer Goal (LTG) Pt will perform at least 13 reps STS in 30 sec to decrease fall risk. LTG Duration 3 weeks 1 Impairment TUG 12 sec Nuclear Reactor Engineer Goal (LTG) Pt will perform TUG in 10 sec or less to decrease fall risk. LTG Duration 3 weeks Assessment Summary Assessment Pt brought button shirt, remote and watch today, didn't get to all activities. He required chair contact during back stepping, difficulty foot clearance and stability without support. challenged with buttoning rested onlap, better when standing and shirt donned, cue modeling finger positioning to grasp button and support into hole. Max cues and assist for watch, didn't understand mechanics of how it clasped before brought , will need extensive education to completed. Pt improves foot clearance and arms swing post use trek poles and inquiry of his perception of BIGness scale for improving ROM 4>6/10. Improved foot back step and stability chair contact, modeled/shaped hip flexion and UE extension. Physical Therapy Plan Frequency and Duration Frequency of Treatment 4x/Week Duration of treatment (weeks) 3 Plan of Care Start Date 01/08/23 Plan of Care End Date 01/29/23 Therapeutic Interventions Therapeutic Interventions Balance Training,Canalithic Repositioning,Coordination Training,Gait Training,Home Exercise Program,Neuromuscular Re-education,Patient/ Caregiver Education,Self-Care/ Home Management,Therapeutic Activities,Therapeutic Exercises Next Visit Focus/Plan Next Note Type Treatment Note Next Visit Plan Homework: buttoning, arm swings with gait. Wrote down next tx bring: watch, remote, button shirt. POC: Con't BIG exercises, gait , and therapeutic activities of writing, buttoning, using a remote and donning and doffing watch.
--- NOTE | 2023-01-22 16:11 | PT.OTN ---
Current Diagnoses Parkinsonism, unspecified (01/22/23) Physical Therapy Treatment Note PT-OP-A Visit Information Start: 01/08/23 14:41 Freq: Status: Active Protocol: Document 01/22/23 15:05 MB (Rec: 01/22/23 16:11 MB [id number]) Out-Patient Physical Therapy Visit Information Visit Information Visit Type Treatment Note Visit Note Medicare 08/26 Visit Start Time 15:05 Visit Stop Time 16:00 Total Visit Minutes 55 Visit Number 7 Number of MECHANICAL ORDNANCE ASSEMBLER Visits 0 Precautions Precautions Fall risk and orthostasis PT-OP-B Current Condition Start: 01/08/23 14:41 Freq: Status: Active Protocol: Document 01/08/23 14:50 MB (Rec: 01/08/23 16:37 MB [id number]) Current Condition History of Current Condition Onset Date 20 years or so Current Complaints Imbalance, speech, falls, inability to walk far History of Current Condition Pt is a 77 y/o male with about a 20 year history of PD. He takes carbidopa levodopa 4x/ day and it helps with his mobility. He has had about 6 falls over the past year and he reports light-headedness especially when getting up in the morning. He also has times of stuttering feet that cause him to fall. He works out with a wellness trainer 5x/wk and does some boxing moves. He also participates in weekly classes of LSVT LOUD for Life and BIG for Life. He has had two falls in the past three months and he injured his right head/face, right shoulder and ribs. He is feeling better now. He would like to be able to walk further, do better with his balance and work on speech. Buttoning is still very difficult. Pt has no steps to enter his home. He lives with his who is very supportive and does the driving and most of the house work. He likes to help take care of his dog and cat but his balance has been so bad he has limited most mobility/ activities other than what his assists him with and his community classes. Prior Treatments and Tests Pt has completed LSVT LOUD and LSVT BIG in the past and he is here for a refresher for BIG Treatment Goals Patient/Caregiver Goals To improve walking and balance PT-OP-C Subjective Start: 01/08/23 14:41 Freq: Status: Active Protocol: Document 01/22/23 15:05 MB (Rec: 01/22/23 16:11 MB [id number]) OP-PT Subjective Patient Comments Patient Comments Since I just back from a rushed trip to [place] and back, I am not really thinking clearly. PT-OP-D Balance Start: 01/08/23 14:41 Freq: Status: Active Protocol: Document 01/08/23 14:50 MB (Rec: 01/08/23 16:37 MB [id number]) Balance Tests Other Other Balance Tests Performed 4-Stage Balance Test: pt holds onto PT's hand to get into Romberg and he is able to maintain 10 sec. He can hold partial tandem with right toes in middle of left arch x10 sec with SBA. He is unable to get into other partial tandem, tandem or SLS position without LOB. Upon asking pt to step back to the mat, he has festinating movement, LOB posteriorly and requires mod A to sit. PT-OP-G Mobility & Gait Start: 01/08/23 14:41 Freq: Status: Active Protocol: Document 01/08/23 14:50 MB (Rec: 01/08/23 16:37 MB [id number]) OP Gait Assessment Gait Gait Assistance Required: Standby Assistance,Moderate Assistance,1 Person Assist Distance (Feet) 1,345 Able to Maintain Weight Bearing Status Yes During Gait Assistive Devices Assistive Device None,Gait Belt Gait Deviations General Gait Pattern Decreased Stride Length Factors Limiting Gait Function Factors Limiting Gait Function Incoordination,Poor Safety Awareness Comments Gait Comments Forward gait is usally I to SBA for 6MWT and pt requires up to mod A for retropulsion given festinating pattern, imbalance and freezing type movement when asked to step backwards. Many gait trials today. Pt with decreased arm swing with gait and decreased step-length and foot clearance . PT-OP-H Neuro Start: 01/08/23 14:41 Freq: Status: Active Protocol: Document 01/08/23 14:50 MB (Rec: 01/08/23 16:37 MB [id number]) Coordination Evaluation Upper Extremity Tests Left Finger to Nose Test Severe Impairment Pronation/Supination Test Moderate Impairment Right Finger to Nose Test Moderate Impairment Pronation/Supination Test Moderate Impairment Lower Extremity Tests Left Heel on Dasilva Test Severe Impairment Foot Tapping Test Severe Impairment Right Heel on Dasilva Test Severe Impairment Foot Tapping Test Severe Impairment Vital Signs Comments Vital Signs Comments Pt with positive orthostatic hypotension and he is symptomatic. BP and HR in right UE: supine 147/86, 55; standing 94/59, 69; standing 1 ' 99/58, 67. PT-OP-J Posture/Palpation/Skin Start: 01/08/23 14:41 Freq: Status: Active Protocol: Document 01/08/23 14:50 MB (Rec: 01/08/23 16:37 MB [id number]) Posture Evaluation Comments Posture Comments Forward head, rounded shoulders, thoracic kyphosis and decreased thoracic mobility PT-OP-M Strength Start: 01/08/23 14:41 Freq: Status: Active Protocol: Document 01/08/23 14:50 MB (Rec: 01/08/23 16:37 MB [id number]) Shoulder Strength Shoulder Manual Muscle Testing Left Flexion 5 Normal Abduction (C5) 5 Normal Right Flexion 5 Normal Abduction (C5) 5 Normal Elbow/Forearm Strength Elbow and Forearm Manual Muscle Testing Left Flexion (C6) 5 Normal Extension (C7) 5 Normal Right Flexion (C6) 5 Normal Extension (C7) 5 Normal Hip Strength Hip Manual Muscle Testing Left Flexion (L2) 5 Normal Right Flexion (L2) 5 Normal Knee Strength Knee Manual Muscle Testing Left Extension (L3) 5 Normal Right Extension (L3) 5 Normal Ankle/Foot Strength Ankle and Foot Manual Muscle Testing Left Dorsiflexion (L4) 4+ Good+ Right Dorsiflexion (L4) 5 Normal PT-OP-Q Treatments Start: 01/08/23 14:41 Freq: Status: Active Protocol: Document 01/22/23 15:05 MB (Rec: 01/22/23 16:11 MB [id number]) Therapeutic Exercises Sitting Exercises Floor to ceiling Comments Deferred to work on harder exercises for pt BIG STS Equipment Used BIG chair Reps/Minutes 10 Comments Cues to sit all the way down, palms forward and to count Side reach Comments Deferred to work on harder exercises for pt Standing Exercises Backward stepping Equipment Used Standing in front of mirror Reps/Minutes 10 Comments PT demos in mirror, cues, challenging coordinating, greater on L Side rock and reach Equipment Used Standing in front of mirror Reps/Minutes 10 Comments Many stops to re-ed on hand position, palms up, pivoting Forward rock and reach Equipment Used Standing in front of mirror Reps/Minutes 10 Comments Cues for feet position, cues for hand position and counting Therapeutic Activity Therapeutic Activity writing Name BIG capital alphabet, signature Demetrio Reps/Minutes 8' Comments A-Z letter writing. Cues to keep writing BIG letters, using up all the space, keep moving with writing. When asked to stay BIG, he occ increases the space between letters and keeps the size of letters the same or smaller watch on/off Reps/Minutes 2 reps Comments Pt standing and tried without UE supported and then with UE supported on table and then against body. Pt prefers left wrist resting on the table. Very challenging and timely for pt, over 7'. PT must finally assist with max A to don. He can doff I x2. buttoning Comments Deferred today d/t pt wearing pullover sweatshirt and not enough room TV remote Reps/Minutes 5' Comments PT cues pt for what to push on the remote and he improves with transitioning between types of buttons today Gait Training Gait Activity BIG walking Distance/Duration 12 Comments BIG arm swing with gait inside PT-OP-T Assessment and Plan Start: 01/08/23 14:41 Freq: Status: Active Protocol: Document 01/22/23 15:05 MB (Rec: 01/22/23 16:11 MB [id number]) Physical Therapy Assessment Rehab Potential Rehabilitation Potential Good Evaluation Complexity Number of Personal Factors/Comorbidities 1-2 Number of Body Systems Impaired 3 Clinical Presentation at Evaluation Evolving Impairments Impairments Activity Tolerance,Balance, Coordination,Functional Activities,Functional Mobility ,Gait,Posture Goals 4 Impairment Not consistently perform BIG program HEP Chalk Cutter Goal (LTG) Pt will perform BIG exercises with no more than cues and demo to improve balance and pt will report performing exercises daily. LTG Duration 3 weeks 3 Impairment 1345 feet in 6MWT Group Home Goal (LTG) Pt will gait train at least 1450 feet in 6 minutes with improved arm swing and no evidence of imbalance with I to improve community mobility. LTG Duration 3 weeks 2 Impairment 30 sec STS 10 reps Group Home Goal (LTG) Pt will perform at least 13 reps STS in 30 sec to decrease fall risk. LTG Duration 3 weeks 1 Impairment TUG 12 sec Group Home Goal (LTG) Pt will perform TUG in 10 sec or less to decrease fall risk. LTG Duration 3 weeks Assessment Summary Assessment Pt has more energy and does better with the more difficult BIG exercises for him when worked only on them today. Physical Therapy Plan Frequency and Duration Frequency of Treatment 4x/Week Duration of treatment (weeks) 3 Plan of Care Start Date 01/08/23 Plan of Care End Date 01/29/23 Therapeutic Interventions Therapeutic Interventions Balance Training,Canalithic Repositioning,Coordination Training,Gait Training,Home Exercise Program,Neuromuscular Re-education,Patient/ Caregiver Education,Self-Care/ Home Management,Therapeutic Activities,Therapeutic Exercises Next Visit Focus/Plan Next Note Type Treatment Note Next Visit Plan Con't BIG exercises, activities and gait
--- NOTE | 2023-01-24 16:03 | PT.OTN ---
Current Diagnoses Parkinsonism, unspecified (01/24/23) Physical Therapy Treatment Note PT-OP-A Visit Information Start: 01/08/23 14:41 Freq: Status: Active Protocol: Document 01/24/23 15:01 MB (Rec: 01/24/23 16:02 MB [id number]) Out-Patient Physical Therapy Visit Information Visit Information Visit Type Treatment Note Visit Note Medicare 09/25 Visit Start Time 15:01 Visit Stop Time 15:55 Total Visit Minutes 54 Visit Number 8 Number of INVESTMENT PROFESSIONAL Visits 0 Precautions Precautions Fall risk and orthostasis PT-OP-B Current Condition Start: 01/08/23 14:41 Freq: Status: Active Protocol: Document 01/08/23 14:50 MB (Rec: 01/08/23 16:37 MB [id number]) Current Condition History of Current Condition Onset Date 20 years or so Current Complaints Imbalance, speech, falls, inability to walk far History of Current Condition Pt is a 77 y/o male with about a 20 year history of PD. He takes carbidopa levodopa 4x/ day and it helps with his mobility. He has had about 6 falls over the past year and he reports light-headedness especially when getting up in the morning. He also has times of stuttering feet that cause him to fall. He works out with a athletic trainer 5x/wk and does some boxing moves. He also participates in weekly classes of LSVT LOUD for Life and BIG for Life. He has had two falls in the past three months and he injured his right head/face, right shoulder and ribs. He is feeling better now. He would like to be able to walk further, do better with his balance and work on speech. Buttoning is still very difficult. Pt has no steps to enter his home. He lives with his who is very supportive and does the driving and most of the house work. He likes to help take care of his dog and cat but his balance has been so bad he has limited most mobility/ activities other than what his assists him with and his community classes. Prior Treatments and Tests Pt has completed LSVT LOUD and LSVT BIG in the past and he is here for a refresher for BIG Treatment Goals Patient/Caregiver Goals To improve walking and balance PT-OP-C Subjective Start: 01/08/23 14:41 Freq: Status: Active Protocol: Document 01/24/23 15:01 MB (Rec: 01/24/23 16:02 MB [id number]) OP-PT Subjective Patient Comments Patient Comments I'm a little light-headed. PT-OP-D Balance Start: 01/08/23 14:41 Freq: Status: Active Protocol: Document 01/08/23 14:50 MB (Rec: 01/08/23 16:37 MB [id number]) Balance Tests Other Other Balance Tests Performed 4-Stage Balance Test: pt holds onto PT's hand to get into Romberg and he is able to maintain 10 sec. He can hold partial tandem with right toes in middle of left arch x10 sec with SBA. He is unable to get into other partial tandem, tandem or SLS position without LOB. Upon asking pt to step back to the mat, he has festinating movement, LOB posteriorly and requires mod A to sit. PT-OP-G Mobility & Gait Start: 01/08/23 14:41 Freq: Status: Active Protocol: Document 01/08/23 14:50 MB (Rec: 01/08/23 16:37 MB [id number]) OP Gait Assessment Gait Gait Assistance Required: Standby Assistance,Moderate Assistance,1 Person Assist Distance (Feet) 1,345 Able to Maintain Weight Bearing Status Yes During Gait Assistive Devices Assistive Device None,Gait Belt Gait Deviations General Gait Pattern Decreased Stride Length Factors Limiting Gait Function Factors Limiting Gait Function Incoordination,Poor Safety Awareness Comments Gait Comments Forward gait is usally I to SBA for 6MWT and pt requires up to mod A for retropulsion given festinating pattern, imbalance and freezing type movement when asked to step backwards. Many gait trials today. Pt with decreased arm swing with gait and decreased step-length and foot clearance . PT-OP-H Neuro Start: 01/08/23 14:41 Freq: Status: Active Protocol: Document 01/08/23 14:50 MB (Rec: 01/08/23 16:37 MB [id number]) Coordination Evaluation Upper Extremity Tests Left Finger to Nose Test Severe Impairment Pronation/Supination Test Moderate Impairment Right Finger to Nose Test Moderate Impairment Pronation/Supination Test Moderate Impairment Lower Extremity Tests Left Heel on Dasilva Test Severe Impairment Foot Tapping Test Severe Impairment Right Heel on Dasilva Test Severe Impairment Foot Tapping Test Severe Impairment Vital Signs Comments Vital Signs Comments Pt with positive orthostatic hypotension and he is symptomatic. BP and HR in right UE: supine 147/86, 55; standing 94/59, 69; standing 1 ' 99/58, 67. PT-OP-J Posture/Palpation/Skin Start: 01/08/23 14:41 Freq: Status: Active Protocol: Document 01/08/23 14:50 MB (Rec: 01/08/23 16:37 MB [id number]) Posture Evaluation Comments Posture Comments Forward head, rounded shoulders, thoracic kyphosis and decreased thoracic mobility PT-OP-M Strength Start: 01/08/23 14:41 Freq: Status: Active Protocol: Document 01/08/23 14:50 MB (Rec: 01/08/23 16:37 MB [id number]) Shoulder Strength Shoulder Manual Muscle Testing Left Flexion 5 Normal Abduction (C5) 5 Normal Right Flexion 5 Normal Abduction (C5) 5 Normal Elbow/Forearm Strength Elbow and Forearm Manual Muscle Testing Left Flexion (C6) 5 Normal Extension (C7) 5 Normal Right Flexion (C6) 5 Normal Extension (C7) 5 Normal Hip Strength Hip Manual Muscle Testing Left Flexion (L2) 5 Normal Right Flexion (L2) 5 Normal Knee Strength Knee Manual Muscle Testing Left Extension (L3) 5 Normal Right Extension (L3) 5 Normal Ankle/Foot Strength Ankle and Foot Manual Muscle Testing Left Dorsiflexion (L4) 4+ Good+ Right Dorsiflexion (L4) 5 Normal PT-OP-Q Treatments Start: 01/08/23 14:41 Freq: Status: Active Protocol: Document 01/24/23 15:01 MB (Rec: 01/24/23 16:02 MB [id number]) Therapeutic Activity Therapeutic Activity BIG opening of crackers Comments Pt needing snack after orthostasis and he practiced opening nicki cracker package BIG Orthostatic assessment Comments BP and HR in proximal right UE : Supine: 161/78, 60 Standin/51, 74 Standing 1': 85/48, 73 writing Name BIG alphabet Reps/Minutes 8' Comments A-Z capital letter writing in lined sheet today. Pt does hold pen in awkward manner with many fingers and his writing is slow. Cue for larger letters and to keep hand moving. Also worked on writing his name with BIG letters. Poor ability to con't with task, getting the next letter correct and requiring cues watch on/off Reps/Minutes 1 rep Comments Attempted for 5' in sitting with hand on table and pt does finally require max assist. PT had demonstrated how to manage with face off the table and fastening the band with right hand and pt has trouble with the fine motor movement buttoning Comments Deferred d/t orthostasis today TV remote Reps/Minutes 5' Comments PT cues pt for what to push on the remote and he has trouble recalling the various buttons today Gait Training Gait Activity BIG walking Comments Gait over 100' with superv and gait belt d/t orthostasis this afternoon, pt gait training in the gym and out to car. Cues for BIG arm swing and pt has decreased arm swing Self-Care/Home Management Treatment Education Other Education Education on autonomic orthostatic hypotension, slow transitional movements, increased non-caffeinated fluid intake, benefts of eating smaller meals Activities Self-Care/Home Management Activities See above comments and ed about findings after treatment. PT-OP-T Assessment and Plan Start: 01/08/23 14:41 Freq: Status: Active Protocol: Document 01/24/23 15:01 MB (Rec: 01/24/23 16:02 MB [id number]) Physical Therapy Assessment Rehab Potential Rehabilitation Potential Good Evaluation Complexity Number of Personal Factors/Comorbidities 1-2 Number of Body Systems Impaired 3 Clinical Presentation at Evaluation Evolving Impairments Impairments Activity Tolerance,Balance, Coordination,Functional Activities,Functional Mobility ,Gait,Posture Goals 4 Impairment Not consistently perform BIG program HEP Surgical Nurse Practitioner Goal (LTG) Pt will perform BIG exercises with no more than cues and demo to improve balance and pt will report performing exercises daily. LTG Duration 3 weeks 3 Impairment 1345 feet in 6MWT Longterm Goal (LTG) Pt will gait train at least 1450 feet in 6 minutes with improved arm swing and no evidence of imbalance with I to improve community mobility. LTG Duration 3 weeks 2 Impairment 30 sec STS 10 reps Longterm Goal (LTG) Pt will perform at least 13 reps STS in 30 sec to decrease fall risk. LTG Duration 3 weeks 1 Impairment TUG 12 sec Surgical Nurse Practitioner Goal (LTG) Pt will perform TUG in 10 sec or less to decrease fall risk. LTG Duration 3 weeks Assessment Summary Assessment Pt with symptomatic orthostatic hypotension today and so checked BP, sat, had pt eat a snack and drink and provided education and worked on functional tasks in sitting . Physical Therapy Plan Frequency and Duration Frequency of Treatment 4x/Week Duration of treatment (weeks) 3 Plan of Care Start Date 01/08/23 Plan of Care End Date 01/29/23 Therapeutic Interventions Therapeutic Interventions Balance Training,Canalithic Repositioning,Coordination Training,Gait Training,Home Exercise Program,Neuromuscular Re-education,Patient/ Caregiver Education,Self-Care/ Home Management,Therapeutic Activities,Therapeutic Exercises Next Visit Focus/Plan Next Note Type Treatment Note Next Visit Plan Con't BIG exercises, activities and gait
--- NOTE | 2023-01-29 16:11 | PT.OTN ---
Current Diagnoses Parkinsonism, unspecified (01/29/23) Physical Therapy Treatment Note PT-OP-A Visit Information Start: 01/08/23 14:41 Freq: Status: Active Protocol: Document 01/29/23 14:59 MB (Rec: 01/29/23 16:10 MB [id number]) Out-Patient Physical Therapy Visit Information Visit Information Visit Type Treatment Note Visit Start Time 14:59 Visit Stop Time 15:59 Total Visit Minutes 60 Visit Number 9 Precautions Precautions Fall risk and orthostasis PT-OP-B Current Condition Start: 01/08/23 14:41 Freq: Status: Active Protocol: Document 01/08/23 14:50 MB (Rec: 01/08/23 16:37 MB [id number]) Current Condition History of Current Condition Onset Date 20 years or so Current Complaints Imbalance, speech, falls, inability to walk far History of Current Condition Pt is a 77 y/o male with about a 20 year history of PD. He takes carbidopa levodopa 4x/ day and it helps with his mobility. He has had about 6 falls over the past year and he reports light-headedness especially when getting up in the morning. He also has times of stuttering feet that cause him to fall. He works out with a rehab trainer 5x/wk and does some boxing moves. He also participates in weekly classes of LSVT LOUD for Life and BIG for Life. He has had two falls in the past three months and he injured his right head/face, right shoulder and ribs. He is feeling better now. He would like to be able to walk further, do better with his balance and work on speech. Buttoning is still very difficult. Pt has no steps to enter his home. He lives with his who is very supportive and does the driving and most of the house work. He likes to help take care of his dog and cat but his balance has been so bad he has limited most mobility/ activities other than what his assists him with and his community classes. Prior Treatments and Tests Pt has completed LSVT LOUD and LSVT BIG in the past and he is here for a refresher for BIG Treatment Goals Patient/Caregiver Goals To improve walking and balance PT-OP-C Subjective Start: 01/08/23 14:41 Freq: Status: Active Protocol: Document 01/29/23 14:59 MB (Rec: 01/29/23 16:10 MB [id number]) OP-PT Subjective Patient Comments Patient Comments I'm a little dizzy. PT-OP-D Balance Start: 01/08/23 14:41 Freq: Status: Active Protocol: Document 01/08/23 14:50 MB (Rec: 01/08/23 16:37 MB [id number]) Balance Tests Other Other Balance Tests Performed 4-Stage Balance Test: pt holds onto PT's hand to get into Romberg and he is able to maintain 10 sec. He can hold partial tandem with right toes in middle of left arch x10 sec with SBA. He is unable to get into other partial tandem, tandem or SLS position without LOB. Upon asking pt to step back to the mat, he has festinating movement, LOB posteriorly and requires mod A to sit. PT-OP-G Mobility & Gait Start: 01/08/23 14:41 Freq: Status: Active Protocol: Document 01/08/23 14:50 MB (Rec: 01/08/23 16:37 MB [id number]) OP Gait Assessment Gait Gait Assistance Required: Standby Assistance,Moderate Assistance,1 Person Assist Distance (Feet) 1,345 Able to Maintain Weight Bearing Status Yes During Gait Assistive Devices Assistive Device None,Gait Belt Gait Deviations General Gait Pattern Decreased Stride Length Factors Limiting Gait Function Factors Limiting Gait Function Incoordination,Poor Safety Awareness Comments Gait Comments Forward gait is usally I to SBA for 6MWT and pt requires up to mod A for retropulsion given festinating pattern, imbalance and freezing type movement when asked to step backwards. Many gait trials today. Pt with decreased arm swing with gait and decreased step-length and foot clearance . PT-OP-H Neuro Start: 01/08/23 14:41 Freq: Status: Active Protocol: Document 01/08/23 14:50 MB (Rec: 01/08/23 16:37 MB [id number]) Coordination Evaluation Upper Extremity Tests Left Finger to Nose Test Severe Impairment Pronation/Supination Test Moderate Impairment Right Finger to Nose Test Moderate Impairment Pronation/Supination Test Moderate Impairment Lower Extremity Tests Left Heel on Dasilva Test Severe Impairment Foot Tapping Test Severe Impairment Right Heel on Dasilva Test Severe Impairment Foot Tapping Test Severe Impairment Vital Signs Comments Vital Signs Comments Pt with positive orthostatic hypotension and he is symptomatic. BP and HR in right UE: supine 147/86, 55; standing 94/59, 69; standing 1 ' 99/58, 67. PT-OP-J Posture/Palpation/Skin Start: 01/08/23 14:41 Freq: Status: Active Protocol: Document 01/08/23 14:50 MB (Rec: 01/08/23 16:37 MB [id number]) Posture Evaluation Comments Posture Comments Forward head, rounded shoulders, thoracic kyphosis and decreased thoracic mobility PT-OP-M Strength Start: 01/08/23 14:41 Freq: Status: Active Protocol: Document 01/08/23 14:50 MB (Rec: 01/08/23 16:37 MB [id number]) Shoulder Strength Shoulder Manual Muscle Testing Left Flexion 5 Normal Abduction (C5) 5 Normal Right Flexion 5 Normal Abduction (C5) 5 Normal Elbow/Forearm Strength Elbow and Forearm Manual Muscle Testing Left Flexion (C6) 5 Normal Extension (C7) 5 Normal Right Flexion (C6) 5 Normal Extension (C7) 5 Normal Hip Strength Hip Manual Muscle Testing Left Flexion (L2) 5 Normal Right Flexion (L2) 5 Normal Knee Strength Knee Manual Muscle Testing Left Extension (L3) 5 Normal Right Extension (L3) 5 Normal Ankle/Foot Strength Ankle and Foot Manual Muscle Testing Left Dorsiflexion (L4) 4+ Good+ Right Dorsiflexion (L4) 5 Normal PT-OP-Q Treatments Start: 01/08/23 14:41 Freq: Status: Active Protocol: Document 01/29/23 14:59 MB (Rec: 01/29/23 16:10 MB [id number]) Therapeutic Exercises Sitting Exercises Floor to ceiling Equipment Used BIG chair Reps/Minutes 5 Comments Cues and demo today BIG STS Equipment Used BIG chair Reps/Minutes 5 Comments Cues to reach forward and not down, demo and cues Side reach Equipment Used BIG chair Reps/Minutes 5 to each side Comments Cues and demo for all parts of exercise STS Sitting Exercise Name 30 sec STS Reps/Minutes 10 reps Standing Exercises Backward stepping Equipment Used Standing in front of mirror Reps/Minutes 10 Comments Demos and cues for stepping and BIG front foot Side rock and reach Equipment Used Standing in front of mirror Reps/Minutes 10 Comments Shaping assistance for palms up, cues and demo Forward rock and reach Equipment Used Standing in front of mirror Reps/Minutes 10 Comments Cues for feet position, cues and demo Side step Reps/Minutes 5 reps to each side Comments Demo and cues Forward step Reps/Minutes 10 reps to each side Comments Cues and demo Gait Training Gait Activity BIG walking Comments 25' gait in hospital with cues for BIG arm swing and clearing feet. CGA and cues to step on cement portion of step for ascend indoor steps and CGA and one step at a time for descend step: pt uses left railing for ascend and descend TUG Comments 10 sec, two trials d/t did not sit down on first trial 6MWT Comments 1650 feet in 6 minutes with cues for arm swing and controlling steppin PT-OP-T Assessment and Plan Start: 01/08/23 14:41 Freq: Status: Active Protocol: Document 01/29/23 14:59 MB (Rec: 01/29/23 16:10 MB [id number]) Physical Therapy Assessment Goals 4 Impairment Not consistently perform BIG program HEP Criminal Investigator Customs Goal (LTG) Pt will perform BIG exercises with no more than cues and demo to improve balance and pt will report performing exercises daily. 01/29/23 At [facility], Demetrio requires demo and cues for exercises and occ tactile assistance for more challenging exercises of backwards stepping and side rock and reach. LTG Duration Did not fully meet 3 Impairment 1345 feet in 6MWT Snf Goal (LTG) Pt will gait train at least 1450 feet in 6 minutes with improved arm swing and no evidence of imbalance with I to improve community mobility. 01/29/23 At [facility], Demetrio gait trains 1650 feet in 6 minutes LTG Duration Met 2 Impairment 30 sec STS 10 reps Snf Goal (LTG) Pt will perform at least 13 reps STS in 30 sec to decrease fall risk. 01/29/23 At [facility], Demetrio is able to perform 10 STS in 30 sec LTG Duration Did not meet 1 Impairment TUG 12 sec Criminal Investigator Customs Goal (LTG) Pt will perform TUG in 10 sec or less to decrease fall risk. 01/29/23 At [facility], Demetrio is able to perform TUG in 10 sec LTG Duration Met Assessment Summary Assessment Overall, Demetrio has made a good effort with BIG refresher and has met 6MWT and TUG goals. He did not improve with STS goal and con't to require demo and cues for BIG exercises. He is also not performing exercises regularly at home. Trouble with recall and transitioning between activities as well as multitasking exercises are difficult d/t cognitive changes with PD. Pt also presented with severe orthostatic hypotension during PT course. D/cing OPPT today. Physical Therapy Plan Next Visit Focus/Plan Next Note Type Discharge Summary Next Visit Plan Discharging pt today
== END 2023-02-05 10:55 | disposition home or self-care (01) ==
LOC: PHYS 15:00
PROVIDERS: Family Provider Family Medicine; PCP Family Medicine; Referring Provider Family Medicine; Visit Provider Family Medicine
DX: G20.C Parkinsonism, unspecified (principal)
CPT/HCPCS: 97110; 97116; 97162; 97530; 97535

== ENCOUNTER 2023-04-21 07:49 | Emergency (ER) | payer MEDICARE, OTHER, SELFPAY ==
[2023-04-21] VITALS (10 sets, daily range): BP systolic 165–195; BP diastolic 70–98; PULSE 55–68; RESP 13–21; TEMP 36.5; O2SAT 96–99; BMI 26.5
--- NOTE | 2023-04-21 07:52 | DI.RAD.S_ITS ---
PROCEDURE: XR CHEST 1V INDICATIONS: SOB TECHNIQUE: One view of the chest was acquired. COMPARISON: [facility], , XR CHEST 1V, 08/28/2022, 16:07. [facility], , CHEST 2 VIEW, 06/15/2017, 10:02. FINDINGS: Surgical changes and devices: None. Lungs and pleura: Low lung volumes. No dense consolidation or pleural effusion. Mediastinum: Tortuous aorta. Normal heart size. Bones and chest wall: Degenerative changes. IMPRESSION: On this single view radiograph, no acute abnormality is seen. Dictated by: Álvaro Nava M.D. on 04/21/2023 at 8:05 Approved by: Álvaro Nava M.D. on 04/21/2023 at 8:06
--- NOTE | 2023-04-21 08:17 | ED_ITS ---
HPI - General Adult General Chief complaint: Shortness of Breath/Dyspnea Stated complaint: SOB/ HX Parkinsons Time Seen by Provider: 04/21/23 07:51 Source: patient and family Mode of arrival: Ambulatory History of Present Illness HPI narrative: Patient is a 77-year-old male. History of Parkinson's disease. At baseline is ambulatory. Uses a cane just for support. Is here for evaluation of shortness of breath and a cough. He states the symptoms started last evening. He feels like things have worsened since then. No chest pain. It is not a productive cough. No fevers. No underlying lung pathology. No abdominal pain or nausea or vomiting. No recent travel. No lower extremity swelling. Not tried anything for symptoms prior to arrival. He does feel like he was more short of breath when he is moving around Related Data Home Medications Medication Instructions Recorded Confirmed nitroglycerin 0.4 mg sublingual 0.4 mg sublingual PRN ##0 08/22/10 tablet (Nitrostat) simvastatin 20 mg tablet 10 mg PO QDAY ##0 08/22/10 carbidopa 25 mg-levodopa 100 mg 1 tab PO BID ##0 08/09/16 tablet Previous Rx's Medication Instructions Recorded tramadol 50 mg tablet 50 mg PO QHS #15 tabs 08/09/16 albuterol sulfate 90 mcg/actuation 2 puff inhalation Q4-6H PRN 04/21/23 aerosol inhaler shortness of breath or wheezing #8.5 grams benzonatate 100 mg capsule 100 mg PO Q6H PRN cough #14 caps 04/21/23 Allergies Allergy/AdvReac Type Severity Reaction Status Date / Time No Known Drug Allergies Allergy Verified 08/28/22 16:04 Review of Systems Constitutional Constitutional: Reports system reviewed and no additional complaints, except as documented Cardiovascular Cardiovascular: Reports system reviewed and no additional complaints, except as documented Respiratory Respiratory: Reports system reviewed and no additional complaints, except as documented Gastrointestinal Gastrointestinal: Reports system reviewed and no additional complaints, except as documented Integumentary/Breasts Skin/Breast: Reports system reviewed and no additional complaints, except as documented Neurologic Neurologic: Reports system reviewed and no additional complaints, except as documented Hematologic/Lymphatic On Anticoagulants: No Patient History Social History Smoking Status: Never smoker Smoking Status: Never smoker Substance Use Type: does not use Exam Initial Vital Signs Initial Vital Signs: Vital Signs Pulse Rate 65 04/21/23 08:00 Blood Pressure 177/89 H 04/21/23 08:00 Pulse Oximetry 97 04/21/23 08:00 Const General: cooperative, comfortable and No ill appearing HENMT Head: normal to inspection and normocephalic Resp Effort & Inspection: normal respiratory effort, cough, not labored, no respiratory distress and not tachypneic Auscultation: rhonchi Cardio Rate: regular rate Rhythm: regular rhythm GI Inspection: normal to inspection Skin General: no rashes or lesions noted Neuro General: patient alert, patient awake and patient oriented x3 Extrem General: No edema Course Orders Ordered: ED Orders 04/21/23 07:52 XR chest 1V Stat 04/21/23 08:05 Complete Blood Count AUTO DIFF Stat Comprehensive Metabolic Panel Stat Covid-19 + FLU A/B + RSV - PCR Stat Lipase Stat NT-proBNP (BNP-Adult 18+) Stat Troponin & CK Cardiac Panel Stat 04/21/23 08:31 EKG-12 Lead Stat Discontinued Medications Albuterol (Albuterol 2.5 Mg/3 Ml Neb (Adult)) 2.5 mg INH NOW ONE Stop: 04/21/23 09:24 Last Admin: 04/21/23 09:48 Dose: 2.5 mg Documented By: BAIRON Benzonatate (Benzonatate 100 Mg Capsule) 100 mg PO NOW ONE Stop: 04/21/23 08:23 Last Admin: 04/21/23 08:43 Dose: 100 mg Documented By: KRYSTIN Vital Signs Vital signs: Vital Signs - 8 hr 04/21/23 08:00 04/21/23 08:00 04/21/23 08:04 Temperature 97.7 F Pulse Rate 65 68 Respiratory Rate 18 Blood Pressure 177/89 H 177/89 H Pulse Oximetry 97 97 Oxygen Delivery Method Room Air 04/21/23 08:30 04/21/23 08:30 04/21/23 09:00 Temperature Pulse Rate 60 59 L Respiratory Rate 19 13 Blood Pressure 166/85 H Pulse Oximetry 96 97 Oxygen Delivery Method 04/21/23 09:00 04/21/23 09:30 04/21/23 09:30 Temperature Pulse Rate 55 L Respiratory Rate 16 Blood Pressure 168/88 H 181/98 H Pulse Oximetry 99 Oxygen Delivery Method 04/21/23 09:59 04/21/23 10:00 Temperature Pulse Rate 60 59 L Respiratory Rate 16 16 Blood Pressure Pulse Oximetry 98 99 Oxygen Delivery Method Room Air Medical Decision Making Lab Data Lab results reviewed: Yes I reviewed the patient's lab results. 04/21/23 08:05 04/21/23 08:05 Labs: Lab Results 04/21/23 Range/Units 08:05 WBC 5.3 (4.5-11.0) X10^3/uL RBC 4.34 L (4.5-5.9) X10^6/uL Hgb 13.2 L (13.5-17.5) g/dL Hct 39.4 L (41-53) % MCV 90.8 (80-100) fL MCH 30.4 (26-34) PG MCHC 33.5 (30-36) % RDW 13.3 (11.6-14.8) % Plt Count 180 (150-400) X10^3/uL Neut % (Auto) 66.7 (50-75) % Lymph % (Auto) 17.7 L (25-40) % [place] % (Auto) 8.5 (3-14) % Eos % (Auto) 6.0 H (2-4) % Baso % (Auto) 1.1 (0-2) % Neut # (Auto) 3500 (6859-0485) /uL Lymph # (Auto) 900 L (8912-9732) /uL [place] # (Auto) 400 (0-900) /uL Eos # (Auto) 300 (0-450) /uL Baso # (Auto) 100 (0-100) /uL Sodium 138 (137-145) mmol/L Potassium 3.9 (3.4-5.1) mmol/L Chloride 105 (98-107) mmol/L Carbon Dioxide 26 (22-32) mmol/L BUN 30 H (9-20) mg/dL Creatinine 1.19 (0.66-1.25) mg/dL Estimated GFR > 60 (>60) mL/min BUN/Creatinine Ratio 25.2 H (6-22) Glucose 96 (80-110) mg/dL Calcium 9.2 (8.4-10.2) mg/dL Total Bilirubin 0.9 (0.2-1.3) mg/dL AST 24 (17-59) IU/L ALT 6 (<50) IU/L Alkaline Phosphatase 53 (38-126) U/L Total Creatine Kinase 88 (55-170) U/L Troponin I < 0.012 (0.01-0.034) ng/mL NT-Pro-B Natriuret Pep 290 (<450) pg/mL Total Protein 7.6 (6.3-8.2) g/dL Albumin 4.3 (3.5-5.0) g/dL Globulin 3.3 (1.7-4.1) g/dL Albumin/Globulin Ratio 1.3 (1.0-2.8) Lipase 624 H (23-300) U/L SARS-CoV-2 (PCR) Negative (Negative) Influenza A (RT-PCR) Flu a negative (NEGATIVE) Influenza B (RT-PCR) Flu b negative (NEGATIVE) RSV (PCR) Negative (Negative) Imaging Data Chest x-ray: Radiologist's Impression: PROCEDURE: XR CHEST 1V INDICATIONS: SOB TECHNIQUE: One view of the chest was acquired. COMPARISON: [facility], , XR CHEST 1V, 08/28/2022, 16:07. [facility], , CHEST 2 VIEW, 06/15/2017, 10:02. FINDINGS: Surgical changes and devices: None. Lungs and pleura: Low lung volumes. No dense consolidation or pleural effusion. Mediastinum: Tortuous aorta. Normal heart size. Bones and chest wall: Degenerative changes. IMPRESSION: On this single view radiograph, no acute abnormality is seen. ECG Data Attestation: I personally reviewed and interpreted this ECG as follows: Interpretation: Sinus rhythm Ventricular rate 61 First-degree AV block [place] interval 2 an 8 milliseconds Left axis deviation Right bundle-branch block No ischemic ST changes MDM Narrative Medical decision making narrative: Chest x-ray is unremarkable. COVID flu RSV all negative however could potentially be another viral illness that we did not test for. Patient's symptoms improved after albuterol nebulizer. There was no indication for antibiotics. Low suspicion for ACS. Some improvement with the Tessalon Perles as well. Will discharge patient home with albuterol. Was given return precautions. He expressed understanding and agreement. Discharge Plan Departure Patient Disposition: Home Clinical Impression: Bronchitis Instructions: Acute Bronchitis Activity Restrictions/Additional Instructions: Continue to take all of your medications as directed. Use the albuterol inhaler in the spacer as needed and as directed. The same for the Tessalon Perles which can be helpful for the cough. Contact your primary doctor for a follow-up. Return to the emergency department for new symptoms. Prescriptions: New albuterol sulfate 90 mcg/actuation HFA aerosol inhaler 2 puff inhalation Q4-6H PRN (Reason: shortness of breath or wheezing) Qty: 8.5 0RF benzonatate 100 mg capsule 100 mg PO Q6H PRN (Reason: cough) Qty: 14 0RF No Action simvastatin 20 MG tablet 10 mg PO QDAY Qty: 0 nitroglycerin [Nitrostat] 0.4 MG tablet, sublingual 0.4 mg Sublingual PRN Qty: 0 carbidopa-levodopa 25 MG/100 MG tablet 1 tab PO BID Qty: 0 tramadol 50 MG tablet 50 mg PO QHS Qty: 15 0RF Referrals: Sudhakar Mcdonald MD [Primary Care Provider] - Stand Alone Forms: Patient Portal/API
[2023-04-21 08:19] LABS: Add Manual Diff / Slide Review NO; Basophils Absolute Auto 100 /uL (0-100); Basophils Percent Auto 1.1 % (0-2); Eosinophils Absolute Auto 300 /uL (0-450); Hematocrit 39.4 % (41-53); Hemoglobin 13.2 g/dL (13.5-17.5); Lymphocytes Absolute Auto 900 /uL (1100-4500); Lymphocytes Percent Auto 17.7 % (25-40); Mean Corpuscular HGB Conc 33.5 % (30-36); Mean Corpuscular Hemoglobin 30.4 PG (26-34); Mean Corpuscular Volume 90.8 fL (80-100); Monocytes Absolute Auto 400 /uL (0-900); Monocytes Percent Auto 8.5 % (3-14); Neutrophils Absolute Auto 3500 /uL (1500-7000); Neutrophils Percent Auto 66.7 % (50-75); Platelet Count 180 X10^3/uL (150-400); Red Blood Cell Count 4.34 X10^6/uL (4.5-5.9); Red Cell Distribution Width 13.3 % (11.6-14.8); White Blood Cell Count 5.3 X10^3/uL (4.5-11.0)
[2023-04-21 08:30] LABS: Alanine Aminotransferase 6 IU/L (<50); Albumin 4.3 g/dL (3.5-5.0); Albumin Globulin Ratio 1.3 (1.0-2.8); Alkaline Phosphatase 53 U/L (38-126); Aspartate Aminotransferase 24 IU/L (17-59); BUN Creatinine Ratio 25.2 (6-22); Bilirubin Total 0.9 mg/dL (0.2-1.3); Blood Urea Nitrogen 30 mg/dL (9-20); Calcium 9.2 mg/dL (8.4-10.2); Carbon Dioxide 26 mmol/L (22-32); Chloride 105 mmol/L (98-107); Creatine Kinase 88 U/L (55-170); Estimated Glomerular Filt Rate > 60 mL/min (>60); Globulin 3.3 g/dL (1.7-4.1); Glucose 96 mg/dL (80-110); HEMOLYSIS < 15 (0-50); Lipase 624 U/L (23-300); Potassium 3.9 mmol/L (3.4-5.1); Sodium 138 mmol/L (137-145); Total Protein 7.6 g/dL (6.3-8.2)
[2023-04-21 08:38] LABS: NT-proBNP (BNP-Adult 18+) 290 pg/mL (<450)
[2023-04-21 08:42] LABS: Troponin I < 0.012 ng/mL (0.01-0.034)
[2023-04-21] MEDS: BENZONATATE 100 MG CAPSULE PO (08:43)
[2023-04-21 08:54] LABS: COVID-19 CEPHEID 4-PLEX PCR Negative (Negative); Influenza A - CEPHEID Flu A NEGATIVE (NEGATIVE); Influenza B - CEPHEID Flu B NEGATIVE (NEGATIVE); Respiratory Syncytial Virus Negative (Negative)
[2023-04-21] MEDS: ALBUTEROL 2.5 MG/3 ML NEB (ADULT) INH (09:48)
--- NOTE | 2023-04-21 11:12 | PC.NURSE ---
Spacer training provided by the triage nurse, RT unavailable.
== END 2023-04-21 11:13 | disposition home or self-care (01) ==
PROVIDERS: Emergency Provider Emergency Medicine; Family Provider Family Medicine; PCP Family Medicine
DX: J20.9 Acute bronchitis, unspecified (principal); R07.9 Chest pain, unspecified; R06.02 Shortness of breath; R05.9 Cough, unspecified; Z20.822 Contact with and (suspected) exposure to COVID-19
CPT/HCPCS: 0241U; 36415; 71045; 80053; 82550; 83690; 83880; 84484; 85025; 93005; 94640; 99284; J7613

== ENCOUNTER → 2023-06-05 15:08 | Outpatient (CLI) | payer MEDICARE, OTHER, SELFPAY ==
[2023-06-05 15:37] LABS: Add Manual Diff / Slide Review NO; Basophils Absolute Auto 0 /uL (0-100); Basophils Percent Auto 0.9 % (0-2); Eosinophils Absolute Auto 200 /uL (0-450); Eosinophils Percent Auto 4.7 % (2-4); Hematocrit 37.5 % (41-53); Hemoglobin 12.6 g/dL (13.5-17.5); Lymphocytes Absolute Auto 1000 /uL (1100-4500); Lymphocytes Percent Auto 24.7 % (25-40); Mean Corpuscular HGB Conc 33.7 % (30-36); Mean Corpuscular Hemoglobin 31.1 PG (26-34); Mean Corpuscular Volume 92.4 fL (80-100); Monocytes Absolute Auto 400 /uL (0-900); Monocytes Percent Auto 9.3 % (3-14); Neutrophils Absolute Auto 2400 /uL (1500-7000); Neutrophils Percent Auto 60.4 % (50-75); Platelet Count 174 X10^3/uL (150-400); Red Blood Cell Count 4.06 X10^6/uL (4.5-5.9); Red Cell Distribution Width 14.1 % (11.6-14.8)
[2023-06-05 15:46] LABS: Hemoglobin A1C% w Est Avg Glu 5.4 % (4.0-6.0)
[2023-06-05 15:58] LABS: Alanine Aminotransferase 7 IU/L (<50); Albumin 4.3 g/dL (3.5-5.0); Albumin Globulin Ratio 1.3 (1.0-2.8); Alkaline Phosphatase 55 U/L (38-126); Aspartate Aminotransferase 27 IU/L (17-59); BUN Creatinine Ratio 27.9 (6-22); Bilirubin Total 0.8 mg/dL (0.2-1.3); Blood Urea Nitrogen 31 mg/dL (9-20); Calcium 9.2 mg/dL (8.4-10.2); Carbon Dioxide 28 mmol/L (22-32); Chloride 105 mmol/L (98-107); Cholesterol 133 mg/dL (140-199); Estimated Glomerular Filt Rate > 60 mL/min (>60); Globulin 3.3 g/dL (1.7-4.1); Glucose 86 mg/dL (80-110); HDL Cholesterol 64 mg/dL (40-60); HEMOLYSIS < 15 (0-50); LDL Cholesterol Calculated 57 mg/dL (<100); Potassium 4.2 mmol/L (3.4-5.1); Sodium 139 mmol/L (137-145); Total Protein 7.6 g/dL (6.3-8.2); Triglycerides 60 mg/dL (35-150)
[2023-06-05 16:30] LABS: Thyroid Stimulating Hormone 2.28 uIU/mL (0.47-4.68)
[2023-06-05 17:02] LABS: Folate 11.2 ng/mL (2.76-20.0); Vitamin B12 619 pg/mL (239-931)
== END ==
PROVIDERS: Family Provider Family Medicine; PCP Family Medicine; Referring Provider Family Medicine; Visit Provider Family Medicine
DX: Z00.00 Encounter for general adult medical examination without abnormal findings (principal); E78.5 Hyperlipidemia, unspecified; R41.3 Other amnesia
CPT/HCPCS: 36415; 80053; 80061; 82607; 82746; 83036; 84443; 85025

== ENCOUNTER → 2023-06-27 13:20 | Outpatient (CLI) | payer MEDICARE, OTHER, SELFPAY ==
[2023-06-27 13:59] LABS: Appearance Urine UA CLEAR; Bilirubin Urine UA NEGATIVE (NEGATIVE); Color Urine UA YELLOW; Glucose Urine UA NEGATIVE (Negative); Ketones Urine UA TRACE (NEGATIVE); Leukocyte Esterase Urine UA NEGATIVE (NEGATIVE); Nitrite Urine UA NEGATIVE (Negative); Occult Blood Urine UA NEGATIVE (Negative); Protein Urine UA NEGATIVE (Negative); Specific Gravity Urine UA >=1.030 (1.000-1.035)
[2023-06-27 14:05] LABS: Urine Volume 10mL (spun)
[2023-06-27 14:06] LABS: Bacteria Urine None Seen; Culture Indicated Urine Cult Not Indicated; RBC Urine None Seen (0-5/HPF); Squamous Epithelial Cell Urine None Seen (0-5/HPF); WBC Urine None Seen (0-5/HPF)
== END ==
PROVIDERS: Family Provider Family Medicine; PCP Family Medicine; Referring Provider Family Medicine; Visit Provider Family Medicine
DX: R41.3 Other amnesia (principal)
CPT/HCPCS: 81001

== ENCOUNTER → 2023-08-09 15:26 | Outpatient (CLI) | payer MEDICARE, OTHER, SELFPAY ==
[2023-08-09 17:22] LABS: HEMOLYSIS < 15 (0-50); Iron 60 ug/dL (49-181)
[2023-08-09 17:32] LABS: Percent Iron Saturation 27 % (20-50); Total Iron Binding Capacity 223 ug/dL (261-462); Transferrin 162 mg/dL (206-381)
[2023-08-09 17:33] LABS: Add Manual Diff / Slide Review NO; Basophils Absolute Auto 0 /uL (0-100); Basophils Percent Auto 0.7 % (0-2); Eosinophils Absolute Auto 200 /uL (0-450); Eosinophils Percent Auto 3.4 % (2-4); Hematocrit 36.3 % (41-53); Hemoglobin 12.3 g/dL (13.5-17.5); Lymphocytes Absolute Auto 1200 /uL (1100-4500); Lymphocytes Percent Auto 22.7 % (25-40); Mean Corpuscular HGB Conc 33.9 % (30-36); Mean Corpuscular Hemoglobin 31.7 PG (26-34); Mean Corpuscular Volume 93.5 fL (80-100); Monocytes Absolute Auto 400 /uL (0-900); Neutrophils Absolute Auto 3600 /uL (1500-7000); Neutrophils Percent Auto 65.2 % (50-75); Platelet Count 163 X10^3/uL (150-400); Red Blood Cell Count 3.88 X10^6/uL (4.5-5.9); Red Cell Distribution Width 13.8 % (11.6-14.8); White Blood Cell Count 5.5 X10^3/uL (4.5-11.0)
[2023-08-09 17:55] LABS: Ferritin 81 ng/mL (18-464)
== END ==
PROVIDERS: Family Provider Family Medicine; PCP Family Medicine; Referring Provider Family Medicine; Visit Provider Family Medicine
DX: D64.9 Anemia, unspecified (principal); K90.9 Intestinal malabsorption, unspecified; I70.0 Atherosclerosis of aorta
CPT/HCPCS: 36415; 82306; 82728; 83090; 83540; 83550; 85025

== ENCOUNTER → 2023-08-22 13:12 | Outpatient (CLI) | payer MEDICARE, OTHER, SELFPAY ==
[2023-08-22 14:17] LABS: Creatine Kinase 86 U/L (55-170)
== END ==
PROVIDERS: Family Provider Family Medicine; PCP Family Medicine; Referring Provider Psychiatry & Neurology Neurology; Visit Provider Psychiatry & Neurology Neurology
DX: M79.10 Myalgia, unspecified site (principal)
CPT/HCPCS: 36415; 82550

== ENCOUNTER 2023-09-08 10:50 | Emergency (ER) | payer MEDICARE, OTHER, SELFPAY ==
[2023-09-08 11:10] VITALS: BP 111/64; PULSE 69; RESP 18; TEMP 36.3; O2SAT 99; BMI 26.9
--- NOTE | 2023-09-08 11:19 | ED_ITS ---
HPI - Wound/Laceration General Chief Complaint: Wound/Laceration Stated Complaint: GLF head injury Time Seen by Provider: 09/08/23 11:11 Source: patient and family Mode of arrival: Ambulatory History of Present Illness HPI narrative: 78-year-old male presents for ground level fall with left forehead injury. Patient tripped over an open dish washing door and struck his head. He did not lose consciousness. He was not on any blood thinners. He states he can not remember exactly when his last tetanus shot was administered, but it was definitely within the last 5 years. There is a laceration over his right eyebrow, patient denies vision changes Related Data Home Medications Medication Instructions Recorded Confirmed nitroglycerin 0.4 mg sublingual 0.4 mg sublingual PRN ##0 08/22/10 tablet (Nitrostat) simvastatin 20 mg tablet 10 mg PO QDAY ##0 08/22/10 carbidopa 25 mg-levodopa 100 mg 1 tab PO BID ##0 08/09/16 tablet Previous Rx's Medication Instructions Recorded tramadol 50 mg tablet 50 mg PO QHS #15 tabs 08/09/16 albuterol sulfate 90 mcg/actuation 2 puff inhalation Q4-6H PRN 04/21/23 aerosol inhaler shortness of breath or wheezing #8.5 grams benzonatate 100 mg capsule 100 mg PO Q6H PRN cough #14 caps 04/21/23 Allergies Allergy/AdvReac Type Severity Reaction Status Date / Time No Known Drug Allergies Allergy Verified 08/28/22 16:04 Patient History Social History Smoking Status: Never smoker Smoking Status: Never smoker Substance Use Type: does not use Exam Initial Vital Signs Initial Vital Signs: Vital Signs Temperature 97.4 F L 09/08/23 11:10 Pulse Rate 69 09/08/23 11:10 Respiratory Rate 18 09/08/23 11:10 Blood Pressure 111/64 09/08/23 11:10 Pulse Oximetry 99 09/08/23 11:10 Oxygen Delivery Method Room Air 09/08/23 11:10 Const: Awake, alert, no acute distress HEENT: PERRLA, no step-offs, EOMI Skin: 2 cm horizontal laceration through right eyebrow Neuro: AO x3, CN II-XII grossly intact, moves all extremities Course Orders Ordered: ED Orders 09/08/23 11:19 CT cervical spine wo con Stat CT head/brain wo con Stat Vital Signs Vital signs: Vital Signs - 8 hr 09/08/23 11:10 Temperature 97.4 F L Pulse Rate 69 Respiratory Rate 18 Blood Pressure 111/64 Pulse Oximetry 99 Oxygen Delivery Method Room Air MDM - Wound/Laceration Differential Diagnosis Differential diagnosis: Likely laceration, abscess and abrasion Imaging Data CT - cervical spine: Radiologist's Impression: PROCEDURE: CT CERVICAL SPINE WO CON INDICATIONS: GLF, HEAD INJURY TECHNIQUE: Noncontrast 3 mm thick sections acquired from the skull base to the T4 level. Sagittal and coronal reformats were then constructed. For radiation dose reduction, the following was used: automated exposure control, adjustment of mA and/or kV according to patient size. COMPARISON: None. FINDINGS: Image quality: Diagnostic. Bones: No fractures or dislocations. Visualized superior ribs are intact. Soft tissues: Prevertebral soft tissues are normal in thickness. No paravertebral hematomas. No apical pneumothoraces. IMPRESSION: No acute displaced fracture or traumatic subluxation. Approved by: Lala Harman M.D.,Ph.D. on 09/08/2023 at 10:50 CT scan - head: Radiologist's Impression: PROCEDURE: CT HEAD/BRAIN WO CON INDICATIONS: GLF, FOREHEAD INJURY TECHNIQUE: Noncontrast 4.5 mm thick angled axial sections acquired from the foramen magnum to the vertex, with coronal and sagittal reformats. For radiation dose reduction, the following was used: automated exposure control, adjustment of mA and/or kV according to patient size. COMPARISON: [facility], CT, CT HEAD/BRAIN WO CON, 09/05/2022, 14:33. FINDINGS: Image quality: Diagnostic. CSF spaces: Basal cisterns are patent. No extra-axial fluid collections. The ventricles are symmetric in size and shape. Brain: No intracranial bleeds or masses. There is cerebral volume loss for age, with resultant ventricular and sulcal prominence. There are periventricular and deep white matter chronic small vessel ischemic changes. There is intracranial internal carotid artery atherosclerosis. Skull and face: Calvarium and visualized facial bones appear intact, without suspicious lesions. Bilateral lens replacement. Right supraorbital soft tissue scalp thickening/hematoma with a few foci of gas consistent with known injury. Sinuses: Visualized sinuses and mastoids are clear. IMPRESSION: No acute intracranial pathology. Right supraorbital scalp soft tissue thickening/hematoma with a few foci of gas consistent with known injury. No underlying calvarial fracture. Approved by: Lala Harman M.D.,Ph.D. on 09/08/2023 at 10:58 MDM Narrative Medical decision making narrative: Well-appearing patient with ground level trip and fall with right eyebrow injury. Patient is up-to-date on tetanus per his report. CT is negative for acute traumatic findings. Eyebrow wound glued shut with Dermabond. Wound care instructions discussed with the patient and his at bedside. Discharge Plan Departure Patient Disposition: Home Clinical Impression: Laceration Instructions: DI for Laceration Repair Activity Restrictions/Additional Instructions: Keep the wound clean and dry for the next 24 hours. The glue will naturally come off in the next 7-10 days. Do not soak the Dermabond or it will come off prematurely. If the Dermabond gets wet simply pat dry gently. Apply ice to the areas of swelling Prescriptions: No Action simvastatin 20 MG tablet 10 mg PO QDAY Qty: 0 nitroglycerin [Nitrostat] 0.4 MG tablet, sublingual 0.4 mg Sublingual PRN Qty: 0 carbidopa-levodopa 25 MG/100 MG tablet 1 tab PO BID Qty: 0 tramadol 50 MG tablet 50 mg PO QHS Qty: 15 0RF albuterol sulfate 90 mcg/actuation HFA aerosol inhaler 2 puff inhalation Q4-6H PRN (Reason: shortness of breath or wheezing) Qty: 8.5 0RF benzonatate 100 mg capsule 100 mg PO Q6H PRN (Reason: cough) Qty: 14 0RF Referrals: Sudhakar Mcdonald MD [Primary Care Provider] - Stand Alone Forms: Patient Portal/API
[2023-09-08 12:15] VITALS: BP 162/88; PULSE 62; RESP 18; O2SAT 100
== END 2023-09-08 12:27 | disposition home or self-care (01) ==
PROVIDERS: Emergency Provider Emergency Medicine; Family Provider Family Medicine; PCP Family Medicine
DX: S01.111A Laceration without foreign body of right eyelid and periocular area, initial encounter (principal); W01.10XA Fall on same level from slipping, tripping and stumbling with subsequent striking against unspecified object, initial encounter
CPT/HCPCS: 12011; 70450; 72125; 99283

== ENCOUNTER → 2023-12-05 12:58 | Outpatient (CLI) | payer MEDICARE, OTHER, SELFPAY ==
[2023-12-05 14:17] LABS: Appearance Urine UA Clear; Bacteria Urine Occasional (0-1); Bilirubin Urine UA Negative (NEGATIVE); Color Urine UA Yellow; Culture Indicated Urine Cult Not Indicated; Glucose Urine UA NEGATIVE (Negative); Ketones Urine UA NEGATIVE (NEGATIVE); Leukocyte Esterase Urine UA NEGATIVE (NEGATIVE); Nitrite Urine UA NEGATIVE (Negative); Occult Blood Urine UA Negative (Negative); Protein Urine UA Negative (Negative); RBC Urine 0-1/HPF (0-5/HPF); Squamous Epithelial Cell Urine 0-1 /HPF (0-5/HPF); Urine Volume 10mL (spun); Urobilinogen Urine UA 0.2 E.U./dL (0.2); WBC Urine 0-1/HPF (0-5/HPF)
[2023-12-05 14:26] LABS: Add Manual Diff / Slide Review NO; Basophils Absolute Auto 0 /uL (0-100); Basophils Percent Auto 0.6 % (0-2); Eosinophils Absolute Auto 100 /uL (0-450); Eosinophils Percent Auto 1.3 % (2-4); Hematocrit 38.7 % (41-53); Hemoglobin 13.1 g/dL (13.5-17.5); Lymphocytes Absolute Auto 1000 /uL (1100-4500); Lymphocytes Percent Auto 19.4 % (25-40); Mean Corpuscular HGB Conc 33.9 % (30-36); Mean Corpuscular Hemoglobin 31.7 PG (26-34); Mean Corpuscular Volume 93.3 fL (80-100); Monocytes Absolute Auto 200 /uL (0-900); Monocytes Percent Auto 4.7 % (3-14); Neutrophils Absolute Auto 3800 /uL (1500-7000); Platelet Count 166 X10^3/uL (150-400); Red Blood Cell Count 4.15 X10^6/uL (4.5-5.9); White Blood Cell Count 5.2 X10^3/uL (4.5-11.0)
[2023-12-05 14:47] LABS: BUN Creatinine Ratio 23.3 (6-22); Blood Urea Nitrogen 27 mg/dL (9-20); Calcium 9.2 mg/dL (8.4-10.2); Carbon Dioxide 27 mmol/L (22-32); Chloride 104 mmol/L (98-107); Estimated Glomerular Filt Rate > 60 mL/min (>60); Glucose 125 mg/dL (80-110); HEMOLYSIS < 15 (0-50); Potassium 3.8 mmol/L (3.4-5.1); Sodium 138 mmol/L (137-145)
== END ==
PROVIDERS: Family Provider Family Medicine; PCP Family Medicine; Referring Provider Family Medicine; Visit Provider Family Medicine
DX: R41.0 Disorientation, unspecified (principal)
CPT/HCPCS: 36415; 80048; 81001; 85025

== ENCOUNTER 2023-12-05 18:49 | Emergency (ER) | payer MEDICARE, OTHER, SELFPAY ==
[2023-12-05] VITALS (18 sets, daily range): BP systolic 134–205; BP diastolic 68–94; PULSE 53–68; RESP 12–23; TEMP 36.6; O2SAT 92–100; BMI 25.8
--- NOTE | 2023-12-05 20:00 | EKG_ITS ---
[address] [id number] Test Date: 2023-12-05 Pat Name: Jeffry Jackson Department: Room: Gender: Male [employer]: : 1945 Requested By: Order Number: [id number] Reading MD: Terrence Whitney Measurements Intervals [place] Rate: 61 P: -17 MT: 212 QRS: -33 QRSD: 150 T: -2 QT: 466 QTc: 469 Interpretive Statements Sinus rhythm with 1st degree AV block Left axis deviation Right bundle branch block Electronically Signed On 12-06-2023 19:52:08 PDT by Terrence Whitney
[2023-12-05 20:25] LABS: INR 1.1 (0.9-1.3); Prothrombin Time 12.1 SECONDS (9.4-12.5)
[2023-12-05 20:26] LABS: Add Manual Diff / Slide Review NO; Basophils Absolute Auto 0 /uL (0-100); Basophils Percent Auto 0.6 % (0-2); Eosinophils Absolute Auto 100 /uL (0-450); Eosinophils Percent Auto 3.4 % (2-4); Hematocrit 38.7 % (41-53); Hemoglobin 12.9 g/dL (13.5-17.5); Lymphocytes Absolute Auto 1100 /uL (1100-4500); Lymphocytes Percent Auto 26.4 % (25-40); Mean Corpuscular HGB Conc 33.5 % (30-36); Mean Corpuscular Hemoglobin 31.3 PG (26-34); Mean Corpuscular Volume 93.4 fL (80-100); Monocytes Absolute Auto 400 /uL (0-900); Monocytes Percent Auto 9.7 % (3-14); Neutrophils Absolute Auto 2500 /uL (1500-7000); Neutrophils Percent Auto 59.9 % (50-75); Platelet Count 168 X10^3/uL (150-400); Red Blood Cell Count 4.14 X10^6/uL (4.5-5.9); Red Cell Distribution Width 13.4 % (11.6-14.8); White Blood Cell Count 4.2 X10^3/uL (4.5-11.0)
[2023-12-05 20:28] LABS: PTT Partial Thromboplastin Tim 31 SECONDS (25.1-36.5)
[2023-12-05 20:29] LABS: Salicylate < 1.0 mg/dL (<20)
[2023-12-05 20:30] LABS: Alanine Aminotransferase 8 IU/L (<50); Albumin 4.2 g/dL (3.5-5.0); Alkaline Phosphatase 56 U/L (38-126); Aspartate Aminotransferase 26 IU/L (17-59); Bilirubin Total 0.8 mg/dL (0.2-1.3); Blood Urea Nitrogen 27 mg/dL (9-20); Calcium 9.3 mg/dL (8.4-10.2); Carbon Dioxide 26 mmol/L (22-32); Chloride 104 mmol/L (98-107); Estimated Glomerular Filt Rate > 60 mL/min (>60); Glucose 89 mg/dL (80-110); HEMOLYSIS < 15 (0-50); Sodium 139 mmol/L (137-145)
[2023-12-05 20:31] LABS: Acetaminophen < 10 ug/mL (10-30); Albumin Globulin Ratio 1.5 (1.0-2.8); Ethanol (ETOH) < 10 mg/dL; Globulin 2.8 g/dL (1.7-4.1)
[2023-12-05 20:47] LABS: Prolactin 11.9 ng/mL (3.7-17.9)
[2023-12-05 21:00] LABS: Thyroid Stimulating Hormone 2.74 uIU/mL (0.47-4.68)
[2023-12-05 21:05] LABS: Appearance Urine UA CLEAR; Bilirubin Urine UA NEGATIVE (NEGATIVE); Color Urine UA YELLOW; Glucose Urine UA NEGATIVE (Negative); Ketones Urine UA NEGATIVE (NEGATIVE); Leukocyte Esterase Urine UA NEGATIVE (NEGATIVE); Nitrite Urine UA NEGATIVE (Negative); Occult Blood Urine UA NEGATIVE (Negative); Protein Urine UA NEGATIVE (Negative); Urobilinogen Urine UA 0.2 E.U./dL (0.2); pH Urine UA 5.5 (4.5-8.0)
[2023-12-05] MEDS: SODIUM CHLORIDE 0.9% 1,000 ML 150 ML IV (21:12)
[2023-12-05 21:13] LABS: Bacteria Urine Occasional (0-1); Culture Indicated Urine Cult Not Indicated; RBC Urine None Seen (0-5/HPF); Squamous Epithelial Cell Urine 0-1 /HPF (0-5/HPF); UR Morphine/Opiate cutoff 300 Negative (Negative); Ur Creatinine Normal (Normal); Ur Specific Gravity Normal (Normal); Urine Amphetamines Negative (Negative); Urine Barbiturates Negative (Negative); Urine Benzodiazepines Negative (Negative); Urine Cocaine Negative (Negative); Urine MDMA Negative (Negative); Urine Methadone Negative (Negative); Urine Methamphetamines Negative (Negative); Urine Oxycodone Negative (Negative); Urine Phencyclidine Negative (Negative); Urine Tetrahydrocannabinol Negative (Negative); Urine Tricyclic Antidepressant Negative (Negative); Urine Volume 10mL (spun); Urine pH Normal (Normal); WBC Urine 0-1/HPF (0-5/HPF)
[2023-12-06] VITALS (11 sets, daily range): BP systolic 148–203; BP diastolic 76–92; PULSE 59–74; RESP 12–16; O2SAT 96–99
--- NOTE | 2023-12-06 01:40 | ED_ITS ---
HPI - General Adult General Chief complaint: Altered Mental Status Stated complaint: Parkinsons, Barely Mobile, Slurring, Confusion Time Seen by Provider: 12/05/23 20:02 History of Present Illness HPI narrative: 78-year-old gentleman with a diagnosis of Parkinson's disease over the last couple of days he has been having increasing confusion and hallucinations. States he was having increasing difficulty walking today, does have a walker. Uses a condom catheter at night but is not having any difficulty with urination. No fevers, cough, chest pain, dyspnea, abdominal pain, diarrhea. His indicates they have been speaking with their physician throughout the day. He was given a prescription for 25 mg of quetiapine to see if this might be helpful. The is concerned that may have actually made symptoms worse. She notes that over the past number of days he has had significant overall decline and significantly more difficulty with walking. They do have additional home care arranged for tomorrow and the following day. Related Data Home Medications Medication Instructions Recorded Confirmed nitroglycerin 0.4 mg sublingual 0.4 mg sublingual PRN ##0 08/22/10 tablet (Nitrostat) simvastatin 20 mg tablet 10 mg PO QDAY ##0 08/22/10 carbidopa 25 mg-levodopa 100 mg 1 tab PO BID ##0 08/09/16 tablet Previous Rx's Medication Instructions Recorded tramadol 50 mg tablet 50 mg PO QHS #15 tabs 08/09/16 albuterol sulfate 90 mcg/actuation 2 puff inhalation Q4-6H PRN 04/21/23 aerosol inhaler shortness of breath or wheezing #8.5 grams benzonatate 100 mg capsule 100 mg PO Q6H PRN cough #14 caps 04/21/23 Allergies Allergy/AdvReac Type Severity Reaction Status Date / Time No Known Drug Allergies Allergy Verified 08/28/22 16:04 Review of Systems Review of Systems Narrative: Pertinent positive and negative findings as per HPI Patient History Social History Smoking Status: Never smoker Smoking Status: Never smoker Substance Use Type: does not use Exam Initial Vital Signs Initial Vital Signs: Vital Signs Temperature 97.8 F 12/05/23 18:59 Pulse Rate 65 12/05/23 18:59 Respiratory Rate 16 12/05/23 18:59 Blood Pressure 157/83 H 12/05/23 18:59 Pulse Oximetry 100 12/05/23 18:59 Oxygen Delivery Method Room Air 12/05/23 18:59 General: Frail, older-appearing gentleman parkinsonian-type tremor, somewhat confused, slowed overall speech HEENT: Moist mucous membranes, normal sclera with reactive pupils, Respiratory: Lungs are clear to auscultation, no wheezing no rales no rhonchi. Full and symmetrical air movement Cardiac: Regular rate and rhythm no murmurs no bruits Abdomen: Soft, nontender, good bowel tones, no flank pain Skin: Warm and dry, no rashes Neurologic: Parkinsonian symptoms without localizing abnormalities to suggest stroke Extremities: No trauma, well perfused Psych: Cooperative, appropriate insight and affect Course Orders Ordered: ED Orders 12/05/23 19:56 Acetaminophen Stat Complete Blood Count AUTO DIFF Stat Comprehensive Metabolic Panel Stat Ethanol (ETOH) Stat Lactate (Lactic Acid) Stat Osmolality, Serum Stat PTT Partial Thromboplastin Jin Stat Prolactin Stat Prothrombin Time INR Stat Salicylate Stat Thyroid Stimulating Hormone Stat 12/05/23 19:59 Blood Culture Stat 12/05/23 20:00 EKG-12 Lead Stat 12/05/23 20:50 Urinalysis and Microscopic Stat Urine Culture Stat Urine Drug Screen, Rapid Stat Sodium Chloride (Normal Saline 0.9%) 1,000 mls @ 150 mls/hr IV CONT CHANDA Last Admin: 12/05/23 21:12 Dose: 150 mls/hr Documented By: Vital Signs Vital signs: Vital Signs - 8 hr 12/05/23 18:59 12/05/23 19:40 12/05/23 19:41 Temperature 97.8 F Pulse Rate 65 63 Respiratory Rate 16 Blood Pressure 157/83 H Pulse Oximetry 100 97 94 Oxygen Delivery Method Room Air 12/05/23 19:41 12/05/23 20:00 12/05/23 20:00 Temperature Pulse Rate 58 L Respiratory Rate 12 Blood Pressure 134/68 181/88 H Pulse Oximetry 99 Oxygen Delivery Method 12/05/23 20:30 12/05/23 20:31 12/05/23 20:31 Temperature Pulse Rate 63 64 Respiratory Rate 23 23 Blood Pressure 179/82 H Pulse Oximetry 97 98 Oxygen Delivery Method 12/05/23 21:00 12/05/23 21:01 12/05/23 21:01 Temperature Pulse Rate 65 67 Respiratory Rate 12 12 Blood Pressure 145/81 H Pulse Oximetry 97 98 Oxygen Delivery Method 12/05/23 21:30 12/05/23 21:31 12/05/23 21:31 Temperature Pulse Rate 66 68 Respiratory Rate 16 18 Blood Pressure 171/86 H Pulse Oximetry 92 92 Oxygen Delivery Method 12/05/23 22:00 12/05/23 22:01 12/05/23 22:01 Temperature Pulse Rate 67 62 Respiratory Rate 15 12 Blood Pressure 205/90 H Pulse Oximetry 99 99 Oxygen Delivery Method 12/05/23 22:20 12/05/23 22:20 12/05/23 22:30 Temperature Pulse Rate 59 L 53 L Respiratory Rate 12 13 Blood Pressure 182/84 H Pulse Oximetry 98 98 Oxygen Delivery Method 12/05/23 22:31 12/05/23 22:31 12/05/23 23:00 Temperature Pulse Rate 57 L 57 L Respiratory Rate 13 13 Blood Pressure 174/94 H Pulse Oximetry 98 98 Oxygen Delivery Method 12/05/23 23:01 12/05/23 23:01 12/05/23 23:30 Temperature Pulse Rate 59 L 61 Respiratory Rate 18 13 Blood Pressure 186/85 H Pulse Oximetry 98 98 Oxygen Delivery Method 12/05/23 23:30 12/06/23 00:00 12/06/23 00:00 Temperature Pulse Rate 64 Respiratory Rate 13 Blood Pressure 190/89 H 186/86 H Pulse Oximetry 97 Oxygen Delivery Method 12/06/23 00:30 12/06/23 00:30 12/06/23 01:00 Temperature Pulse Rate 67 64 Respiratory Rate 14 16 Blood Pressure 185/88 H Pulse Oximetry 98 99 Oxygen Delivery Method 12/06/23 01:01 12/06/23 01:01 Temperature Pulse Rate 59 L Respiratory Rate 13 Blood Pressure 203/92 H Pulse Oximetry 98 Oxygen Delivery Method Medical Decision Making Lab Data 12/05/23 19:56 12/05/23 19:56 Labs: Lab Results 12/05/23 12/05/23 12/05/23 Range/Units 19:56 20:50 20:50 WBC 4.2 L (4.5-11.0) X10^3/uL RBC 4.14 L (4.5-5.9) X10^6/uL Hgb 12.9 L (13.5-17.5) g/dL Hct 38.7 L (41-53) % MCV 93.4 (80-100) fL MCH 31.3 (26-34) PG MCHC 33.5 (30-36) % RDW 13.4 (11.6-14.8) % Plt Count 168 (150-400) X10^3/uL Neut % (Auto) 59.9 (50-75) % Lymph % (Auto) 26.4 (25-40) % Phillips % (Auto) 9.7 (3-14) % Eos % (Auto) 3.4 (2-4) % Baso % (Auto) 0.6 (0-2) % Neut # (Auto) 2500 (1526-3701) /uL Lymph # (Auto) 1100 (6719-6874) /uL Phillips # (Auto) 400 (0-900) /uL Eos # (Auto) 100 (0-450) /uL Baso # (Auto) 0 (0-100) /uL PT 12.1 (9.4-12.5) SECONDS INR 1.1 (0.9-1.3) APTT 31 (25.1-36.5) SECONDS Sodium 139 (137-145) mmol/L Potassium 4.0 (3.4-5.1) mmol/L Chloride 104 (98-107) mmol/L Carbon Dioxide 26 (22-32) mmol/L BUN 27 H (9-20) mg/dL Creatinine 1.08 (0.66-1.25) mg/dL Estimated GFR > 60 (>60) mL/min BUN/Creatinine Ratio 25.0 H (6-22) Glucose 89 (80-110) mg/dL Lactate 1.0 (0.7-2.1) mmol/L Calcium 9.3 (8.4-10.2) mg/dL Total Bilirubin 0.8 (0.2-1.3) mg/dL AST 26 (17-59) IU/L ALT 8 (<50) IU/L Alkaline Phosphatase 56 (38-126) U/L Total Protein 7.0 (6.3-8.2) g/dL Albumin 4.2 (3.5-5.0) g/dL Globulin 2.8 (1.7-4.1) g/dL Albumin/Globulin Ratio 1.5 (1.0-2.8) TSH 2.74 (0.47-4.68) uIU/mL Prolactin 11.9 (3.7-17.9) ng/mL Urine Color Yellow Urine Appearance Clear Urine pH 5.5 Normal (4.5-8.0) Ur Specific Clifford 1.010 (1.000-1.035) Urine Protein Negative (Negative) Urine Glucose (UA) Negative (Negative) g/dL Urine Ketones Negative (NEGATIVE) Urine Occult Blood Negative (Negative) Urine Nitrate Negative (Negative) Urine Bilirubin Negative (NEGATIVE) Urine Urobilinogen 0.2 (0.2) E.U./dL Ur Leukocyte Esterase Negative (NEGATIVE) Urine RBC None seen (0-5/HPF) Urine WBC 0-1/hpf (0-5/HPF) Ur Squamous Epith Cells 0-1 /hpf (0-5/HPF) Urine Bacteria Occasional (0-1) (None) Ur Culture Indicated? Cult not indicated Vol Urine Centrifuged 10ml (spun) Salicylates < 1.0 (<20) mg/dL U Opiates 300ng/mL cut Negative (Negative) Ur Oxycodone Screen Negative (Negative) Urine Methadone Screen Negative (Negative) Acetaminophen < 10 (10-30) ug/mL Ur Barbiturates Screen Negative (Negative) U Tricyclic Antidepress Negative (Negative) Ur Phencyclidine Scrn Negative (Negative) Ur Amphetamines Screen Negative (Negative) U Methamphetamines Scrn Negative (Negative) Ur MDMA Scrn (Ecstasy) Negative (Negative) U Benzodiazepines Scrn Negative (Negative) Urine Cocaine Screen Negative (Negative) U Marijuana (THC) Screen Negative (Negative) Urine Specific Clifford Normal (Normal) Ethyl Alcohol < 10 ( - 10) mg/dL Ur Creatinine Normal (Normal) Urine Dip Bedside Urine Glucose Negative Bedside Urine Bilirubin - Negative Bedside Urine Ketone - Negative Urine Specific Clifford 1.015 Bedside Urine Occult Blood - Negative Bedside Urine pH 6 Bedside Urine Protein - Negative Bedside Urine Urobilinogen - Negative Bedside Urine Nitrite - Negative Bedside Urine Leukocytes - Negative Esterase Point of care testing: Urine Dip Bedside Urine Glucose Negative Bedside Urine Bilirubin - Negative Bedside Urine Ketone - Negative Urine Specific Clifford 1.015 Bedside Urine Occult Blood - Negative Bedside Urine pH 6 Bedside Urine Protein - Negative Bedside Urine Urobilinogen - Negative Bedside Urine Nitrite - Negative Bedside Urine Leukocytes - Negative Esterase MDM Narrative Medical decision making narrative: CC: Increased confusion and hallucinations in the setting of known Parkinson's disease Complicating co-morbidities: Parkinson's disease Data collected from: patient Social determinants of health that may influence the patients condition: Patient has a primary care consult physician available at all times through [facility] Differential considered: Infection, stroke, worsening Parkinson's disease Exam documented above, pertinent findings include: Slow deliberate speech, parkinsonian tremor with cogwheeling, no localizing neurologic findings no abdominal tenderness heart and lungs are benign Lab Test results independently reviewed as above. Pertinent findings: CBC is unremarkable Chemistries are reassuring TSH is appropriate Prolactin level is within appropriate ranges Lactic acid is not elevated Glucose is appropriate Independently reviewed EKG: EKG shows sinus rhythm at a rate of 61, he does have a right bundle branch block. There are no acute ischemic changes Imaging studies independently reviewed: With no trauma no evidence of infection or stroke and recent head CT done on September 07, additional head imaging was not felt to be appropriate today Re-evaluations: Patient is able to ambulate to the bathroom and back with a walker. Seeing this is is feeling more comfortable with home discharge knowing that they do have help coming at home for later today Discussion: 78-year-old gentleman with increasing parkinsonian rigidity, difficulty in walking, overall weakness, confusion and hallucinations. They have been in touch with their physician. They did try dose of 25 mg of quetiapine and are not sure if it actually helped. They came to the ER to see if there were any actual signs of infection which there are not. Reassurance is given. They do know that additional help will likely be required and I am concerned that this is the beginning of a continued decline in overall health. At this point there is no indication for additional imaging or hospitalization and they are safe for discharge Discharge Plan Departure Patient Disposition: Home Clinical Impression: Parkinson's disease Qualifiers: Dyskinesia presence: unspecified whether dyskinesia Fluctuating manifestations: with fluctuating manifestations Qualified Code(s): G20.A2 - Parkinson's disease without dyskinesia, with fluctuations Instructions: DI for Advanced Parkinson Disease Activity Restrictions/Additional Instructions: Thank you for coming in today I am not finding any evidence for bacterial or viral infection. There was no evidence for urinary tract infection. I too, was going to suggest trying 25 mg of quetiapine to see if this might be helpful. There was no evidence of acute stroke. Unfortunately, I suspect that this may be progression of his Parkinson's disease. It sounds like you are on the right track with a physician with whom you are currently working including having help available at home. He was able to ambulate to the bathroom and back while in the emergency department with the help of a walker. I do believe at this point discharge home is safe. If you find that you are getting worse or develop any new symptoms, please feel free to return to the emergency department for further evaluation. Prescriptions: No Action simvastatin 20 MG tablet 10 mg PO QDAY Qty: 0 nitroglycerin [Nitrostat] 0.4 MG tablet, sublingual 0.4 mg Sublingual PRN Qty: 0 carbidopa-levodopa 25 MG/100 MG tablet 1 tab PO BID Qty: 0 tramadol 50 MG tablet 50 mg PO QHS Qty: 15 0RF albuterol sulfate 90 mcg/actuation HFA aerosol inhaler 2 puff inhalation Q4-6H PRN (Reason: shortness of breath or wheezing) Qty: 8.5 0RF benzonatate 100 mg capsule 100 mg PO Q6H PRN (Reason: cough) Qty: 14 0RF Referrals: Sudhakar Mcdonald MD [Primary Care Provider] - Stand Alone Forms: Patient Portal/API
[2023-12-07 11:36] LABS: Osmolality, Serum 290 mOsmol/kg (280-301)
== END 2023-12-06 02:48 | disposition home or self-care (01) ==
PROVIDERS: Emergency Provider Emergency Medicine; Family Provider Family Medicine; PCP Family Medicine
DX: G20.A2 Parkinson's disease without dyskinesia, with fluctuations (principal); I45.10 Unspecified right bundle-branch block; R53.1 Weakness; R41.0 Disorientation, unspecified; R44.3 Hallucinations, unspecified
CPT/HCPCS: 36415; 80048; 80053; 80305; 80320; 80329; 81001; 81003; 83605; 83930; 84146; 84443; 85025; 85610; 85730; 87086; 93005; 96360; 96361; 99284; G0480

== ENCOUNTER 2024-01-15 11:13 | Outpatient (RCR) | payer MEDICARE, OTHER, SELFPAY ==
--- NOTE | 2024-01-15 14:01 | PT.OIE ---
Current Diagnoses Parkinson's disease without dyskinesia, without mention of fluctuations (01/15/24) Visit Care Team Role Provider Type Sudhakar Mcdonald MD Attending Provider Non-Staff Family Provider Primary Care Provider Referring Provider Specialty: Family Practice Address: [address] [place] [address], [address], [place], [address] Email: Physical Therapy Initial Evaluation PT-OP-A Visit Information Start: 01/10/24 13:09 Freq: Status: Active Protocol: Document 01/15/24 11:27 MB (Rec: 01/15/24 11:38 MB [id number]) Out-Patient Physical Therapy Visit Information Visit Information Visit Type Re-Evaluation Visit Note Medicare Visit Start Time 11:27 Visit Stop Time 12:07 Visit Number 1 Number of DEVELOPMENT EDUCATOR Visits 0 Evaluation Information Evaluation Date 01/15/24 PT-OP-B Current Condition Start: 01/10/24 13:09 Freq: Status: Active Protocol: Document 01/15/24 11:27 MB (Rec: 01/15/24 11:38 MB [id number]) Current Condition History of Current Condition Onset Date Mid November Current Complaints Decreased mobility, acute History of Current Condition , Shauna, provides most history. In November, pt suddenly had a decline in mobility. Previously, he was walking I, went to community PD support group, [employer] and [employer] classes. Pt has a history of falls and orthostasis. has had to hire in daily assistance for Dem[employer] and he requires assistance for all ADLs. He has had a couple of falls recently and injured his right medial elbow. There is a bruise and softened injury area there. Prior Treatments and Tests [employer] BIG and community class Treatment Goals Patient/Caregiver Goals To figure out how to best help pt and prevent further decline PT-OP-C Subjective Start: 01/10/24 13:09 Freq: Status: Active Protocol: Document 01/15/24 11:27 MB (Rec: 01/15/24 14:00 MB [id number]) OP-PT Subjective Patient Comments Patient Comments reports most history as above PT-OP-D Balance Start: 01/10/24 13:09 Freq: Status: Active Protocol: Document 01/15/24 11:27 MB (Rec: 01/15/24 14:00 MB [id number]) OP-PT Balance Assessment Sitting Balance Static Sitting Balance Ability Good Dynamic Sitting Balance Ability Fair Standing Balance Static Standing Balance Ability Fair Dynamic Standing Balance Ability Poor Device Used RW Standing Balance Comments Min A at least for standing balance and two person nearby with checking orthostatics Balance Tests Other Other Balance Tests Performed Pt requires min A at least with RW for static standing balance, posterior lean Cervantes Fall Scale Copyright Permission PT-OP-G Mobility & Gait Start: 01/10/24 13:09 Freq: Status: Active Protocol: Document 01/15/24 11:27 MB (Rec: 01/15/24 14:00 [id number]) OP Mobility Evaluation Bed Mobility Rolling Max A Supine to and from Sit Max A Transfers Sit to Stand Mod A Bed to Chair Transfers Mod A and VCs SPT and also with RW Wheelchair Management Assessment Details Transport chair today and dependent assistance in chair OP Gait Assessment Gait Gait Assistance Required: Minimum Assistance,Moderate Assistance Distance (Feet) 5 Able to Maintain Weight Bearing Status Yes During Gait Assistive Devices Assistive Device Gait Belt,Front Wheeled Walker Orthotic/Prosthetic Devices or Brace: No Gait Deviations General Gait Pattern Festinating,Flexed Trunk,Step- to Gait Factors Limiting Gait Function Factors Limiting Gait Function Difficulty Following Directions,Incoordination, Limited Range of Motion,Poor Balance,Poor Safety Awareness Comments Gait Comments Posterior lean, festinating gait, cues for BIG stepping and pt performs better, side stepping is difficult for pt PT-OP-H Neuro Start: 01/10/24 13:09 Freq: Status: Active Protocol: Document 01/15/24 11:27 MB (Rec: 01/15/24 14:00 [id number]) Coordination Evaluation Comments Coordination Comments Poor gross coordination and trouble with use of LUE especially and appears to have some visual challenges with reaching and use left hand on walker and grabs second rung of walker Vital Signs Comments Vital Signs Comments Severe orthostatic hypotension with BP and HR in LUE: supine 169/111, 61; standing 100/76, 62; standing 1' 110/64, 67. PT-OP-J Posture/Palpation/Skin Start: 01/10/24 13:09 Freq: Status: Active Protocol: Document 01/15/24 11:27 MB (Rec: 01/15/24 14:00 [id number]) Posture Evaluation Comments Posture Comments Forward posture, rounded shoulders and forward head Skin Assessment Other Assessments Skin Assessment Comments Left elbow with hematoma type injury medially, other areas of ecchymosis PT-OP-Q Treatments Start: 01/10/24 13:09 Freq: Status: Active Protocol: Document 01/15/24 11:27 MB (Rec: 01/15/24 14:00 [id number]) Self-Care/Home Management Treatment Education Patient Education Fall Risk,Safety Other Education Extensive education to pt, , and caregiver about benefits of HH services rather than outpatient services at this time given difficulty of moving pt in and out of car. Other education about benefits of getting a different transport chair for pt, going to [employer], home set-up ideas as far as recliner/lift chair, bars around toilet to reach back to sit, increase non-caffeinated fluid intake and slow transitional movements in setting of orthostatic hypotension, benefits of home assessment to determine any home environment changes that may benefit him PT-OP-T Assessment and Plan Start: 01/10/24 13:09 Freq: Status: Active Protocol: Document 01/15/24 11:27 MB (Rec: 01/15/24 14:00 [id number]) Physical Therapy Assessment Rehab Potential Rehabilitation Potential Poor Evaluation Complexity Number of Personal Factors/Comorbidities 1-2 Number of Body Systems Impaired 3 Clinical Presentation at Evaluation Unstable Impairments Impairments Activity Tolerance,Balance, Coordination,Functional Activities,Functional Mobility ,Gait,Posture,ROM,Strength, Transfers Other Concerns Fall Risk High Assessment Summary Assessment Pt is an 78 y/o male 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 Pt stopped attending class over a month ago and his reports sudden decline in mobility without known illness. Pt was previously I, though he did have falls, and he attended both community [employer] and [employer] classes. Since November, reports that pt cannot mobilize without assistance and she has hired in-home help . Pt arrives in transport chair with and caregiver. He requires min to mod A for transfers and gait and max A for bed mobility. He is severely orthostatic. Given pt 's current mobility level requirements, feel that HHPT is a better option for him and . Recommend HHPT, HHOT, caregiver assessments. Thank you for this referral. Physical Therapy Plan Frequency and Duration Frequency of Treatment Discharge Duration of treatment (weeks) 0 Plan of Care Start Date 01/15/24 Plan of Care End Date 01/15/24
--- NOTE | 2024-01-15 14:01 | PT.OPPOC ---
Physical, Occupational & Speech Therapy At [facility] Current Diagnoses Parkinson's disease without dyskinesia, without mention of fluctuations (01/15/24) Visit Care Team Role Provider Type Sudhakar Mcdonald MD Attending Provider Non-Staff Family Provider Primary Care Provider Referring Provider Specialty: Family Practice Address: [address] [place] [address], [address], [place], [address] Email: Plan Of Care PT-OP-B Current Condition Start: 01/10/24 13:09 Freq: Status: Active Protocol: Document 01/15/24 11:27 MB (Rec: 01/15/24 11:38 MB [id number]) Current Condition History of Current Condition Onset Date Mid November Current Complaints Decreased mobility, acute History of Current Condition , Shauna, provides most history. In November, pt suddenly had a decline in mobility. Previously, he was walking I, went to community PD support group, [employer] and [employer] classes. Pt has a history of falls and orthostasis. has had to hire in daily assistance for [employer] and he requires assistance for all ADLs. He has had a couple of falls recently and injured his right medial elbow. There is a bruise and softened injury area there. Prior Treatments and Tests [employer] BIG and community class Treatment Goals Patient/Caregiver Goals To figure out how to best help pt and prevent further decline PT-OP-T Assessment and Plan Start: 01/10/24 13:09 Freq: Status: Active Protocol: Document 01/15/24 11:27 MB (Rec: 01/15/24 14:00 MB [id number]) Physical Therapy Assessment Rehab Potential Rehabilitation Potential Poor Evaluation Complexity Number of Personal Factors/Comorbidities 1-2 Number of Body Systems Impaired 3 Clinical Presentation at Evaluation Unstable Impairments Impairments Activity Tolerance,Balance, Coordination,Functional Activities,Functional Mobility ,Gait,Posture,ROM,Strength, Transfers Other Concerns Fall Risk High Assessment Summary Assessment Pt is an 78 y/o male well- 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 Pt stopped attending class over a month ago and his reports sudden decline in mobility without known illness. Pt was previously I, though he did have falls, and he attended both community LOUD and BIG classes. Since November, reports that pt cannot mobilize without assistance and she has hired in-home help . Pt arrives in transport chair with and caregiver. He requires min to mod A for transfers and gait and max A for bed mobility. He is severely orthostatic. Given pt 's current mobility level requirements, feel that HHPT is a better option for him and . Recommend HHPT, HHOT, caregiver assessments. Thank you for this referral. Physical Therapy Plan Frequency and Duration Frequency of Treatment Discharge Duration of treatment (weeks) 0 Plan of Care Start Date 01/15/24 Plan of Care End Date 01/15/24 Plan of Care Dates Plan of Care Start Date 01/15/24 Plan of Care End Date 01/15/24 Electronically Signed by: Meredith Valdez, PT 01/15/24 [id number] If you are in agreement with this Plan of Care, please return a signed and dated copy. I have reviewed this Plan of Care and certify that the skilled therapy services above are required to meet the patient?s needs. Physician Signature Date Printed Name and Credentials Clinical Instructor Signature Printed Name and Credentials
== END 2024-01-16 15:00 | disposition home or self-care (01) ==
LOC: PHYS 11:13
PROVIDERS: Family Provider Family Medicine; PCP Family Medicine; Referring Provider Family Medicine; Visit Provider Family Medicine
DX: G20.A1 Parkinson's disease without dyskinesia, without mention of fluctuations (principal)
CPT/HCPCS: 97161; 97535

== ENCOUNTER 2024-02-27 17:11 | Emergency (ER) | payer MEDICARE, OTHER, SELFPAY ==
[2024-02-27] VITALS (9 sets, daily range): BP systolic 129–187; BP diastolic 73–86; PULSE 65–74; RESP 15–18; TEMP 36.6; O2SAT 89–100; BMI 25.1
--- NOTE | 2024-02-27 18:42 | DI.RAD.S_ITS ---
PROCEDURE: XR ACUTE ABDOMEN SERIES INDICATIONS: ?constipation, eval bowel gas pattern TECHNIQUE: One view chest and two views of the abdomen were acquired. COMPARISON: None. FINDINGS: Surgical changes and devices: None. Chest: Lungs are clear. Heart size is normal. No pleural effusions. No pneumoperitoneum. Abdomen: Bowel gas pattern is nonobstructive. Moderate fecal matter throughout the colon is seen. No gross free air. No suspicious calcifications. Visualized solid organ contours appear normal. Bones: No suspicious bony lesions. IMPRESSION: Moderate constipation. No bowel obstruction or gross free air. No acute cardiopulmonary pathology. Dictated by: Mumtaz Duque M.D. on 02/27/2024 at 19:39 Approved by: Mumtaz Duque M.D. on 02/27/2024 at 19:40
--- NOTE | 2024-02-27 19:24 | ED_ITS ---
HPI - Abdominal Pain General Chief Complaint: Abdominal Pain Stated Complaint: constipation Time Seen by Provider: 02/27/24 18:41 Source: patient Mode of arrival: Ambulatory History of Present Illness HPI narrative: 78-year-old male with history of parkinsonism and problems with constipation, last bowel movement 2 days ago, has been having hard stools, no black or red stools, occasional loose stools. Patient and concerned that he might be constipated, versus having some other problem. No nausea or vomiting. No fevers or chills. No painful urination or frequency of urination. He denies chest pain or shortness of breath trouble breathing. No change in medications or change in doses of any medications. No specific [id number] medications have been tried thus far. Related Data Home Medications Medication Instructions Recorded Confirmed nitroglycerin 0.4 mg sublingual 0.4 mg sublingual PRN ##0 08/22/10 tablet (Nitrostat) simvastatin 20 mg tablet 10 mg PO QDAY ##0 08/22/10 carbidopa 25 mg-levodopa 100 mg 1 tab PO BID ##0 08/09/16 tablet Previous Rx's Medication Instructions Recorded tramadol 50 mg tablet 50 mg PO QHS #15 tabs 08/09/16 albuterol sulfate 90 mcg/actuation 2 puff inhalation Q4-6H PRN 04/21/23 aerosol inhaler shortness of breath or wheezing #8.5 grams benzonatate 100 mg capsule 100 mg PO Q6H PRN cough #14 caps 04/21/23 lactulose 20 gram/30 mL oral 20 g (30 mL) PO BID #600 mL 02/27/24 solution Allergies Allergy/AdvReac Type Severity Reaction Status Date / Time No Known Drug Allergies Allergy Verified 02/27/24 17:29 Review of Systems Review of Systems Narrative: See HPI Patient History Social History Smoking Status: Never smoker Smoking Status: Never smoker Exam Narrative Exam Narrative: GENERAL: Well-developed patient, in mild distress. HEAD: Atraumatic. Normocephalic. EYES: Pupils equal round and reactive. Extraocular motions intact. No scleral icterus. No injection or drainage. ENT: Nose without bleeding, purulent drainage. Throat without erythema, tonsillar hypertrophy or exudate. Airway patent. NECK: Trachea midline. Non tender CARDIOVASCULAR: Regular rate and rhythm without murmurs, gallops, or rubs. RESPIRATORY: Clear to auscultation. Breath sounds equal bilaterally. No wheezes, rales, or rhonchi. GASTROINTESTINAL: Abdomen soft, non-tender, nondistended. EXTREMITIES: No edema or joint tenderness. BACK: Nontender without deformity or crepitance. No flank tenderness. NEURO: AOx3. Motor functions grossly nonfocal SKIN: No rash or erythema of visible areas Initial Vital Signs Initial Vital Signs: Vital Signs Temperature 97.9 F 02/27/24 17:29 Pulse Rate 74 02/27/24 17:29 Respiratory Rate 15 02/27/24 17:29 Blood Pressure 134/76 02/27/24 17:29 Pulse Oximetry 100 02/27/24 17:29 Oxygen Delivery Method Room Air 02/27/24 17:29 Course Orders Ordered: ED Orders 02/27/24 18:42 XR acute abdomen series Stat 02/27/24 19:27 Complete Blood Count AUTO DIFF Stat Comprehensive Metabolic Panel Stat Lipase Stat Discontinued Medications Sodium Chloride (Normal Saline 0.9%) 1,000 mls @ 1,000 mls/hr IV BOLUS ONE Stop: 02/27/24 21:08 Last Infusion: 02/27/24 21:36 Dose: Infused Documented By: Admin: 02/27/24 20:43 Dose: 1,000 mls/hr Documented By: MOISÉS Lactulose (Lactulose 20 Gm/30 Ml Solution) 20 gm PO NOW ONE Stop: 02/27/24 20:22 Last Admin: 02/27/24 20:44 Dose: 20 gm Documented By: MOISÉS Vital Signs Vital signs: Vital Signs - 8 hr 02/27/24 18:36 02/27/24 18:37 02/27/24 18:37 Pulse Rate 69 66 Respiratory Rate Blood Pressure 187/86 H Pulse Oximetry 99 99 02/27/24 19:00 02/27/24 19:00 02/27/24 19:19 Pulse Rate 72 68 Respiratory Rate Blood Pressure 151/80 H Pulse Oximetry 99 98 02/27/24 19:19 02/27/24 19:30 02/27/24 19:30 Pulse Rate 67 Respiratory Rate 18 Blood Pressure 177/83 H 169/84 H Pulse Oximetry 99 02/27/24 20:00 02/27/24 20:00 02/27/24 21:29 Pulse Rate 65 Respiratory Rate Blood Pressure 167/81 H Pulse Oximetry 99 89 L 02/27/24 21:30 02/27/24 21:30 Pulse Rate 72 Respiratory Rate Blood Pressure 129/73 Pulse Oximetry 100 MDM - Abdominal Pain Lab Data Attestation: I reviewed the patient's lab results. Lab results narrative: White blood cell count 16970, hemoglobin 12.7, platelets normal. BUN 33 with creatinine 1.58, otherwise basic metabolic panel normal. Liver functions and lipase normal. 02/27/24 19:27 02/27/24 19:27 Labs: Lab Results 02/27/24 Range/Units 19:27 WBC 11.7 H (4.5-11.0) X10^3/uL RBC 4.20 L (4.5-5.9) X10^6/uL Hgb 12.7 L (13.5-17.5) g/dL Hct 38.6 L (41-53) % MCV 91.9 (80-100) fL MCH 30.3 (26-34) PG MCHC 33.0 (30-36) % RDW 13.3 (11.6-14.8) % Plt Count 227 (150-400) X10^3/uL Neut % (Auto) 88.3 H (50-75) % Lymph % (Auto) 6.1 L (25-40) % Chambers % (Auto) 5.0 (3-14) % Eos % (Auto) 0.2 L (2-4) % Baso % (Auto) 0.4 (0-2) % Neut # (Auto) 34547 H (4957-7866) /uL Lymph # (Auto) 700 L (3515-6039) /uL Chambers # (Auto) 600 (0-900) /uL Eos # (Auto) 0 (0-450) /uL Baso # (Auto) 0 (0-100) /uL Sodium 138 (137-145) mmol/L Potassium 4.6 (3.4-5.1) mmol/L Chloride 103 (98-107) mmol/L Carbon Dioxide 31 (22-32) mmol/L BUN 33 H (9-20) mg/dL Creatinine 1.58 H (0.66-1.25) mg/dL Estimated GFR 44 L (>60) mL/min BUN/Creatinine Ratio 20.9 (6-22) Glucose 108 (80-110) mg/dL Calcium 9.3 (8.4-10.2) mg/dL Total Bilirubin 0.9 (0.2-1.3) mg/dL AST 25 (17-59) IU/L ALT 9 (<50) IU/L Alkaline Phosphatase 70 (38-126) U/L Total Protein 7.7 (6.3-8.2) g/dL Albumin 4.2 (3.5-5.0) g/dL Globulin 3.5 (1.7-4.1) g/dL Albumin/Globulin Ratio 1.2 (1.0-2.8) Lipase 47 (23-300) U/L Imaging Data Abdominal x-ray series: Radiologist's Impression: [address] [address] XRay Report Signed Patient: Jeffry Jackson MR#: [id number] : 1945 Acct:[id number] Age/Sex: 78 / M Date of Service: 02/27/24 Loc: ED Accession Number: [id number] Procedure: XR acute abdomen series Ordering Provider: Dxa Ferguson MD PROCEDURE: XR ACUTE ABDOMEN SERIES INDICATIONS: ?constipation, eval bowel gas pattern TECHNIQUE: One view chest and two views of the abdomen were acquired. COMPARISON: None. FINDINGS: Surgical changes and devices: None. Chest: Lungs are clear. Heart size is normal. No pleural effusions. No pneumoperitoneum. Abdomen: Bowel gas pattern is nonobstructive. Moderate fecal matter throughout the colon is seen. No gross free air. No suspicious calcifications. Visualized solid organ contours appear normal. Bones: No suspicious bony lesions. IMPRESSION: Moderate constipation. No bowel obstruction or gross free air. No acute cardiopulmonary pathology. Dictated by: Mumtaz Duque M.D. on 02/27/2024 at 19:39 Approved by: Mumtaz Duque M.D. on 02/27/2024 at 19:40 [facility] Narrative Medical decision making narrative: 78-year-old with history of Parkinson's and constipation problems having hard stools and crampy abdominal pain occasional loose stools, concern for possible constipation, concern for possible dehydration. Afebrile, sirs screen negative. Abdomen nondistended nontender. Screening labs sent. Screening x-ray abdominal series requested at triage. Screening labs showed creatinine 1.5 previously normal, consider possible dehydration, IV fluid bolus. X-ray series showed moderate constipation, no obstructive pattern, see radiology report. Patient/ informed of results thus far, we discussed CT abdomen and pelvis imaging, we will hold advanced imaging for now. Trial of IV fluids for suspected possible dehydration, hard stools noted, 1st dose lactulose. Trial of home lactulose anticipated. We discussed enema, declined here for now. Discharged home with , follow up PCP advised early next week. Consider recheck creatinine blood draw function at that time. Return precautions discussed Discharge Plan Departure Patient Disposition: Home Clinical Impression: Constipation, History of Parkinson disease, ESTHER (acute kidney injury), Dehydration Activity Restrictions/Additional Instructions: Hard stools, history of constipation, history of parkinsonism, no rectal bleeding by history. Afebrile on triage. Abdomen exam benign. Screening labs showed creatinine slight elevation 1.5 previously normal, possibly due to dehydration based on history, suspected dehydration. Fluid bolus for now. Recheck creatinine follow up. Trial of lactulose to help loosen the stools, 1st dose in the emergency department, further doses sent to your pharmacy for the next few days to use. Screening x-ray series suggestive of moderate constipation load, but no bowel obstruction pattern at this time. We discussed advanced imaging CT abdomen and pelvis, we will hold for now. Encouraged to try to stay hydrated with supplemental electrolyte fluids such as Gatorade/Powerade as the lactulose likely will induced more diarrhea and loose stooling. Recheck symptoms with your regular doctor early next week advised. Consider recheck of the kidney function at that time. Return to this/nearest emergency department for any change worsening symptoms or any concerns prior We were considering bladder scan to make sure that your bladder was emptying normally, to make sure this is not related to your elevated creatinine, but you declined a bladder scan for now. Consider repeat kidney function blood test creatinine check in follow up. Prescriptions: New lactulose 20 gram/30 mL solution 20 g PO BID Qty: 600 0RF No Action simvastatin 20 MG tablet 10 mg PO QDAY Qty: 0 nitroglycerin [Nitrostat] 0.4 MG tablet, sublingual 0.4 mg Sublingual PRN Qty: 0 carbidopa-levodopa 25 MG/100 MG tablet 1 tab PO BID Qty: 0 tramadol 50 MG tablet 50 mg PO QHS Qty: 15 0RF albuterol sulfate 90 mcg/actuation HFA aerosol inhaler 2 puff inhalation Q4-6H PRN (Reason: shortness of breath or wheezing) Qty: 8.5 0RF benzonatate 100 mg capsule 100 mg PO Q6H PRN (Reason: cough) Qty: 14 0RF Referrals: Sudhakar Mcdonald MD [Primary Care Provider] - Stand Alone Forms: Patient Portal/API/Survey
[2024-02-27 19:34] LABS: Add Manual Diff / Slide Review NO; Basophils Absolute Auto 0 /uL (0-100); Basophils Percent Auto 0.4 % (0-2); Eosinophils Absolute Auto 0 /uL (0-450); Eosinophils Percent Auto 0.2 % (2-4); Hematocrit 38.6 % (41-53); Hemoglobin 12.7 g/dL (13.5-17.5); Lymphocytes Absolute Auto 700 /uL (1100-4500); Lymphocytes Percent Auto 6.1 % (25-40); Mean Corpuscular Hemoglobin 30.3 PG (26-34); Mean Corpuscular Volume 91.9 fL (80-100); Monocytes Absolute Auto 600 /uL (0-900); Neutrophils Absolute Auto 10300 /uL (1500-7000); Neutrophils Percent Auto 88.3 % (50-75); Platelet Count 227 X10^3/uL (150-400); Red Cell Distribution Width 13.3 % (11.6-14.8); White Blood Cell Count 11.7 X10^3/uL (4.5-11.0)
[2024-02-27 19:46] LABS: Alanine Aminotransferase 9 IU/L (<50); Albumin 4.2 g/dL (3.5-5.0); Albumin Globulin Ratio 1.2 (1.0-2.8); Alkaline Phosphatase 70 U/L (38-126); Aspartate Aminotransferase 25 IU/L (17-59); BUN Creatinine Ratio 20.9 (6-22); Bilirubin Total 0.9 mg/dL (0.2-1.3); Blood Urea Nitrogen 33 mg/dL (9-20); Calcium 9.3 mg/dL (8.4-10.2); Carbon Dioxide 31 mmol/L (22-32); Chloride 103 mmol/L (98-107); Estimated Glomerular Filt Rate 44 mL/min (>60); Globulin 3.5 g/dL (1.7-4.1); Glucose 108 mg/dL (80-110); HEMOLYSIS < 15 (0-50); Lipase 47 U/L (23-300); Potassium 4.6 mmol/L (3.4-5.1); Sodium 138 mmol/L (137-145); Total Protein 7.7 g/dL (6.3-8.2)
[2024-02-27] MEDS: SODIUM CHLORIDE 0.9% 1,000 ML 1000 ML IV (20:43)
[2024-02-27] MEDS: LACTULOSE 20 GM/30 ML SOLUTION PO (20:44)
== END 2024-02-27 21:37 | disposition home or self-care (01) ==
PROVIDERS: Emergency Provider Emergency Medicine; Family Provider Family Medicine; PCP Family Medicine
DX: K59.00 Constipation, unspecified (principal); G20.A1 Parkinson's disease without dyskinesia, without mention of fluctuations; N17.9 Acute kidney failure, unspecified; E86.0 Dehydration
CPT/HCPCS: 74022; 80053; 83690; 85025; 96360; 99284

== ENCOUNTER → 2024-04-11 14:17 | Outpatient (CLI) | payer MEDICARE, OTHER, SELFPAY | PROVIDERS: Family Provider Family Medicine; PCP Family Medicine; Visit Provider Physician Assistant Surgical | DX: R10.9 Unspecified abdominal pain (principal) | CPT/HCPCS: 87086 ==

== ENCOUNTER → 2024-04-17 15:11 | Outpatient (CLI) | payer MEDICARE, OTHER, SELFPAY ==
[2024-04-17 15:48] LABS: Appearance Urine UA CLEAR; Bilirubin Urine UA NEGATIVE (NEGATIVE); Color Urine UA YELLOW; Glucose Urine UA NEGATIVE (Negative); Ketones Urine UA TRACE (NEGATIVE); Leukocyte Esterase Urine UA NEGATIVE (NEGATIVE); Nitrite Urine UA NEGATIVE (Negative); Occult Blood Urine UA NEGATIVE (Negative); Protein Urine UA NEGATIVE (Negative); Specific Gravity Urine UA 1.025 (1.000-1.035); Urobilinogen Urine UA 0.2 E.U./dL (0.2); pH Urine UA 5.5 (4.5-8.0)
[2024-04-17 16:05] LABS: Bacteria Urine None Seen; Culture Indicated Urine Cult Not Indicated; RBC Urine None Seen (0-5/HPF); Squamous Epithelial Cell Urine None Seen (0-5/HPF); Urine Volume 10mL (spun); WBC Urine None Seen (0-5/HPF)
== END ==
LOC: LAB 15:15
PROVIDERS: Family Provider Family Medicine; PCP Family Medicine; Referring Provider Family Medicine; Visit Provider Family Medicine
DX: R30.0 Dysuria (principal)
CPT/HCPCS: 81001